=== PATIENT | male | born 1950 | race Caucasian/White ===

== ENCOUNTER 2022-06-23 07:22 | Inpatient (IN) | payer MEDICARE, SELFPAY ==
[2022-06-23] VITALS (15 sets, daily range): BP systolic 96–202; BP diastolic 38–134; PULSE 75–90; RESP 13–18; TEMP 36.4–36.8; O2SAT 95–99; BMI 32.3
--- NOTE | ~2022-06-23 | CT_ITS ---
EXAMINATION: CT HEAD WITHOUT CONTRAST CLINICAL INFORMATION: Pain after falling COMPARISON: None TECHNIQUE: Contiguous axial imaging was performed from the skull base to vertex without intravenous administration of contrast. This CT examination was performed using dose optimization techniques as appropriate, variously including the following: *Automated exposure control *Adjustment of mA and/or kV according to patient size (this includes techniques or standardized protocols for targeted exams where dose is matched to indication/reason for exam; i.e. extremities or head) *Use of iterative reconstruction technique DLP: 752 mGy-cm FINDINGS: No intra or extra-axial fluid collection or hemorrhage, mass or mass effect. Sulci and ventricles are within normal limits. Punctate calcifications in the basal ganglia noted. Calvarium intact. Lobular mucoperiosteal thickening observed within the sphenoid sinus. CT/CT head/brain wo IV con IMPRESSION: No acute intracranial pathology.
--- NOTE | ~2022-06-23 | CT_ITS ---
EXAMINATION: CT CERVICAL SPINE WITHOUT CONTRAST CLINICAL INFORMATION: Pain after falling emergency evaluation COMPARISON: None TECHNIQUE: Thin section axial imaging with sagittal and coronal reformats. This CT examination was performed using dose optimization techniques as appropriate, variously including the following: *Automated exposure control *Adjustment of mA and/or kV according to patient size (this includes techniques or standardized protocols for targeted exams where dose is matched to indication/reason for exam; i.e. extremities or head) *Use of iterative reconstruction technique DLP: 470 mGy-cm FINDINGS: There is advanced degenerative change noted C6-C7 with anterior spurring but no fracture or destructive process. No encroachment on the spinal canal. CT/CT cervical spine wo IV con IMPRESSION: Degenerative change noted. No fracture.
--- NOTE | 2022-06-23 08:44 | ECG_ITS ---
Test Reason : fall Blood Pressure : / mmHG Vent. Rate : 082 BPM Atrial Rate : 082 BPM P-R Int : 182 ms QRS Dur : 088 ms QT Int : 386 ms P-R-T Axes : -29 053 151 degrees QTc Int : 450 ms Atrial-paced rhythm ST & T wave abnormality, consider anterolateral ischemia Abnormal ECG No previous ECGs available Referred By: Filiberto Larry Electronically Signed By:Louis Meade
[2022-06-23] MEDS: 0.9 % Sodium Chloride 500 ML 999 ML IV (09:18)
[2022-06-23 09:19] LABS: MANUAL DIFF FLAG NO
[2022-06-23 09:21] LABS: Basophils Absolute Auto 0.1 X10*3/uL (0.0-0.2); Basophils Percent Auto 0.7 % (0-2); Eosinophils Absolute Auto 0.4 X10*3/uL (0.0-0.4); Eosinophils Percent Auto 3.9 % (0-4); Hematocrit 43.3 % (42.0-52.0); Hemoglobin 16.1 g/dl (14.0-18.0); Imm Gran Abs Auto 0.02 X10*3/uL (0.00-0.03); Imm Gran Pct Auto 0.2 % (0.0-0.4); Lymphocytes Absolute Auto 1.6 X10*3/uL (1.2-4.9); Lymphocytes Percent Auto 16.4 % (20-40); Mean Corpuscular HGB Conc 37.2 g/dl (31.0-36.0); Mean Corpuscular Hemoglobin 31.6 pg (27.0-33.0); Mean Corpuscular Volume 85.1 fL (80.0-98.0); Mean Platelet Volume 10.5 fL (9.4-12.4); Monocytes Absolute Auto 0.7 X10*3/uL (0.1-1.2); Neutrophils Absolute Auto 7.1 x10*3/uL (2.0-8.3); Neutrophils Percent Auto 71.8 % (45-73); Platelet Count 193 X10*3/uL (160-400); Red Blood Count 5.09 X10*6/uL (4.60-5.80); Red Cell Distribution Width 11.8 % (11.0-16.0); White Blood Count 9.9 X10*3/uL (4.8-10.8)
[2022-06-23 09:27] LABS: Prothrombin Time 11.1 SEC (10.0-13.1)
[2022-06-23 09:58] LABS: Influenza A PCR NEGATIVE (Negative); Influenza B PCR NEGATIVE (Negative); Resp Syncy Virus RNA Qual PCR NEGATIVE (Negative); SARS COV2 PCR INHOUSE NEGATIVE (Negative)
[2022-06-23 11:04] LABS: Alanine Aminotransferase 20 U/L (0-40); Albumin Level 4.2 g/dL (3.5-5.0); Alkaline Phosphatase 86 U/L (39-117); Anion Gap 12 (12-20); Aspartate Amino Transferase 20 U/L (5-37); Blood Urea Nitrogen 27 mg/dL (9-16); Calcium 9.2 mg/dL (8.4-10.2); Carbon Dioxide 34 mmol/L (22-29); Chloride 100 mmol/L (96-108); Creatinine Clr Calc Pharmacy 57.9; Estimated Glomerular Filt Rate 45; Glucose Random 159 mg/dL (60-115); Sodium 143 mmol/L (135-145); Total Protein 7.2 g/dL (6.5-8.0)
--- NOTE | 2022-06-23 11:09 | ED.GENADULT ---
HPI - General Adult General Chief complaint: Fall Stated complaint: WEAK,DIZZY FALL FROM TOILET,HIT HEAD,REFUSED C-COL Time Seen by Provider: 06/23/22 08:26 Source: patient Mode of arrival: ambulatory Limitations: no limitations History of Present Illness HPI narrative: 72-year-old male with past medical history of hypertension and diabetes presents to ED for fall/syncopal episodes. Patient states was using the bathroom got up and fell to the ground and lost consciousness. Patient on any blood thinners. Patient states he was seen at [facility] twice for same issue in the past week and was diagnosed with orthostatic hypotension. Patient states he is eating and drinking. Patient states she has follow-up with Cardiology Dr. Savage. Patient presently asymptomatic. Patient denies having any dizziness, chest pain, shortness of breath, abdominal pain before falling passing out. Related Data Home Medications Medication Instructions Recorded Confirmed acetaminophen 325 mg tablet 650 mg PO Q6H PRN Pain 06/23/22 06/23/22 (Tylenol) albuterol sulfate 90 mcg/actuation 2 puff inhalation Q4H PRN Wheezing 06/23/22 06/23/22 aerosol inhaler aspirin 81 mg tablet,delayed 81 mg PO DAILY 06/23/22 06/23/22 release fludrocortisone 0.1 mg tablet 1 tab PO BID 06/23/22 06/23/22 fluticasone 100 mcg-salmeterol 50 1 ea inhalation BID 06/23/22 06/23/22 mcg/dose blistr powdr for inhalation (Advair Diskus) gabapentin 100 mg capsule 2 cap PO BEDTIME 06/23/22 06/23/22 glipizide 10 mg tablet 1 tab PO DAILY 06/23/22 06/23/22 ibuprofen 200 mg tablet 400 mg PO Q8H PRN Pain 06/23/22 06/23/22 losartan 50 mg tablet 50 mg PO BEDTIME 06/23/22 06/23/22 midodrine 2.5 mg tablet 1 tab PO TID@0800,1200,1600 06/23/22 06/23/22 polyethylene glycol 3350 17 gram 17 g PO DAILY 06/23/22 06/23/22 oral powder packet (Miralax) rosuvastatin 20 mg tablet 1 tab PO BEDTIME 06/23/22 06/23/22 Allergies Allergy/AdvReac Type Severity Reaction Status Date / Time amlodipine AdvReac Cough Verified 06/23/22 08:44 Review of Systems Review of Systems: Syncope/fall Yes all other systems are reviewed and are negative [facility] Past Medical History Medical History (Updated 06/23/22 @ 17:52 by BRADLEY Lau) BPH (benign prostatic hyperplasia) Chronic back pain COPD (chronic obstructive pulmonary disease) Diabetes mellitus type 2 in nonobese Hyperlipidemia Hypertension Orthostatic hypotension Pacemaker Sciatica Vasovagal syncope Surgical History (Updated 06/23/22 @ 16:01 by Meredith Torres NP) History of total left hip replacement S/P placement of cardiac pacemaker S/P surgery on nasal septum Family History Family History (Updated 06/23/22 @ 16:02 by Meredith Torres NP) Father Pacemaker Social History Social History (Updated 06/23/22 @ 16:02 by Meredith Torres NP) Household Members: Spouse Alcohol intake: former Patient Tobacco Use Status: Former Tobacco user Cigarette Packs Per Day: 2 Years Smoked: 15 Packs Per Year: 30 Smoked in Last 30 Days: No Use of substances other than those prescribed or required for medical reasons: No Advance Directives: Yes Advance Directives Information Provided: Yes Advance Directives on File: No Physical Exam ED Vital Signs: Vital Signs - 24 hr 06/23/22 07:34 06/23/22 09:50 06/23/22 10:04 Temperature 97.6 F Pulse Rate 81 78 84 Respiratory Rate 16 16 Blood Pressure 149/83 H 186/89 H 140/109 H Pulse Oximetry 96 95 Oxygen Delivery Method Room Air Room Air 06/23/22 09:51 06/23/22 09:54 06/23/22 12:32 Temperature Pulse Rate 81 84 75 Respiratory Rate 13 Blood Pressure 138/76 140/109 H 190/102 H Pulse Oximetry 99 Oxygen Delivery Method Room Air 06/23/22 14:52 06/23/22 14:53 06/23/22 14:55 Temperature Pulse Rate 78 75 78 Respiratory Rate Blood Pressure 202/98 H 157/87 H 96/38 L Pulse Oximetry Oxygen Delivery Method BMI result Body Mass Index 32.3 Const General: cooperative, healthy appearing, comfortable, no acute distress, well developed, alert and awake Orientation/consciousness: oriented to person, oriented to place, oriented to time and patient oriented x3 HENMT Head: Yes normal to inspection, Yes No palpable skull fracture present, Yes normocephalic, Yes atraumatic and No abrasion Eyes General: appearance normal, both eyes and all related structures Neck Neck: Yes normal visual inspection, Yes full ROM, Yes no lymphadenopathy, Yes no meningeal signs, Yes trachea midline, Yes supple, No anterior neck swelling and No tender Chest Chest palpation & inspection: normal inspection of the chest and normal palpation of entire chest wall Resp Effort & Inspection: normal respiratory effort and able to speak in complete sentences Auscultation: clear to auscultation bilaterally Cardio Jugular venous distension: no JVD Heart sounds: S1 normal heart sound present and S2 normal heart sound present GI Inspection: Yes normal to inspection and No abdominal wall ecchymosis Palpation (GI): Soft to palpation, not firm, nontender, no guarding and not rigid General: No CVA tenderness and Yes no CVA tenderness Back/Spine/Pelvis Back: no CVA tenderness, No CVA tenderness and No back tenderness Skin General skin exam: no rashes or lesions noted and elasticity normal Neuro General: oriented to person, oriented to place, oriented to time, patient oriented x3, gait normal, tone normal, no meningeal signs, no focal motor deficits and CN's II-XI intact bilaterally Extrem Other: Bilateral lower extremity negative for swelling, pitting edema, calf tenderness. General: Yes normal to inspection and Yes full ROM Psych Appearance: grossly normal, well kempt and not disheveled Course Course Course Narrative: EKG, labs, fluids, orthostatics vital signs, imaging of head ordered. Patient presently asymptomatic. does not feel safe for the patient being discharged home due to multiple episodes of syncope. Reevaluation(s) Reevaluation #1: Patient positive orthostatic, ALCIDES, and hypokalemia. Patient denies taking blood pressure this morning which cause elevated blood pressure. Negative for any neuro deficits. Patient already on midodrine. Must speak with hospitalist for admission for syncope. Pat King notes were reviewed. Time: 14:28 Reevaluation #2: Patient accepted for admission for syncope due to orthostatic hypertension. EKG atrial paced rhythm. Ventricular rate 82. Peer interval 182. QRS 88. QTC 450. Negative STEMI Time: 17:51 Medications Administered Generic Name Dose Route Start Last Admin Trade Name Freq PRN Reason Stop Dose Admin Heparin Sodium (Porcine) 5,000 unit 06/23/22 16:30 06/23/22 16:31 Heparin Sodium,Porcine 5,000 Unit/Ml Vial SUBCUT 5,000 unit Q12H TASIA Administration Sodium Chloride 1,000 mls @ 100 mls/hr 06/23/22 16:30 06/23/22 16:32 Ns IVCONT 100 mls/hr .Q10H TASIA Administration Discontinued Medications Generic Name Dose Route Start Last Admin Trade Name Freq PRN Reason Stop Dose Admin Sodium Chloride 500 mls @ 999 mls/hr 06/23/22 08:45 06/23/22 12:38 Ns IV 06/23/22 09:15 Infused .Q31M TASIA Infusion Sodium Chloride 1,000 mls @ 999 mls/hr 06/23/22 11:08 06/23/22 12:38 Ns IV 06/23/22 12:08 Infused .Q1H1M STA Infusion Potassium Chloride 40 meq 06/23/22 12:31 06/23/22 12:43 Potassium Chloride Packet 20 Meq Packet PO 06/23/22 12:32 40 meq ONCE ONE Administration Potassium Chloride 40 meq 06/23/22 12:33 06/23/22 12:43 Potassium Chloride Packet 20 Meq Packet PO 06/23/22 12:34 40 meq ONCE ONE Administration Medical Decision Making Lab Data Result Diagrams: 06/23/22 09:12 06/23/22 10:02 Labs: Lab Results 06/23/22 06/23/22 06/23/22 Range/Units 09:12 09:12 09:12 WBC 9.9 (4.8-10.8) X10*3/uL RBC 5.09 (4.60-5.80) X10*6/uL Hgb 16.1 (14.0-18.0) g/dl Hct 43.3 (42.0-52.0) % MCV 85.1 (80.0-98.0) fL MCH 31.6 (27.0-33.0) pg MCHC 37.2 H (31.0-36.0) g/dl RDW 11.8 (11.0-16.0) % Plt Count 193 (160-400) X10*3/uL MPV 10.5 (9.4-12.4) fL Immature Gran % (Auto) 0.2 (0.0-0.4) % Neut % (Auto) 71.8 (45-73) % Lymph % (Auto) 16.4 L (20-40) % Phelps % (Auto) 7.0 (2-11) % Eos % (Auto) 3.9 (0-4) % Baso % (Auto) 0.7 (0-2) % Lymph # (Auto) 1.6 (1.2-4.9) X10*3/uL Phelps # (Auto) 0.7 (0.1-1.2) X10*3/uL Eos # (Auto) 0.4 (0.0-0.4) X10*3/uL Baso # (Auto) 0.1 (0.0-0.2) X10*3/uL Abs Immat Gran (auto) 0.02 (0.00-0.03) X10*3/uL Absolute Neuts (auto) 7.1 (2.0-8.3) x10*3/uL Absolute Nucleated RBC 0.000 (0.0-0.012) X10*3/uL Nucleated RBC % (auto) 0.0 (0.0-0.2) /100WBC PT 11.1 (10.0-13.1) SEC INR 1.0 (0.9-1.1) APTT 30.0 (26.0-36.4) SEC Sodium (135-145) mmol/L Potassium (3.3-5.1) mmol/L Chloride (96-108) mmol/L Carbon Dioxide (22-29) mmol/L Anion Gap (12-20) BUN (9-16) mg/dL Creatinine (0.5-1.4) mg/dL Estim Creat Clear Calc Estimated GFR Random Glucose (60-115) mg/dL Calcium (8.4-10.2) mg/dL Total Bilirubin (0.0-1.0) mg/dL AST (5-37) U/L ALT (0-40) U/L Alkaline Phosphatase (39-117) U/L Troponin I High Sens 39.8 H (<3.5-35.0) ng/L Total Protein (6.5-8.0) g/dL Albumin (3.5-5.0) g/dL Influenza Type A (PCR) (Negative) Influenza Type B (PCR) (Negative) RSV RNA Qual (PCR) (Negative) SARS-CoV-2 RNA (RT-PCR) (Negative) 06/23/22 06/23/22 06/23/22 Range/Units 09:12 10:02 12:42 WBC (4.8-10.8) X10*3/uL RBC (4.60-5.80) X10*6/uL Hgb (14.0-18.0) g/dl Hct (42.0-52.0) % MCV (80.0-98.0) fL MCH (27.0-33.0) pg MCHC (31.0-36.0) g/dl RDW (11.0-16.0) % Plt Count (160-400) X10*3/uL MPV (9.4-12.4) fL Immature Gran % (Auto) (0.0-0.4) % Neut % (Auto) (45-73) % Lymph % (Auto) (20-40) % Phelps % (Auto) (2-11) % Eos % (Auto) (0-4) % Baso % (Auto) (0-2) % Lymph # (Auto) (1.2-4.9) X10*3/uL Phelps # (Auto) (0.1-1.2) X10*3/uL Eos # (Auto) (0.0-0.4) X10*3/uL Baso # (Auto) (0.0-0.2) X10*3/uL Abs Immat Gran (auto) (0.00-0.03) X10*3/uL Absolute Neuts (auto) (2.0-8.3) x10*3/uL Absolute Nucleated RBC (0.0-0.012) X10*3/uL Nucleated RBC % (auto) (0.0-0.2) /100WBC PT (10.0-13.1) SEC INR (0.9-1.1) APTT (26.0-36.4) SEC Sodium 143 (135-145) mmol/L Potassium 3.0 L (3.3-5.1) mmol/L Chloride 100 (96-108) mmol/L Carbon Dioxide 34 H (22-29) mmol/L Anion Gap 12 (12-20) BUN 27 H (9-16) mg/dL Creatinine 1.55 H (0.5-1.4) mg/dL Estim Creat Clear Calc 57.9 Estimated GFR 45 Random Glucose 159 H (60-115) mg/dL Calcium 9.2 (8.4-10.2) mg/dL Total Bilirubin 1.0 (0.0-1.0) mg/dL AST 20 (5-37) U/L ALT 20 (0-40) U/L Alkaline Phosphatase 86 (39-117) U/L Troponin I High Sens 39.8 H (<3.5-35.0) ng/L Total Protein 7.2 (6.5-8.0) g/dL Albumin 4.2 (3.5-5.0) g/dL Influenza Type A (PCR) NEGATIVE (Negative) Influenza Type B (PCR) NEGATIVE (Negative) RSV RNA Qual (PCR) NEGATIVE (Negative) SARS-CoV-2 RNA (RT-PCR) NEGATIVE (Negative) Discharge Plan Discharge Clinical Impression: Orthostatic hypotension, Syncope Patient Disposition: Admitted As Inpatient
[2022-06-23 11:25] LABS: Troponin-I High Sensitivity 39.8 ng/L (<3.5-35.0)
[2022-06-23] MEDS: 0.9 % Sodium Chloride 1,000 ML 999 ML IV (11:29)
[2022-06-23] MEDS: Potassium Chloride Packet 20 MEQ PACKET 40 MEQ PO ×2 (12:43)
[2022-06-23 13:31] LABS: Troponin-I High Sensitivity 39.8 ng/L (<3.5-35.0)
--- NOTE | 2022-06-23 15:52 | PHA.MEDREC ---
Pharmacy Consult ? Medication Reconciliation Pharmacy has completed the medication reconciliation. Patient and Spouse confirmed medications. Had a list with them.
--- NOTE | 2022-06-23 15:57 | PM.IMHP ---
History of Present Illness Date of Service: 06/23/22 <Meredith Torres NP - Last Filed: 06/23/22 16:34> Chief Complaint: Syncope <Meredith Torres NP - Last Filed: 06/23/22 16:34> 72 year old man presenting with multiple episodes of syncope and orthostatic hypotension. His symptoms started sometime in November of 2021 where he started feeling dizzy. He reports these episodes happening while he is walking, they are sudden there is no prodrome and he just collapses and loses consciousness for seconds. When he awakes from these episodes he is not groggy or confused. He reports that he waits few minutes to get himself back up. He reports he has not had any trauma from the falls. He reports that the episodes have been more frequent and as a matter fact over the last 7-10 days he has had at least 3 episodes of syncope and collapse. He has been treated for orthostatic hypotension by his public services librarian and he had a referral for a bioprocess engineer upcoming. 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 He was last seen at [facility] on 06/16/2022 for the same symptoms and appears that he was discharged from the emergency department. He denies chest pain, shortness breath, nausea, vomiting, diarrhea. No recent illness, no sick contacts. In the ER, he was found to be significantly orthostatic with blood pressures of 202/98, 157/87,96/38. Potassium 3.0, creatinine 1.55 with history of chronic kidney disease, troponin 39.8, negative flu and COVID. He received 1500 mL of normal saline and 80 mEq of potassium. We placed on observation for further management and treatment of syncope and orthostatic hypotension. <Meredith Torres NP - Last Filed: 06/23/22 16:34> Review of Systems Review of Systems: Denies any recent fever chills or decrease in appetite respiratory denies any shortness of breath coverage production cardiovascular denies chest pain gastrointestinal denies any dysphagia abdominal pain nausea vomiting or diarrhea genitourinary denies any dysuria frequency or hematuria musculoskeletal denies any joint pain or swelling neuropsych denies any weakness or seizures all other systems reviewed are negative <Meredith Torres NP - Last Filed: 06/23/22 16:34> [facility] Medical History: Medical History (Updated 06/23/22 @ 17:52 by BRADLEY Lau) BPH (benign prostatic hyperplasia) Chronic back pain COPD (chronic obstructive pulmonary disease) Diabetes mellitus type 2 in nonobese Hyperlipidemia Hypertension Orthostatic hypotension Pacemaker Sciatica Vasovagal syncope <Meredith Torres NP - Last Filed: 06/23/22 16:34> Family History: Family History (Updated 06/23/22 @ 16:02 by Meredith Torres NP) Father Pacemaker <Meredith Torres NP - Last Filed: 06/23/22 16:34> Surgical History: Surgical History (Updated 06/23/22 @ 16:01 by Meredith Torres NP) History of total left hip replacement S/P placement of cardiac pacemaker S/P surgery on nasal septum <Meredith Torres NP - Last Filed: 06/23/22 16:34> Social History: Social History (Updated 06/23/22 @ 16:02 by Meredith Torres NP) Household Members: Spouse Alcohol intake: former Patient Tobacco Use Status: Former Tobacco user Cigarette Packs Per Day: 2 Years Smoked: 15 Packs Per Year: 30 Smoked in Last 30 Days: No Use of substances other than those prescribed or required for medical reasons: No Advance Directives: Yes Advance Directives Information Provided: Yes Advance Directives on File: No <Meredith Torres NP - Last Filed: 06/23/22 16:34> Meds Allergies/Adverse reactions: Allergies Allergy/AdvReac Type Severity Reaction Status Date / Time amlodipine AdvReac Cough Verified 06/23/22 08:44 <Meredith Torres NP - Last Filed: 06/23/22 16:34> Active Medications: Current Medications Pharmacy Consult (Consult Rx Perform Med Rec) 1 each MISCELLANE ONCE PRN PRN Reason: Consult order <Meredith Torres NP - Last Filed: 06/23/22 16:34> Home medications: Home Medications Medication Instructions Recorded Confirmed Last Taken Type acetaminophen 325 mg tablet 650 mg PO Q6H PRN Pain 06/23/22 06/23/22 Unknown History (Tylenol) albuterol sulfate 90 mcg/actuation 2 puff inhalation Q4H PRN Wheezing 06/23/22 06/23/22 Unknown History aerosol inhaler aspirin 81 mg tablet,delayed 81 mg PO DAILY 06/23/22 06/23/2222 History release fludrocortisone 0.1 mg tablet 1 tab PO BID 06/23/22 06/23/22 06/22/22 History fluticasone 100 mcg-salmeterol 50 1 ea inhalation BID 06/23/22 06/23/22 06/22/22 History mcg/dose blistr powdr for inhalation (Advair Diskus) gabapentin 100 mg capsule 2 cap PO BEDTIME 06/23/22 06/23/22 06/22/22 History glipizide 10 mg tablet 1 tab PO DAILY 06/23/22 06/23/22 06/22/22 History ibuprofen 200 mg tablet 400 mg PO Q8H PRN Pain 06/23/22 06/23/22 Unknown History losartan 50 mg tablet 50 mg PO BEDTIME 06/23/22 06/23/22 06/22/22 History midodrine 2.5 mg tablet 1 tab PO TID@0800,1200,1600 06/23/22 06/23/22 06/22/22 History polyethylene glycol 3350 17 gram 17 g PO DAILY 06/23/22 06/23/22 06/22/22 History oral powder packet (Miralax) rosuvastatin 20 mg tablet 1 tab PO BEDTIME 06/23/22 06/23/22 06/22/22 History <Meredith Torres NP - Last Filed: 06/23/22 16:34> Physical Exam Vital Signs and Narrative: Vital Signs: Last Vital Signs Temp 97.6 F 06/23/22 07:34 Pulse 78 06/23/22 14:55 Resp 13 06/23/22 12:32 BP 96/38 L 06/23/22 14:55 Pulse Ox 99 06/23/22 12:32 O2 Del Method 06/23/22 12:32 BMI result Body Mass Index 32.3 <Meredith Torres NP - Last Filed: 06/23/22 16:34> Appearing in no acute distress head is normocephalic atraumatic eyes pupils are PERRLA sclera is anicteric mouth throat mucous membranes are intact and moist neck is supple no lymphadenopathy, no JVD noted lung sounds are clear to auscultation heart regular rate rhythm, clear S1, S2 positive bowel sounds, abdomen is soft, nontender neuro patient is alert x3, no focal deficits <Meredith Torres NP - Last Filed: 06/23/22 16:34> Results Labs CBC and Chem 7: : 06/23/22 09:12 06/23/22 10:02 <Meredith Torres NP - Last Filed: 06/23/22 16:34> Labs: Laboratory Results - last 24 hr 06/23/22 06/23/22 06/23/22 09:12 09:12 09:12 MCV 85.1 MCH 31.6 MCHC 37.2 H RDW 11.8 Plt Count 193 MPV 10.5 Immature Gran % (Auto) 0.2 Neut % (Auto) 71.8 Lymph % (Auto) 16.4 L [place] % (Auto) 7.0 Eos % (Auto) 3.9 Baso % (Auto) 0.7 Lymph # (Auto) 1.6 [place] # (Auto) 0.7 Eos # (Auto) 0.4 Baso # (Auto) 0.1 Abs Immat Gran (auto) 0.02 Absolute Neuts (auto) 7.1 Absolute Nucleated RBC 0.000 Nucleated RBC % (auto) 0.0 PT 11.1 INR 1.0 APTT 30.0 Anion Gap Estim Creat Clear Calc Estimated GFR Random Glucose Calcium Total Bilirubin AST ALT Alkaline Phosphatase Troponin I High Sens 39.8 H Total Protein Albumin Influenza Type A (PCR) Influenza Type B (PCR) RSV RNA Qual (PCR) SARS-CoV-2 RNA (RT-PCR) 06/23/22 06/23/22 06/23/22 09:12 10:02 12:42 MCV MCH MCHC RDW Plt Count MPV Immature Gran % (Auto) Neut % (Auto) Lymph % (Auto) [place] % (Auto) Eos % (Auto) Baso % (Auto) Lymph # (Auto) [place] # (Auto) Eos # (Auto) Baso # (Auto) Abs Immat Gran (auto) Absolute Neuts (auto) Absolute Nucleated RBC Nucleated RBC % (auto) PT INR APTT Anion Gap 12 Estim Creat Clear Calc 57.9 Estimated GFR 45 Random Glucose 159 H Calcium 9.2 Total Bilirubin 1.0 AST 20 ALT 20 Alkaline Phosphatase 86 Troponin I High Sens 39.8 H Total Protein 7.2 Albumin 4.2 Influenza Type A (PCR) NEGATIVE Influenza Type B (PCR) NEGATIVE RSV RNA Qual (PCR) NEGATIVE SARS-CoV-2 RNA (RT-PCR) NEGATIVE <Meredith Torres NP - Last Filed: 06/23/22 16:34> Imaging Radiologist's Impressions: Impressions Cervical Spine CT 06/23/22 09:45 IMPRESSION: Degenerative change noted. No fracture. Head CT 06/23/22 09:45 IMPRESSION: No acute intracranial pathology. <Meredith Torres NP - Last Filed: 06/23/22 16:34> Assessment and Plan (1) Orthostatic hypotension: Status: Acute <Meredith Torres NP - Last Filed: 06/23/22 16:34> 72 year old man placed on observation with orthostatic hypotension and syncope Orthostatic hypotension with episodes of syncope Ongoing episodes since November 2021, no definitive diagnosis at this point Will monitor on telemetry Echocardiogram Carotid Doppler Cardiology consultation, may need pacemaker interrogation Nephrology consultation Check orthostatics daily Continue IV fluids Continue fludrocortisone Hypertension Will hold losartan for now Diabetes mellitus type 2 Sliding scale, ADA diet Chronic kidney disease stage III Mildly elevated today, 1.55 Last visit to [facility] on 06/16/2022 showed creatinine of 1.4 Avoid nephrotoxins, Nephrology consultation Hyperlipidemia Continue aspirin and Statin DVT prophylaxis with heparin Attending Dr. Foley Full code <Meredith Torres NP - Last Filed: 06/23/22 16:34> 72 year old man placed on observation with orthostatic hypotension and syncope Orthostatic hypotension with episodes of syncope Ongoing episodes since November 2021, no definitive diagnosis at this point Will monitor on telemetry Echocardiogram Carotid Doppler Cardiology consultation, may need pacemaker interrogation Nephrology consultation Check orthostatics daily Continue IV fluids Continue fludrocortisone Hypertension Will hold losartan for now Diabetes mellitus type 2 Sliding scale, ADA diet Chronic kidney disease stage III Mildly elevated today, 1.55 Last visit to [facility] on 06/16/2022 showed creatinine of 1.4 Avoid nephrotoxins, Nephrology consultation Hyperlipidemia Continue aspirin and Statin DVT prophylaxis with heparin Attending Dr. Foley Full code Addendum to history and physical by mid-level provider, BRADLEY Briscoe. I interviewed and examined the patient. I discussed their presentation and management with the mid-level provider. I reviewed the history and physical and agree with the documentation, with the following additions and corrections: 72yo M with syncope from orthostatic hypotension dating back to November with crescendo episodes since 05/25/22. On fludrocortisone and recently started on midodrine by his public services librarian, Dr Nestor Coreas. Has been referred to Cardiology here. Found to have significant orthostasis with BP 202/98->96/38 as well as hypoK [K 3]. Tn-I 39.8 but SCr 1.55 [has CKD]. Plan admit to telemetry, consult Cardiology + Nephrology, continue fludrocortisone, increase midodrine. Hold losartan for now. <Lillian Foley MD - Last Filed: 06/23/22 19:35> Time Spent With Patient Time: Total time managing care of this patient today ____ minutes. <Meredith Torres NP - Last Filed: 06/23/22 16:34> Quality Stroke Does the patient have a stroke diagnosis?: No <Meredith Torres NP - Last Filed: 06/23/22 16:34> VTE Prior VTE?: No <Meredith Torres NP - Last Filed: 06/23/22 16:34> VTE Risk Level:: Medical - moderate - high <Meredith Torres NP - Last Filed: 06/23/22 16:34> VTE Device Contraindication: Treatment Not Indicated <Meredith Torres NP - Last Filed: 06/23/22 16:34> VTE Drug Contraindication: N/A - Med Ordered <Meredith Torres NP - Last Filed: 06/23/22 16:34>
[2022-06-23] MEDS: Heparin Sodium,Porcine 5,000 UNIT/ML VIAL 5000 UNIT SUBCUT (16:31)
[2022-06-23] MEDS: 0.9 % Sodium Chloride 1,000 ML 100 ML IVCONT (16:32)
--- NOTE | 2022-06-23 19:20 | PC.NURSE ---
Assisted PT to BR via w/c.
--- NOTE | 2022-06-23 19:21 | PC.NURSE ---
This administrative underwriter assumed care of this PT at 1900.
--- NOTE | 2022-06-23 19:45 | PC.NURSE ---
PT A&Ox4, denies any dizziness, CP, or headache.
[2022-06-23] MEDS: Gabapentin 100 MG CAPSULE 200 MG PO (21:37)
[2022-06-23] MEDS: Atorvastatin Calcium 80 MG TABLET PO (21:37)
[2022-06-23] MEDS: Fludrocortisone Acetate 0.1 MG TABLET PO (21:47)
[2022-06-23 22:26] LABS: Glucose, Whole Blood 187 mg/dL (60-115)
[2022-06-23] MEDS: Insulin Lispro 100 UNIT/ML 3 ML VIAL SUBCUT (22:26)
--- NOTE | 2022-06-23 23:37 | PC.NURSE ---
Addendum entered by Rachele Horner 06/24/22 00:41: PT reported feeling dizzy while getting back to bed from bathroom. PT sat on bed for a few minutes. Reports feeling better. Original Note: Assisted to BR via w/c.
--- NOTE | 2022-06-23 23:45 | MHC.EDTECH ---
pt uses the wheel chair to and from the bathroom
[2022-06-24] VITALS (18 sets, daily range): BP systolic 86–205; BP diastolic 48–110; PULSE 73–86; RESP 10–18; TEMP 36.7–36.9; O2SAT 95–98
--- NOTE | 2022-06-24 01:56 | MHC.EDTECH ---
pt is resting quietly , his urinal was emptied and his vitals were taken and a pitcher of water was given he is relax no other issues
[2022-06-24] MEDS: 0.9 % Sodium Chloride 1,000 ML 100 ML IVCONT ×2 (02:18→13:45)
--- NOTE | 2022-06-24 03:03 | PC.NURSE ---
Assisted PT to BR via w/c. Denies dizziness, or chest pain.
[2022-06-24] MEDS: Heparin Sodium,Porcine 5,000 UNIT/ML VIAL 5000 UNIT SUBCUT ×2 (05:26→15:58)
--- NOTE | 2022-06-24 05:38 | PC.NURSE ---
PT sleeping on and off, rings call phillip appropriate to use urinal at bedside. No apparent distress. Will continue to monitor.
--- NOTE | 2022-06-24 07:00 | CA_ITS ---
Transthoracic Echocardiogram Patient (Last, First, Middle): Nasir Olsen F Gender: Male Date of : 1950 Age: 72 Procedure Date: 06/24/2022 Procedure Type: Transthoracic Echocardiogram Location: ER Height: 185.42 cm Weight: 111.13 kg BSA: 2.35 m2 Heart Rate: 87 bpm BP: 213 / 106 mmHg Aviation Program Manager: ALFIE Referring MD: Meredith Torres NP Bottom Cager: Stephen Savage MD Symptoms: Syncope Study Quality: Adequate w contrast ECG Rhythm: Sinus Conclusions: - 1. Hyperdynamic LV systolic function with LVEF of greater than 70% with grade 1 diastolic dysfunction 2. Cardiac valvular Doppler within normal limits 3. Normal RV systolic pressure with low right atrial pressures Findings Procedure Information Contrast agent, definity, is being given per protocol without apparent complications. Left Ventricle Normal left ventricular cavity size. There is normal left ventricular wall thickness. The left ventricular systolic function is hyperdynamic. The visually estimated ejection fraction is >70%. Spectral Doppler is indicative of an impaired relaxation filling pattern. E/E prime ratio is <8, consistent with normal filling pressures. Evidence suggests grade I (mild) diastolic dysfunction. Right Ventricle Mildly increased right ventricular cavity size. There is mild to moderately decreased right ventricular systolic function. There is a pacemaker wire seen in the right ventricle. Atria Both atria are normal in size. Interatrial shunt cannot be excluded. A pacemaker wire is identified in the right atrium. Aortic Valve The aortic valve was not well visualized. There is no aortic valve stenosis. There is no aortic valve regurgitation. Mitral Valve The mitral valve was not well visualized. There is mild anterior mitral leaflet thickening. There is trace mitral valve regurgitation. There is no mitral valve stenosis. Pulmonic Valve The pulmonic valve was not well visualized. Tricuspid Valve Likely normal tricuspid valve structure and function. There is trace tricuspid valve regurgitation. The right ventricular systolic pressure is normal. The right ventricular systolic pressure is 26 mmHg. Low right atrial pressure. Great Vessels The aorta was not well visualized. The pulmonary artery was not well visualized. Venous The inferior vena cava is collapsed, consistent with reduced intravascular volume. Pericardium/Pleural The pericardium was not well visualized. Prior Study Comparison No prior study available for comparison. Measurements 2D Linear Measurements IVSd: 1.06 0.6-0.9/0.6-1.0 cm LVIDd: 4.72 3.9-5.3/4.2-5.9 cm LVIDd Index: 2.01 2.4-3.2/2.2-3.1 cm/m2 LVIDs: 2.95 2.0-3.6 cm LVPWd: 1.24 0.7-1.1 cm LA Diam: 3.30 2.7-3.8/3.0-4.0 cm LAIDs Index: 1.40 1.5-2.3 cm/m2 LV Mass: 250.43 67-162/88-224 g LV Mass Index: 106.56 43-95/49-115 g/m2 LVOT Diam: 2.40 3.0+(-)1.3 cm 2D Systolic Function EF 4C: 82.10 >55% EF 2C: 80.90 >55% EF BiP: 82.10 >55% Mitral Valve MV Pk E: 0.50 MV PK A: 0.84 MV Decel Time: 188.00 E/A: 0.60 E'Lateral: 6.74 E'Medial: 6.85 E/E' Med: 7.30 E/E' Lat: 7.40 PHT: 55.00 MVA PHT: 4.00 Decel [place]: 2.64 Aortic Valve AoV Pk Ramiro: 1.22 AoV Pk Grad: 6.00 BARB: 3.39 LVOT LVOT Pk Ramiro: 0.91 LVOT Mn Ramiro: 0.59 LVOT VTI: 0.20 LVOT Pk Grad: 3.00 LVOT Mn Grad: 2.00 LVOT Diam: 2.40 LVOT Area: 4.52 Diastolic Function MV Pk E: 0.50 MV Pk A: 0.84 E/A: 0.60 E'Medial: 6.85 E/E' Med: 7.30 E' Laterial: 6.74 E/E' Lat: 7.40 Right Ventricle TAPSE (mm): 14.20 TVS' Ramiro: 15.50 Tricuspid Valve TR Pk Ramiro: 2.14 TR Pk Grad: 18.00 RA Press: 8.00 RVSP: 26.00 Great Vessels Aorta Sinus of Valsalva: 3.30 2.0-3.5 cm Ao Asc: 3.60 2.1-3.4 cm Pulmonary Valve PV Pk Ramiro: 1.01 Peak PV Grad: 4.00 Updated in Other Vendor System with Status of Final Stephen Savage MD electronically signed on 06/24/2022 3:23:22 PM with status of Final
[2022-06-24 07:15] LABS: MANUAL DIFF FLAG NO
[2022-06-24 07:17] LABS: Basophils Absolute Auto 0.1 X10*3/uL (0.0-0.2); Basophils Percent Auto 0.7 % (0-2); Eosinophils Absolute Auto 0.4 X10*3/uL (0.0-0.4); Eosinophils Percent Auto 5.1 % (0-4); Hematocrit 38.9 % (42.0-52.0); Imm Gran Abs Auto 0.02 X10*3/uL (0.00-0.03); Imm Gran Pct Auto 0.3 % (0.0-0.4); Lymphocytes Absolute Auto 1.5 X10*3/uL (1.2-4.9); Lymphocytes Percent Auto 21.9 % (20-40); Mean Corpuscular Hemoglobin 31.4 pg (27.0-33.0); Mean Corpuscular Volume 87.2 fL (80.0-98.0); Mean Platelet Volume 10.9 fL (9.4-12.4); Monocytes Absolute Auto 0.6 X10*3/uL (0.1-1.2); Monocytes Percent Auto 7.8 % (2-11); Neutrophils Absolute Auto 4.5 x10*3/uL (2.0-8.3); Neutrophils Percent Auto 64.2 % (45-73); Platelet Count 171 X10*3/uL (160-400); Red Blood Count 4.46 X10*6/uL (4.60-5.80); Red Cell Distribution Width 11.9 % (11.0-16.0)
[2022-06-24 07:17] LABS: Glucose, Whole Blood 143 mg/dL (60-115)
[2022-06-24 07:42] LABS: Calcium 8.6 mg/dL (8.4-10.2)
[2022-06-24 07:43] LABS: Anion Gap 12 (12-20); Blood Urea Nitrogen 19 mg/dL (9-16); Carbon Dioxide 30 mmol/L (22-29); Chloride 105 mmol/L (96-108); Estimated Glomerular Filt Rate 54; Glucose Random 147 mg/dL (60-115); Potassium 2.8 mmol/L (3.3-5.1); Sodium 144 mmol/L (135-145)
[2022-06-24] MEDS: Aspirin Enteric Coated 81 MG TABLET.DR PO (07:44)
[2022-06-24] MEDS: polyethylene glycoL 3350 17 GM POWD.PACK PO (07:45)
--- NOTE | 2022-06-24 08:00 | PC.NURSE ---
pt is a/o x 4 no sob/lj noted speaks in full sentences. lungs slightly diminished all lobes. heart sound - regular. abd soft and non-tender no edema noted. pt is htn at this time midodrine med sharyn, vicky (christian) aware.
[2022-06-24] MEDS: 0.9 % Sodium Chloride Flush 3 ML SYRINGE IVFLUSH (08:06)
--- NOTE | 2022-06-24 08:15 | PC.NURSE ---
Pt was assisted with stand by assist to the BR with a wheelchair and had a large BM. Pt denies any dizziness or lightheadedness. Pt was returned to his bed. No distress noted.
--- NOTE | 2022-06-24 09:08 | PM.CNNEP ---
History of Present Illness Reason for Consult Consult date: 06/24/22 Chief Complaint Chief complaint: syncope Review of Systems Review of Systems Yes all other systems are reviewed and are negative [facility] Past Medical History Medical History (Updated 06/24/22 @ 09:10 by Linwood Isaac MD) BPH (benign prostatic hyperplasia) Chronic back pain COPD (chronic obstructive pulmonary disease) Diabetes mellitus type 2 in nonobese Hyperlipidemia Hypertension Orthostatic hypotension Pacemaker Sciatica Vasovagal syncope Family History Family History (Updated 06/23/22 @ 16:02 by Meredith Torres NP) Father Pacemaker Surgical History Surgical History (Updated 06/23/22 @ 16:01 by Meredith Torres NP) History of total left hip replacement S/P placement of cardiac pacemaker S/P surgery on nasal septum Social History Social History (Updated 06/23/22 @ 16:02 by Meredith Torres NP) Household Members: Spouse Alcohol intake: former Patient Tobacco Use Status: Former Tobacco user Cigarette Packs Per Day: 2 Years Smoked: 15 Packs Per Year: 30 Smoked in Last 30 Days: No Use of substances other than those prescribed or required for medical reasons: No Advance Directives: Yes Advance Directives Information Provided: Yes Advance Directives on File: No Meds Allergies Allergy/AdvReac Type Severity Reaction Status Date / Time amlodipine AdvReac Cough Verified 06/23/22 08:44 Active Medications: Current Medications Acetaminophen (Acetaminophen 325 Mg Tablet) 650 mg PO Q6H PRN PRN Reason: Pain, Mild (Pain Scale 1-3) Albuterol Sulfate (Albuterol Sulfate 90 Mcg 8 Gm Inhaler) 2 puff INHALE Q4H PRN PRN Reason: Wheezing Aspirin (Aspirin Enteric Coated 81 Mg Tablet.) 81 mg PO DAILY [facility] Last Admin: 06/24/22 07:44 Dose: 81 mg Atorvastatin Calcium (Atorvastatin Calcium 80 Mg Tablet) 80 mg PO BEDTIME [facility] Last Admin: 06/23/22 21:37 Dose: 80 mg Dextrose (Dextrose 50 % 25 Gm/50 Ml Syringe) 25 gm IVPUSH Q15M PRN; Protocol PRN Reason: per Hypoglycemia Standing Ord. Fludrocortisone Acetate (Fludrocortisone Acetate 0.1 Mg Tablet) 0.1 mg PO BID [facility] Last Admin: 06/23/22 21:47 Dose: 0.1 mg Fluticasone/Vilanterol (Fluticasone/Vilanterol 100/25 Blst.W.Dev) 1 puff INHALE RDAILY [facility] Gabapentin (Gabapentin 100 Mg Capsule) 200 mg PO BEDTIME [facility] Last Admin: 06/23/22 21:37 Dose: 200 mg Glucose (Glucose Gel 15 Gm Gel..Gram.) 15 gm PO Q15M PRN; Protocol PRN Reason: per Hypoglycemia Standing Ord. Heparin Sodium (Porcine) (Heparin Sodium,Porcine 5,000 Unit/Ml Vial) 5,000 unit SUBCUT Q12H [facility] Last Admin: 06/24/22 05:26 Dose: 5,000 unit Sodium Chloride (Ns) 1,000 mls @ 100 mls/hr IVCONT .Q10H [facility] Last Admin: 06/24/22 02:18 Dose: 100 mls/hr Insulin Human Lispro (Insulin Lispro 100 Unit/Ml 3 Ml Vial) 0 unit SUBCUT QIDACHS [facility]; Protocol Last Admin: 06/24/22 07:45 Dose: Not Given Midodrine (Midodrine Hcl 5 Mg Tablet) 5 mg PO TID@0800,1200,1600 [facility] Last Admin: 06/24/22 08:00 Dose: Not Given Ondansetron HCl (Ondansetron Hcl 4 Mg/2 Ml Vial) 4 mg IVPUSH Q8H PRN PRN Reason: Nausea and Vomiting Pharmacy Consult (Consult Rx Perform Med Rec) 1 each MISCELLANE ONCE PRN PRN Reason: Consult order Polyethylene Glycol (Polyethylene Glycol 3350 17 Gm Powd.Pack) 17 gm PO DAILY [facility] Last Admin: 06/24/22 07:45 Dose: 17 gm Sodium Chloride (0.9 % Sodium Chloride Flush 3 Ml Syringe) 3 ml IVFLUSH QSHIFT [facility] Last Admin: 06/24/22 08:06 Dose: 3 ml Home Medications Medication Instructions Recorded Confirmed Last Taken Type acetaminophen 325 mg tablet 650 mg PO Q6H PRN Pain 06/23/22 06/23/22 Unknown History (Tylenol) albuterol sulfate 90 mcg/actuation 2 puff inhalation Q4H PRN Wheezing 06/23/22 06/23/22 Unknown History aerosol inhaler aspirin 81 mg tablet,delayed 81 mg PO DAILY 06/23/22 06/23/22 06/22/22 History release fludrocortisone 0.1 mg tablet 1 tab PO BID 06/23/22 06/23/22 06/22/22 History fluticasone 100 mcg-salmeterol 50 1 ea inhalation BID 06/23/22 06/23/22 06/22/22 History mcg/dose blistr powdr for inhalation (Advair Diskus) gabapentin 100 mg capsule 2 cap PO BEDTIME 06/23/22 06/23/22 06/22/22 History glipizide 10 mg tablet 1 tab PO DAILY 06/23/22 06/23/22 06/22/22 History ibuprofen 200 mg tablet 400 mg PO Q8H PRN Pain 06/23/22 06/23/22 Unknown History losartan 50 mg tablet 50 mg PO BEDTIME 06/23/22 06/23/22 06/22/22 History midodrine 2.5 mg tablet 1 tab PO TID@0800,1200,1600 06/23/22 06/23/22 06/22/22 History polyethylene glycol 3350 17 gram 17 g PO DAILY 06/23/22 06/23/22 06/22/22 History oral powder packet (Miralax) rosuvastatin 20 mg tablet 1 tab PO BEDTIME 06/23/22 06/23/22 06/22/22 History Physical Exam Vital Signs: Last Vital Signs Temp 98.4 F 06/24/22 07:28 Pulse 84 06/24/22 08:09 Resp 15 06/24/22 07:36 BP 88/55 L 06/24/22 08:09 Pulse Ox 96 06/24/22 07:36 O2 Del Method 06/24/22 07:36 BMI result Body Mass Index 32.3 Const General: cooperative, healthy appearing, comfortable, no acute distress, well developed, alert and awake Orientation/consciousness: oriented to person, oriented to place, oriented to time and patient oriented x3 HEENT Head: Yes normal to inspection, Yes No palpable skull fracture present, Yes normocephalic, Yes atraumatic and No abrasion Eyes General: appearance normal, both eyes and all related structures Neck Neck: Yes normal visual inspection, Yes full ROM, Yes no lymphadenopathy, Yes no meningeal signs, Yes trachea midline, Yes supple, No anterior neck swelling and No tender Chest Chest palpation & inspection: normal inspection of the chest and normal palpation of entire chest wall Resp Effort & Inspection: normal respiratory effort and able to speak in complete sentences Auscultation: clear to auscultation bilaterally Cardio Jugular venous distension: no JVD Heart sounds: S1 normal heart sound present and S2 normal heart sound present GI Inspection: Yes normal to inspection and No abdominal wall ecchymosis Palpation (GI): Soft to palpation, not firm, nontender, no guarding and not rigid General: No CVA tenderness and Yes no CVA tenderness Back/Spine/Pelvis Back: no CVA tenderness, No CVA tenderness and No back tenderness Skin General skin exam: no rashes or lesions noted and elasticity normal Neuro General: oriented to person, oriented to place, oriented to time, patient oriented x3, gait normal, tone normal, no meningeal signs, no focal motor deficits and CN's II-XI intact bilaterally Extrem Other: Bilateral lower extremity negative for swelling, pitting edema, calf tenderness. General: Yes normal to inspection and Yes full ROM Psych Appearance: grossly normal, well kempt and not disheveled Results Lab Results Result Diagrams: 06/24/22 05:54 06/24/22 05:54 Lab results: Chemistry 06/23/22 06/24/22 10:02 05:54 Sodium 143 144 Potassium 3.0 L 2.8 L Carbon Dioxide 34 H 30 H BUN 27 H 19 H Creatinine 1.55 H 1.32 Calcium 9.2 8.6 D Hematology 06/23/22 06/24/22 09:12 05:54 WBC 9.9 7.0 Hgb 16.1 14.0 Plt Count 193 171 Assessment and Plan (1) CKD (chronic kidney disease) stage 2, GFR 60-89 ml/min: Status: Acute Plan this is a patient with chronic kidney disease which is stable orthostatic hypotension treated with midodrine He has a history of chronic kidney disease diabetes obesity he follows with cardiology has a pacemaker he is admitted with a fall after being lightheaded he also has multiple admissions at [facility] for similar problems recommendations at this point are continue midodrine and can be titrated up to 15 mg 3 times a day if he is resistant to this droxydopa can be tried Time Spent With Patient Time: Total time managing care of this patient today ____ minutes. Procedures Date of Service Date of Service: 06/24/22
--- NOTE | 2022-06-24 09:29 | PC.NURSE ---
bedside echocardiogram is being done
[2022-06-24] MEDS: Fluticasone/Vilanterol 100/25 BLST.W.DEV 1 PUFF INHALE (10:17)
[2022-06-24] MEDS: Fludrocortisone Acetate 0.1 MG TABLET PO (10:17)
--- NOTE | 2022-06-24 10:18 | P.PNIM_ITS ---
Subjective Subjective Date of Service: 06/24/22 Review of Systems Follow-up orthostatic hypotension, syncope and collapse Feeling about the same, still orthostatic Physical Exam Vital Signs: Vital Signs: Last Vital Signs Temp 98.4 F 06/24/22 07:28 Pulse 81 06/24/22 10:02 Resp 10 L 06/24/22 10:02 BP 124/69 06/24/22 10:02 Pulse Ox 97 06/24/22 10:02 O2 Del Method 06/24/22 10:02 BMI result Body Mass Index 32.3 Appearing in no acute distress lung sounds are clear to auscultation heart regular rate rhythm, clear S1, S2 positive bowel sounds, abdomen is soft, nontender neuro patient is alert x3, no focal deficits Objective Data Active Medications Acetaminophen (Acetaminophen 325 Mg Tablet) 650 mg PO Q6H PRN PRN Reason: Pain, Mild (Pain Scale 1-3) Albuterol Sulfate (Albuterol Sulfate 90 Mcg 8 Gm Inhaler) 2 puff INHALE Q4H PRN PRN Reason: Wheezing Aspirin (Aspirin Enteric Coated 81 Mg Tablet.Dr) 81 mg PO DAILY [facility] Last Admin: 06/24/22 07:44 Dose: 81 mg Documented By: DONOVAN Atorvastatin Calcium (Atorvastatin Calcium 80 Mg Tablet) 80 mg PO BEDTIME [facility] Last Admin: 06/23/22 21:37 Dose: 80 mg Documented By: COLBY Dextrose (Dextrose 50 % 25 Gm/50 Ml Syringe) 25 gm IVPUSH Q15M PRN; Protocol PRN Reason: per Hypoglycemia Standing Ord. Fludrocortisone Acetate (Fludrocortisone Acetate 0.1 Mg Tablet) 0.1 mg PO BID [facility] Last Admin: 06/24/22 10:17 Dose: 0.1 mg Documented By: DONOVAN Fluticasone/Vilanterol (Fluticasone/Vilanterol 100/25 Blst.W.Dev) 1 puff INHALE RDAILY [facility] Last Admin: 06/24/22 10:17 Dose: 1 puff Documented By: DONOVAN Gabapentin (Gabapentin 100 Mg Capsule) 200 mg PO BEDTIME [facility] Last Admin: 06/23/22 21:37 Dose: 200 mg Documented By: COLBY Glucose (Glucose Gel 15 Gm Gel..Gram.) 15 gm PO Q15M PRN; Protocol PRN Reason: per Hypoglycemia Standing Ord. Heparin Sodium (Porcine) (Heparin Sodium,Porcine 5,000 Unit/Ml Vial) 5,000 unit SUBCUT Q12H [facility] Last Admin: 06/24/22 05:26 Dose: 5,000 unit Documented By: COLBY Sodium Chloride (Ns) 1,000 mls @ 100 mls/hr IVCONT .Q10H [facility] Last Admin: 06/24/22 02:18 Dose: 100 mls/hr Documented By: COLBY Insulin Human Lispro (Insulin Lispro 100 Unit/Ml 3 Ml Vial) 0 unit SUBCUT QIDACHS [facility]; Protocol Last Admin: 06/24/22 07:45 Dose: Not Given Documented By: DONOVAN Non-Admin Reason: No Insulin Coverage Midodrine (Midodrine Hcl 5 Mg Tablet) 5 mg PO TID@0800,1200,1600 [facility] Last Admin: 06/24/22 08:00 Dose: Not Given Documented By: DONOVAN Non-Admin Reason: see vs (htn), aware Ondansetron HCl (Ondansetron Hcl 4 Mg/2 Ml Vial) 4 mg IVPUSH Q8H PRN PRN Reason: Nausea and Vomiting Pharmacy Consult (Consult Rx Perform Med Rec) 1 each MISCELLANE ONCE PRN PRN Reason: Consult order Polyethylene Glycol (Polyethylene Glycol 3350 17 Gm Powd.Pack) 17 gm PO DAILY [facility] Last Admin: 06/24/22 07:45 Dose: 17 gm Documented By: DONOVAN Sodium Chloride (0.9 % Sodium Chloride Flush 3 Ml Syringe) 3 ml IVFLUSH QSHIFT [facility] Last Admin: 06/24/22 08:06 Dose: 3 ml Documented By: DONOVAN Labs CBC & Chem 7: 06/24/22 05:54 06/24/22 05:54 Labs: Laboratory Results - last 24 hr 06/23/22 06/23/22 06/23/22 09:12 10:02 12:42 MCV MCH MCHC RDW Plt Count MPV Immature Gran % (Auto) Neut % (Auto) Lymph % (Auto) [place] % (Auto) Eos % (Auto) Baso % (Auto) Lymph # (Auto) [place] # (Auto) Eos # (Auto) Baso # (Auto) Abs Immat Gran (auto) Absolute Neuts (auto) Absolute Nucleated RBC Nucleated RBC % (auto) Anion Gap 12 Estim Creat Clear Calc 57.9 Estimated GFR 45 POC Glucose Random Glucose 159 H Calcium 9.2 Total Bilirubin 1.0 AST 20 ALT 20 Alkaline Phosphatase 86 Troponin I High Sens 39.8 H 39.8 H Total Protein 7.2 Albumin 4.2 06/23/22 06/24/22 06/24/22 22:20 05:54 05:54 MCV 87.2 MCH 31.4 MCHC 36.0 RDW 11.9 Plt Count 171 MPV 10.9 Immature Gran % (Auto) 0.3 Neut % (Auto) 64.2 Lymph % (Auto) 21.9 [place] % (Auto) 7.8 Eos % (Auto) 5.1 H Baso % (Auto) 0.7 Lymph # (Auto) 1.5 [place] # (Auto) 0.6 Eos # (Auto) 0.4 Baso # (Auto) 0.1 Abs Immat Gran (auto) 0.02 Absolute Neuts (auto) 4.5 Absolute Nucleated RBC 0.000 Nucleated RBC % (auto) 0.0 Anion Gap 12 Estim Creat Clear Calc 68.0 Estimated GFR 54 POC Glucose 187 H Random Glucose 147 H Calcium 8.6 D Total Bilirubin AST ALT Alkaline Phosphatase Troponin I High Sens Total Protein Albumin 06/24/22 07:11 MCV MCH MCHC RDW Plt Count MPV Immature Gran % (Auto) Neut % (Auto) Lymph % (Auto) [place] % (Auto) Eos % (Auto) Baso % (Auto) Lymph # (Auto) [place] # (Auto) Eos # (Auto) Baso # (Auto) Abs Immat Gran (auto) Absolute Neuts (auto) Absolute Nucleated RBC Nucleated RBC % (auto) Anion Gap Estim Creat Clear Calc Estimated GFR POC Glucose 143 H Random Glucose Calcium Total Bilirubin AST ALT Alkaline Phosphatase Troponin I High Sens Total Protein Albumin Assessment and Plan (1) CKD (chronic kidney disease) stage 2, GFR 60-89 ml/min: Status: Acute Plan 72 year old man placed on observation with orthostatic hypotension and syncope Orthostatic hypotension with episodes of syncope Still significantly orthostatic Ongoing episodes since November 2021, no definitive diagnosis at this point Continue telemetry, no arrhythmias noted Echocardiogram pending Cardiology consultation, may need pacemaker interrogation Nephrology rec up titrating midodrine up to 15 mg t.i.d. Northera if not effective Check orthostatics daily Continue IV fluids Continue fludrocortisone Hypertension Will hold losartan for now Diabetes mellitus type 2 Sliding scale, ADA diet Chronic kidney disease stage III Mildly elevated today, 1.55 Last visit to [facility] on 06/16/2022 showed creatinine of 1.4 Avoid nephrotoxins, Nephrology consultation Hyperlipidemia Continue aspirin and Statin DVT prophylaxis with heparin Attending Dr. Skaggs Full code Time Spent With Patient Time: Total time managing care of this patient today ____ minutes. Quality Stroke Does the patient have a stroke diagnosis?: No VTE Prior VTE?: No VTE Risk Level:: Medical - moderate - high VTE Device Contraindication: Treatment Not Indicated VTE Drug Contraindication: N/A - Med Ordered
[2022-06-24] MEDS: Potassium Chloride ER 20 MEQ TAB.ER.PRT 40 MEQ PO (10:19)
--- NOTE | 2022-06-24 11:47 | MHC.CM.PN ---
Met with patient in regards to discharge planning. Patient lives with his , ambulates with a walker and is active with [facility]. PCP verified. Copy of HCP verified. to be on file. Patient is vaccinated against Covid and boosted x2. Obs notice explained and signed. Patient will arrange his own transport at d/c. Continue to monitor for d/c needs.
[2022-06-24 13:24] LABS: Glucose, Whole Blood 139 mg/dL (60-115)
--- NOTE | 2022-06-24 14:48 | P.CONCA_ITS ---
History of Present Illness History of Present Illness Date of Service: 06/24/22 Requesting physician: Meredith Torres Chief complaint: syncope Narrative: [age] year gentleman presenting for syncope. He has known history of orthostatic hypotension. Also has kidney disease and follows with Dr. Coreas. He had multiple episodes of syncope. Most of these episodes are happening when he starts walking and then passes out. He has been on midodrine and fludrocortisone. Midodrine was added recently. He was also taking losartan at home. Denying any chest pain or shortness of breath. He has been diabetic for many many years. He also has been drinking alcohol and drinks 2 beers daily. He is saying he was never heavier than that and never drank anything heart. He is saying he hydrates himself reasonably well. Before getting out of bed he sits up for at least 30 seconds before leaving the bed. [facility] Past Medical History Medical History (Updated 06/24/22 @ 09:10 by Linwood Isaac MD) BPH (benign prostatic hyperplasia) Chronic back pain COPD (chronic obstructive pulmonary disease) Diabetes mellitus type 2 in nonobese Hyperlipidemia Hypertension Orthostatic hypotension Pacemaker Sciatica Vasovagal syncope Family History Family History (Updated 06/23/22 @ 16:02 by Meredith Torres NP) Father Pacemaker Surgical History Surgical History (Updated 06/23/22 @ 16:01 by Meredith Torres NP) History of total left hip replacement S/P placement of cardiac pacemaker S/P surgery on nasal septum Social History Social History (Updated 06/23/22 @ 16:02 by Meredith Torres NP) Household Members: Spouse Alcohol intake: former Patient Tobacco Use Status: Former Tobacco user Cigarette Packs Per Day: 2 Years Smoked: 15 Packs Per Year: 30 Smoked in Last 30 Days: No Use of substances other than those prescribed or required for medical reasons: No Advance Directives: Yes Advance Directives Information Provided: Yes Advance Directives on File: No service: No Current occupational status: retired Meds Allergies Allergy/AdvReac Type Severity Reaction Status Date / Time amlodipine AdvReac Cough Verified 06/23/22 08:44 Active Medications: Current Medications Acetaminophen (Acetaminophen 325 Mg Tablet) 650 mg PO Q6H PRN PRN Reason: Pain, Mild (Pain Scale 1-3) Albuterol Sulfate (Albuterol Sulfate 90 Mcg 8 Gm Inhaler) 2 puff INHALE Q4H PRN PRN Reason: Wheezing Aspirin (Aspirin Enteric Coated 81 Mg Tablet.Dr) 81 mg PO DAILY [facility] Last Admin: 06/24/22 07:44 Dose: 81 mg Atorvastatin Calcium (Atorvastatin Calcium 80 Mg Tablet) 80 mg PO BEDTIME [facility] Last Admin: 06/23/22 21:37 Dose: 80 mg Dextrose (Dextrose 50 % 25 Gm/50 Ml Syringe) 25 gm IVPUSH Q15M PRN; Protocol PRN Reason: per Hypoglycemia Standing Ord. Fludrocortisone Acetate (Fludrocortisone Acetate 0.1 Mg Tablet) 0.1 mg PO BID [facility] Last Admin: 06/24/22 10:17 Dose: 0.1 mg Fluticasone/Vilanterol (Fluticasone/Vilanterol 100/25 Blst.W.Dev) 1 puff INHALE RDAILY [facility] Last Admin: 06/24/22 10:17 Dose: 1 puff Gabapentin (Gabapentin 100 Mg Capsule) 200 mg PO BEDTIME [facility] Last Admin: 06/23/22 21:37 Dose: 200 mg Glucose (Glucose Gel 15 Gm Gel..Gram.) 15 gm PO Q15M PRN; Protocol PRN Reason: per Hypoglycemia Standing Ord. Heparin Sodium (Porcine) (Heparin Sodium,Porcine 5,000 Unit/Ml Vial) 5,000 unit SUBCUT Q12H [facility] Last Admin: 06/24/22 05:26 Dose: 5,000 unit Sodium Chloride (Ns) 1,000 mls @ 100 mls/hr IVCONT .Q10H [facility] Last Infusion: 06/24/22 13:47 Dose: 100 mls/hr Insulin Human Lispro (Insulin Lispro 100 Unit/Ml 3 Ml Vial) 0 unit SUBCUT QIDACHS [facility]; Protocol Last Admin: 06/24/22 13:23 Dose: Not Given Midodrine (Midodrine Hcl 10 Mg Tablet) 10 mg PO TID@0800,1200,1600 [facility] Ondansetron HCl (Ondansetron Hcl 4 Mg/2 Ml Vial) 4 mg IVPUSH Q8H PRN PRN Reason: Nausea and Vomiting Pharmacy Consult (Consult Rx Perform Med Rec) 1 each MISCELLANE ONCE PRN PRN Reason: Consult order Polyethylene Glycol (Polyethylene Glycol 3350 17 Gm Powd.Pack) 17 gm PO DAILY [facility] Last Admin: 06/24/22 07:45 Dose: 17 gm Sodium Chloride (0.9 % Sodium Chloride Flush 3 Ml Syringe) 3 ml IVFLUSH QSHIFT [facility] Last Admin: 06/24/22 08:06 Dose: 3 ml Home Medications Medication Instructions Recorded Confirmed Last Taken Type acetaminophen 325 mg tablet 650 mg PO Q6H PRN Pain 06/23/22 06/23/22 Unknown History (Tylenol) albuterol sulfate 90 mcg/actuation 2 puff inhalation Q4H PRN Wheezing 06/23/22 06/23/22 Unknown History aerosol inhaler aspirin 81 mg tablet,delayed 81 mg PO DAILY 06/23/22 06/23/22 06/22/22 History release fludrocortisone 0.1 mg tablet 1 tab PO BID 06/23/22 06/23/22 06/22/22 History fluticasone 100 mcg-salmeterol 50 1 ea inhalation BID 06/23/22 06/23/22 06/22/22 History mcg/dose blistr powdr for inhalation (Advair Diskus) gabapentin 100 mg capsule 2 cap PO BEDTIME 06/23/22 06/23/22 06/22/22 History glipizide 10 mg tablet 1 tab PO DAILY 06/23/22 06/23/22 06/22/22 History ibuprofen 200 mg tablet 400 mg PO Q8H PRN Pain 06/23/22 06/23/22 Unknown History losartan 50 mg tablet 50 mg PO BEDTIME 06/23/22 06/23/22 06/22/22 History midodrine 2.5 mg tablet 1 tab PO TID@0800,1200,1600 06/23/22 06/23/22 06/22/22 History polyethylene glycol 3350 17 gram 17 g PO DAILY 06/23/22 06/23/22 06/22/22 History oral powder packet (Miralax) rosuvastatin 20 mg tablet 1 tab PO BEDTIME 06/23/22 06/23/22 06/22/22 History Physical Exam Vital Signs: Vital Signs: Last Vital Signs Temp 98.3 F 06/24/22 13:05 Pulse 83 06/24/22 14:13 Resp 12 06/24/22 13:05 BP 86/48 L 06/24/22 14:13 Pulse Ox 96 06/24/22 13:05 O2 Del Method 06/24/22 13:05 BMI result Body Mass Index 32.3 GENERAL APPEARANCE: in no acute distress, pleasant. NECK: no carotid bruit, no jugular venous distention. SKIN: no suspicious lesions, warm and dry. HEART: no murmurs, regular rate and rhythm. LUNGS: clear to auscultation bilaterally. ABDOMEN: soft, nontender. EXTREMITIES: no edema. PERIPHERAL PULSES: equal. NEUROLOGIC: No gross deficits, AAO X 3 Objective Labs and Meds Result diagrams: 06/24/22 05:54 06/24/22 05:54 Lab results: Laboratory Results - last 24 hr 06/23/22 06/24/22 06/24/22 22:20 05:54 05:54 WBC 7.0 RBC 4.46 L Hgb 14.0 Hct 38.9 L MCV 87.2 MCH 31.4 MCHC 36.0 RDW 11.9 Plt Count 171 MPV 10.9 Immature Gran % (Auto) 0.3 Neut % (Auto) 64.2 Lymph % (Auto) 21.9 [place] % (Auto) 7.8 Eos % (Auto) 5.1 H Baso % (Auto) 0.7 Lymph # (Auto) 1.5 [place] # (Auto) 0.6 Eos # (Auto) 0.4 Baso # (Auto) 0.1 Abs Immat Gran (auto) 0.02 Absolute Neuts (auto) 4.5 Absolute Nucleated RBC 0.000 Nucleated RBC % (auto) 0.0 Sodium 144 Potassium 2.8 L Chloride 105 Carbon Dioxide 30 H Anion Gap 12 BUN 19 H Creatinine 1.32 Estim Creat Clear Calc 68.0 Estimated GFR 54 POC Glucose 187 H Random Glucose 147 H Calcium 8.6 D 06/24/22 06/24/22 07:11 13:19 WBC RBC Hgb Hct MCV MCH MCHC RDW Plt Count MPV Immature Gran % (Auto) Neut % (Auto) Lymph % (Auto) [place] % (Auto) Eos % (Auto) Baso % (Auto) Lymph # (Auto) [place] # (Auto) Eos # (Auto) Baso # (Auto) Abs Immat Gran (auto) Absolute Neuts (auto) Absolute Nucleated RBC Nucleated RBC % (auto) Sodium Potassium Chloride Carbon Dioxide Anion Gap BUN Creatinine Estim Creat Clear Calc Estimated GFR POC Glucose 143 H 139 H Random Glucose Calcium Assessment and Plan (1) Orthostatic hypotension: Status: Acute Plan Pleasant 72-year-old gentleman who is presenting for orthostatic hypotension and syncope. He has had this issue ongoing since November. He has been following with Nephrology. He also has seen [facility] cardiovascular [facility] previously. He was on fludrocortisone and recently was started on midodrine. He has hypokalemia and potassium level is 2.8. He also has bicarb of 30. I think the fludrocortisone should be held. Repeat potassium and monitored closely. Please also check magnesium level. Continue midodrine 5 mg 3 times a day. It can be titrated up to 10 mg 3 times a day. Stop the losartan. He should be sleeping at a 30 degree angle. Compress ion stockings. Hydration. Likely causes underlying diabetes and may be alcohol use. I have advised him to stop drinking completely. Thank you for allowing me to participate in the care of your patient. Please feel free to contact me if you have any questions. Time Spent With Patient Time: Total time managing care of this patient today ____ minutes. Procedures Date of Service Date of Service: 06/24/22
--- NOTE | 2022-06-24 16:01 | PC.NURSE ---
Meredith Torres PATIENT OBSERVER notified holding midodrine bp 190/94. Will just elevate blood pressure.
[2022-06-24 17:53] LABS: Glucose, Whole Blood 141 mg/dL (60-115)
[2022-06-24] MEDS: Insulin Lispro 100 UNIT/ML 3 ML VIAL SUBCUT (21:19)
[2022-06-24] MEDS: Gabapentin 100 MG CAPSULE 200 MG PO (21:19)
[2022-06-24] MEDS: Atorvastatin Calcium 80 MG TABLET PO (21:19)
--- NOTE | 2022-06-24 22:52 | PC.NURSE ---
Assumed care of pt. at 1900. Pt. resting quietly in bed at this time. Pt. has IVF running at 100mL/hour. New bag due at 2230, however, current bag still running. Will hang new bag upon completion of current bag.
[2022-06-25] VITALS (11 sets, daily range): BP systolic 78–212; BP diastolic 22–93; PULSE 65–84; RESP 10–20; TEMP 36.1–36.7; O2SAT 95–97; BMI 32.3
[2022-06-25] MEDS: 0.9 % Sodium Chloride 1,000 ML 100 ML IVCONT (01:25)
[2022-06-25 01:27] LABS: Glucose, Whole Blood 161 mg/dL (60-115)
--- NOTE | 2022-06-25 01:41 | PC.NURSE ---
Pt. awake and requesting to use the restroom. Pt. utilized w/c to use the bathroom and have a bm. Pt. back to bed. IVF running at 100mL/hour, new bag started. Pt. reporting low back pain at a 01/11. Pt. provided with hot pack per request as that helped to alleviate the pain earlier.
--- NOTE | 2022-06-25 03:33 | PC.NURSE ---
Pt. sleeping in bed. NS running per MAR. No distress noted.
[2022-06-25] MEDS: Heparin Sodium,Porcine 5,000 UNIT/ML VIAL 5000 UNIT SUBCUT ×2 (05:19→16:52)
--- NOTE | 2022-06-25 05:32 | PC.NURSE ---
Pt. awake at 0500 asking to get cleaned up. Provided pt. with warm wipes and a towel. Changed pt. bedding as well. Pt. reporting pain at 7/10 in his lower back that radiates down his leg. Messaged hospitalist to obtain pain medication.
[2022-06-25] MEDS: oxyCODONE HCl Immed Release 5 MG TABLET PO (06:11)
[2022-06-25 06:29] LABS: Anion Gap 14 (12-20); Blood Urea Nitrogen 18 mg/dL (9-16); Calcium 8.7 mg/dL (8.4-10.2); Carbon Dioxide 28 mmol/L (22-29); Chloride 107 mmol/L (96-108); Creatinine Clr Calc Pharmacy 61.1; Estimated Glomerular Filt Rate 47; Glucose Random 162 mg/dL (60-115); Potassium 2.7 mmol/L (3.3-5.1); Sodium 146 mmol/L (135-145)
[2022-06-25 07:13] LABS: Glucose, Whole Blood 153 mg/dL (60-115)
[2022-06-25] MEDS: Aspirin Enteric Coated 81 MG TABLET.DR PO (07:53)
[2022-06-25] MEDS: Midodrine HCl 10 MG TABLET PO ×3 (07:53→16:52)
[2022-06-25] MEDS: polyethylene glycoL 3350 17 GM POWD.PACK PO (07:53)
[2022-06-25] MEDS: Insulin Lispro 100 UNIT/ML 3 ML VIAL SUBCUT ×2 (07:53→16:52)
--- NOTE | 2022-06-25 07:59 | PC.NURSE ---
patient a/ox4 . [place] . heart rate regular at 74 beats per minute . breathing even and unlabored . lungs clear throughout skin pink warm and dry . abdomen soft not tender . positive bowel sounds throughout .skin pink warm and dry . patient aware of plan of care for admission .
[2022-06-25 08:27] LABS: Magnesium 1.8 mg/dL (1.6-2.6)
[2022-06-25] MEDS: 0.9 % Sodium Chloride Flush 3 ML SYRINGE IVFLUSH ×3 (09:21→21:22)
[2022-06-25] MEDS: Potassium Chloride/H20 10 MEQ/100 ML PIGGYBACK 100 MEQ IV ×3 (09:22→13:24)
--- NOTE | 2022-06-25 09:40 | PC.NURSE ---
Provider . Leighann Kaminski contacted regarding B.P 223/106 , provider requested to check BP while patient was sitting up BP was 164/86 . provider made aware of change . no new orderers . patient aware of plan of care .
--- NOTE | 2022-06-25 09:46 | PC.NURSE ---
Report given to Ariella in overflow .patient aware of plan of care .
--- NOTE | 2022-06-25 10:19 | P.PNNP_ITS ---
Subjective Subjective Date of Service: 06/25/22 Physical Exam Vital Signs: Vital Signs: Last Vital Signs Temp 97.7 F 06/25/22 09:04 Pulse 78 06/25/22 09:04 Resp 18 06/25/22 09:04 BP 206/93 H 06/25/22 09:04 Pulse Ox 96 06/25/22 09:04 O2 Del Method 06/25/22 09:04 BMI result Body Mass Index 32.3 Const: General: cooperative, healthy appearing, comfortable, no acute distress, well developed, alert and awake Orientation/consciousness: oriented to person, oriented to place, oriented to time and patient oriented x3 HEENT: Head: Yes normal to inspection, Yes No palpable skull fracture present, Yes normocephalic, Yes atraumatic and No abrasion Eyes: General: appearance normal, both eyes and all related structures Neck: Neck: Yes normal visual inspection, Yes full ROM, Yes no lymphadenopath y, Yes no meningeal signs, Yes trachea midline, Yes supple, No anterior neck swelling and No tender Chest: Chest palpation & inspection: normal inspection of the chest and normal palpation of entire chest wall Resp: Effort & Inspection: normal respiratory effort and able to speak in complete sentences Auscultation: clear to auscultation bilaterally Cardio: Jugular venous distension: no JVD Heart sounds: S1 normal heart sound present and S2 normal heart sound present GI: Inspection: Yes normal to inspection and No abdominal wall ecchymosis Palpation (GI): Soft to palpation, not firm, nontender, no guarding and not rigid : General: No CVA tenderness and Yes no CVA tenderness Back/Spine/Pelvis: Back: no CVA tenderness, No CVA tenderness and No back tenderness Skin: General skin exam: no rashes or lesions noted and elasticity normal Neuro: General: oriented to person, oriented to place, oriented to time, patient oriented x3, gait normal, tone normal, no meningeal signs, no focal motor deficits and CN's II-XI intact bilaterally Extrem: Other: Bilateral lower extremity negative for swelling, pitting edema, calf tenderness. General: Yes normal to inspection and Yes full ROM Psych: Appearance: grossly normal, well kempt and not disheveled Objective Data Labs CBC & Chem 7: 06/24/22 05:54 06/25/22 05:37 Labs: Laboratory Results - last 24 hr 06/24/22 06/24/22 06/24/22 13:19 17:49 19:33 Sodium Potassium Chloride Carbon Dioxide Anion Gap BUN Creatinine Estim Creat Clear Calc Estimated GFR POC Glucose 139 H 141 H 161 H Random Glucose Calcium Magnesium 06/25/22 06/25/22 05:37 07:09 Sodium 146 H Potassium 2.7 L Chloride 107 Carbon Dioxide 28 Anion Gap 14 BUN 18 H Creatinine 1.47 H Estim Creat Clear Calc 61.1 Estimated GFR 47 POC Glucose 153 H Random Glucose 162 H Calcium 8.7 Magnesium 1.8 Procedures Date of Service Date of Service: 06/25/22 Assessment & Plan Assessment and plan (1) CKD (chronic kidney disease) stage 2, GFR 60-89 ml/min: Status: Acute Plan this is a patient with chronic kidney disease which is stable orthostatic hypotension treated with midodrine He has a history of chronic kidney disease diabetes obesity he follows with cardiology has a pacemaker he is admitted with a fall after being lightheaded he also has multiple admissions at [facility] for similar problems recommendations at this point are continue midodrine and can be titrated up to 15 mg 3 times a day if he is resistant to this droxydopa can be tried WAIST HIGH COMPRESSION STOCKINGS CAN HELP CLONIDINE IF BP HI SUPINE REPLACE KCL Time Spent With Patient Time: Total time managing care of this patient today ____ minutes. Progress Note: Quality Stroke Does the patient have a stroke diagnosis?: No
--- NOTE | 2022-06-25 11:51 | PC.NURSE ---
Report given to [facility] [place] [facility]
--- NOTE | 2022-06-25 12:18 | PC.NURSE ---
RN made aware of pts htn and MDs note for possible medication changes.
[2022-06-25 12:35] LABS: Glucose, Whole Blood 139 mg/dL (60-115)
--- NOTE | 2022-06-25 13:23 | HO.PM.IMPN ---
Subjective Subjective Date of Service: 06/25/22 Interval History: seen and examined this morning follow up for syncope/orthostatic hypotension no overnight events noted still orthostatic; bp high when lying - no sob, headache, vision changes Review of Systems Review of Systems: Yes all other systems are reviewed and are negative Constitutional Constitutional: Denies chills and Denies fever(s) Cardiovascular Cardiovascular: Denies chest pain, Denies palpitations and Denies dyspnea Respiratory Respiratory: Denies cough and Denies dyspnea Gastrointestinal Gastrointestinal: Denies abdominal pain Endocrine Endocrine: Denies palpitations Physical Exam Vital Signs: Vital Signs: Last Vital Signs Temp 97.9 F 06/25/22 12:00 Pulse 65 06/25/22 12:00 Resp 18 06/25/22 12:00 BP 168/ H 06/25/22 12:00 Pulse Ox 97 06/25/22 12:00 O2 Del Method 06/25/22 12:00 BMI result Body Mass Index 32.3 Const: General: cooperative, comfortable, alert and awake Nutritional Appearance: overweight Orientation/consciousness: patient oriented x3 Resp: Effort & Inspection: normal respiratory effort and able to speak in complete sentences Auscultation: clear to auscultation bilaterally Cardio: Rate: regular rate Heart sounds: S1 normal heart sound present and S2 normal heart sound present GI: Inspection: No distended Palpation (GI): Soft to palpation and nontender Neuro: General: patient oriented x3 and CN's II-XI intact bilaterally Extrem: General: Yes no pedal edema Objective Data Active Medications Acetaminophen (Acetaminophen 325 Mg Tablet) 650 mg PO Q6H PRN PRN Reason: Pain, Mild (Pain Scale 1-3) Albuterol Sulfate (Albuterol Sulfate 90 Mcg 8 Gm Inhaler) 2 puff INHALE Q4H PRN PRN Reason: Wheezing Aspirin (Aspirin Enteric Coated 81 Mg Tablet.) 81 mg PO DAILY [facility] Last Admin: 06/25/22 07:53 Dose: 81 mg Documented By: GREGORY Atorvastatin Calcium (Atorvastatin Calcium 80 Mg Tablet) 80 mg PO BEDTIME [facility] Last Admin: 06/24/22 21:19 Dose: 80 mg Documented By: ANDREAS Dextrose (Dextrose 50 % 25 Gm/50 Ml Syringe) 25 gm IVPUSH Q15M PRN; Protocol PRN Reason: per Hypoglycemia Standing Ord. Fluticasone/Vilanterol (Fluticasone/Vilanterol 100/25 Blst.W.Dev) 1 puff INHALE RDAILY [facility] Last Admin: 06/25/22 08:29 Dose: Not Given Documented By: ANA Non-Admin Reason: Med Not Available Gabapentin (Gabapentin 100 Mg Capsule) 200 mg PO BEDTIME [facility] Last Admin: 06/24/22 21:19 Dose: 200 mg Documented By: ANDREAS Glucose (Glucose Gel 15 Gm Gel..Gram.) 15 gm PO Q15M PRN; Protocol PRN Reason: per Hypoglycemia Standing Ord. Heparin Sodium (Porcine) (Heparin Sodium,Porcine 5,000 Unit/Ml Vial) 5,000 unit SUBCUT Q12H [facility] Last Admin: 06/25/22 05:19 Dose: 5,000 unit Documented By: HARPER Insulin Human Lispro (Insulin Lispro 100 Unit/Ml 3 Ml Vial) 0 unit SUBCUT QIDACHS [facility]; Protocol Last Admin: 06/25/22 13:18 Dose: Not Given Documented By: GEREMIAS Non-Admin Reason: No Insulin Coverage Midodrine (Midodrine Hcl 10 Mg Tablet) 10 mg PO TID@0800,1200,1600 [facility] Last Admin: 06/25/22 07:53 Dose: 10 mg Documented By: GREGORY Ondansetron HCl (Ondansetron Hcl 4 Mg/2 Ml Vial) 4 mg IVPUSH Q8H PRN PRN Reason: Nausea and Vomiting Pharmacy Consult (Consult Rx Perform Med Rec) 1 each MISCELLANE ONCE PRN PRN Reason: Consult order Polyethylene Glycol (Polyethylene Glycol 3350 17 Gm Powd.Pack) 17 gm PO DAILY [facility] Last Admin: 06/25/22 07:53 Dose: 17 gm Documented By: GREGORY Sodium Chloride (0.9 % Sodium Chloride Flush 3 Ml Syringe) 3 ml IVFLUSH QSHIFT [facility] Last Admin: 06/25/22 09:21 Dose: 3 ml Documented By: GREGORY Labs CBC & Chem 7: 06/24/22 05:54 06/25/22 05:37 Labs: Laboratory Results - last 24 hr 06/24/22 06/24/22 06/24/22 13:19 17:49 19:33 Anion Gap Estim Creat Clear Calc Estimated GFR POC Glucose 139 H 141 H 161 H Random Glucose Calcium Magnesium 06/25/22 06/25/22 06/25/22 05:37 07:09 12:31 Anion Gap 14 Estim Creat Clear Calc 61.1 Estimated GFR 47 POC Glucose 153 H 139 H Random Glucose 162 H Calcium 8.7 Magnesium 1.8 Assessment and Plan (1) Orthostatic hypotension: Status: Acute Plan 72 year old man admitted for management of orthostatic hypotension and syncope Orthostatic hypotension with episodes of syncope Still significantly orthostatic Ongoing episodes since November 2021 Continue telemetry, no arrhythmias noted Echocardiogram preserved LVEF with grade I diastolic dysfunction seen by cardioloty - Nephrology rec up titrating midodrine up to 15 mg t.i.d. Northera if not effective Check orthostatics daily fludrocortisone d/c due to hypokalemia continue compression stockings Hypokalemia fludocortisone d/c replace IV and repeat this afternoon magnesium 1.8 Hypertension d/c losartan per cardiology rec will start low dose clonidine due to ongoing supine hypertension per nephrology rec Diabetes mellitus type 2 Sliding scale, ADA diet Chronic kidney disease stage III Last visit to [facility] on 06/16/2022 showed creatinine of 1.4 seems to be within baseline Avoid nephrotoxins, Nephrology following Hyperlipidemia Continue Statin DVT prophylaxis with heparin Attending Dr. Skaggs Full code Time Spent With Patient Time: Total time managing care of this patient today ____ minutes. Quality Stroke Does the patient have a stroke diagnosis?: No VTE Prior VTE?: No VTE Risk Level:: Medical - moderate - high VTE Device Contraindication: Treatment Not Indicated VTE Drug Contraindication: N/A - Med Ordered
[2022-06-25 16:07] LABS: Potassium 3.2 mmol/L (3.3-5.1)
[2022-06-25] MEDS: Potassium Chloride ER 20 MEQ TAB.ER.PRT PO (16:52)
[2022-06-25] MEDS: Magnesium Sulfate/H2O 2 GM/50 ML PIGGYBACK IV (16:53)
[2022-06-25] MEDS: Gabapentin 100 MG CAPSULE 200 MG PO (21:22)
[2022-06-25] MEDS: cloNIDine HCL 0.1 MG TABLET PO (21:22)
[2022-06-25] MEDS: Atorvastatin Calcium 80 MG TABLET PO (21:22)
[2022-06-26] VITALS (8 sets, daily range): BP systolic 51–204; BP diastolic 42–97; PULSE 74–83; RESP 16–20; TEMP 36.3–37.2; O2SAT 95–98
[2022-06-26] MEDS: Heparin Sodium,Porcine 5,000 UNIT/ML VIAL 5000 UNIT SUBCUT ×2 (06:07→17:03)
[2022-06-26 07:12] LABS: Anion Gap 16 (12-20); Blood Urea Nitrogen 23 mg/dL (9-16); Calcium 9.2 mg/dL (8.4-10.2); Carbon Dioxide 27 mmol/L (22-29); Chloride 105 mmol/L (96-108); Creatinine Clr Calc Pharmacy 56.8; Estimated Glomerular Filt Rate 44; Glucose Random 134 mg/dL (60-115); Potassium 2.7 mmol/L (3.3-5.1); Sodium 145 mmol/L (135-145)
[2022-06-26] MEDS: Acetaminophen 325 MG TABLET 650 MG PO ×3 (08:16→18:07)
[2022-06-26] MEDS: polyethylene glycoL 3350 17 GM POWD.PACK PO (08:17)
[2022-06-26] MEDS: Midodrine HCl 5 MG TABLET 15 MG PO (08:17)
[2022-06-26] MEDS: Aspirin Enteric Coated 81 MG TABLET.DR PO (08:17)
[2022-06-26] MEDS: Insulin Lispro 100 UNIT/ML 3 ML VIAL SUBCUT ×4 (08:19→21:38)
[2022-06-26 08:51] LABS: Magnesium 2.3 mg/dL (1.6-2.6)
[2022-06-26] MEDS: Potassium Chloride ER 20 MEQ TAB.ER.PRT 40 MEQ PO (09:35)
[2022-06-26] MEDS: 0.9 % Sodium Chloride Flush 3 ML SYRINGE IVFLUSH ×3 (09:36→21:45)
[2022-06-26] MEDS: Midodrine HCl 10 MG TABLET PO ×2 (12:33→17:03)
--- NOTE | 2022-06-26 13:04 | MHC.CM.PN ---
A PT EVAL HAS BEEN ORDERED. PATIENTS k+2.7 IS LOW PT HELD TODAY. PATIENT WANTS TO GO TO STR; BECAUSE HE FEELS WEAK AND DECONDITIONED. DP STR PENDING PT EVAL. BLS VS FAMILY TRANSPORT.
[2022-06-26] MEDS: cloNIDine 0.1 MG PATCH.TDWK TRANSDERMA (13:58)
--- NOTE | 2022-06-26 16:02 | HO.PM.IMPN ---
Subjective Subjective Date of Service: 06/26/22 Interval History: seen and examined this morning had episode of dizziness after using the bathroom around 6 this am. otherwise feeling ok denies sob, chest pain, dizziness, headache Review of Systems Review of Systems: Yes all other systems are reviewed and are negative Constitutional Constitutional: Denies chills and Denies fever(s) ENT Ears, Nose, Mouth, and Throat: Reports dizziness Cardiovascular Cardiovascular: Denies chest pain, Denies palpitations and Denies dyspnea Respiratory Respiratory: Denies cough and Denies dyspnea Gastrointestinal Gastrointestinal: Denies abdominal pain Neurologic Neurologic: Reports dizziness Endocrine Endocrine: Denies palpitations Physical Exam Vital Signs: Vital Signs: Last Vital Signs Temp 98.3 F 06/26/22 11:04 Pulse 76 06/26/22 15:46 Resp 20 06/26/22 11:04 BP 51/42 L 06/26/22 15:46 Pulse Ox 98 06/26/22 11:04 O2 Del Method 06/26/22 11:04 BMI result Body Mass Index 32.3 Const: General: cooperative, comfortable, alert and awake Nutritional Appearance: overweight Orientation/consciousness: patient oriented x3 Resp: Effort & Inspection: normal respiratory effort and able to speak in complete sentences Auscultation: clear to auscultation bilaterally Cardio: Rate: regular rate Heart sounds: S1 normal heart sound present and S2 normal heart sound present GI: Inspection: No distended Palpation (GI): Soft to palpation and nontender Neuro: General: patient oriented x3 and CN's II-XI intact bilaterally Extrem: General: Yes no pedal edema Objective Data Active Medications Acetaminophen (Acetaminophen 325 Mg Tablet) 650 mg PO Q6H PRN PRN Reason: Pain, Mild (Pain Scale 1-3) Last Admin: 06/26/22 12:33 Dose: 650 mg Documented By: SHAUNA Comments: order to give dose early Albuterol Sulfate (Albuterol Sulfate 90 Mcg 8 Gm Inhaler) 2 puff INHALE Q4H PRN PRN Reason: Wheezing Aspirin (Aspirin Enteric Coated 81 Mg Tablet.) 81 mg PO DAILY [facility] Last Admin: 06/26/22 08:17 Dose: 81 mg Documented By: SHAUNA Atorvastatin Calcium (Atorvastatin Calcium 80 Mg Tablet) 80 mg PO BEDTIME [facility] Last Admin: 06/25/22 21:22 Dose: 80 mg Documented By: HO.DESROA Captopril (Captopril 25 Mg Tablet) 25 mg PO BEDTIME [facility]; Protocol Clonidine (Clonidine 0.1 Mg Patch.Tdwk) 0.1 mg TRANSDERMA Fr@0900 [facility]; Protocol Last Admin: 06/26/22 13:58 Dose: 0.1 mg Documented By: SHAUNA Dextrose (Dextrose 50 % 25 Gm/50 Ml Syringe) 25 gm IVPUSH Q15M PRN; Protocol PRN Reason: per Hypoglycemia Standing Ord. Fluticasone/Vilanterol (Fluticasone/Vilanterol 100/25 Blst.W.Dev) 1 puff INHALE RDAILY [facility] Last Admin: 06/26/22 07:52 Dose: Not Given Documented By: ANA Non-Admin Reason: Med Not Available Gabapentin (Gabapentin 100 Mg Capsule) 200 mg PO BEDTIME [facility] Last Admin: 06/25/22 21:22 Dose: 200 mg Documented By: LIYA Glucose (Glucose Gel 15 Gm Gel..Gram.) 15 gm PO Q15M PRN; Protocol PRN Reason: per Hypoglycemia Standing Ord. Heparin Sodium (Porcine) (Heparin Sodium,Porcine 5,000 Unit/Ml Vial) 5,000 unit SUBCUT Q12H [facility] Last Admin: 06/26/22 06:07 Dose: 5,000 unit Documented By: LIYA Insulin Human Lispro (Insulin Lispro 100 Unit/Ml 3 Ml Vial) 0 unit SUBCUT QIDACHS [facility]; Protocol Last Admin: 06/26/22 12:34 Dose: 4 unit Documented By: SHAUNA Midodrine (Midodrine Hcl 10 Mg Tablet) 10 mg PO TID@0800,1200,1600 [facility] Last Admin: 06/26/22 12:33 Dose: 10 mg Documented By: SHAUNA Ondansetron HCl (Ondansetron Hcl 4 Mg/2 Ml Vial) 4 mg IVPUSH Q8H PRN PRN Reason: Nausea and Vomiting Pharmacy Consult (Consult Rx Perform Med Rec) 1 each MISCELLANE ONCE PRN PRN Reason: Consult order Polyethylene Glycol (Polyethylene Glycol 3350 17 Gm Powd.Pack) 17 gm PO DAILY [facility] Last Admin: 06/26/22 08:17 Dose: 17 gm Documented By: SHAUNA Potassium Chloride (Potassium Chloride Er 20 Meq Tab.Er.Prt) 40 meq PO ONCE [facility] Sodium Chloride (0.9 % Sodium Chloride Flush 3 Ml Syringe) 3 ml IVFLUSH QSHIFT [facility] Last Admin: 06/26/22 09:36 Dose: 3 ml Documented By: SHAUNA Labs CBC & Chem 7: 06/24/22 05:54 06/26/22 06:21 Labs: Laboratory Results - last 24 hr 06/25/22 06/25/22 06/26/22 16:08 19:55 06:21 Anion Gap 16 Estim Creat Clear Calc 56.8 Estimated GFR 44 POC Glucose 254 H 121 H Random Glucose 134 H Calcium 9.2 Magnesium 2.3 06/26/22 06/26/22 07:15 11:04 Anion Gap Estim Creat Clear Calc Estimated GFR POC Glucose 158 H 243 H Random Glucose Calcium Magnesium Assessment and Plan (1) Orthostatic hypotension: Status: Acute (2) Syncope: Status: Acute Plan 72 year old man admitted for management of orthostatic hypotension and syncope Orthostatic hypotension with episodes of syncope Still significantly orthostatic Ongoing episodes since November 2021 Continue telemetry, no arrhythmias noted Echocardiogram preserved LVEF with grade I diastolic dysfunction seen by cardioloty - rec continue current dose of midodrine nephro rec continue midodrine and Northera outpatient if not effective Check orthostatics daily fludrocortisone d/c due to hypokalemia continue compression stockings, recommend waist high as outpatient Hypokalemia fludocortisone d/c replace IV and repeat this afternoon declining IV replacement, will continue po hypomagnesemia improved with replacement supine Hypertension d/c losartan per cardiology rec will start low dose clonidine transdermal and bedtime dose of captopril due to ongoing supine hypertension per nephrology rec Diabetes mellitus type 2 Sliding scale, ADA diet Chronic kidney disease stage III Last visit to [facility] on 06/16/2022 showed creatinine of 1.4 seems to be within baseline Avoid nephrotoxins, Nephrology following Hyperlipidemia Continue Statin DVT prophylaxis with heparin Attending Dr. Skaggs Full code PT eval pending - pt requesting rehab if able requires ongoing inpatient hospitalization for management of orthostatic hypotension/ supine hypertension; hypokalemia Time Spent With Patient Time: Total time managing care of this patient today ____ minutes. Quality Stroke Does the patient have a stroke diagnosis?: No VTE Prior VTE?: No VTE Risk Level:: Medical - moderate - high VTE Device Contraindication: Treatment Not Indicated VTE Drug Contraindication: N/A - Med Ordered
[2022-06-26 17:28] LABS: Potassium 3.5 mmol/L (3.3-5.1)
--- NOTE | 2022-06-26 19:32 | PM.PNNEP ---
Subjective Subjective Date of Service: 06/26/22 Interval history: seen and examined this morning had episode of dizziness after using the bathroom around 6 this am. otherwise feeling ok denies sob, chest pain, dizziness, headache Physical Exam Vital Signs: Vital Signs: Last Vital Signs Temp 98.3 F 06/26/22 11:04 Pulse 76 06/26/22 15:46 Resp 20 06/26/22 11:04 BP 51/42 L 06/26/22 15:46 Pulse Ox 98 06/26/22 11:04 O2 Del Method 06/26/22 11:04 BMI result Body Mass Index 32.3 Const: General: cooperative, comfortable, alert and awake Nutritional Appearance: overweight Orientation/consciousness: patient oriented x3 Resp: Effort & Inspection: normal respiratory effort and able to speak in complete sentences Auscultation: clear to auscultation bilaterally Cardio: Rate: regular rate Heart sounds: S1 normal heart sound present and S2 normal heart sound present GI: Inspection: No distended Palpation (GI): Soft to palpation and nontender Neuro: General: patient oriented x3 and CN's II-XI intact bilaterally Extrem: General: Yes no pedal edema Objective Data Labs CBC & Chem 7: 06/24/22 05:54 06/26/22 16:56 Labs: Laboratory Results - last 24 hr 06/25/22 06/26/22 06/26/22 19:55 06:21 07:15 Sodium 145 Potassium 2.7 L Chloride 105 Carbon Dioxide 27 Anion Gap 16 BUN 23 H Creatinine 1.58 H Estim Creat Clear Calc 56.8 Estimated GFR 44 POC Glucose 121 H 158 H Random Glucose 134 H Calcium 9.2 Magnesium 2.3 06/26/22 06/26/22 06/26/22 11:04 16:28 16:56 Sodium Potassium 3.5 D Chloride Carbon Dioxide Anion Gap BUN Creatinine Estim Creat Clear Calc Estimated GFR POC Glucose 243 H 163 H Random Glucose Calcium Magnesium Procedures Date of Service Date of Service: 06/26/22 Assessment & Plan Assessment and plan (1) CKD (chronic kidney disease) stage 2, GFR 60-89 ml/min: Status: Acute Plan this is a patient with chronic kidney disease which is stable orthostatic hypotension treated with midodrine He has a history of chronic kidney disease diabetes obesity he follows with cardiology has a pacemaker he is admitted with a fall after being lightheaded he also has multiple admissions at [facility] for similar problems recommendations at this point are - continue midodrine and- If resistant to this droxydopa can be tried as out pt - WAIST HIGH COMPRESSION STOCKINGS CAN HELP - CLONIDINE Patch #1 Q 7 days - Use captopril at bed time when BP is high ( Supine) as it is short acting REPLACE KCLas ordered Check Plasma metanephrins TRhx D/ wmedical team Time Spent With Patient Time: Total time managing care of this patient today ____ minutes. Progress Note: Quality Stroke Does the patient have a stroke diagnosis?: No
[2022-06-26] MEDS: Gabapentin 100 MG CAPSULE 200 MG PO (21:38)
[2022-06-26] MEDS: Atorvastatin Calcium 80 MG TABLET PO (21:39)
[2022-06-26] MEDS: captopriL 25 MG TABLET PO (21:39)
[2022-06-27] VITALS (13 sets, daily range): BP systolic 94–203; BP diastolic 45–100; PULSE 69–84; RESP 16–18; TEMP 36.2–36.8; O2SAT 95–98
[2022-06-27] MEDS: Heparin Sodium,Porcine 5,000 UNIT/ML VIAL 5000 UNIT SUBCUT ×2 (04:06→16:52)
--- NOTE | 2022-06-27 06:39 | PM.EVENT ---
Event Note Date of Service: 06/27/22 Event Note: pt with signifiantly high supine bp, reaching 202/90s. dropping to 145/70s on sitting. too weak to stand. already received captopril at bedtime. treated with hydralazine for the high supine bp Time Spent With Patient Time: Total time managing care of this patient today ____ minutes.
--- NOTE | 2022-06-27 06:45 | PC.NURSE ---
Pts blood pressure was 193/[address] Pal was notified and hydralazine was ordered. Next vitals his orthostatic hypotenstion was 202/95 laying, 145/73 sitting, and he was unable to stand long enough for the last blood pressure due to dizziness and weakness. Dr. Pal ordered more hydalazine for him.
[2022-06-27] MEDS: Acetaminophen 325 MG TABLET 650 MG PO (08:25)
[2022-06-27] MEDS: Aspirin Enteric Coated 81 MG TABLET.DR PO (08:26)
[2022-06-27] MEDS: Midodrine HCl 10 MG TABLET PO ×3 (08:26→16:53)
[2022-06-27] MEDS: polyethylene glycoL 3350 17 GM POWD.PACK PO (08:27)
[2022-06-27] MEDS: 0.9 % Sodium Chloride Flush 3 ML SYRINGE IVFLUSH ×3 (08:27→21:31)
[2022-06-27 08:48] LABS: Anion Gap 14 (12-20); Blood Urea Nitrogen 26 mg/dL (9-16); Calcium 9.2 mg/dL (8.4-10.2); Carbon Dioxide 30 mmol/L (22-29); Chloride 104 mmol/L (96-108); Creatinine Clr Calc Pharmacy 56.1; Estimated Glomerular Filt Rate 43; Glucose Random 148 mg/dL (60-115); Potassium 3.1 mmol/L (3.3-5.1); Sodium 145 mmol/L (135-145)
[2022-06-27 09:11] LABS: Cortisol Random 15.8 ug/dL
[2022-06-27] MEDS: Insulin Lispro 100 UNIT/ML 3 ML VIAL SUBCUT ×3 (11:42→21:25)
[2022-06-27] MEDS: Fluticasone/Vilanterol 100/25 BLST.W.DEV 1 PUFF INHALE (12:14)
--- NOTE | 2022-06-27 12:37 | HO.PM.IMPN ---
Subjective Subjective Date of Service: 06/27/22 Interval History: seen and examined this morning had episode of dizziness after using the bathroom around 6 this am. otherwise feeling ok denies sob, chest pain, dizziness, headache Review of Systems Review of Systems: Yes all other systems are reviewed and are negative Constitutional Constitutional: Denies chills and Denies fever(s) ENT Ears, Nose, Mouth, and Throat: Reports dizziness Cardiovascular Cardiovascular: Denies chest pain, Denies palpitations and Denies dyspnea Respiratory Respiratory: Denies cough and Denies dyspnea Gastrointestinal Gastrointestinal: Denies abdominal pain Neurologic Neurologic: Reports dizziness Endocrine Endocrine: Denies palpitations Physical Exam Vital Signs: Vital Signs: Last Vital Signs Temp 98.0 F 06/27/22 11:13 Pulse 81 06/27/22 12:17 Resp 18 06/27/22 12:17 BP 138/82 06/27/22 11:13 Pulse Ox 98 06/27/22 11:13 O2 Del Method 06/27/22 11:13 BMI result Body Mass Index 32.3 Appearing in no acute distress heart regular rate rhythm, clear S1, S2 positive bowel sounds, abdomen is soft, nontender neuro patient is alert x3, no focal deficits Objective Data Active Medications Acetaminophen (Acetaminophen 325 Mg Tablet) 650 mg PO Q6H PRN PRN Reason: Pain, Mild (Pain Scale 1-3) Last Admin: 06/27/22 08:25 Dose: 650 mg Documented By: BYRON Albuterol Sulfate (Albuterol Sulfate 90 Mcg 8 Gm Inhaler) 2 puff INHALE Q4H PRN PRN Reason: Wheezing Aspirin (Aspirin Enteric Coated 81 Mg Tablet.) 81 mg PO DAILY [facility] Last Admin: 06/27/22 08:26 Dose: 81 mg Documented By: BYRON Atorvastatin Calcium (Atorvastatin Calcium 80 Mg Tablet) 80 mg PO BEDTIME [facility] Last Admin: 06/26/22 21:39 Dose: 80 mg Documented By: FLAKITO Captopril (Captopril 25 Mg Tablet) 25 mg PO BEDTIME [facility]; Protocol Last Admin: 06/26/22 21:39 Dose: 25 mg Documented By: FLAKITO Clonidine (Clonidine 0.1 Mg Patch.Tdwk) 0.1 mg TRANSDERMA Fr@0900 [facility]; Protocol Last Admin: 06/26/22 13:58 Dose: 0.1 mg Documented By: SHAUNA Dextrose (Dextrose 50 % 25 Gm/50 Ml Syringe) 25 gm IVPUSH Q15M PRN; Protocol PRN Reason: per Hypoglycemia Standing Ord. Fluticasone/Vilanterol (Fluticasone/Vilanterol 100/25 Blst.W.Dev) 1 puff INHALE RDAILY [facility] Last Admin: 06/27/22 12:14 Dose: 1 puff Documented By: JENNIFER Gabapentin (Gabapentin 100 Mg Capsule) 200 mg PO BEDTIME [facility] Last Admin: 06/26/22 21:38 Dose: 200 mg Documented By: FLAKITO Glucose (Glucose Gel 15 Gm Gel..Gram.) 15 gm PO Q15M PRN; Protocol PRN Reason: per Hypoglycemia Standing Ord. Heparin Sodium (Porcine) (Heparin Sodium,Porcine 5,000 Unit/Ml Vial) 5,000 unit SUBCUT Q12H [facility] Last Admin: 06/27/22 04:06 Dose: 5,000 unit Documented By: FLAKITO Insulin Human Lispro (Insulin Lispro 100 Unit/Ml 3 Ml Vial) 0 unit SUBCUT QIDACHS [facility]; Protocol Last Admin: 06/27/22 11:42 Dose: 6 unit Documented By: BYRON Midodrine (Midodrine Hcl 10 Mg Tablet) 10 mg PO TID@0800,1200,1600 [facility] Last Admin: 06/27/22 11:42 Dose: 10 mg Documented By: BYRON Ondansetron HCl (Ondansetron Hcl 4 Mg/2 Ml Vial) 4 mg IVPUSH Q8H PRN PRN Reason: Nausea and Vomiting Pharmacy Consult (Consult Rx Perform Med Rec) 1 each MISCELLANE ONCE PRN PRN Reason: Consult order Polyethylene Glycol (Polyethylene Glycol 3350 17 Gm Powd.Pack) 17 gm PO DAILY [facility] Last Admin: 06/27/22 08:27 Dose: 17 gm Documented By: BYRON Potassium Chloride (Potassium Chloride Er 20 Meq Tab.Er.Prt) 40 meq PO ONCE [facility] Sodium Chloride (0.9 % Sodium Chloride Flush 3 Ml Syringe) 3 ml IVFLUSH QSHIFT [facility] Last Admin: 06/27/22 08:27 Dose: 3 ml Documented By: BYRON Labs CBC & Chem 7: 06/24/22 05:54 06/27/22 07:00 Labs: Laboratory Results - last 24 hr 06/26/22 06/26/22 06/27/22 16:28 20:17 07:00 Anion Gap 14 Estim Creat Clear Calc 56.1 Estimated GFR 43 POC Glucose 163 H 167 H Random Glucose 148 H Calcium 9.2 Random Cortisol 06/27/22 06/27/22 06/27/22 07:00 07:49 11:15 Anion Gap Estim Creat Clear Calc Estimated GFR POC Glucose 133 H 268 H Random Glucose Calcium Random Cortisol 15.8 Assessment and Plan (1) Orthostatic hypotension: Status: Acute (2) Syncope: Status: Acute Plan 72 year old man admitted for management of orthostatic hypotension and syncope Orthostatic hypotension with episodes of syncope Still significantly orthostatic Ongoing episodes since November 2021 Continue telemetry, no arrhythmias noted Echocardiogram preserved LVEF with grade I diastolic dysfunction seen by cardiology - rec continue current dose of midodrine nephro rec continue midodrine and Northera outpatient if not effective Check orthostatics daily fludrocortisone d/c due to hypokalemia continue compression stockings, recommend waist high as outpatient Start sitting patient in bed and on edge of bed Hypokalemia fludocortisone d/c replace IV and repeat this afternoon declining IV replacement, will continue po hypomagnesemia improved with replacement supine Hypertension d/c losartan per cardiology rec will start low dose clonidine transdermal and bedtime dose of captopril due to ongoing supine hypertension per nephrology rec Diabetes mellitus type 2 Sliding scale, ADA diet Chronic kidney disease stage III Last visit to [facility] on 06/16/2022 showed creatinine of 1.4 seems to be within baseline Avoid nephrotoxins, Nephrology following Hyperlipidemia Continue Statin DVT prophylaxis with heparin Attending Dr. Low Full code PT eval pending - pt requesting rehab if able requires ongoing inpatient hospitalization for management of orthostatic hypotension/ supine hypertension; hypokalemia Time Spent With Patient Time: Total time managing care of this patient today ____ minutes. Quality Stroke Does the patient have a stroke diagnosis?: No VTE Prior VTE?: No VTE Risk Level:: Medical - moderate - high VTE Device Contraindication: Treatment Not Indicated VTE Drug Contraindication: N/A - Med Ordered
--- NOTE | 2022-06-27 14:37 | PM.PNNEP ---
Subjective Subjective Date of Service: 06/27/22 Interval history: seen and examined this morning had episode of dizziness after using the bathroom around 6 this am. otherwise feeling ok denies sob, chest pain, dizziness, headache Physical Exam Vital Signs: Vital Signs: Last Vital Signs Temp 98.0 F 06/27/22 11:13 Pulse 81 06/27/22 12:17 Resp 18 06/27/22 12:17 BP 138/82 06/27/22 11:13 Pulse Ox 98 06/27/22 11:13 O2 Del Method 06/27/22 11:13 BMI result Body Mass Index 32.3 Appearing in no acute distress heart regular rate rhythm, clear S1, S2 positive bowel sounds, abdomen is soft, nontender neuro patient is alert x3, no focal deficits Objective Data Labs CBC & Chem 7: 06/24/22 05:54 06/27/22 07:00 Labs: Laboratory Results - last 24 hr 06/26/22 06/26/22 06/26/22 16:28 16:56 20:17 Sodium Potassium 3.5 D Chloride Carbon Dioxide Anion Gap BUN Creatinine Estim Creat Clear Calc Estimated GFR POC Glucose 163 H 167 H Random Glucose Calcium Random Cortisol 06/27/22 06/27/22 06/27/22 07:00 07:00 07:49 Sodium 145 Potassium 3.1 L Chloride 104 Carbon Dioxide 30 H Anion Gap 14 BUN 26 H Creatinine 1.60 H Estim Creat Clear Calc 56.1 Estimated GFR 43 POC Glucose 133 H Random Glucose 148 H Calcium 9.2 Random Cortisol 15.8 06/27/22 11:15 Sodium Potassium Chloride Carbon Dioxide Anion Gap BUN Creatinine Estim Creat Clear Calc Estimated GFR POC Glucose 268 H Random Glucose Calcium Random Cortisol Procedures Date of Service Date of Service: 06/27/22 Assessment & Plan Assessment and plan (1) CKD (chronic kidney disease) stage 2, GFR 60-89 ml/min: Status: Acute Plan this is a patient with chronic kidney disease which is stable orthostatic hypotension treated with midodrine He has a history of chronic kidney disease diabetes obesity he follows with cardiology has a pacemaker he is admitted with a fall after being lightheaded he also has multiple admissions at [facility] for similar problems recommendations at this point are - continue midodrine and- If resistant to this droxydopa can be tried as out pt - WAIST HIGH COMPRESSION STOCKINGS CAN HELP - CLONIDINE Patch #1 Q 7 days - captopril at bed time when BP is high ( Supine) as it is short acting REPLACE KCLas ordered Contiaol Normal f/u Plasma metanephrins PT Thx D/ w medical team Time Spent With Patient Time: Total time managing care of this patient today ____ minutes. Progress Note: Quality Stroke Does the patient have a stroke diagnosis?: No
[2022-06-27] MEDS: Atorvastatin Calcium 80 MG TABLET PO (21:25)
[2022-06-27] MEDS: Gabapentin 100 MG CAPSULE 200 MG PO (21:25)
[2022-06-27] MEDS: captopriL 25 MG TABLET PO (21:25)
[2022-06-28] VITALS (7 sets, daily range): BP systolic 130–203; BP diastolic 64–92; PULSE 71–85; RESP 17–18; TEMP 36.4–37.2; O2SAT 94–99
[2022-06-28] MEDS: Heparin Sodium,Porcine 5,000 UNIT/ML VIAL 5000 UNIT SUBCUT ×2 (04:27→17:21)
[2022-06-28] MEDS: Insulin Lispro 100 UNIT/ML 3 ML VIAL SUBCUT ×3 (08:36→21:08)
[2022-06-28] MEDS: 0.9 % Sodium Chloride Flush 3 ML SYRINGE IVFLUSH ×2 (08:37→17:21)
[2022-06-28] MEDS: polyethylene glycoL 3350 17 GM POWD.PACK PO (08:37)
[2022-06-28] MEDS: Midodrine HCl 10 MG TABLET PO ×3 (08:37→17:20)
[2022-06-28 08:40] LABS: Anion Gap 13 (12-20); Blood Urea Nitrogen 21 mg/dL (9-16); Calcium 9.6 mg/dL (8.4-10.2); Carbon Dioxide 31 mmol/L (22-29); Chloride 105 mmol/L (96-108); Creatinine Clr Calc Pharmacy 59.4; Estimated Glomerular Filt Rate 46; Glucose Random 159 mg/dL (60-115); Potassium 3.5 mmol/L (3.3-5.1); Sodium 145 mmol/L (135-145)
[2022-06-28] MEDS: Aspirin Enteric Coated 81 MG TABLET.DR PO (08:40)
--- NOTE | 2022-06-28 09:36 | HO.PM.IMPN ---
Subjective Subjective Date of Service: 06/28/22 Interval History: seen and examined this morning follow up for orthostatic hypotension. still having some dizziness or weakness when standing no chest pain, shortness of breath, headache or vision changes Review of Systems Review of Systems: Yes all other systems are reviewed and are negative Constitutional Constitutional: Denies chills and Denies fever(s) Cardiovascular Cardiovascular: Denies chest pain, Denies palpitations and Denies dyspnea Respiratory Respiratory: Denies cough and Denies dyspnea Gastrointestinal Gastrointestinal: Denies abdominal pain, Denies nausea and Denies vomiting Endocrine Endocrine: Denies palpitations Physical Exam Vital Signs: Vital Signs: Last Vital Signs Temp 97.7 F 06/28/22 07:22 Pulse 77 06/28/22 07:22 Resp 17 06/28/22 07:22 BP 145/78 H 06/28/22 07:22 Pulse Ox 98 06/28/22 07:22 O2 Del Method 06/28/22 07:22 BMI result Body Mass Index 32.3 Const: General: cooperative, comfortable, no acute distress, alert and awake Nutritional Appearance: overweight Orientation/consciousness: patient oriented x3 Resp: Effort & Inspection: normal respiratory effort and able to speak in complete sentences Auscultation: clear to auscultation bilaterally Cardio: Rate: regular rate Heart sounds: S1 normal heart sound present and S2 normal heart sound present GI: Inspection: No distended Palpation (GI): Soft to palpation and nontender Neuro: General: patient oriented x3 and CN's II-XI intact bilaterally Extrem: Other: able to move all 4 extremities spontaneously General: Yes no pedal edema Objective Data Active Medications Acetaminophen (Acetaminophen 325 Mg Tablet) 650 mg PO Q6H PRN PRN Reason: Pain, Mild (Pain Scale 1-3) Last Admin: 06/27/22 08:25 Dose: 650 mg Documented By: BYRON Albuterol Sulfate (Albuterol Sulfate 90 Mcg 8 Gm Inhaler) 2 puff INHALE Q4H PRN PRN Reason: Wheezing Aspirin (Aspirin Enteric Coated 81 Mg Tablet.) 81 mg PO DAILY [facility] Last Admin: 06/28/22 08:40 Dose: 81 mg Documented By: BYRON Atorvastatin Calcium (Atorvastatin Calcium 80 Mg Tablet) 80 mg PO BEDTIME [facility] Last Admin: 06/27/22 21:25 Dose: 80 mg Documented By: FLAKITO Captopril (Captopril 25 Mg Tablet) 25 mg PO BEDTIME [facility]; Protocol Last Admin: 06/27/22 21:25 Dose: 25 mg Documented By: FLAKITO Clonidine (Clonidine 0.1 Mg Patch.Tdwk) 0.1 mg TRANSDERMA Fr@0900 [facility]; Protocol Last Admin: 06/26/22 13:58 Dose: 0.1 mg Documented By: SHAUNA Dextrose (Dextrose 50 % 25 Gm/50 Ml Syringe) 25 gm IVPUSH Q15M PRN; Protocol PRN Reason: per Hypoglycemia Standing Ord. Fluticasone/Vilanterol (Fluticasone/Vilanterol 100/25 Blst.W.Dev) 1 puff INHALE RDAILY [facility] Last Admin: 06/27/22 12:14 Dose: 1 puff Documented By: JENNIFER Gabapentin (Gabapentin 100 Mg Capsule) 200 mg PO BEDTIME [facility] Last Admin: 06/27/22 21:25 Dose: 200 mg Documented By: FLAKITO Glucose (Glucose Gel 15 Gm Gel..Gram.) 15 gm PO Q15M PRN; Protocol PRN Reason: per Hypoglycemia Standing Ord. Heparin Sodium (Porcine) (Heparin Sodium,Porcine 5,000 Unit/Ml Vial) 5,000 unit SUBCUT Q12H [facility] Last Admin: 06/28/22 04:27 Dose: 5,000 unit Documented By: FLAKITO Hydralazine HCl (Hydralazine Hcl 20 Mg/Ml Vial) 5 mg IM ONCE PRN; Protocol PRN Reason: SBP>180 Last Admin: 06/27/22 23:35 Dose: 5 mg Documented By: FLAKITO Insulin Human Lispro (Insulin Lispro 100 Unit/Ml 3 Ml Vial) 0 unit SUBCUT QIDACHS [facility]; Protocol Last Admin: 06/28/22 08:36 Dose: 2 unit Documented By: BYRON Midodrine (Midodrine Hcl 10 Mg Tablet) 10 mg PO TID@0800,1200,1600 [facility] Last Admin: 06/28/22 08:37 Dose: 10 mg Documented By: BYRON Ondansetron HCl (Ondansetron Hcl 4 Mg/2 Ml Vial) 4 mg IVPUSH Q8H PRN PRN Reason: Nausea and Vomiting Pharmacy Consult (Consult Rx Perform Med Rec) 1 each MISCELLANE ONCE PRN PRN Reason: Consult order Polyethylene Glycol (Polyethylene Glycol 3350 17 Gm Powd.Pack) 17 gm PO DAILY [facility] Last Admin: 06/28/22 08:37 Dose: 17 gm Documented By: BYRON Potassium Chloride (Potassium Chloride Er 20 Meq Tab.Er.Prt) 40 meq PO ONCE [facility] Sodium Chloride (0.9 % Sodium Chloride Flush 3 Ml Syringe) 3 ml IVFLUSH QSHIFT [facility] Last Admin: 06/28/22 08:37 Dose: 3 ml Documented By: BYRON Labs CBC & Chem 7: 06/24/22 05:54 06/28/22 07:39 Labs: Laboratory Results - last 24 hr 06/27/22 06/27/22 06/27/22 11:15 16:27 19:58 Anion Gap Estim Creat Clear Calc Estimated GFR POC Glucose 268 H 155 H 206 H Random Glucose Calcium 06/28/22 06/28/22 07:25 07:39 Anion Gap 13 Estim Creat Clear Calc 59.4 Estimated GFR 46 POC Glucose 164 H Random Glucose 159 H Calcium 9.6 Assessment and Plan (1) Orthostatic hypotension: Status: Acute (2) Hypokalemia: Status: Acute Plan 72 year old man admitted for management of orthostatic hypotension and syncope Orthostatic hypotension with episodes of syncope Ongoing episodes since November 2021 Echocardiogram preserved LVEF with grade I diastolic dysfunction seen by cardiology - rec continue current dose of midodrine nephro rec continue midodrine and Northera outpatient if not effective Check orthostatics daily fludrocortisone d/c due to hypokalemia continue compression stockings, recommend waist high as outpatient Start sitting patient in bed and on edge of bed Hypokalemia Improved, 3.5 today fludocortisone d/c replace IV and repeat this afternoon declining IV replacement, will continue po hypomagnesemia improved with replacement supine Hypertension losartan d/c this admission continue low dose clonidine transdermal and bedtime dose of captopril Diabetes mellitus type 2 Sliding scale, ADA diet Chronic kidney disease stage III Last visit to [facility] on 06/16/2022 showed creatinine of 1.4 within baseline Nephrology following Hyperlipidemia Continue Statin DVT prophylaxis with heparin Attending Dr. Mayberry Full code seen by PT - rec STR requires ongoing inpatient hospitalization for management of orthostatic hypotension/ supine hypertension Time Spent With Patient Time: Total time managing care of this patient today ____ minutes. Quality Stroke Does the patient have a stroke diagnosis?: No VTE Prior VTE?: No VTE Risk Level:: Medical - moderate - high VTE Device Contraindication: Treatment Not Indicated VTE Drug Contraindication: N/A - Med Ordered
--- NOTE | 2022-06-28 13:41 | PM.PNNEP ---
Subjective Subjective Date of Service: 06/28/22 Interval history: seen and examined this morning follow up for orthostatic hypotension. still having some dizziness or weakness when standing no chest pain, shortness of breath, headache or vision changes Physical Exam Vital Signs: Vital Signs: Last Vital Signs Temp 98.1 F 06/28/22 11:01 Pulse 71 06/28/22 11:01 Resp 17 06/28/22 11:01 BP 165/92 H 06/28/22 11:01 Pulse Ox 97 06/28/22 11:01 O2 Del Method 06/28/22 11:01 BMI result Body Mass Index 32.3 Const: General: cooperative, comfortable, no acute distress, alert and awake Nutritional Appearance: overweight Orientation/consciousness: patient oriented x3 Resp: Effort & Inspection: normal respiratory effort and able to speak in complete sentences Auscultation: clear to auscultation bilaterally Cardio: Rate: regular rate Heart sounds: S1 normal heart sound present and S2 normal heart sound present GI: Inspection: No distended Palpation (GI): Soft to palpation and nontender Neuro: General: patient oriented x3 and CN's II-XI intact bilaterally Extrem: Other: able to move all 4 extremities spontaneously General: Yes no pedal edema Objective Data Labs CBC & Chem 7: 06/24/22 05:54 06/28/22 07:39 Labs: Laboratory Results - last 24 hr 06/27/22 06/27/22 06/28/22 16:27 19:58 07:25 Sodium Potassium Chloride Carbon Dioxide Anion Gap BUN Creatinine Estim Creat Clear Calc Estimated GFR POC Glucose 155 H 206 H 164 H Random Glucose Calcium 06/28/22 06/28/22 07:39 11:08 Sodium 145 Potassium 3.5 Chloride 105 Carbon Dioxide 31 H Anion Gap 13 BUN 21 H Creatinine 1.51 H Estim Creat Clear Calc 59.4 Estimated GFR 46 POC Glucose 299 H Random Glucose 159 H Calcium 9.6 Procedures Date of Service Date of Service: 06/28/22 Assessment & Plan Assessment and plan (1) CKD (chronic kidney disease) stage 2, GFR 60-89 ml/min: Status: Acute Plan this is a patient with chronic kidney disease which is stable orthostatic hypotension treated with midodrine He has a history of chronic kidney disease diabetes obesity he follows with cardiology has a pacemaker he is admitted with a fall after being lightheaded he also has multiple admissions at [facility] for similar problems recommendations at this point are - continue midodrine and- If resistant to this droxydopa can be tried as out pt - WAIST HIGH COMPRESSION STOCKINGS CAN HELP - CLONIDINE Patch #1 Q 7 days - captopril at bed time when BP is high ( Supine) as it is short acting - increase dose to 50 mg in AM ( before bed time ) REPLACE KCLas needed Contiaol Normal f/u Plasma metanephrins PT Thx D/ w medical team Time Spent With Patient Time: Total time managing care of this patient today ____ minutes. Progress Note: Quality Stroke Does the patient have a stroke diagnosis?: No
[2022-06-28] MEDS: Acetaminophen 325 MG TABLET 650 MG PO (21:07)
[2022-06-28] MEDS: Gabapentin 100 MG CAPSULE 200 MG PO (21:08)
[2022-06-28] MEDS: Atorvastatin Calcium 80 MG TABLET PO (21:08)
[2022-06-28] MEDS: captopriL 25 MG TABLET PO (21:08)
[2022-06-29] VITALS (8 sets, daily range): BP systolic 155–198; BP diastolic 80–94; PULSE 72–81; RESP 12–18; TEMP 36.6–36.9; O2SAT 95–98
[2022-06-29] MEDS: Heparin Sodium,Porcine 5,000 UNIT/ML VIAL 5000 UNIT SUBCUT ×2 (05:25→16:54)
[2022-06-29] MEDS: Acetaminophen 325 MG TABLET 650 MG PO ×2 (08:07→22:26)
[2022-06-29] MEDS: Insulin Lispro 100 UNIT/ML 3 ML VIAL SUBCUT ×4 (08:08→22:27)
[2022-06-29] MEDS: polyethylene glycoL 3350 17 GM POWD.PACK PO (08:08)
[2022-06-29] MEDS: Aspirin Enteric Coated 81 MG TABLET.DR PO (08:08)
[2022-06-29] MEDS: 0.9 % Sodium Chloride Flush 3 ML SYRINGE IVFLUSH ×3 (08:13→22:28)
--- NOTE | 2022-06-29 09:12 | HO.PM.IMPN ---
Subjective Subjective Date of Service: 06/29/22 Interval History: seen and examined this morning follow up for orthostatic hypotension. still having some dizziness or weakness when standing but better no chest pain, shortness of breath, headache or vision changes Review of Systems Review of Systems: Yes all other systems are reviewed and are negative Constitutional Constitutional: Denies chills and Denies fever(s) Cardiovascular Cardiovascular: Denies chest pain, Denies palpitations and Denies dyspnea Respiratory Respiratory: Denies cough and Denies dyspnea Gastrointestinal Gastrointestinal: Denies abdominal pain, Denies nausea and Denies vomiting Endocrine Endocrine: Denies palpitations Physical Exam Vital Signs: Vital Signs: Last Vital Signs Temp 97.8 F 06/29/22 07:39 Pulse 80 06/29/22 08:22 Resp 16 06/29/22 07:39 BP 190/80 H 06/29/22 08:22 Pulse Ox 96 06/29/22 07:39 O2 Del Method 06/29/22 07:39 BMI result Body Mass Index 32.3 Appearing in no acute distress lung sounds are clear to auscultation heart regular rate rhythm, clear S1, S2 positive bowel sounds, abdomen is soft, nontender neuro patient is alert x3, no focal deficits Objective Data Active Medications Acetaminophen (Acetaminophen 325 Mg Tablet) 650 mg PO Q6H PRN PRN Reason: Pain, Mild (Pain Scale 1-3) Last Admin: 06/29/22 08:07 Dose: 650 mg Documented By: ZEYNEP Albuterol Sulfate (Albuterol Sulfate 90 Mcg 8 Gm Inhaler) 2 puff INHALE Q4H PRN PRN Reason: Wheezing Artificial Tears (Artificial Tears 15 Ml Drops) 1 drop EYE-BOTH Q4H PRN PRN Reason: Dry Eyes Last Admin: 06/28/22 18:34 Dose: 1 drop Documented By: BYRON Aspirin (Aspirin Enteric Coated 81 Mg Tablet.) 81 mg PO DAILY [facility] Last Admin: 06/29/22 08:08 Dose: 81 mg Documented By: ZEYNEP Atorvastatin Calcium (Atorvastatin Calcium 80 Mg Tablet) 80 mg PO BEDTIME [facility] Last Admin: 06/28/22 21:08 Dose: 80 mg Documented By: KASSI Captopril (Captopril 25 Mg Tablet) 25 mg PO BEDTIME [facility]; Protocol Last Admin: 06/28/22 21:08 Dose: 25 mg Documented By: KASSI Clonidine (Clonidine 0.1 Mg Patch.Tdwk) 0.1 mg TRANSDERMA Fr@0900 [facility]; Protocol Last Admin: 06/26/22 13:58 Dose: 0.1 mg Documented By: SHAUNA Dextrose (Dextrose 50 % 25 Gm/50 Ml Syringe) 25 gm IVPUSH Q15M PRN; Protocol PRN Reason: per Hypoglycemia Standing Ord. Fluticasone/Vilanterol (Fluticasone/Vilanterol 100/25 Blst.W.Dev) 1 puff INHALE RDAILY [facility] Last Admin: 06/29/22 08:14 Dose: Not Given Documented By: ZEYNEP Non-Admin Reason: Patient Refused Gabapentin (Gabapentin 100 Mg Capsule) 200 mg PO BEDTIME [facility] Last Admin: 06/28/22 21:08 Dose: 200 mg Documented By: KASSI Glucose (Glucose Gel 15 Gm Gel..Gram.) 15 gm PO Q15M PRN; Protocol PRN Reason: per Hypoglycemia Standing Ord. Heparin Sodium (Porcine) (Heparin Sodium,Porcine 5,000 Unit/Ml Vial) 5,000 unit SUBCUT Q12H [facility] Last Admin: 06/29/22 05:25 Dose: 5,000 unit Documented By: KASSI Hydralazine HCl (Hydralazine Hcl 20 Mg/Ml Vial) 5 mg IM ONCE PRN; Protocol PRN Reason: SBP>180 Last Admin: 06/27/22 23:35 Dose: 5 mg Documented By: FLAKITO Insulin Human Lispro (Insulin Lispro 100 Unit/Ml 3 Ml Vial) 0 unit SUBCUT QIDACHS [facility]; Protocol Last Admin: 06/29/22 08:08 Dose: 2 unit Documented By: ZEYNEP Comments: Midodrine (Midodrine Hcl 10 Mg Tablet) 10 mg PO TID@0800,1200,1600 [facility] Last Admin: 06/29/22 08:13 Dose: Not Given Documented By: ZEYNEP Non-Admin Reason: BP elevated Ondansetron HCl (Ondansetron Hcl 4 Mg/2 Ml Vial) 4 mg IVPUSH Q8H PRN PRN Reason: Nausea and Vomiting Pharmacy Consult (Consult Rx Perform Med Rec) 1 each MISCELLANE ONCE PRN PRN Reason: Consult order Polyethylene Glycol (Polyethylene Glycol 3350 17 Gm Powd.Pack) 17 gm PO DAILY [facility] Last Admin: 06/29/22 08:08 Dose: 17 gm Documented By: ZEYNEP Sodium Chloride (0.9 % Sodium Chloride Flush 3 Ml Syringe) 3 ml IVFLUSH QSHIFT [facility] Last Admin: 06/29/22 08:13 Dose: 3 ml Documented By: ZEYNEP Labs CBC & Chem 7: 06/24/22 05:54 06/28/22 07:39 Labs: Laboratory Results - last 24 hr 06/28/22 06/28/22 06/28/22 11:08 16:02 20:49 POC Glucose 299 H 136 H 189 H 06/29/22 07:37 POC Glucose 151 H Assessment and Plan (1) Orthostatic hypotension: Status: Acute (2) Hypokalemia: Status: Acute Plan 72 year old man admitted for management of orthostatic hypotension and syncope Orthostatic hypotension with episodes of syncope Ongoing episodes since November 2021 Echocardiogram preserved LVEF with grade I diastolic dysfunction seen by cardiology - rec continue current dose of midodrine nephro rec continue midodrine and Northera outpatient if not effective Check orthostatics daily fludrocortisone d/c due to hypokalemia continue compression stockings, recommend waist high as outpatient OOB to chair and ambulating with PT Hypokalemia. Resolved fludocortisone d/c hypomagnesemia. Resolved improved with replacement Supine Hypertension losartan d/c this admission continue low dose clonidine transdermal and bedtime dose of captopril Diabetes mellitus type 2 Sliding scale, ADA diet Chronic kidney disease stage III Last visit to [facility] on 06/16/2022 showed creatinine of 1.4 within baseline Nephrology following Hyperlipidemia Continue Statin DVT prophylaxis with heparin Attending Dr. Mayberry Full code DISPO plan for STR requires ongoing inpatient hospitalization for management of orthostatic hypotension/ supine hypertension Time Spent With Patient Time: Total time managing care of this patient today ____ minutes. Quality Stroke Does the patient have a stroke diagnosis?: No VTE Prior VTE?: No VTE Risk Level:: Medical - moderate - high VTE Device Contraindication: Treatment Not Indicated VTE Drug Contraindication: N/A - Med Ordered
--- NOTE | 2022-06-29 14:28 | PM.PNNEP ---
Subjective Subjective Date of Service: 06/29/22 Interval history: seen and examined this morning follow up for orthostatic hypotension. still having some dizziness or weakness when standing but better no chest pain, shortness of breath, headache or vision changes Physical Exam Vital Signs: Vital Signs: Last Vital Signs Temp 98.5 F 06/29/22 11:08 Pulse 72 06/29/22 11:08 Resp 12 06/29/22 11:08 BP 190/91 H 06/29/22 11:08 Pulse Ox 98 06/29/22 11:08 O2 Del Method 06/29/22 11:08 BMI result Body Mass Index 32.3 Appearing in no acute distress lung sounds are clear to auscultation heart regular rate rhythm, clear S1, S2 positive bowel sounds, abdomen is soft, nontender neuro patient is alert x3, no focal deficits Objective Data Labs CBC & Chem 7: 06/24/22 05:54 06/28/22 07:39 Labs: Laboratory Results - last 24 hr 06/28/22 06/28/22 06/29/22 16:02 20:49 07:37 POC Glucose 136 H 189 H 151 H 06/29/22 11:07 POC Glucose 273 H Procedures Date of Service Date of Service: 06/29/22 Assessment & Plan Assessment and plan (1) CKD (chronic kidney disease) stage 2, GFR 60-89 ml/min: Status: Acute Plan this is a patient with chronic kidney disease which is stable orthostatic hypotension treated with midodrine He has a history of chronic kidney disease diabetes obesity he follows with cardiology has a pacemaker he is admitted with a fall after being lightheaded he also has multiple admissions at [facility] for similar problems recommendations at this point are - continue midodrine and- If resistant to this droxydopa can be tried as out pt - WAIST HIGH COMPRESSION STOCKINGS CAN HELP - CLONIDINE Patch increaseto #2 Q 7 days - captopril at bed time when BP is high ( Supine) as it is short acting - increase dose to 50 mg in AM ( before bed time ) REPLACE KCLas needed Contiaol Normal f/u Plasma metanephrins PT Thx D/ w medical team Time Spent With Patient Time: Total time managing care of this patient today ____ minutes. Progress Note: Quality Stroke Does the patient have a stroke diagnosis?: No
--- NOTE | 2022-06-29 15:06 | MHC.CM.PN ---
EMR REVIEWED, PT NOT DISCHARGING TODAY D/T INCREASING BP, CM MET W/PT AND AT BEDSIDE AND THEY REPORT PREFERRED SNF [facility] SO PT'S CAN VISIT. IF [facility] UNABLE TO OFFER PT AND FAMILY ARE OKAY W/[facility] OR [facility], PT/ DO NOT WANT [facility] CAN[facility] THAT FAR TO VISIT. SNF REFERRAL UPDATED AND CM WILL CONT TO FOLLOW D/C NEEDS.
[2022-06-29] MEDS: captopriL 25 MG TABLET PO (22:26)
[2022-06-29] MEDS: Gabapentin 100 MG CAPSULE 200 MG PO (22:27)
[2022-06-29] MEDS: Atorvastatin Calcium 80 MG TABLET PO (22:27)
[2022-06-30 03:25] VITALS: BP 199/87; PULSE 79; RESP 15; TEMP 36.5; O2SAT 99
[2022-06-30] MEDS: Heparin Sodium,Porcine 5,000 UNIT/ML VIAL 5000 UNIT SUBCUT (04:47)
[2022-06-30 07:22] LABS: Glucose, Whole Blood 155 mg/dL (60-115)
[2022-06-30] MEDS: polyethylene glycoL 3350 17 GM POWD.PACK PO (07:33)
[2022-06-30] MEDS: 0.9 % Sodium Chloride Flush 3 ML SYRINGE IVFLUSH (07:34)
[2022-06-30] MEDS: Aspirin Enteric Coated 81 MG TABLET.DR PO (07:34)
[2022-06-30] MEDS: Insulin Lispro 100 UNIT/ML 3 ML VIAL SUBCUT ×2 (07:34→11:33)
[2022-06-30 07:53] VITALS: BP 212/99; PULSE 77; RESP 20; TEMP 36.5; O2SAT 98
[2022-06-30 08:00] VITALS: BP 212/99; PULSE 77
[2022-06-30 08:04] VITALS: BP 167/76; PULSE 80
[2022-06-30] MEDS: Acetaminophen 325 MG TABLET 650 MG PO (10:23)
[2022-06-30] MEDS: cloNIDine 0.2 MG PATCH.TDWK TRANSDERMA (10:24)
[2022-06-30 11:01] VITALS: BP 176/80; PULSE 76; RESP 20; TEMP 37.1; O2SAT 98
[2022-06-30 11:10] LABS: Glucose, Whole Blood 320 mg/dL (60-115)
--- NOTE | 2022-06-30 12:45 | MHC.CM.PN ---
Addendum entered by Denita Crouch 06/30/22 14:44: P.T. NOTE SENT TO [facility] FOR INITIATION OF INSURANCE AUTH Original Note: PT HAS BEEN ACCEPTED AT [facility] FOR STR PENDING INSURANCE AUTH WITH BC. AWAITING NEW P.T. NOTE, (P.T. AWARE) SO AUTH MAY BE SUBMITTED. PT/ AWARE OF PLAN. CM WILL CONTINUE TO FOLLOW.
--- NOTE | 2022-06-30 15:05 | P.DS_ITS ---
DS: Providers Provider Date of Service: 06/30/22 Date of admission: 06/23/22 16:17 Primary care physician: Elroy Smith MD Consults: 06/23/22 16:32 Consult to Cardiology Routine Consulting Provider: Louis Meade Reason for consultation: Syncope, orthostatic hypotension Consult to Nephrology Routine Consulting Provider: Linwood Isaac Reason for consultation: Orthostatic hypotension Has provider been notified: No Attending physician on discharge: Raji Skaggs Discharging clinician: Meredith Torres DS: Diagnosis Discharge Diagnosis (1) CKD (chronic kidney disease) stage 2, GFR 60-89 ml/min: Status: Acute DS: Summary Hospital Course Hospital Course: 72 year old man presenting with multiple episodes of syncope and orthostatic hypotension.? His symptoms started sometime in November of 2021 where he started feeling dizzy.? He reports these episodes happening while he is walking, they are sudden there is no prodrome and he just collapses and loses consciousness for seconds.? When he awakes from these episodes he is not groggy or confused.? He reports that he waits few minutes to get himself back up.? He reports he has not had any trauma from the falls.? He reports that the episodes have been more frequent and as a matter fact over the last 7-10 days he has had at least 3 episodes of syncope and collapse.? He has been treated for orthostatic hypotension by his endoscopy tech and he had a referral for a hand method lasting machine operator upcoming.? 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 He was last seen at [facility] on 06/16/2022 for the same symptoms and appears that he was discharged from the emergency department. He denies chest pain, shortness breath, nausea, vomiting, diarrhea.? No recent illness, no sick contacts.? In the ER, he was found to be significantly orthostatic with blood pressures of 202/98, 157/87,96/38.? Potassium 3.0, creatinine 1.55 with history of chronic kidney disease, troponin 39.8, negative flu and COVID.? He received 1500 mL of normal saline and 80 mEq of potassium.? We placed on observation for further management and treatment of syncope and orthostatic hypotension Orthostatic hypotension with episodes of syncope Ongoing episodes since November 2021 Echocardiogram preserved LVEF with grade I diastolic dysfunction seen by cardiology - rec continue midodrine 10mg TID nephro rec continue midodrine and Northera outpatient if not effective Check orthostatics daily fludrocortisone d/c due to hypokalemia continue compression stockings, recommend waist high as outpatient OOB to chair and ambulating with PT Hypokalemia. Resolved fludocortisone d/c hypomagnesemia. Resolved improved with replacement Supine Hypertension losartan d/c this admission continue low dose clonidine 0.2 transdermal and bedtime dose of captopril Diabetes mellitus type 2 Sliding scale, ADA diet Chronic kidney disease stage III Last visit to [facility] on 06/16/2022 showed creatinine of 1.4 within baseline Hyperlipidemia Continue Statin Time Spent with Patient Time attestation: Total time managing care of this patient today ____ minutes. Discharge coordination time: Greater than 30 minutes Quality: Safe Use of Opioids Does Pt have an Active Cancer Diagnosis on the Problem List?: No Quality: Stroke Does the patient have a stroke diagnosis?: No Physical Exam Vital Signs: Vital Signs: Last Vital Signs Temp 98.7 F 06/30/22 11:01 Pulse 76 06/30/22 11:01 Resp 20 06/30/22 11:01 BP 176/80 H 06/30/22 11:01 Pulse Ox 98 06/30/22 11:01 O2 Del Method 06/30/22 11:01 BMI result Body Mass Index 32.3 Appearing in no acute distress head is normocephalic atraumatic eyes pupils are PERRLA sclera is anicteric mouth throat mucous membranes are intact and moist neck is supple no lymphadenopathy, no JVD noted lung sounds are clear to auscultation heart regular rate rhythm, clear S1, S2 positive bowel sounds, abdomen is soft, nontender neuro patient is alert x3, no focal deficits DS: Data Data Completed and Pending Labs on day of discharge: Laboratory Results - last 24 hr 06/29/22 06/29/22 06/30/22 15:41 19:07 07:15 POC Glucose 185 H 232 H 155 H 06/30/22 11:03 POC Glucose 320 H Discharge Plan Discharge Anticipated Discharge Date/Time: 06/30/22 15:02 Patient Disposition: Xfer Inpatient Rehab Fac Discharge Diagnosis: Orthostatic hypotension Syncope Hypokalemia supine hypertension CKD III Referrals: [facility] [Outside] - 1 Week (TRANSFER TO [facility] FOR [facility]ORT [facility]M RE[facility]AB) Elroy Smith MD [Primary Care Provider] - 1 Week Discharge Medications: New clonidine 0.2 mg/24 hr Patch Weekly 0.2 mg transdermal Fr@0900 Qty: 4 0RF Protocol: Hold for SBP< HOLD for SBP < : 90 captopril 25 mg Tablet 25 mg PO BEDTIME Qty: 30 0RF Protocol: Hold for SBP< HOLD for SBP < : 90 Continued glipizide 10 mg tablet 1 tab PO DAILY midodrine 2.5 mg tablet 1 tab PO TID@0800,1200,1600 Rx Instructions: for 14 days gabapentin 100 mg capsule 2 cap PO BEDTIME fluticasone propion-salmeterol [Advair Diskus] 100-50 mcg/dose blister with device 1 ea INHALATION BID albuterol sulfate 90 mcg/actuation HFA aerosol inhaler 2 puff INHALATION Q4H PRN (Reason: Wheezing) rosuvastatin 20 mg tablet 1 tab PO BEDTIME acetaminophen [Tylenol] 325 mg Tablet 650 mg PO Q6H PRN (Reason: Pain) polyethylene glycol 3350 [Miralax] 17 gram Powder In Packet 17 g PO DAILY aspirin 81 mg Tablet,Delayed Release (Dr/Ec) 81 mg PO DAILY ibuprofen 200 mg Tablet 400 mg PO Q8H PRN (Reason: Pain) Discontinued losartan 50 mg tablet 50 mg PO BEDTIME fludrocortisone 0.1 mg tablet 1 tab PO BID Discharge Orders: Discharge Order (Routine); Ordered 06/30/22 Ordered By: Meredith Torres Diet: Advance to usual diet Activity on Discharge: As tolerated Stand Alone Forms: Patient Portal Discharge page Care Plan Goals: * Wearing waist-high compression stockings.?These may help improve blood flow and reduce the symptoms of orthostatic hypotension. Wear them during the day, but take them off for bed and when lying down. * Getting plenty of fluids.?Keeping hydrated helps prevent symptoms of low blood pressure. Drink plenty of water before long periods of standing, or any activities that tend to trigger symptoms. * Avoiding alcohol.?Alcohol can worsen orthostatic hypotension, so limit or avoid it completely. * Increasing salt in the diet.?This must be done carefully and only after discussing it with a health care provider. Too much salt can cause blood pressure to increase beyond a healthy level, creating new health risks. * Eating small meals.?If blood pressure drops after eating, having small, low- carbohydrate meals might help. * Exercising.?Regular cardiovascular and strengthening exercises might help reduce symptoms of orthostatic hypotension. Avoid exercising in very hot, humid weather. * Moving and stretching in certain ways.?Stretch and flex calf muscles before sitting up. For symptoms, squeeze thighs together and squeeze stomach and buttock muscles. Squat, march in place or rise onto tiptoes. * Getting up slowly.?Move slowly from a lying to standing position. Also, when getting out of bed, sit on the edge of the bed for a minute before standing. * Raising the head of the bed.?Sleeping with the head of the bed slightly raised can help fight the effects of gravity. Health Concerns: Orthostatic hypotension Syncope Hypokalemia supine hypertension CKD III Plan of Treatment: Follow-up with primary care provider as needed Follow-up with Nephrology for management of orthostatic hypotension Take all medications as prescribed Assessment: See discharge summary
--- NOTE | 2022-06-30 15:26 | MHC.CM.PN ---
DP: PT MEDICALLY CLEARED FOR DC TO STR AT [facility]. RN NOTIFIED. FACILITY AWARE. TRANSPORT BOOKED FOR 4:30 PM VIA [facility].
[2022-06-30 16:22] VITALS: BP 145/66; PULSE 67; RESP 16; TEMP 36.7; O2SAT 97
[2022-06-30 16:29] LABS: Glucose, Whole Blood 138 mg/dL (60-115)
[2022-06-30 17:36] LABS: COVID-19 Test Negative (Negative); IDNOW Serial# BCCEAD1C
[2022-07-01 12:58] LABS: Metanephrine, Free 25 pg/mL (<=57); Normetanephrines, Free <25 pg/mL (<=148); Total Metanephrine, Free 25 pg/mL (<=205)
== END 2022-06-30 17:50 | DRG 312 ==
LOC: HO.ED 14:06 → HO.EDOVER 17:52 → HO.IMC 06-25 12:18 → HO.EDOVER 11-09 15:44
PROVIDERS: Physician Assistant; Physician Assistant Medical; Admitting Provider Nurse Practitioner Acute Care; Emergency Provider Emergency Medicine Emergency Medical Services; PCP Internal Medicine; Visit Provider Nurse Practitioner Acute Care
DX: I95.1 Orthostatic hypotension (principal); E87.6 Hypokalemia; Z95.0 Presence of cardiac pacemaker; F17.210 Nicotine dependence, cigarettes, uncomplicated; E78.5 Hyperlipidemia, unspecified; I12.9 Hypertensive chronic kidney disease with stage 1 through stage 4 chronic kidney disease, or unspecified chronic kidney disease; E11.22 Type 2 diabetes mellitus with diabetic chronic kidney disease; N18.30 Chronic kidney disease, stage 3 unspecified; E83.42 Hypomagnesemia; Z20.822 Contact with and (suspected) exposure to COVID-19; Z71.6 Tobacco abuse counseling; Z88.8 Allergy status to other drugs, medicaments and biological substances; Z79.51 Long term (current) use of inhaled steroids; Z79.84 Long term (current) use of oral hypoglycemic drugs; Z79.899 Other long term (current) drug therapy
CPT/HCPCS: 0241U; 36415; 70450; 72125; 80048; 80053; 82533; 82947; 83735; 83835; 84132; 84484; 85025; 85610; 85730; 87635; 93005; 93306; 94640; 97161; 97530; 99219; 99285; J3475; Q9957

== ENCOUNTER 2022-07-27 14:34 | Outpatient (REF) | payer BC, SELFPAY ==
[2022-07-27 17:00] LABS: Anion Gap 15 (12-20); Blood Urea Nitrogen 21 mg/dL (9-16); Calcium 9.1 mg/dL (8.4-10.2); Carbon Dioxide 29 mmol/L (22-29); Chloride 104 mmol/L (96-108); Estimated Glomerular Filt Rate 43; Glucose Random 91 mg/dL (60-115); Magnesium 2.1 mg/dL (1.6-2.6); Potassium 3.2 mmol/L (3.3-5.1); Sodium 145 mmol/L (135-145)
== END 2022-07-27 14:35 | disposition home or self-care (01) ==
LOC: HO.LAB 14:34
PROVIDERS: PCP Internal Medicine; Referring Provider Internal Medicine; Visit Provider Internal Medicine Cardiovascular Disease
DX: I95.1 Orthostatic hypotension (principal); N18.2 Chronic kidney disease, stage 2 (mild); E87.6 Hypokalemia
CPT/HCPCS: 36415; 80048; 83735

== ENCOUNTER → 2022-11-23 13:36 | Outpatient (BNVA) | payer BC, SELFPAY | PROVIDERS: PCP Internal Medicine; Referring Provider Internal Medicine; Visit Provider Internal Medicine Cardiovascular Disease | DX: I95.1 Orthostatic hypotension (principal) | CPT/HCPCS: 93005 ==

== ENCOUNTER 2023-02-04 13:38 | Emergency (ER) | payer BC, SELFPAY ==
[2023-02-04] VITALS (8 sets, daily range): BP systolic 149–238; BP diastolic 79–110; PULSE 74–86; RESP 14–20; TEMP 36.2–36.7; O2SAT 97–98; BMI 31.2
--- NOTE | ~2023-02-04 | CT_ITS ---
EXAMINATION: CT HEAD WITHOUT CONTRAST CLINICAL INFORMATION: Accelerated hypertension. COMPARISON: CT head 06/23/2022. TECHNIQUE: Contiguous axial imaging was performed from the skull base to vertex without intravenous administration of contrast. This CT examination was performed using dose optimization techniques as appropriate, variously including the following: *Automated exposure control *Adjustment of mA and/or kV according to patient size (this includes techniques or standardized protocols for targeted exams where dose is matched to indication/reason for exam; i.e. extremities or head) *Use of iterative reconstruction technique DLP: 725 mGy-cm FINDINGS: There is no evidence of acute intracranial hemorrhage or edematous territorial infarction. A few foci of hypoattenuation in the periventricular and deep white matter are consistent with mild microangiopathy. Maxwell-white matter differentiation is preserved. Proportional prominence of the ventricles and sulcal spaces. No evidence for obstructive hydrocephalus. No abnormal mass effect or midline shift. No extra-axial fluid collections. No acute soft tissue or osseous abnormalities. Mucus retention cyst in the right sphenoidal sinus. Mild mucosal thickening of the ethmoid air cells. The mastoids and middle ear cavities are clear. CT/CT head/brain wo IV con IMPRESSION: No evidence of acute intracranial hemorrhage or edematous territorial infarction.
--- NOTE | 2023-02-04 13:44 | ED.GENADULT ---
HPI - General Adult General Chief complaint: Dizziness Stated complaint: dizzy/ weakness Time Seen by Provider: 02/04/23 16:29 Source: patient Mode of arrival: ambulatory Limitations: no limitations History of Present Illness HPI narrative: patient with history of hypertension orthostatic hypotension on miodrine losartan and fludrocortisone been feeling foggy last 1 month today check his blood pressure was elevated on arrival was 240/108 no nausea no vomiting no shortness breath no chest pain or palpitation Related Data Home Medications Medication Instructions Recorded Confirmed acetaminophen 325 mg tablet 650 mg PO Q6H PRN Pain 06/23/22 11/23/22 (Tylenol) aspirin 81 mg tablet,delayed 81 mg PO DAILY 06/23/22 11/23/22 release gabapentin 100 mg capsule 300 mg PO BEDTIME 07/27/22 11/23/22 glipizide 10 mg tablet 10 mg PO DAILY 07/27/22 11/23/22 fludrocortisone 0.1 mg tablet 0.1 mg PO BID 11/23/22 11/23/22 losartan 50 mg tablet 50 mg PO DAILY 11/23/22 11/23/22 midodrine 2.5 mg tablet 2.5 mg PO TID@0800,1200,1600 11/23/22 11/23/22 rosuvastatin 20 mg tablet 20 mg PO BEDTIME 11/23/22 11/23/22 Previous Rx's Medication Instructions Recorded potassium chloride 20 mEq 20 meq PO DAILY 90 days #90 tabs 11/12/22 tablet,extended release Allergies Allergy/AdvReac Type Severity Reaction Status Date / Time amlodipine AdvReac Cough Verified 02/04/23 13:45 Review of Systems Review of Systems: Yes all other systems are reviewed and are negative [facility] Past Medical History Medical History BPH (benign prostatic hyperplasia) Chronic back pain CKD (chronic kidney disease) stage 2, GFR 60-89 ml/min COPD (chronic obstructive pulmonary disease) Diabetes mellitus type 2 in nonobese Hyperlipidemia Hypertension Orthostatic hypotension Orthostatic hypotension Pacemaker Sciatica Vasovagal syncope Surgical History History of total left hip replacement S/P placement of cardiac pacemaker S/P surgery on nasal septum Family History Family History Father Pacemaker Social History Social History Household Members: Spouse Housing: House Do you presently have visiting nurse or other home services: Yes Alcohol intake: never Patient Tobacco Use Status: Current someday Tobacco user Tobacco use type: Cigar Years Smoked: 15 +/- Smoked in Last 30 Days: Yes Use of substances other than those prescribed or required for medical reasons: No Advance Directives: Yes Advance Directives on File: Yes Advance Directives Date on File: 06/25/22 service: No Current occupational status: retired Physical Exam ED Vital Signs: Vital Signs - 24 hr 02/04/23 13:45 02/04/23 16:05 02/04/23 16:49 Temperature 97.2 F 98.0 F Pulse Rate 81 81 82 Respiratory Rate 19 14 Blood Pressure 201/91 H 238/110 H 222/108 H Pulse Oximetry 98 97 Oxygen Delivery Method Room Air Room Air 02/04/23 16:51 02/04/23 16:53 02/04/23 18:00 Temperature 98.0 F Pulse Rate 83 86 81 Respiratory Rate 16 Blood Pressure 236/101 H 149/79 H 213/100 H Pulse Oximetry 98 Oxygen Delivery Method Room Air 02/04/23 19:43 02/04/23 22:04 Temperature Pulse Rate 81 74 Respiratory Rate 15 20 Blood Pressure 218/98 H 180/89 H Pulse Oximetry 97 98 Oxygen Delivery Method Room Air Room Air BMI result Body Mass Index 31.2 Appearance: Alert. Oriented X3. No acute distress. Eyes: PERRLA, No Nystagmus ENT: Pharynx normal. Oral Mucosa moist Neck: Normal inspection. Neck supple. CVS: Normal heart rate and rhythm. Pulses normal. Respiratory: No respiratory distress. Equal air entry bilateral, no wheezing/rales/rhonchi Abdomen: Soft and nontender. Bowel sounds are present, no mass palpable, no CVA tenderness Skin: Skin warm and dry. Normal skin color. Normal skin turgor. Extremities: No lower extremity edema. No calf tenderness Neuro: Oriented X 3. No motor deficit. No sensory deficit.No cerebellar signs , cranial nerves II-XII intact Course Course Course Narrative: This is a rapid medical exam: Additional HPI, ROS, PE not included below will be deferred to primary provider. Patient is a 73-year-old male with history of CKD, COPD, T2DM, HLD, HTN, orthostatic hypotension, pacemaker presenting to the emergency department with intermittent lightheadedness for the past 1-2 months, states woke with symptoms this morning. reports multiple elevated blood pressure readings today, held patient's midodrine. BPs ranging from 180-200 systolic, around 100 diastolic. He is a patient of Dr. Meade. Patient denies any vision changes or headache. Denies recent fall or other trauma. Plan: EKG, labs Medications Administered Discontinued Medications Generic Name Dose Route Start Last Admin Trade Name Freq PRN Reason Stop Dose Admin Potassium Chloride 10 meq in 100 mls @ 100 mls/hr 02/04/23 17:00 02/04/23 22:03 Potassium Chloride/H20 IV 02/04/23 18:59 Infused Q1H TASIA Infusion Potassium Bicarbonate 25 meq 02/04/23 16:57 02/04/23 17:19 Potassium Bicarbonate/Cit Ac 25 Meq Tablet.Eff PO 02/04/23 16:58 25 meq ONCE ONE Administration Medical Decision Making Medical Decision Making [facility] Narrative: patient orthostatic hypotension on midostaurin and fludrocortisone blood pressure was elevated on arrival and potassium was 2.[address] was negative patient received IV potassium repeat blood pressure was 187/84 pulse rate 80 patient feeling much better now will discharge patient home Lab Data [facility] Lab Attestation statement: I reviewed the patient's lab results. 02/04/23 14:55 02/04/23 14:55 Labs: Lab Results 02/04/23 02/04/23 02/04/23 Range/Units 14:55 14:55 14:55 WBC 7.0 (4.8-10.8) X10*3/uL RBC 4.93 (4.60-5.80) X10*6/uL Hgb 15.0 (14.0-18.0) g/dl Hct 43.0 (42.0-52.0) % MCV 87.2 (80.0-98.0) fL MCH 30.4 (27.0-33.0) pg MCHC 34.9 (31.0-36.0) g/dl RDW 12.6 (11.0-16.0) % Plt Count 172 (160-400) X10*3/uL MPV 10.1 (9.4-12.4) fL Immature Gran % (Auto) 0.3 (0.0-0.4) % Neut % (Auto) 67.7 (45-73) % Lymph % (Auto) 20.0 (20-40) % [place] % (Auto) 7.4 (2-11) % Eos % (Auto) 3.9 (0-4) % Baso % (Auto) 0.7 (0-2) % Lymph # (Auto) 1.4 (1.2-4.9) X10*3/uL [place] # (Auto) 0.5 (0.1-1.2) X10*3/uL Eos # (Auto) 0.3 (0.0-0.4) X10*3/uL Baso # (Auto) 0.1 (0.0-0.2) X10*3/uL Abs Immat Gran (auto) 0.02 (0.00-0.03) X10*3/uL Absolute Neuts (auto) 4.7 (2.0-8.3) x10*3/uL Absolute Nucleated RBC 0.000 (0.0-0.012) X10*3/uL Nucleated RBC % (auto) 0.0 (0.0-0.2) /100WBC Sodium 147 H (135-145) mmol/L Potassium 2.8 L (3.3-5.1) mmol/L Chloride 103 (96-108) mmol/L Carbon Dioxide 31 H (22-29) mmol/L Anion Gap 16 (12-20) BUN 21 H (9-16) mg/dL Creatinine 1.44 H (0.5-1.4) mg/dL Estim Creat Clear Calc 58.7 Estimated GFR 48 Random Glucose 126 H (60-115) mg/dL Calcium 9.4 (8.4-10.2) mg/dL Total Bilirubin 0.9 (0.0-1.0) mg/dL AST 26 (5-37) U/L ALT 24 (0-40) U/L Alkaline Phosphatase 85 (39-117) U/L Troponin I High Sens 20.9 (<3.5-35.0) ng/L Total Protein 7.7 (6.5-8.0) g/dL Albumin 4.2 (3.5-5.0) g/dL Urine Color Urine Appearance Urine pH (5.0-9.0) Ur Specific [place] (1.005-1.025) Urine Protein (Neg-Trace) mg/dL Urine Glucose (UA) (Negative) mg/dL Urine Ketones (Negative) mg/dL Urine Blood (Negative) Urine Nitrite (Negative) Ur Leukocyte Esterase (Negative) Urine RBC (0-2) /HPF Urine WBC (0-5) /HPF Ur Squamous Epith Cells (0-2) /HPF Urine Bacteria (None Seen) Hyaline Casts (0-2) /LPF 02/04/23 Range/Units 16:24 WBC (4.8-10.8) X10*3/uL RBC (4.60-5.80) X10*6/uL Hgb (14.0-18.0) g/dl Hct (42.0-52.0) % MCV (80.0-98.0) fL MCH (27.0-33.0) pg MCHC (31.0-36.0) g/dl RDW (11.0-16.0) % Plt Count (160-400) X10*3/uL MPV (9.4-12.4) fL Immature Gran % (Auto) (0.0-0.4) % Neut % (Auto) (45-73) % Lymph % (Auto) (20-40) % [place] % (Auto) (2-11) % Eos % (Auto) (0-4) % Baso % (Auto) (0-2) % Lymph # (Auto) (1.2-4.9) X10*3/uL [place] # (Auto) (0.1-1.2) X10*3/uL Eos # (Auto) (0.0-0.4) X10*3/uL Baso # (Auto) (0.0-0.2) X10*3/uL Abs Immat Gran (auto) (0.00-0.03) X10*3/uL Absolute Neuts (auto) (2.0-8.3) x10*3/uL Absolute Nucleated RBC (0.0-0.012) X10*3/uL Nucleated RBC % (auto) (0.0-0.2) /100WBC Sodium (135-145) mmol/L Potassium (3.3-5.1) mmol/L Chloride (96-108) mmol/L Carbon Dioxide (22-29) mmol/L Anion Gap (12-20) BUN (9-16) mg/dL Creatinine (0.5-1.4) mg/dL Estim Creat Clear Calc Estimated GFR Random Glucose (60-115) mg/dL Calcium (8.4-10.2) mg/dL Total Bilirubin (0.0-1.0) mg/dL AST (5-37) U/L ALT (0-40) U/L Alkaline Phosphatase (39-117) U/L Troponin I High Sens (<3.5-35.0) ng/L Total Protein (6.5-8.0) g/dL Albumin (3.5-5.0) g/dL Urine Color Yellow Urine Appearance Clear Urine pH 6.5 (5.0-9.0) Ur Specific [place] 1.015 (1.005-1.025) Urine Protein 100 (2+) H (Neg-Trace) mg/dL Urine Glucose (UA) 250 H (Negative) mg/dL Urine Ketones Negative (Negative) mg/dL Urine Blood Negative (Negative) Urine Nitrite Negative (Negative) Ur Leukocyte Esterase Negative (Negative) Urine RBC 0-2 (0-2) /HPF Urine WBC 0-5 (0-5) /HPF Ur Squamous Epith Cells 0-2 (0-2) /HPF Urine Bacteria None Seen (None Seen) Hyaline Casts 0-2 (0-2) /LPF Discharge Plan Discharge Clinical Impression: Hypertension, uncontrolled, Chronic hypokalemia Patient Disposition: Home, Self-Care Instructions: Hypokalemia (ED), Chronic Hypertension (ED) Additional Instructions: hold midodrine for now take rest of your medication take potassium tablets and have food continue high potassium discussed with cardiology/ PCP regarding restarting of midodrine Prescriptions: No Action potassium chloride 20 mEq tablet extended release 20 meq PO DAILY 90 Days Qty: 90 1RF acetaminophen [Tylenol] 325 mg Tablet 650 mg PO Q6H PRN (Reason: Pain) aspirin 81 mg Tablet,Delayed Release (Dr/Ec) 81 mg PO DAILY gabapentin 100 mg capsule 300 mg PO BEDTIME glipizide 10 mg tablet 10 mg PO DAILY midodrine 2.5 mg tablet 2.5 mg PO TID@0800,1200,1600 rosuvastatin 20 mg tablet 20 mg PO BEDTIME fludrocortisone 0.1 mg tablet 0.1 mg PO BID losartan 50 mg tablet 50 mg PO DAILY Interventions: ED Discharge Assessment Last Done: 02/04/23 21:42 Discharge Date/Time: 02/04/23 22:04
--- NOTE | 2023-02-04 13:48 | ECG_ITS ---
Test Reason : DIZZINESS Blood Pressure : / mmHG Vent. Rate : 081 BPM Atrial Rate : 081 BPM P-R Int : 224 ms QRS Dur : 090 ms QT Int : 384 ms P-R-T Axes : 000 054 143 degrees QTc Int : 446 ms Atrial-paced rhythm with prolonged AV conduction ST & T wave abnormality, consider inferolateral ischemia Abnormal ECG When compared with ECG of 23-JUN-2022 08:47, No significant changes seen Referred By: Gladys Davis Electronically Signed By:ANNIE CHILD
[2023-02-04 14:59] LABS: MANUAL DIFF FLAG NO
[2023-02-04 15:01] LABS: Basophils Absolute Auto 0.1 X10*3/uL (0.0-0.2); Basophils Percent Auto 0.7 % (0-2); Eosinophils Absolute Auto 0.3 X10*3/uL (0.0-0.4); Eosinophils Percent Auto 3.9 % (0-4); Imm Gran Abs Auto 0.02 X10*3/uL (0.00-0.03); Imm Gran Pct Auto 0.3 % (0.0-0.4); Lymphocytes Absolute Auto 1.4 X10*3/uL (1.2-4.9); Mean Corpuscular HGB Conc 34.9 g/dl (31.0-36.0); Mean Corpuscular Hemoglobin 30.4 pg (27.0-33.0); Mean Corpuscular Volume 87.2 fL (80.0-98.0); Mean Platelet Volume 10.1 fL (9.4-12.4); Monocytes Absolute Auto 0.5 X10*3/uL (0.1-1.2); Monocytes Percent Auto 7.4 % (2-11); Neutrophils Absolute Auto 4.7 x10*3/uL (2.0-8.3); Neutrophils Percent Auto 67.7 % (45-73); Platelet Count 172 X10*3/uL (160-400); Red Blood Count 4.93 X10*6/uL (4.60-5.80); Red Cell Distribution Width 12.6 % (11.0-16.0)
[2023-02-04 15:21] LABS: Alanine Aminotransferase 24 U/L (0-40); Albumin Level 4.2 g/dL (3.5-5.0); Alkaline Phosphatase 85 U/L (39-117); Anion Gap 16 (12-20); Aspartate Amino Transferase 26 U/L (5-37); Bilirubin Total 0.9 mg/dL (0.0-1.0); Blood Urea Nitrogen 21 mg/dL (9-16); Calcium 9.4 mg/dL (8.4-10.2); Carbon Dioxide 31 mmol/L (22-29); Chloride 103 mmol/L (96-108); Creatinine Clr Calc Pharmacy 58.7; Estimated Glomerular Filt Rate 48; Glucose Random 126 mg/dL (60-115); Potassium 2.8 mmol/L (3.3-5.1); Sodium 147 mmol/L (135-145); Total Protein 7.7 g/dL (6.5-8.0)
[2023-02-04 15:28] LABS: Troponin-I High Sensitivity 20.9 ng/L (<3.5-35.0)
--- NOTE | 2023-02-04 16:14 | PC.NURSE ---
pt a&ox3, vss aside from hypertension (238/110), nsr on the teletypesetter monitor. pt comes in today d/t hx of dizziness for the past month. pt states that the reason for him coming in today for the first time within the month was because the symptoms have been more constant throughout the day than in the past. pt has a hx of hypertension and DM type 2 and states that he adheres to his medication regimen. pt verbalizes that he did not take 1 out of the 3 BP medications this morning (mitidrine) d/t his concern of symptoms throughout the day. pt denies n/v/d/chest pain. pt notified that he needs a urine sample and was told to press the call phillip prior to getting out of bed to prevent any possible falls d/t dizziness.
[2023-02-04 16:39] LABS: Appearance Urine Clear; Color Urine Yellow; Glucose Urine UA 250 mg/dL (Negative); Leukocyte Esterase Urine Negative (Negative); Nitrite Urine Negative (Negative); PH 6.5 (5.0-9.0); Specific Gravity - Urine 1.015 (1.005-1.025); UMIC TRIGGER UACC YES; Urine Blood Negative (Negative); Urine Ketones Negative (Negative); Urine Protein 100 (2+) mg/dL (Neg-Trace)
[2023-02-04 16:41] LABS: Bacteria Urine None Seen (None Seen); Hyaline Casts Urine 0-2 /LPF (0-2); RBC Urine 0-2 /HPF (0-2); Squamous Epithelial Cell Urine 0-2 /HPF (0-2); WBC Urine 0-5 /HPF (0-5)
--- NOTE | 2023-02-04 16:55 | PC.NURSE ---
orthostatic vital signs performed with positive result - will notify provider.
[2023-02-04] MEDS: Potassium Bicarbonate/Cit AC 25 MEQ TABLET.EFF PO (17:19)
--- NOTE | 2023-02-04 17:30 | PC.NURSE ---
medication administered per provider order.
--- NOTE | 2023-02-04 17:52 | PC.NURSE ---
20g IV placed in the right AC. 5 attempts prior to IV insertion. provider bedside also using ultrasound guidance on the opposite extremity. pt has a hx of being a hard stick for IVs. IV in right AC currently patent and flushing w/o complications.
[2023-02-04] MEDS: Potassium Chloride/H20 10 MEQ/100 ML PIGGYBACK 100 MEQ IV ×2 (18:19→21:00)
--- NOTE | 2023-02-04 18:23 | PC.NURSE ---
vss, nsr on the quality assurance monitor, IVF and medications administered per provider order. pt notified that if the burning sensation from K+ becomes too much, use call phillip and we will adjust.
--- NOTE | 2023-02-04 18:30 | PC.NURSE ---
pt requested to have potassium bolus diluted with NS as he has had them before, provider notified of pt request and ok'd the patients request for this.
--- NOTE | 2023-02-04 21:40 | PC.NURSE ---
ambulates to bathroom, gait steady, no distress. to transport home.
== END 2023-02-04 22:04 | disposition home or self-care (01) ==
PROVIDERS: Registered Nurse Emergency; Emergency Provider Internal Medicine; PCP Internal Medicine
DX: R42 Dizziness and giddiness (principal); I10 Essential (primary) hypertension; E87.6 Hypokalemia; R94.31 Abnormal electrocardiogram [ECG] [EKG]; Z79.899 Other long term (current) drug therapy
CPT/HCPCS: 36415; 70450; 80053; 81001; 84484; 85025; 93005; 96365; 96366; 99285

== ENCOUNTER → 2023-02-04 13:48 | Outpatient (BNV) | payer BC, SELFPAY | PROVIDERS: Emergency Provider Internal Medicine; PCP Internal Medicine; Visit Provider Internal Medicine | DX: I49.9 Cardiac arrhythmia, unspecified (principal) | CPT/HCPCS: 93010 ==

== ENCOUNTER 2023-02-10 13:32 | Outpatient (AMB) | payer BC, SELFPAY ==
--- NOTE | 2023-02-10 13:40 | MHC.OFFVIS ---
Intake Vital Signs 02/10/23 13:41 Height 6 ft 1 in Weight 235 lb 0.204 oz BMI 31.0 BP 138/82 Blood Pressure Location Lt brachial Position Sitting Pulse 77 Intake Visit Reasons: follow up hypokalemia and HTN Intake Note: Follow up for evaluation of hypokalemia and HTN. 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 He was seen in the hospital for orthostatic hypotension. Since discharge he started regular exercise and has been doing well. He has not had significant orthostasis. He continues to be on midodrine and fludrocortisone. He has increased his PO potassium intake. Pacemaker was interrogated and is functioning fine. 02/10/23: He returns for follow-up. He is currently off the midodrine and fludrocortisone. He was noticed to be hypokalemic potassium 2.6 and is currently taking potassium chloride 20 mg daily. 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 He has hypokalemia due to fludrocortisone which was stopped last night by Nephrology. Midodrine has been held previously because of his high blood pressures. His home blood pressures are fluctuating and they are low in the morning but higher at the evening time. He had 1 episode of feeling weak where he had presyncope and went to the ER. He also received some potassium infusions in the emergency department for hypokalemia. [facility] Medical History (Updated 02/10/23 @ 14:27 by Louis Meade MD) BPH (benign prostatic hyperplasia) Chronic back pain CKD (chronic kidney disease) stage 2, GFR 60-89 ml/min COPD (chronic obstructive pulmonary disease) Diabetes mellitus type 2 in nonobese Hyperlipidemia Hypertension Orthostatic hypotension Orthostatic hypotension Pacemaker Sciatica Vasovagal syncope Surgical History History of total left hip replacement S/P placement of cardiac pacemaker S/P surgery on nasal septum Family History Father Pacemaker Social History Household Members: Spouse Housing: House Do you presently have visiting nurse or other home services: Yes Alcohol intake: never Patient Tobacco Use Status: Current someday Tobacco user Tobacco use type: Cigar Years Smoked: 15 +/- Advance Directives Date on File: 06/25/22 service: No Current occupational status: retired Review of Systems Const Denies weakness ENT Denies dizziness Card Denies chest pain, Denies chest pain with activity, Denies syncope, Denies rapid heart rate, Denies pedal edema, Denies edema, Denies leg edema, Denies lightheadedness, Denies palpitations, Denies dyspnea, Denies dyspnea on exertion and Denies orthopnea Resp Denies cough, Denies dyspnea and Denies dyspnea on exertion GI Denies hematochezia and Denies change in stool character Musc Denies abnormal gait, Denies muscle cramps, Denies muscle weakness, Denies numbness, Denies radiating pain into limb and Denies tingling Neuro Denies abnormal gait, Denies dizziness, Denies syncope, Denies numbness, Denies tingling and Denies weakness Endo Denies palpitations Physical Exam Vital Signs: Last Vital Signs Pulse 77 02/10/23 13:41 BP 138/82 02/10/23 13:41 BMI result Body Mass Index 31.0 GENERAL APPEARANCE: in no acute distress, pleasant. NECK: no carotid bruit, no jugular venous distention. SKIN: no suspicious lesions, warm and dry. HEART: no murmurs, regular rate and rhythm. LUNGS: clear to auscultation bilaterally. ABDOMEN: soft, nontender. EXTREMITIES: no edema. PERIPHERAL PULSES: equal. NEUROLOGIC: No gross deficits, AAO X 3 Assessment & Plan Assessment & Plan (1) Hypokalemia: Code(s): E87.6 - Hypokalemia (2) CKD (chronic kidney disease) stage 2, GFR 60-89 ml/min: Code(s): N18.2 - Chronic kidney disease, stage 2 (mild) (3) Orthostatic hypotension: Code(s): I95.1 - Orthostatic hypotension (4) Hypertension: Code(s): I10 - Essential (primary) hypertension Plan Pleasant 73-year-old gentleman who is here for follow-up. He has background history of chronic kidney disease and orthostatic hypotension. Previously was doing well with midodrine and fludrocortisone combination. There was some hypokalemia previously to but not extreme. He is now presenting because his potassium was low and he has been taken off the fludrocortisone. Previously midodrine was stopped because his blood pressures were very high and they were reaching to 200s at times. He is currently taking losartan 50 mg at nighttime. He is following with Nephrology in [place]. I explained to him that both low and high blood pressures have consequences unfortunately. His blood pressures in the evening hours are quite high and I think we can try a short-acting medication at that time to see if we can improve the blood pressure readings. I have advised him to tried nitroglycerin paste 1 in in the evening hours if blood pressures are more than 150s. If blood pressure drops below 100 or there are symptoms the nitroglycerin can be wiped with alcohol. Other option is to trial short-acting hydralazine. This is a complex issues unfortunately. He has stopped drinking alcohol which is 1 potential cause for his condition. He is also diabetic but does not monitor his sugars. I have advised him to take better control of diabetes. Thank you for allowing me to participate in the care of your patient. Please feel free to contact me if you have any questions. Medications: New nitroglycerin 2% Remove for 10-12 hrs per 24 hours. check BP in the evening and if SBP>150 then 1 inch of nitroglycerin be applied. If BP drops or symptoms then wipe it off with alcohol swab. 1 inch transdermal ONCE PRN 60 grams 3RF hypertension I10 - Essential (primary) hypertension Coding Level of Care Code Est Pt Level 4 (25230) Diagnoses Hypokalemia E87.6 CKD (chronic kidney disease) stage 2, GFR 60-89 ml/min N18.2 Orthostatic hypotension I95.1 Hypertension I10
[2023-02-10 13:41] VITALS: BP 138/82; PULSE 77; BMI 31.0
== END 2023-02-10 14:11 | disposition home or self-care (01) ==
PROVIDERS: PCP Internal Medicine; Visit Provider Internal Medicine Cardiovascular Disease
DX: E87.6 Hypokalemia (principal); I12.9 Hypertensive chronic kidney disease with stage 1 through stage 4 chronic kidney disease, or unspecified chronic kidney disease; N18.2 Chronic kidney disease, stage 2 (mild); I95.1 Orthostatic hypotension
CPT/HCPCS: 99214

== ENCOUNTER → 2023-02-10 13:32 | Outpatient (BNVA) | payer BC, SELFPAY | PROVIDERS: PCP Internal Medicine; Visit Provider Internal Medicine Cardiovascular Disease ==

== ENCOUNTER 2023-05-21 15:10 | Outpatient (AMB) | payer BC, SELFPAY ==
--- NOTE | 2023-05-21 15:30 | MHC.OFFVIS ---
Intake Intake Visit Reasons: BPH/Frequency/ED Intake Note: New Patient is Present for BPH/Frequency/ED Urology Medication: None Antibiotic Allergies: None Blood Thinners: Aspirin PVR: 0 Compliants: Patient states that he went to another Urologist but was unhappy with the service. He was scheduled for Sugery but did not have surgery done. He states he gets up a lot during the night to urinate and he looses sleep Allergies amlodipine Adverse Reaction (Verified 05/31/23 13:56) Cough Medication List - Last Reconciled 05/21/23 by Ellis Flores MD acetaminophen (Tylenol) 650 mg PO Q6H PRN aspirin 81 mg PO DAILY gabapentin 300 mg PO BEDTIME glipizide 10 mg PO DAILY losartan 50 mg PO DAILY nitroglycerin 2% 1 inch transdermal ONCE PRN potassium chloride ER 20 mEq PO DAILY 90 days rosuvastatin 20 mg PO BEDTIME HPI HPI Comments History of Present Illness Details Roland is a pleasant male. He is a patient of . He is seen for the following urologic conditions - lower urinary tract symptoms - erectile dysfunction Restart prostate medications Lower urinary tract symptoms Prior urologic diagnoses Had been treated for erectile dysfunction and lower urinary tract symptoms throughout 2011 to 2019 PSA 2019 0.7 Progressive symptoms Restart finasteride Obtain PSA PFSH Medical History CKD (chronic kidney disease) stage 2, GFR 60-89 ml/min Orthostatic hypotension Pacemaker Sciatica COPD (chronic obstructive pulmonary disease) BPH (benign prostatic hyperplasia) Chronic back pain Vasovagal syncope Diabetes mellitus type 2 in nonobese Hyperlipidemia Orthostatic hypotension Hypertension Surgical History S/P surgery on nasal septum History of total left hip replacement S/P placement of cardiac pacemaker Family History Father Pacemaker Social History Household Members: Spouse Housing: House Do you presently have visiting nurse or other home services: Yes Alcohol intake: never Comment: refused bed alarm Patient Tobacco Use Status: Current someday Tobacco user Tobacco use type: Cigar Years Smoked: 15 +/- Advance Directives Date on File: 06/25/22 service: No Current occupational status: retired Review of Systems Const Denies chills and Denies fever(s) Card Reports no additional complaints and Denies syncope Resp Denies cough GI Denies abdominal pain and Denies heartburn Reports as per HPI and Denies change in libido Neuro Denies syncope Psych Denies change in libido Endo Denies change in libido Physical Exam Const General: cooperative, healthy appearing, comfortable and no acute distress Orientation/consciousness: patient oriented x3 HEENT Face and sinus: Yes normal facial exam Mouth: moist mucous membranes Neck Neck: Yes normal visual inspection, Yes full ROM and Yes trachea midline Chest Chest palpation & inspection: normal inspection of the chest Resp Effort & Inspection: normal respiratory effort, able to speak in complete sentences and no respiratory distress GI Inspection: Yes normal to inspection Back/Spine/Pelvis Cervical Spine: normal cervical lordosis Thoracic/Lumbar Spine: thoracic and lumbar spine normal to inspection Skin General skin exam: no rashes or lesions noted Neuro General: patient oriented x3, gait normal, tone normal and moves all extremities Extrem General: Yes normal to inspection and Yes capillary refill normal Assessment & Plan Assessment & Plan (1) BPH (benign prostatic hyperplasia): Code(s): N40.0 - Benign prostatic hyperplasia without lower urinary tract symptoms (2) Glucosuria: Code(s): R81 - Glycosuria Plan Three month follow-up Orders: Orders Prostate Specific Antigen 05/24/23 E11.69 - Type 2 diabetes mellitus with other specified complication, N52.1 - Erectile dysfunction due to diseases classified elsewhere, R81 - Glycosuria AMB Urinalysis Automated 05/21/23 Z13.9 - Encounter for screening, unspecified AMB Post Void Residual by ultrasound 05/21/23 N40.0 - Benign prostatic hyperplasia without lower urinary tract symptoms Hemoglobin A1c 05/24/23 E11.9 - Type 2 diabetes mellitus without complications, R81 - Glycosuria Medications: New finasteride 5 mg PO DAILY 90 tabs 1RF 90 days N40.0 - Benign prostatic hyperplasia without lower urinary tract symptoms, N40.1 - Benign prostatic hyperplasia with lower urinary tract symptoms, N13.8 - Other obstructive and reflux uropathy, R33.9 - Retention of urine, unspecified Patient Instructions: Imaging studies, laboratory and physical exam results were discussed and reviewed in detail. No major barriers to patient understanding were identified. An opportunity to ask questions regarding the treatment plan was provided. All questions were answered. The patient expressed understanding and agreement with the above treatment plan. The patient is aware they should contact our office by phone for worsening of their current condition or the appearance of new urologic symptoms. Compliance is encouraged with any medications and followup testing that is ordered. It is a privilege to participate in the urologic care of your patient. If you have any questions or concerns regarding treatment for the above conditions, or other urologic issues, please do not hesitate to contact me. The office telephone contact is [phone]. This note is constructed using voice recognition software. While every effort has been made to ensure accuracy appraiser timber errors may have been included. Yours sincerely, Dr Ellis Flores MD, [facility] - Urology Providers of Expert, Compassionate Care for the Genitourinary System Coding Level of Care Code New Pt Level 4 (53557) Diagnoses BPH (benign prostatic hyperplasia) N40.0 Glucosuria R81
== END 2023-05-21 16:06 | disposition home or self-care (01) ==
PROVIDERS: PCP Internal Medicine; Visit Provider Urology
DX: N40.0 Benign prostatic hyperplasia without lower urinary tract symptoms (principal); R81 Glycosuria
CPT/HCPCS: 99204

== ENCOUNTER → 2023-05-21 15:10 | Outpatient (BNVA) | payer BC, SELFPAY | PROVIDERS: PCP Internal Medicine; Visit Provider Urology ==

== ENCOUNTER 2023-05-24 11:56 | Outpatient (REF) | payer BC, SELFPAY ==
[2023-05-24 14:29] LABS: Prostate Specific Antigen 1.77 ng/mL (<0.05-4.0)
[2023-05-24 14:43] LABS: Estimated Average Glucose 154 mg/dL
== END 2023-05-24 11:57 | disposition home or self-care (01) ==
LOC: HO.10HDL 11:56
PROVIDERS: Visit Provider Urology
DX: E11.69 Type 2 diabetes mellitus with other specified complication (principal); N52.1 Erectile dysfunction due to diseases classified elsewhere; R81 Glycosuria; Z12.5 Encounter for screening for malignant neoplasm of prostate
CPT/HCPCS: 36415; 83036; 84153

== ENCOUNTER 2023-05-31 13:47 | Outpatient (AMB) | payer BC, SELFPAY ==
--- NOTE | 2023-05-31 13:53 | A.OFFVIS_ITS ---
Intake Vital Signs 05/31/23 13:55 Height 6 ft 1 in Weight 238 lb 1.588 oz BMI 31.4 BP 136/74 Blood Pressure Location Lt brachial Position Sitting Pulse 71 Pulse Source Pulse Oximeter Pulse Oximetry (%) 97 Oxygen Delivery Method Room Air Intake Visit Reasons: 6 month follow up Intake Note: Pt presents to the office today for a 6 month follow up. Pt states he is feeling more weak and tired than normal and pt states that he has been having warm sensations in the area of his pacemaker occasionally. Pt states he has a dull ache in the lower part of his rib area. Pt denies any sharp chest pain,or palpitations at this time. Allergies amlodipine Adverse Reaction (Verified 05/31/23 13:56) Cough Medication List - Last Reconciled 05/31/23 by Louis Meade MD acetaminophen (Tylenol) 650 mg PO Q6H PRN aspirin 81 mg PO DAILY finasteride 5 mg PO DAILY 90 days gabapentin 300 mg PO BEDTIME glipizide 10 mg PO DAILY losartan 50 mg PO DAILY midodrine 5 mg PO .prn nitroglycerin 2% 1 inch transdermal ONCE PRN rosuvastatin 20 mg PO BEDTIME HPI HPI Comments History of Present Illness Details 73-year-old gentleman here for follow-up . He was seen in the hospital for orthostatic hypotension. Since discharge he started regular exercise and has been doing well. He has not had significant orthostasis. He continues to be on midodrine and fludrocortisone. He has increased his PO potassium intake. Pacemaker was interrogated and is functioning fine. 02/10/23: He returns for follow-up. He i s currently off the midodrine and fludrocortisone. He was noticed to be hypokalemic potassium 2.6 and is currently taking potassium chloride 20 mg daily. 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 He has hypokalemia due to fludrocortisone which was stopped last night by Nephrology. Midodrine has been held previously because of his high blood pressures. His home blood pressures are fluctuating and they are low in the morning but higher at the evening time. He had 1 episode of feeling weak where he had presyncope and went to the ER. He also received some potassium infusions in the emergency department for hypokalemia. 05/31/2023: He returns for follow-up. Juan charles continues to get morning hypotension w ith blood pressure in 80s. He is saying that he does exercises for orthostatic hypotension in the morning and then takes midodrine 1 or half tablet. He had 1 episode where he had low blood pressure and started shaking all over which is usually his symptom of hypotension. He did not fall or had syncope. He has stop checking his blood pressure in the evening hours. Previously had hypertension at nighttime. We gave him previous plan of using nitroglycerin paste in case his blood pressures are elevated but he has not been checking his blood pressure or using nitroglycerin. [facility] Medical History CKD (chronic kidney disease) stage 2, GFR 60-89 ml/min Orthostatic hypotension Pacemaker Sciatica COPD (chronic obstructive pulmonary disease) BPH (benign prostatic hyperplasia) Chronic back pain Vasovagal syncope Diabetes mellitus type 2 in nonobese Hyperlipidemia Orthostatic hypotension Hypertension Surgical History S/P surgery on nasal septum History of total left hip replacement S/P placement of cardiac pacemaker Family History Father Pacemaker Household Members: Spouse Housing: House Do you presently have visiting nurse or other home services: Yes Alcohol intake: never Patient Tobacco Use Status: Current someday Tobacco user Tobacco use type: Cigar Years Smoked: 15 +/- Advance Directives Date on File: 06/25/22 service: No Current occupational status: retired Physical Exam Vital Signs: Last Vital Signs Pulse 71 05/31/23 13:55 BP 136/74 05/31/23 13:55 Pulse Ox 97 05/31/23 13:55 Oxygen Delivery Method Room Air 05/31/23 13:55 BMI result Body Mass Index 31.4 GENERAL APPEARANCE: in no acute distress, pleasant. NECK: no carotid bruit, no jugular venous distention. SKIN: no suspicious lesions, warm and dry. HEART: no murmurs, regular rate and rhythm. LUNGS: clear to auscultation bilaterally. ABDOMEN: soft, nontender. EXTREMITIES: no edema. PERIPHERAL PULSES: equal. NEUROLOGIC: No gross deficits, AAO X 3 Assessment & Plan Assessment & Plan (1) Orthostatic hypotension: Code(s): I95.1 - Orthostatic hypotension (2) Abdominal pain: Code(s): R10.9 - Unspecified abdominal pain Plan [age] gentleman with orthostatic hypotension due to autonomic dysfu nction due to alcoholism in the past as well as diabetes. He has stop drinking for close to 1 year at this stage. He initially had some improvement but then started having more symptoms. Recently has noticed that his blood pressure is lower in the morning and high at night. On previous visit we discussed about using nitroglycerin paste if his blood pressure is really high but he has stopped checking his blood pressure at nighttime. He also has been experiencing some abdominal pain and wishes to see a stock buyer which we will refer him for. We discussed about continuing midodrine or trying pyridostigmine. He will monitor his blood pressure readings specially the evening once and we will have a discussion next time. For now he will continue the midodrine. I have advised him to continue exercise and try doing upright exercises like riding a bike and rowing machine. He also has not been checking his blood sugars. It is important that his sugar control is good because if he has uncontrolled diabetes then his peripheral neuropathy can progress and could worsen autonomic issues in the future. He will see us back in few months. Thank you for allowing me to participate in the care of your patient. Please feel free to contact me if you have any questions. Orders: Referrals Gastroenterology Referral R10.9 - Unspecified abdominal pain Coding Level of Care Code Est Pt Level 4 (89347) Diagnoses Orthostatic hypotension I95.1 Abdominal pain R10.9
[2023-05-31 13:55] VITALS: BP 136/74; PULSE 71; O2SAT 97; BMI 31.4
== END 2023-05-31 14:33 | disposition home or self-care (01) ==
PROVIDERS: Visit Provider Internal Medicine Cardiovascular Disease
DX: I95.1 Orthostatic hypotension (principal); R10.9 Unspecified abdominal pain
CPT/HCPCS: 99214

== ENCOUNTER → 2023-05-31 13:47 | Outpatient (BNVA) | payer BC, SELFPAY | PROVIDERS: Visit Provider Internal Medicine Cardiovascular Disease ==

== ENCOUNTER 2023-07-13 14:16 | Outpatient (AMB) | payer BC, SELFPAY ==
--- NOTE | 2023-07-13 14:23 | MHC.OFFVIS ---
Intake Vital Signs 07/13/23 14:25 07/13/23 15:02 Height 6 ft 1 in Weight 235 lb 14.314 oz BMI 31.1 BP 216/98 H 133/76 Blood Pressure Location Lt brachial Lt brachial Position Sitting Pulse 67 75 Intake Visit Reasons: Unspecified abdominal pain Intake Note: Nasir presents in the office as a new patient for abdominal pains. CC: He states that in the upper parts of his abdomen he has pains. He states that he takes miralax daily to help with his bowels. Intensive Care Unit Nurse Required: No Allergies amlodipine Adverse Reaction (Verified 07/13/23 14:25) Cough Medication List - Last Reconciled 07/13/23 by Viri Gracia PA-C acetaminophen (Tylenol) 650 mg PO Q6H PRN aspirin 81 mg PO DAILY finasteride 5 mg PO DAILY 90 days gabapentin 300 mg PO BEDTIME glipizide 10 mg PO DAILY losartan 50 mg PO DAILY midodrine 5 mg PO .prn nitroglycerin 2% 1 inch transdermal ONCE PRN rosuvastatin 20 mg PO BEDTIME HPI HPI Comments History of Present Illness Details A 73 y/o strange feeling in my belly- for the past several months-seems to feel bloated- and feeling like 'something moving around fatigued-he has been having warm sensations in the area of his pacemaker - lasting only seconds- intermittent-he does have episodes of dizziness he has not had any syncopal episodes Was seen by Dr. Meade in May for sx-is that recur or intermittently- Presented hypertensive, no shortness of breath, chest pain nausea vomiting or dizziness Sees pcp @ [facility]-scheduled for abdominal CT 07/23/2023- Bowels ok with miralax - typical QD BM- Appetite is good-no early satiety, nausea or reflux-difficult for him to assess going on vacation next week-wants to feel well present- He has had no vomiting, hematemesis, hematochezia fever or chills. He has no chest pain or shortness of breath. [facility] Medical History CKD (chronic kidney disease) stage 2, GFR 60-89 ml/min Orthostatic hypotension Pacemaker Sciatica COPD (chronic obstructive pulmonary disease) BPH (benign prostatic hyperplasia) Chronic back pain Vasovagal syncope Diabetes mellitus type 2 in nonobese Hyperlipidemia Orthostatic hypotension Hypertension Surgical History (Updated 07/13/23 @ 14:27 by JUMNAA Aburto) Hx of colonoscopy S/P surgery on nasal septum History of total left hip replacement S/P placement of cardiac pacemaker Family History Father Pacemaker Social History Household Members: Spouse Housing: House Do you presently have visiting nurse or other home services: Yes Alcohol intake: never Comment: refused bed alarm Patient Tobacco Use Status: Current someday Tobacco user Tobacco use type: Cigar Years Smoked: 15 +/- Advance Directives Date on File: 06/25/22 service: No Current occupational status: retired Review of Systems Const All systems reviewed & are unremarkable except as noted in HPI and below ENT Reports dizziness Card Denies chest pain, Denies syncope, Denies irregular heart rhythm and Denies dyspnea Resp Denies dyspnea GI Reports bloating, Denies hematochezia, Reports GI cramping and Denies vomiting Skin/Breast Reports erythema Neuro Reports dizziness and Denies syncope Physical Exam Vital Signs: Last Vital Signs Pulse 75 07/13/23 15:02 BP 133/76 07/13/23 15:02 BMI result Body Mass Index 31.1 Facial flushing- Const General: cooperative, healthy appearing, comfortable, no acute distress and well groomed Orientation/consciousness: patient oriented x3 Limitations: no limitations Eyes Sclerae: sclerae normal Resp Effort & Inspection: normal respiratory effort and able to speak in complete sentences Auscultation: clear to auscultation bilaterally, no rales, no rhonchi and no wheezes Cardio Rate: regular rate Rhythm: regular rhythm Heart sounds: S1 normal heart sound present and S2 normal heart sound present GI Other: diastasis recti asymmetry- left soft NT no palp mass- Inspection: No scar and Yes visible herniation (small umbilical) Palpation (GI): Soft to palpation, nontender and no guarding Auscultation: normal bowel sounds Skin General skin exam: erythema (face) Neuro General: patient oriented x3 Psych Speech and movement: Normal speech and movement present and Clear speech present Assessment & Plan Assessment & Plan (1) Abdominal pain: Comment: sx- worrisome- he appears uncertain Facial flushing, awaiting derm Code(s): R10.9 - Unspecified abdominal pain Plan: Reviewed symptoms encouraged alerting appropriately-do not ignore symptom (2) Orthostatic hypotension: Comment: Follows with Dr. Meade Presented hypertensive Recheck BP-within normal range much improved-asymptomatic Code(s): I95.1 - Orthostatic hypotension Plan: Following as plan We will await CT results Plan Awaiting CT results to as ordered by his PCP to be done on 07/14 24 Encourage any worsening of symptoms changes concerns-ED for any further abdominal pain, chest pain ETC Patient Instructions: His is present, supportive Very pleasant 73-year-old Gent appears worried due to abdominal bloating ongoing for the past several months. Reviewed labs- Will await findings on abdominal CT- Encouraged to call us with any questions or concerns Any worsening of symptoms go to the ED Appreciate the opportunity assist in the care this pleasant Gent Coding Level of Care Code New Pt Level 4 (75476) Diagnoses Abdominal pain R10.9 Orthostatic hypotension I95.1 Time Spent (min) 40
[2023-07-13 14:25] VITALS: BP 216/98; PULSE 67; BMI 31.1
[2023-07-13 15:02] VITALS: BP 133/76; PULSE 75
== END 2023-07-13 15:15 | disposition home or self-care (01) ==
PROVIDERS: PCP Internal Medicine; Visit Provider Physician Assistant
DX: R10.9 Unspecified abdominal pain (principal); I95.1 Orthostatic hypotension
CPT/HCPCS: 99204; 99214

== ENCOUNTER → 2023-07-13 14:16 | Outpatient (BNVA) | payer BC, SELFPAY | PROVIDERS: PCP Internal Medicine; Visit Provider Physician Assistant ==

== ENCOUNTER 2023-07-23 12:12 | Outpatient (REF) | payer BC, SELFPAY ==
--- NOTE | ~2023-07-23 | CT_ITS ---
EXAMINATION: CT ABDOMEN WITHOUT CONTRAST CLINICAL INFORMATION: 73-year-old male with left upper quadrant abdominal pain COMPARISON: None available. TECHNIQUE: Contiguous axial thin section helical images of the abdomen were performed without contrast. The data set was reformatted in the coronal and sagittal planes and reviewed on an independent workstation. This CT examination was performed using dose optimization techniques as appropriate, variously including the following: *Automated exposure control *Adjustment of mA and/or kV according to patient size (this includes techniques or standardized protocols for targeted exams where dose is matched to indication/reason for exam; i.e. extremities or head) *Use of iterative reconstruction technique DLP: 461 mGy-cm FINDINGS: LUNG BASES: Unremarkable LIVER, GALLBLADDER, BILIARY TREE: There is no intrahepatic masses or ductal dilatation in the liver is of normal attenuation. Benign-appearing calcifications seen in the left lobe most likely due to granulomatous calcification. Gallbladder demonstrate no stones, contracted. PANCREAS: There are no pancreatic masses or evidence of pancreatitis. SPLEEN: Spleen revealed punctate calcifications due to granulomatous disease. ADRENAL GLANDS AND KIDNEYS: Adrenal glands are unremarkable. Kidneys are of normal attenuation, size and revealed hydronephrosis or nephrolithiasis. BOWEL LOOPS: Stomach, duodenum are unremarkable. Loops of small bowel and visualized colonic loops are normal. No evidence of diverticulitis or diverticulosis. Normal appendix visualized. There is no colitis. There is moderate amount of retained feces due to constipation. LYMPH NODES: Normal. VASCULAR: There are atherosclerotic calcifications of not dilated abdominal aorta and there are calcifications in the renal arteries, SMA and celiac arteries. BONES: There are degenerative changes with grade 1 anterior listhesis at the level of L5-S1 and straightening of lumbar lordosis. CT/CT abdomen wo IV con IMPRESSION: 1. No explanation for left upper quadrant pain. 2. Granulomatous disease in the liver and spleen. 3. Atherosclerotic changes. 4. Degenerative changes in the spine. Fleischner guidelines were followed.
[2023-07-23] MEDS: Barium Sulfate Oral (Vanilla) 450 ML ORAL.SUSP 900 ML PO (14:31)
== END 2023-07-23 12:13 | disposition home or self-care (01) ==
LOC: HO.CT 12:12
PROVIDERS: PCP Internal Medicine; Visit Provider Internal Medicine
DX: R10.9 Unspecified abdominal pain (principal)
CPT/HCPCS: 74150

== ENCOUNTER 2023-08-11 11:32 | Outpatient (AMB) | payer BC, SELFPAY ==
--- NOTE | 2023-08-11 11:47 | A.OFFVIS_ITS ---
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 He is a patient of . He is seen for the following urologic conditions - lower urinary tract symptoms - erectile dysfunction Follow-up for prostate medications PVR 30 cc Effective bladder emptying Still feels he has weakness of stream and symptoms Addition of alfuzosin Per his had tried Flomax before and it did not agree with them Will need office cystoscopy Lower urinary tract symptoms Prior urologic diagnoses Had been treated for erectile dysfunction and lower urinary tract symptoms throughout 2011 to 2018 PSA 2018 0.7, 05/27 1.8 Had recurrence of symptoms in 2022 and medications restarted [facility] Medical History CKD (chronic kidney disease) stage 2, GFR 60-89 ml/min Orthostatic hypotension Pacemaker Sciatica COPD (chronic obstructive pulmonary disease) BPH (benign prostatic hyperplasia) Chronic back pain Vasovagal syncope Diabetes mellitus type 2 in nonobese Hyperlipidemia Orthostatic hypotension Hypertension Surgical History Hx of colonoscopy S/P surgery on nasal septum History of total left hip replacement S/P placement of cardiac pacemaker Family History Father Pacemaker Social History Household Members: Spouse Housing: House Do you presently have visiting nurse or other home services: Yes Alcohol intake: never Comment: refused bed alarm Patient Tobacco Use Status: Current someday Tobacco user Tobacco use type: Cigar Years Smoked: 15 +/- Advance Directives Date on File: 06/25/22 service: No Current occupational status: retired Review of Systems Const Denies chills and Denies fever(s) Card Reports no additional complaints and Denies syncope Resp Denies cough GI Denies abdominal pain and Denies heartburn Reports as per HPI and Denies change in libido Neuro Denies syncope Psych Denies change in libido Endo Denies change in libido Physical Exam Const General: cooperative, healthy appearing, comfortable and no acute distress Orientation/consciousness: patient oriented x3 HEENT Face and sinus: Yes normal facial exam Mouth: moist mucous membranes Neck Neck: Yes normal visual inspection, Yes full ROM and Yes trachea midline Chest Chest palpation & inspection: normal inspection of the chest Resp Effort & Inspection: normal respiratory effort, able to speak in complete sentences and no respiratory distress GI Inspection: Yes normal to inspection Back/Spine/Pelvis Cervical Spine: normal cervical lordosis Thoracic/Lumbar Spine: thoracic and lumbar spine normal to inspection Skin General skin exam: no rashes or lesions noted Neuro General: patient oriented x3, gait normal, tone normal and moves all extremities Extrem General: Yes normal to inspection and Yes capillary refill normal Office Procedures Post Void Residual Post Residual Void Post Void Residual (PVR): 0 [id number]-[id number] Void Residual by ultrasound Assessment & Plan Assessment & Plan (1) BPH (benign prostatic hyperplasia): Code(s): N40.0 - Benign prostatic hyperplasia without lower urinary tract symptoms (2) Weak urinary stream: Code(s): R39.12 - Poor urinary stream Plan Six week follow-up cysto Orders: Orders AMB Post Void Residual by ultrasound Today R33.9 - Retention of urine, unspecified Medications: New alfuzosin ER Take before bedtime 10 mg PO BEDTIME 30 tabs 1RF 30 days N32.0 - Bladder-neck obstruction, N40.0 - Benign prostatic hyperplasia without lower urinary tract symptoms, N40.1 - Benign prostatic hyperplasia with lower urinary tract symptoms, R33.9 - Retention of urine, unspecified, R35.1 - Nocturia, R39.12 - Poor urinary stream Patient Instructions: Imaging studies, laboratory and physical exam results were discussed and reviewed in detail. No major barriers to patient understanding were identified. An opportunity to ask questions regarding the treatment plan was provided. All questions were answered. The patient expressed understanding and agreement with the above treatment plan. The patient is aware they should contact our office by phone for worsening of their current condition or the appearance of new urologic symptoms. Compliance is encouraged with any medications and followup testing that is ordered. It is a privilege to participate in the urologic care of your patient. If you have any questions or concerns regarding treatment for the above conditions, or other urologic issues, please do not hesitate to contact me. The office telephone contact is [phone]. This note is constructed using voice recognition software. While every effort has been made to ensure accuracy dental lab technician errors may have been included. Yours sincerely, Dr Ellis Flores MD, [facility] - Urology Providers of Expert, Compassionate Care for the Genitourinary System Coding Level of Care Code Est Pt Level 4 (84547) Diagnoses BPH (benign prostatic hyperplasia) N40.0 Weak urinary stream R39.12 CPT Codes Post Residual Void - PVR CPT Code: 99683-Uxlq Void Residual by ultrasound ([id number])
== END 2023-08-11 12:08 | disposition home or self-care (01) ==
PROVIDERS: PCP Internal Medicine; Visit Provider Urology
DX: N40.0 Benign prostatic hyperplasia without lower urinary tract symptoms (principal); R39.12 Poor urinary stream
CPT/HCPCS: 99214

== ENCOUNTER → 2023-08-11 11:32 | Outpatient (BNVA) | payer BC, SELFPAY | PROVIDERS: PCP Internal Medicine; Visit Provider Urology | DX: N40.1 Benign prostatic hyperplasia with lower urinary tract symptoms (principal); R39.12 Poor urinary stream; R33.8 Other retention of urine; R35.1 Nocturia | CPT/HCPCS: 51798 ==

== ENCOUNTER 2023-09-22 13:01 | Outpatient (AMB) | payer BC, SELFPAY ==
[2023-09-22 13:18] VITALS: BP 150/64; PULSE 80; BMI 32.6
--- NOTE | 2023-09-22 13:18 | MHC.OFFVIS ---
Intake Vital Signs 09/22/23 13:18 Height 6 ft 1 in Weight 247 lb 5.738 oz BMI 32.6 BP 150/64 H Blood Pressure Location Lt brachial Position Sitting Pulse 80 Pulse Source Pulse Oximeter Intake Visit Reasons: 4 mth f/up Intake Note: pt states that he its doing fine. 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 He was seen in the hospital for orthostatic hypotension. Since discharge he started regular exercise and has been doing well. He has not had significant orthostasis. He continues to be on midodrine and fludrocortisone. He has increased his PO potassium intake. Pacemaker was interrogated and is functioning fine. 02/10/23: He returns for follow-up. He is currently off the midodrine and fludrocortisone. He was noticed to be hypokalemic potassium 2.6 and is currently taking potassium chloride 20 mg daily. 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 He has hypokalemia due to fludrocortisone which was stopped last night by Nephrology. Midodrine has been held previously because of his high blood pressures. His home blood pressures are fluctuating and they are low in the morning but higher at the evening time. He had 1 episode of feeling weak where he had presyncope and went to the ER. He also received some potassium infusions in the emergency department for hypokalemia. 05/31/2023: He returns for follow-up. He continues to get morning hypotension with blood pressure in 80s. He is saying that he does exercises for orthostatic hypotension in the morning and then takes midodrine 1 or half tablet. He had 1 episode where he had low blood pressure and started shaking all over which is usually his symptom of hypotension. He did not fall or had syncope. He has stop checking his blood pressure in the evening hours. Previously had hypertension at nighttime. We gave him previous plan of using nitroglycerin paste in case his blood pressures are elevated but he has not been checking his blood pressure or using nitroglycerin. 09/22/23: He is here for follow-up. He has been doing well and has been following closely with Nephrology. We previously had morning hypotension and evening hypertension. He was on losartan 50 mg which has been changed to 25 mg and he has to take it at noon time. His morning readings are anywhere from 70s to 80s systolic blood pressure. He has been using midodrine almost daily in the morning. No dizziness or falls. He was in [place] where he had some dizziness walking around. It appears he does better in cold weather than hot weather which is quite usual with orthostasis and autonomic issues in general. [facility] Medical History CKD (chronic kidney disease) stage 2, GFR 60-89 ml/min Orthostatic hypotension Pacemaker Sciatica COPD (chronic obstructive pulmonary disease) BPH (benign prostatic hyperplasia) Chronic back pain Vasovagal syncope Diabetes mellitus type 2 in nonobese Hyperlipidemia Orthostatic hypotension Hypertension Surgical History Hx of colonoscopy S/P surgery on nasal septum History of total left hip replacement S/P placement of cardiac pacemaker Family History Father Pacemaker Social History Household Members: Spouse Housing: House Do you presently have visiting nurse or other home services: Yes Alcohol intake: never Comment: refused bed alarm Patient Tobacco Use Status: Current someday Tobacco user Tobacco use type: Cigar Years Smoked: 15 +/- Advance Directives Date on File: 06/25/22 service: No Current occupational status: retired Review of Systems Const Denies chills, Denies fatigue, Denies fever(s), Denies frequent falls, Denies weakness, Denies weight gain and Denies weight loss ENT Denies dizziness Card Denies chest pain, Denies leg edema, Denies lightheadedness, Denies palpitations, Denies dyspnea and Denies dyspnea on exertion Resp Denies cough, Denies dyspnea and Denies dyspnea on exertion GI Denies hematochezia Musc Denies abnormal gait, Denies muscle weakness, Denies numbness, Denies radiating pain into limb and Denies tingling Neuro Denies abnormal gait, Denies dizziness, Denies frequent falls, Denies numbness, Denies tingling and Denies weakness Endo Denies fatigue and Denies palpitations Physical Exam Vital Signs: Last Vital Signs Pulse 80 09/22/23 13:18 BP 150/64 H 09/22/23 13:18 BMI result Body Mass Index 32.6 GENERAL APPEARANCE: in no acute distress, pleasant. NECK: no carotid bruit, no jugular venous distention. SKIN: no suspicious lesions, warm and dry. HEART: no murmurs, regular rate and rhythm. LUNGS: clear to auscultation bilaterally. ABDOMEN: soft, nontender. EXTREMITIES: no edema. PERIPHERAL PULSES: equal. NEUROLOGIC: No gross deficits, AAO X 3 Assessment & Plan Assessment & Plan (1) Orthostatic hypotension: Code(s): I95.1 - Orthostatic hypotension Plan 73-year-old gentleman with orthostatic hypotension due to autonomic dysfunction due to alcoholism in the past as well as diabetes. He has stop drinking at this stage. He initially had some improvement but then started having more symptoms. Recently has noticed that his blood pressure is lower in the morning and high at night. He has been using midodrine almost daily after checking his blood pressure. I have advised him that he can just take midodrine once a day in the morning. During the day his blood pressure actually goes up and he has been taking losartan 25 mg at noon time as per Nephrology recommendation which I agree with. I have advised him that he should be careful in summertime and keep himself well hydrated. Otherwise he is fairly stable and will see us back in 1 year. Thank you for allowing me to participate in the care of your patient. Please feel free to contact me if you have any questions. Medications: New losartan 25 mg PO DAILY 1 tab 0RF Coding Level of Care Code Est Pt Level 4 (80116) Diagnoses Orthostatic hypotension I95.1
== END 2023-09-22 13:40 | disposition home or self-care (01) ==
PROVIDERS: PCP Internal Medicine; Visit Provider Internal Medicine Cardiovascular Disease
DX: I95.1 Orthostatic hypotension (principal)
CPT/HCPCS: 99214

== ENCOUNTER → 2023-09-22 13:01 | Outpatient (BNVA) | payer BC, SELFPAY | PROVIDERS: PCP Internal Medicine; Visit Provider Internal Medicine Cardiovascular Disease ==

== ENCOUNTER 2023-10-07 10:33 | Outpatient (AMB) | payer BC, SELFPAY ==
--- NOTE | 2023-10-07 11:28 | MHC.OFFVIS ---
Intake Intake Visit Reasons: cysto(confirmed) Intake Note: Patient presents today for a Cystoscopy Meds: Finasteride Allergies to Antibiotic: No Known Allergies Blood Thinner: Aspirin Urinalysis test clear for Cysto? Yes Disposable Uro-G Cystoscope Cannula: Lot: [id number] Exp: 05/13/2026 Diabetologist Required: No Allergies amlodipine Adverse Reaction (Verified 08/11/23 11:54) Cough HPI HPI Comments History of Present Illness Details Roland is a pleasant male. He is a patient of . He is seen for the following urologic conditions - lower urinary tract symptoms - erectile dysfunction Here for cystoscopy Had trialed alfuzosin for weakness of stream PVR 30 cc Will need office cystoscopy Lower urinary tract symptoms Prior urologic diagnoses Had been treated for erectile dysfunction and lower urinary tract symptoms throughout 2011 to 2018 Prior medications include Flomax which had an adverse effect, alfuzosin PSA 2018 0.7, 05/27 1.8 Had recurrence of symptoms in 2022 and medications restarted PFS Medical History CKD (chronic kidney disease) stage 2, GFR 60-89 ml/min Orthostatic hypotension Pacemaker Sciatica COPD (chronic obstructive pulmonary disease) BPH (benign prostatic hyperplasia) Chronic back pain Vasovagal syncope Diabetes mellitus type 2 in nonobese Hyperlipidemia Orthostatic hypotension Hypertension Surgical History Hx of colonoscopy S/P surgery on nasal septum History of total left hip replacement S/P placement of cardiac pacemaker Family History Father Pacemaker Social History Household Members: Spouse Housing: House Do you presently have visiting nurse or other home services: Yes Alcohol intake: never Comment: refused bed alarm Patient Tobacco Use Status: Current someday Tobacco user Tobacco use type: Cigar Years Smoked: 15 +/- Advance Directives Date on File: 06/25/22 service: No Current occupational status: retired Office Procedures Cystoscopy Consent Discussed risk and benefit or proposed procedure with the patient. Information consent for procedure given to the patient. Discussed technical aspects, risks, benefits and alternatives in full. Addressed all of the patient's questions and concerns regarding the procedure. The patient demonstrated knowledge and understanding. They wish to proceed with this procedure. Preparation The patient was prepped in the usual manner. A shipping support clerk was present and in the room. Genitalia was prepped with betadine solution in a sterile manner. Lidocaine Jelly 2% was placed into the urethra and 16Fr flexible Olympus cystoscope was inserted into the meatus after adequate lubrication. 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 - [id number] DISPOSABLE SCOPE URO-G FLEXIBLE SCOPE Procedure code (CPT) selection complete Office Meds lidocaine HCl 2 % mucosal jelly in applicator Performing Provider: Ellis Flores MD Performing Location: [facility] Administered by: Michael Charlton LPN on 10/07/23 11:52 Dose Route Admin Location Dispensed Lot Number Expiration Date [place] Health Policy Nurse 10 mL intra-urethral 10 mL nitrofurantoin monohydrate/macrocrystals 100 mg capsule Performing Provider: Ellis Flores MD Performing Location: [facility] Administered by: Michael Charlton LPN on 10/07/23 11:52 Dose Route Admin Location Dispensed Lot Number Expiration Date NDC Health Policy Nurse 100 mg PO 1 cap naproxen 500 mg tablet Performing Provider: Ellis Flores MD Performing Location: [facility] Administered by: Michael Charlton LPN on 10/07/23 11:52 Dose Route Admin Location Dispensed Lot Number Expiration Date ND Health Policy Nurse 500 mg PO 1 tab Results AMB Urinalysis, Automated UA Leukoctes 0 Rambo/uL Last Edit by Tiarra Erazo CMA on 10/07/23 11:44 UA Nitrite Negative Last Edit by Tiarra Erazo CMA on 10/07/23 11:44 UA Urobilinogen 0.2 mg/dL Last Edit by Tiarra Erazo CMA on 10/07/23 11:44 UA Protein 15 mg/dL Last Edit by Tiarra Erazo CMA on 10/07/23 11:44 UA pH 6.0 Last Edit by Tiarra Erazo CMA on 10/07/23 11:44 UA Blood 0 Marcel/uL Last Edit by [facility], [facility] on 10/07/23 11:44 UA Specific [place] 1.020 Last Edit by [facility], [facility] on 10/07/23 11:44 UA Ketone Negative Last Edit by [facility], [facility] on 10/07/23 11:44 UA Bilirubin 0 mg/dL Last Edit by [facility], [facility] on 10/07/23 11:44 UA Glucose 0 mg/dL Last Edit by [facility], [facility] on 10/07/23 11:44 Results Reviewed Results Reviewed: Laboratory Last Values Urine pH (Auto) 6.0 10/07/23 11:42 Specific [place] (Auto) 1.020 10/07/23 11:42 Urine Protein (Auto) 15 mg/dL 10/07/23 11:42 Glucose (UA)(Auto) 0 mg/dL 10/07/23 11:42 Urine Ketones (Auto) Negative 10/07/23 11:42 Urine Blood (Auto) 0 Marcel/uL 10/07/23 11:42 Urine Nitrite (Auto) Negative 10/07/23 11:42 Urine Bilirubin (Auto) 0 mg/dL 10/07/23 11:42 Urine Urobilinogen (Auto) 0.2 mg/dL 10/07/23 11:42 Leukocyte Esterase (Auto) 0 Rambo/uL 10/07/23 11:42 Assessment & Plan Assessment & Plan (1) Weak urinary stream: Code(s): R39.12 - Poor urinary stream (2) BPH (benign prostatic hyperplasia): Code(s): N40.0 - Benign prostatic hyperplasia without lower urinary tract symptoms Plan We discussed the nature of the decision and reasonable options for performing a prostate intervention. Interventions include TURP, GreenLight laser enucleation of the prostate, GreenLight laser ablation of the prostate, transurethral incision of the prostate, and I-Tend prostate procedure. Options such as medical therapy were discussed. The relative uncertainties and benefits related to each alternate procedure were adequately discussed. General surgical risks including, but not limited to, pain, bleeding, infection, myocardial infarction, pulmonary embolus, deep vein thrombosis and cerebrovascular accident which may result in further hospitalization were discussed. Full disclosure of the procedure as well as all major risks, benefits and complications were discussed including but not limited to damage to the urethra or bladder neck, recurrent BPH, retrograde ejaculation, bladder infection, urge, de tee frequency, incomplete emptying, dysuria, remote chance of erectile dysfunction, epididymitis, and meatal stenosis. The success rate of the procedure was discussed. Success of the procedure in the short-term does not necessarily guarantee that long-term success will be maintained. Suitable follow up will need to be maintained. The patient showed understanding of discussion. An opportunity was provided for questions to be answered and wishes to proceed with the following procedure. - bipolar incision of prostate Orders: Orders AMB Urinalysis Automated Today R33.9 - Retention of urine, unspecified AMB Cystoscopy Today N40.0 - Benign prostatic hyperplasia without lower urinary tract symptoms, R39.12 - Poor urinary stream Patient Instructions: Imaging studies, laboratory and physical exam results were discussed and reviewed in detail. No major barriers to patient understanding were identified. An opportunity to ask questions regarding the treatment plan was provided. All questions were answered. The patient expressed understanding and agreement with the above treatment plan. The patient is aware they should contact our office by phone for worsening of their current condition or the appearance of new urologic symptoms. Compliance is encouraged with any medications and followup testing that is ordered. It is a privilege to participate in the urologic care of your patient. If you have any questions or concerns regarding treatment for the above conditions, or other urologic issues, please do not hesitate to contact me. The office telephone contact is [phone]. This note is constructed using voice recognition software. While every effort has been made to ensure accuracy museum specialist errors may have been included. Yours sincerely, Dr Ellis Flores MD, [facility] - Urology Providers of Expert, Compassionate Care for the Genitourinary System Coding Level of Care Code Est Pt Level 4 (24835) Diagnoses Weak urinary stream R39.12 BPH (benign prostatic hyperplasia) N40.0 CPT Codes Cystoscopy - CPT: [id number] ([id number])
== END 2023-10-07 12:17 | disposition home or self-care (01) ==
PROVIDERS: PCP Internal Medicine; Visit Provider Urology
DX: R39.12 Poor urinary stream (principal); N40.0 Benign prostatic hyperplasia without lower urinary tract symptoms; R33.9 Retention of urine, unspecified
CPT/HCPCS: 52000

== ENCOUNTER → 2023-10-07 10:33 | Outpatient (BNVA) | payer BC, SELFPAY | PROVIDERS: PCP Internal Medicine; Visit Provider Urology | DX: N40.1 Benign prostatic hyperplasia with lower urinary tract symptoms (principal); R39.12 Poor urinary stream; R33.8 Other retention of urine | CPT/HCPCS: 52000; 81003 ==

== ENCOUNTER 2023-12-03 14:01 | Emergency (ER) | payer BC, SELFPAY ==
--- NOTE | ~2023-12-03 | XR_ITS ---
EXAMINATION: XR CHEST CLINICAL INFORMATION: Pacemaker location. COMPARISON: None available. TECHNIQUE: 2 views of the chest were obtained. FINDINGS: The lungs are well expanded. No focal consolidation. No pleural effusion. Cardiac silhouette is within normal limits. Left chest wall permanent pacing device with leads projecting over the right atrium and right ventricle. XR/XR chest 2V IMPRESSION: No acute abnormality.
[2023-12-03 14:16] VITALS: BP 191/98; PULSE 74; RESP 18; TEMP 36.8; O2SAT 97; BMI 32.9
--- NOTE | 2023-12-03 14:18 | ED.GENADULT ---
HPI - General Adult General Chief complaint: General Medical Stated complaint: pace maker moved ? Time Seen by Provider: 12/03/23 16:01 Source: patient and family Mode of arrival: ambulatory Limitations: no limitations History of Present Illness ED Provider: Dr. Marbin Prince HPI narrative: 73-year-old male with a history of hypertension, COPD, chronic kidney disease, orthostatic hypotension causing syncope, pacemaker secondary to bradycardia who presents emergency department for evaluation of 2 weeks of constant left-sided neck pain which waxes and wanes in intensity, lump to his left shoulder area and possibly movement of his pacemaker laterally. The patient's neck pain is worse in the morning and worse with movement. He is taken Tylenol with no relief his pain. He also is complaining of a lump in his left shoulder area which she just noted today and was concerned about it. He was also concerned that his pacemaker may have moved laterally, he has having no tenderness, pain or bruising in the area of the pacemaker pocket. He denied fever, chills, rhinorrhea, sore throat, cough, chest pain. He states that his shortness of breath is baseline but this due to COPD. He denied nausea, vomiting or diarrhea. He has had no lightheadedness or dizziness. He has had no syncopal episodes. Related Data Home Medications ?Medication ?Instructions ?Recorded ?Confirmed acetaminophen 325 mg tablet 650 mg PO Q6H PRN Pain 06/23/22 09/22/23 (Tylenol) aspirin 81 mg tablet,delayed 81 mg PO DAILY 06/23/22 09/22/23 release gabapentin 100 mg capsule 300 mg PO BEDTIME 07/27/22 09/22/23 glipizide 10 mg tablet 10 mg PO DAILY 07/27/22 09/22/23 rosuvastatin 20 mg tablet 20 mg PO BEDTIME 11/23/22 09/22/23 midodrine 5 mg tablet 5 mg PO .prn 05/31/23 09/22/23 Previous Rx's ?Medication ?Instructions ?Recorded nitroglycerin 2 % transdermal 1 inch transdermal ONCE PRN 02/10/23 ointment hypertension #60 grams finasteride 5 mg tablet 5 mg PO DAILY 90 days #90 tabs 08/31/23 losartan 25 mg tablet 25 mg PO DAILY #1 tab 09/22/23 Allergies Allergy/AdvReac Type Severity Reaction Status Date / Time amlodipine AdvReac Cough Verified 12/03/23 14:19 Review of Systems Review of Systems: Yes all other systems are reviewed and are negative [facility] Past Medical History [facility] Narrative: Social history: He is . 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 He smokes 6-7 cigarettes per day. He denies alcohol use. He denies drug use. Medical History CKD (chronic kidney disease) stage 2, GFR 60-89 ml/min Orthostatic hypotension Pacemaker Sciatica COPD (chronic obstructive pulmonary disease) BPH (benign prostatic hyperplasia) Chronic back pain Vasovagal syncope Diabetes mellitus type 2 in nonobese Hyperlipidemia Orthostatic hypotension Hypertension Surgical History Hx of colonoscopy S/P surgery on nasal septum History of total left hip replacement S/P placement of cardiac pacemaker Family History Family History Father Pacemaker Social History Social History Household Members: Spouse Housing: House Do you presently have visiting nurse or other home services: Yes Alcohol intake: never Comment: refused bed alarm Patient Tobacco Use Status: Current someday Tobacco user Tobacco use type: Cigar Years Smoked: 15 +/- Smoked in Last 30 Days: No Use of substances other than those prescribed or required for medical reasons: No Advance Directives: Yes Advance Directives on File: Yes Advance Directives Date on File: 06/25/22 Do you have a plan to hurt others: No Plan service: No Current occupational status: retired Physical Exam ED Vital Signs: Vital Signs - 24 hr 12/03/23 14:16 12/03/23 18:14 Temperature 98.3 F 98.3 F Pulse Rate 74 74 Respiratory Rate 18 18 Blood Pressure 191/98 H 191/98 H Pulse Oximetry 97 97 Oxygen Delivery Method Room Air Room Air BMI result Body Mass Index 32.9 Vital signs revealed an elevated blood pressure of 191/98. Exam: General: Awake, alert in no distress Head: Normocephalic, atraumatic EENT: PERRL, Lids normal, sclera normal, conjunctiva normal, nose normal , ears normal, throat without erythema or exudates Neck: Supple, no adenopathy patient has tenderness palpation of his cervical trapezius muscle which reproduces his pain Lung: breath sounds symmetric, no wheezing, rales or rhonchi Chest: symmetric movement, nontender Heart: regular rate and rhythm, normal S1, S2 no murmurs or rubs, patient does have a pacemaker palpable on the left chest wall, it appears to be in a normal position there has no tenderness, ecchymosis, erythema over the pacemaker pocket area Abdomen: soft, non-tender, nondistended, normal bowel sounds Back: no vertebral tenderness, no CVAT Extremities: The patient has a lipoma measuring approximately 2 x 2 cm to his left shoulder area, there has no erythema, increased warmth or tenderness to palpation Neuro: Awake, alert, oriented, normal speech, cranial nerves intact, moves all extremities symmetrically Psych: Pleasant, cooperative Course Course Course Narrative: This is a Rapid Medical Examination (RME) performed by Holly Swanson PA-C in triage. Full HPI, ROS, assessment and treatment plan per primary provider in the Main ED. 73 yo male hx of HTN, CKD, orthostatic hypotension endorses right sided neck pain x2 weeks. admits to showering a few days ago and while looking in the mirror, noticed a bump to left side of chest. Believes his pacemaker has moved more laterally. this pacemaker was placed about 6 years ago. endorses chest discomfort but denies chest pain, palpitations, sob. No further concerns regarding pacemaker. on exam, well appearing, RRR. lungs are cta b/l. pacemaker palpable along lateral aspect of left anterior chest wall. 2 well healed scars noted to anterior chest. Plan: labs, ekg, cxr Medical Decision Making Medical Decision Making MDM Narrative: 73-year-old male with a history of hypertension, COPD, chronic kidney disease, orthostatic hypotension causing syncope, pacemaker secondary to bradycardia who presents emergency department for evaluation of 2 weeks of constant left-sided neck pain which waxes and wanes in intensity, lump to his left shoulder area and possibly movement of his pacemaker laterally. The patient's neck pain is worse in the morning and worse with movement. He is taken Tylenol with no relief his pain. Lab Data 12/03/23 14:35 12/03/23 14:35 Labs: Lab Results 12/03/23 12/03/23 Range/Units 14:35 17:35 WBC 9.9 (4.8-10.8) X10*3/uL RBC 4.87 (4.60-5.80) X10*6/uL Hgb 15.1 (14.0-18.0) g/dl Hct 44.0 (42.0-52.0) % MCV 90.3 (80.0-98.0) fL MCH 31.0 (27.0-33.0) pg MCHC 34.3 (31.0-36.0) g/dl RDW 13.1 (11.0-16.0) % Plt Count 184 (160-400) X10*3/uL MPV 10.5 (9.4-12.4) fL Immature Gran % (Auto) 0.2 (0.0-0.4) % Neut % (Auto) 73.1 H (45-73) % Lymph % (Auto) 15.7 L (20-40) % [place] % (Auto) 5.7 (2-11) % Eos % (Auto) 4.6 H (0-4) % Baso % (Auto) 0.7 (0-2) % Lymph # (Auto) 1.6 (1.2-4.9) X10*3/uL [place] # (Auto) 0.6 (0.1-1.2) X10*3/uL Eos # (Auto) 0.5 H (0.0-0.4) X10*3/uL Baso # (Auto) 0.1 (0.0-0.2) X10*3/uL Abs Immat Gran (auto) 0.02 (0.00-0.03) X10*3/uL Absolute Neuts (auto) 7.2 (2.0-8.3) x10*3/uL Absolute Nucleated RBC 0.000 (0.0-0.012) X10*3/uL Nucleated RBC % (auto) 0.0 (0.0-0.2) /100WBC Sodium 145 (135-145) mmol/L Potassium 3.8 (3.3-5.1) mmol/L Chloride 103 (96-108) mmol/L Carbon Dioxide 33 H (22-29) mmol/L Anion Gap 13 (12-20) BUN 21 H (9-16) mg/dL Creatinine 1.57 H (0.5-1.4) mg/dL Estim Creat Clear Calc 56.8 Estimated GFR 44 Random Glucose 210 H (60-115) mg/dL Calcium 9.6 (8.4-10.2) mg/dL Magnesium 2.2 (1.6-2.6) mg/dL Total Bilirubin 0.6 (0.0-1.0) mg/dL AST 18 (5-37) U/L ALT 12 (0-40) U/L Alkaline Phosphatase 65 (39-117) U/L Troponin I High Sens 5.3 D 7.8 (<3.5-35.0) ng/L Total Protein 7.9 (6.5-8.0) g/dL Albumin 4.1 (3.5-5.0) g/dL Discharge Plan Discharge Clinical Impression: Strain of cervical portion of both trapezius muscles Lipoma Qualifiers: Lipoma location: upper extremity Laterality: left Qualified Code(s): D17.22 - Benign lipomatous neoplasm of skin and subcutaneous tissue of left arm Patient Disposition: Home, Self-Care Additional Instructions: The mass on your left arm is a lipoma (collection of fact) and I do not think that you need any further testing at this time. I do not think that the pacemaker moved in the pacemaker pocket. The pacemaker is working in your EKG shows a paced rhythm. On the chest x-ray the wires appear to be intact which is reassuring as well You did have a an asymptomatic arrhythmia here in the emergency department which may be V-tach or may be a tachycardia caused by your pacemaker. I did discuss her presentation, today's EKG and they arrhythmia with our covering service officer, Dr. Aguilar who recommends that you follow-up with your service officer and he does not think that you need to be admitted or have further treatment at this time. Take Tylenol (acetaminophen) 500 mg pills, 2 pills every 6 hours as needed for pain or fever. Apply ice or heat to the area of pain on your neck for 15 minute 4 to 6 times a day to see if this helps your pain. Continue to use lidocaine patches as directed on the box to see if this helps Continue taking your other pain medications as prescribed Follow-up with your doctor in 2 days. Please return to the emergency department if your symptoms get worse or if you develop any symptoms that are concerning to you. Prescriptions: No Action finasteride 5 mg tablet 5 mg PO DAILY 90 Days Qty: 90 1RF acetaminophen [Tylenol] 325 mg Tablet 650 mg PO Q6H PRN (Reason: Pain) aspirin 81 mg Tablet,Delayed Release (Dr/Ec) 81 mg PO DAILY gabapentin 100 mg capsule 300 mg PO BEDTIME glipizide 10 mg tablet 10 mg PO DAILY rosuvastatin 20 mg tablet 20 mg PO BEDTIME nitroglycerin 2 % ointment 1 inch transdermal ONCE PRN (Reason: hypertension) Qty: 60 3RF Rx Instructions: Remove for 10-12 hrs per 24 hours. check BP in the evening and if SBP>150 then 1 inch of nitroglycerin be applied. If BP drops or symptoms then wipe it off with alcohol swab. midodrine 5 mg tablet 5 mg PO .prn losartan 25 mg tablet 25 mg PO DAILY Qty: 1 0RF Interventions: ED Discharge Assessment Last Done: 12/03/23 18:14 Discharge Date/Time: 12/03/23 18:15 Print Language: Polish
--- NOTE | 2023-12-03 14:21 | ECG_ITS ---
Test Reason : CHEST DISCOMFORT Blood Pressure : / mmHG Vent. Rate : 081 BPM Atrial Rate : 081 BPM P-R Int : 196 ms QRS Dur : 082 ms QT Int : 388 ms P-R-T Axes : -17 025 095 degrees QTc Int : 450 ms Atrial-paced rhythm with occasional ventricular-paced complexes Nonspecific T wave abnormality Abnormal ECG When compared with ECG of 04-FEB-2023 14:47, Electronic ventricular pacemaker has replaced Electronic atrial pacemaker Referred By: Niecy Swanson Electronically Signed By:ANNIE CHILD
[2023-12-03 14:41] LABS: MANUAL DIFF FLAG NO
[2023-12-03 14:42] LABS: Basophils Absolute Auto 0.1 X10*3/uL (0.0-0.2); Basophils Percent Auto 0.7 % (0-2); Eosinophils Absolute Auto 0.5 X10*3/uL (0.0-0.4); Eosinophils Percent Auto 4.6 % (0-4); Hemoglobin 15.1 g/dl (14.0-18.0); Imm Gran Abs Auto 0.02 X10*3/uL (0.00-0.03); Imm Gran Pct Auto 0.2 % (0.0-0.4); Lymphocytes Absolute Auto 1.6 X10*3/uL (1.2-4.9); Lymphocytes Percent Auto 15.7 % (20-40); Mean Corpuscular HGB Conc 34.3 g/dl (31.0-36.0); Mean Corpuscular Volume 90.3 fL (80.0-98.0); Mean Platelet Volume 10.5 fL (9.4-12.4); Monocytes Absolute Auto 0.6 X10*3/uL (0.1-1.2); Monocytes Percent Auto 5.7 % (2-11); Neutrophils Absolute Auto 7.2 x10*3/uL (2.0-8.3); Neutrophils Percent Auto 73.1 % (45-73); Platelet Count 184 X10*3/uL (160-400); Red Blood Count 4.87 X10*6/uL (4.60-5.80); Red Cell Distribution Width 13.1 % (11.0-16.0); White Blood Count 9.9 X10*3/uL (4.8-10.8)
[2023-12-03 15:03] LABS: Alanine Aminotransferase 12 U/L (0-40); Albumin Level 4.1 g/dL (3.5-5.0); Alkaline Phosphatase 65 U/L (39-117); Anion Gap 13 (12-20); Aspartate Amino Transferase 18 U/L (5-37); Bilirubin Total 0.6 mg/dL (0.0-1.0); Blood Urea Nitrogen 21 mg/dL (9-16); Calcium 9.6 mg/dL (8.4-10.2); Carbon Dioxide 33 mmol/L (22-29); Chloride 103 mmol/L (96-108); Creatinine Clr Calc Pharmacy 56.8; Estimated Glomerular Filt Rate 44; Glucose Random 210 mg/dL (60-115); Magnesium 2.2 mg/dL (1.6-2.6); Potassium 3.8 mmol/L (3.3-5.1); Sodium 145 mmol/L (135-145); Total Protein 7.9 g/dL (6.5-8.0); Troponin-I High Sensitivity 5.3 ng/L (<3.5-35.0)
--- NOTE | 2023-12-03 15:57 | PC.NURSE ---
pt had an approx 11 second run of v-tach. strip printed, will inform MD and place in chart. pt had no complaints during this time
[2023-12-03 18:02] LABS: Troponin-I High Sensitivity 7.8 ng/L (<3.5-35.0)
[2023-12-03 18:14] VITALS: BP 191/98; PULSE 74; RESP 18; TEMP 36.8; O2SAT 97
== END 2023-12-03 18:15 | disposition home or self-care (01) ==
PROVIDERS: Physician Assistant Medical; Emergency Provider Emergency Medicine Emergency Medical Services; PCP Internal Medicine
DX: S16.1XXA Strain of muscle, fascia and tendon at neck level, initial encounter (principal); D17.22 Benign lipomatous neoplasm of skin and subcutaneous tissue of left arm; E11.22 Type 2 diabetes mellitus with diabetic chronic kidney disease; I12.9 Hypertensive chronic kidney disease with stage 1 through stage 4 chronic kidney disease, or unspecified chronic kidney disease; N18.2 Chronic kidney disease, stage 2 (mild); J44.9 Chronic obstructive pulmonary disease, unspecified; X58.XXXA Exposure to other specified factors, initial encounter; Y93.9 Activity, unspecified; Y92.9 Unspecified place or not applicable; Y99.9 Unspecified external cause status; Z95.0 Presence of cardiac pacemaker
CPT/HCPCS: 36415; 71046; 80053; 83735; 84484; 85025; 93005; 99283; 99284

== ENCOUNTER → 2023-12-03 14:21 | Outpatient (BNV) | payer BC, SELFPAY | PROVIDERS: Emergency Provider Emergency Medicine Emergency Medical Services; PCP Internal Medicine; Visit Provider Internal Medicine | DX: R07.9 Chest pain, unspecified (principal) | CPT/HCPCS: 93010 ==

== ENCOUNTER 2023-12-27 09:50 | Day surgery (SDC) | payer MEDICARE, SELFPAY ==
[2023-12-27] VITALS (8 sets, daily range): BP systolic 166–198; BP diastolic 87–99; PULSE 66–80; RESP 16–18; TEMP 36.2–36.7; O2SAT 96–100; BMI 31.4
--- NOTE | 2023-12-27 12:55 | HO.ANESPROP2 ---
[facility] Active Problems Active Problems: All Active Problems Weak urinary stream (Acute) Abdominal pain (Acute) Glucosuria (Acute) BPH (benign prostatic hyperplasia) (Acute) Hypertension (Acute) Hypokalemia (Acute) CKD (chronic kidney disease) stage 2, GFR 60-89 ml/min (Acute) Orthostatic hypotension (Acute) Past Medical History Medical History CKD (chronic kidney disease) stage 2, GFR 60-89 ml/min Orthostatic hypotension Pacemaker Sciatica COPD (chronic obstructive pulmonary disease) BPH (benign prostatic hyperplasia) Chronic back pain Vasovagal syncope Diabetes mellitus type 2 in nonobese Hyperlipidemia Orthostatic hypotension Hypertension Family History Family History Father Pacemaker Surgical History Surgical History Hx of colonoscopy S/P surgery on nasal septum History of total left hip replacement S/P placement of cardiac pacemaker History of Problems with Anesthesia: No Social History Social History Household Members: Spouse Housing: House Do you presently have visiting nurse or other home services: Yes Alcohol intake: never Comment: refused bed alarm Patient Tobacco Use Status: Current everyday Tobacco user Tobacco use type: Cigar Years Smoked: 15 +/- Use of substances other than those prescribed or required for medical reasons: No Are you DNR?: No Advance Directives: No Advance Directives Information Provided: Yes Advance Directives Date on File: 06/25/22 service: No Current occupational status: retired Meds Allergies Allergy/AdvReac Type Severity Reaction Status Date / Time amlodipine AdvReac Cough Verified 12/27/23 11:48 Home Medications ?Medication ?Instructions ?Recorded ?Confirmed ?Last Taken ?Type acetaminophen 325 mg tablet 650 mg PO Q6H PRN Pain 06/23/22 12/27/23 Unknown History (Tylenol) aspirin 81 mg tablet,delayed 81 mg PO DAILY 06/23/22 12/27/23 12/14/23 History release gabapentin 100 mg capsule 300 mg PO BEDTIME 07/27/22 12/27/23 Unknown History glipizide 10 mg tablet 10 mg PO DAILY 07/27/22 12/27/23 Unknown History rosuvastatin 20 mg tablet 20 mg PO BEDTIME 11/23/22 12/27/23 Unknown History midodrine 5 mg tablet 5 mg PO .prn 05/31/23 12/27/23 Unknown History Exam Height,Weight and Vital Signs: Height 6 ft 1 in Weight 107.955 kg Last Vital Signs Temp 98.0 F 12/27/23 11:50 Pulse 66 12/27/23 11:50 Resp 16 12/27/23 11:50 BP 198/88 H 12/27/23 11:50 Pulse Ox 100 12/27/23 11:50 O2 Del Method Room Air 12/27/23 11:50 Airway Mallampati Class: III TM Dist: >3cm Neck ROM: Full Partial: Upper Loose/Missing/Broken Teeth: Yes and Upper Heart: RRR Lungs: CTA Assessment and Plan Assessment Anesthesia Assessment: Anesthesia Plan Discussed and Chart Reviewed Final Anesthetic Review History of Problems with Anesthesia: No NPO: Yes ASA Class: III Final Preanesthetic Review: Meds/Allgs Chart Reviewed, Consent Obtained/Reviewed and Anes Risks/Benef Reviewed Patient Risk: Intermediate Procedure Risk: Low Anesthetic Plan Anesthetic Plan: GA Disposition: Standard PACU
[2023-12-27 13:05] LABS: Glucose, Whole Blood 152 mg/dL (60-115)
--- NOTE | 2023-12-27 14:23 | MHC.SHP ---
Pre-Procedural Eval Section A - 24 Hr Update-Section A only Date of Service: 12/27/23 The patient is an INPATIENT: No Changes since office visit: No Cold of Flu in the past 2 weeks, No New Medical Problems, No Changes in Medication and No Patient answered all questions The patient has been examined within 24 hours of the surgical procedure. The History & Physical has been completed within 30 days and I have reviewed it.: Yes Section B - Complete if H&P > 30 days Chief Complaint: Poor urinary stream Details of Present Illness: Cystoscopy with incision of prostate Allergies: Allergies Allergy/AdvReac Type Severity Reaction Status Date / Time amlodipine AdvReac Cough Verified 12/27/23 11:48 Review of Systems Sugical H&P ROS: Negative: Constitution, Cardiovascular, Respiratory, Neurological, Psychiatric, Hem-Onc, Allergic/Immunologic, Gastrointestinal, Genitourinary, Musculoskeletal, Integumentary, Endocrine and Eyes/Ears/Nose/Throat Exam Surgical H&P Exam: Normal: HEENT, Normal: Heart, Normal: Lungs, Normal: Extremities, Normal: Abdomen, Normal: Skin and Normal: Neurological Plan Diagnosis/Plan: Unchanged (Cystoscopy with prostate incision) I have reviewed the history and physical and performed a pertinent physical examination on my patient. No changes have occurred unless specified. Time Spent With Patient Time: Total time managing care of this patient today ____ minutes.
--- NOTE | 2023-12-27 16:19 | W.PM.OPN ---
Operative Note Operative Note Date of Service: 12/27/23 Narrative: PreOperative Diagnosis: Bladder outlet obstruction Post Operative Diagnosis: Bladder outlet obstruction Procedure: cystoscopy, transurethral incision of the prostate Surgeon: Dr Ellis Flores Anesthesia: LMA Indications for procedure: Weakness of stream, small prostate with high-riding bladder neck Procedure: After informed consent was verified the patient was brought to the operating room and placed in a supine position. Anesthesia was administered per protocol. The patient was placed in modified dorsal lithotomy position and prepped and draped in a sterile fashion. Safety pause time-out was performed. Antibiotics being given. Cystoscopy was performed. Cystoscope advanced with no stricture of the anterior or posterior urethra. Apical prostate open. Tight bladder neck seen Resectoscope then inserted per urethra. Khan knife with settings of 120 cut, 60 coag was used to make incisions at the 5 and 7 o'clock position. Incisions were in line with ureteric orifice. The 24 [place] resectoscope was able to be advanced into the bladder. Each incision was taken down so bladder neck fibers were seen. After cutting was performed coagulation was performed in altered minimize bleeding. Incision was 1st made on the patient's right-hand side at the 7 o'clock position. The 2nd incision was made on the left-hand side at the 5 o'clock position. Twenty-four South [place]ese [address] Chandler catheter advanced into the bladder. 30 cc placed within balloon. The catheter was placed on tension and clamped. This clamp remain until the patient is in the recovery area. The patient tolerated the procedure well. They were extubated in operating room and transferred in stable conditions recovery area. Pathology: None Drains: None
== END 2023-12-27 17:04 | disposition home or self-care (01) ==
PROVIDERS: PCP Internal Medicine; Visit Provider Urology
PROC: 0T9C8ZZ Drainage of Bladder Neck, Via Natural or Artificial Opening Endoscopic (ICD-10-PCS; CPT 52450; principal; 2023-12-27 13:00)
DX: N40.1 Benign prostatic hyperplasia with lower urinary tract symptoms (principal); R39.12 Poor urinary stream; N52.9 Male erectile dysfunction, unspecified; E11.22 Type 2 diabetes mellitus with diabetic chronic kidney disease; I12.9 Hypertensive chronic kidney disease with stage 1 through stage 4 chronic kidney disease, or unspecified chronic kidney disease; I95.1 Orthostatic hypotension; N18.2 Chronic kidney disease, stage 2 (mild); J44.9 Chronic obstructive pulmonary disease, unspecified; G89.29 Other chronic pain; M54.9 Dorsalgia, unspecified; Z79.82 Long term (current) use of aspirin; Z79.84 Long term (current) use of oral hypoglycemic drugs; Z79.899 Other long term (current) drug therapy; Z88.8 Allergy status to other drugs, medicaments and biological substances; F17.290 Nicotine dependence, other tobacco product, uncomplicated; Z98.890 Other specified postprocedural states
CPT/HCPCS: 52450; 82947; J1956; J2405; J2704; J3010

== ENCOUNTER → 2023-12-27 09:50 | Outpatient (BNV) | payer MEDICARE, SELFPAY | PROVIDERS: PCP Internal Medicine; Visit Provider Urology | DX: N32.0 Bladder-neck obstruction (principal) | CPT/HCPCS: 52450 ==

== ENCOUNTER → 2023-12-29 08:49 | Outpatient (BNVA) | payer BC, SELFPAY | PROVIDERS: PCP Internal Medicine; Visit Provider Urology ==

== ENCOUNTER 2024-02-01 13:20 | Outpatient (AMB) | payer BC, SELFPAY ==
--- NOTE | 2024-02-01 13:36 | MHC.OFFVIS ---
Intake Visit Reasons: Bladder incision follow up Intake Note: Patient presents today for a bladder incision f/u Meds: Finasteride Allergies to Antibiotic: No Known Allergies Blood Thinner: Aspirin Power Builder Developer Required: No Allergies amlodipine Adverse Reaction (Verified 02/01/24 13:37) Cough Medication List - Last Reconciled 02/01/24 by Ellis Flores MD acetaminophen (Tylenol) 650 mg PO Q6H PRN aspirin 81 mg PO DAILY finasteride 5 mg PO DAILY 90 days gabapentin 300 mg PO BEDTIME glipizide 10 mg PO DAILY losartan 25 mg PO DAILY midodrine 5 mg PO .prn nitroglycerin 2% 1 inch transdermal ONCE PRN rosuvastatin 20 mg PO BEDTIME HPI Comments Details: Roland is a pleasant male. He is a patient of . He is seen for the following urologic conditions - lower urinary tract symptoms - erectile dysfunction 12/26 transurethral incision of prostate Had failed oral alpha blockers Lower urinary tract symptoms Prior urologic diagnoses Had been treated for erectile dysfunction and lower urinary tract symptoms throughout 2011 to 2018 Prior medications include Flomax which had an adverse effect, alfuzosin PSA 2018 0.7, 05/27 1.8 Had recurrence of symptoms in 2022 and medications restarted PFSH Medical History CKD (chronic kidney disease) stage 2, GFR 60-89 ml/min Orthostatic hypotension Pacemaker Sciatica COPD (chronic obstructive pulmonary disease) BPH (benign prostatic hyperplasia) Chronic back pain Vasovagal syncope Diabetes mellitus type 2 in nonobese Hyperlipidemia Orthostatic hypotension Hypertension Surgical History Hx of colonoscopy S/P surgery on nasal septum History of total left hip replacement S/P placement of cardiac pacemaker Family History Father Pacemaker Social History Household Members: Spouse Housing: House Do you presently have visiting nurse or other home services: Yes Alcohol intake: never Comment: refused bed alarm Patient Tobacco Use Status: Current everyday Tobacco user Tobacco use type: Cigar Years Smoked: 15 +/- Advance Directives Date on File: 06/25/22 service: No Current occupational status: retired Review of Systems Const Denies chills and Denies fever(s) Card Reports no additional complaints and Denies syncope Resp Denies cough GI Denies abdominal pain and Denies heartburn Reports as per HPI and Denies change in libido Neuro Denies syncope Psych Denies change in libido Endo Denies change in libido Physical Exam Const General: cooperative, healthy appearing, comfortable and no acute distress Orientation/consciousness: patient oriented x3 HEENT Face and sinus: Yes normal facial exam Mouth: moist mucous membranes Neck Neck: Yes normal visual inspection, Yes full ROM and Yes trachea midline Chest Chest palpation & inspection: normal inspection of the chest Resp Effort & Inspection: normal respiratory effort, able to speak in complete sentences and no respiratory distress GI Inspection: Yes normal to inspection Back/Spine/Pelvis Cervical Spine: normal cervical lordosis Thoracic/Lumbar Spine: thoracic and lumbar spine normal to inspection Skin General skin exam: no rashes or lesions noted Neuro General: patient oriented x3, gait normal, tone normal and moves all extremities Extrem General: Yes normal to inspection and Yes capillary refill normal Results AMB Urinalysis, Automated UA Leukoctes 0 Rambo/uL Last Edit by JESUS Rodrigues on 02/01/24 13:49 UA Nitrite Negative Last Edit by JESUS Rodrigues on 02/01/24 13:49 UA Urobilinogen 0.2 mg/dL Last Edit by JESUS Rodrigues on 02/01/24 13:49 UA Protein 15 mg/dL Last Edit by JESUS Rodrigues on 02/01/24 13:49 UA pH 6.0 Last Edit by JESUS Rodrigues on 02/01/24 13:49 UA Blood 10 Marcel/uL Last Edit by JESUS Rodrigues on 02/01/24 13:49 UA Specific [place] 1.015 Last Edit by JESUS Rodrigues on 02/01/24 13:49 UA Ketone Negative Last Edit by JESUS Rodrigues on 02/01/24 13:49 UA Bilirubin 0 mg/dL Last Edit by JESUS Rodrigues on 02/01/24 13:49 UA Glucose 500 mg/dL Last Edit by JESUS Rodrigues on 02/01/24 13:49 Assessment & Plan Assessment & Plan (1) BPH (benign prostatic hyperplasia): Code(s): N40.0 - Benign prostatic hyperplasia without lower urinary tract symptoms Category: Medical (2) Weak urinary stream: Code(s): R39.12 - Poor urinary stream Category: Medical Plan Six month follow-up PSA Orders: Orders Prostate Specific Antigen 6 Months N40.0 - Benign prostatic hyperplasia without lower urinary tract symptoms AMB Urinalysis Automated Today Z13.9 - Encounter for screening, unspecified Patient Instructions: Imaging studies, laboratory and physical exam results were discussed and reviewed in detail. No major barriers to patient understanding were identified. An opportunity to ask questions regarding the treatment plan was provided. All questions were answered. The patient expressed understanding and agreement with the above treatment plan. The patient is aware they should contact our office by phone for worsening of their current condition or the appearance of new urologic symptoms. Compliance is encouraged with any medications and followup testing that is ordered. It is a privilege to participate in the urologic care of your patient. If you have any questions or concerns regarding treatment for the above conditions, or other urologic issues, please do not hesitate to contact me. The office telephone contact is [phone]. This note is constructed using voice recognition software. While every effort has been made to ensure accuracy game preserve manager errors may have been included. Yours sincerely, Dr Ellis Flores MD, [facility] - Urology Providers of Expert, Compassionate Care for the Genitourinary System Coding Level of Care Code Est Pt Level 3 (74514) Diagnoses BPH (benign prostatic hyperplasia) N40.0 Weak urinary stream R39.12
== END 2024-02-01 13:55 | disposition home or self-care (01) ==
PROVIDERS: PCP Internal Medicine; Visit Provider Urology
DX: N40.0 Benign prostatic hyperplasia without lower urinary tract symptoms (principal); R39.12 Poor urinary stream; Z13.9 Encounter for screening, unspecified
CPT/HCPCS: 99024

== ENCOUNTER → 2024-02-01 13:20 | Outpatient (BNVA) | payer BC, SELFPAY | PROVIDERS: PCP Internal Medicine; Visit Provider Urology | DX: N40.1 Benign prostatic hyperplasia with lower urinary tract symptoms (principal); R39.12 Poor urinary stream | CPT/HCPCS: 81003 ==

== ENCOUNTER 2024-03-20 10:22 | Outpatient (AMB) | payer BC, SELFPAY ==
--- NOTE | 2024-03-20 10:25 | A.OFFVIS_ITS ---
Vital Signs 03/20/24 10:26 Height 6 ft 1 in Weight 242 lb 8.136 oz BMI 32.0 BP 120/70 Blood Pressure Location Lt brachial Position Sitting Pulse 70 Pulse Source Monitor Intake Visit Reasons: f/up Tool Operator Required: No Accompanied by: Spouse Allergies amlodipine Adverse Reaction (Verified 02/01/24 13:37) Cough Medication List - Last Reconciled 03/20/24 by Loius Meade MD acetaminophen (Tylenol) 650 mg PO Q6H PRN aspirin 81 mg PO DAILY finasteride 5 mg PO DAILY 90 days gabapentin 300 mg PO BEDTIME glipizide 10 mg PO DAILY losartan 25 mg PO DAILY nitroglycerin 2% 1 inch transdermal ONCE PRN rosuvastatin 20 mg PO BEDTIME HPI Comments Details: 74-year-old gentleman here for follow-up. He was seen in the hospital for orthostatic hypotension. Since discharge he started regular exercise and has been doing well. He has not had significant orthostasis. He continues to be on midodrine and fludrocortisone. He has increased his PO potassium intake. Pacemaker was interrogated and is functioning fine. 02/10/23: He returns for follow-up. He is currently off the midodrine and flu drocortisone. He was noticed to be hypokalemic potassium 2.6 and is currently taking potassium chloride 20 mg daily. His blood pressure readings are quite fluctuant and early breastfeeding care specialist his blood pressures are 87/49 and rise with the passage of day to nighttime at 173/90. He has hypokalemia due to fludrocortisone which was stopped last night by Nephrology. Midodrine has been held previously because of his high blood pressures. His home blood pressures are fluctuating and they are low in the morning but higher at the evening time. He had 1 episode of feeling weak where he had presyncope and went to the ER. He also received some potassium infusions in the emergency department for hypokalemia. 05/31/2023: He returns for follow-up. He continues to get morning hypotension with blood pressure in 80s. He is saying that he does exercises for orthostatic hypotension in the morning and then takes midodrine 1 or half tablet. He had 1 episode where he had low blood pressure and started shaking all over which is usually his symptom of hypotension. He did not fall or had syncope. He has stop checking his blood pressure in the evening hours. Previously had hypertension at nighttime. We gave him previous plan of using nitroglycerin paste in case his blood pressures are elevated but he has not been checking his blood pressure or using nitroglycerin. 09/22/23: He is here for follow-up. He has been doing well and has been following closely with Nephrology. We previously had morning hypotension and evening hypertension. He was on losartan 50 mg which has been changed to 25 mg and he has to take it at noon time. His morning readings are anywhere from 70s to 80s systolic blood pressure. He has been using midodrine almost daily in the morning. No dizziness or falls. He was in [place] where he had some dizziness walking around. It appears he does better in cold weather than hot weather which is quite usual with orthostasis and autonomic issues in general. 03/20/2024: He is here for follow-up. He had 2 episodes of fall with 1 episode of syncope along with fall. One was on February 26 and the 2nd episode was during 1st week of March. He saw his primary care physician recently and his midodrine was stopped on March 05. His hemoglobin A1c is 8. He has not been drinking. Overall his home blood pressure readings are normal. Previously his morning blood pressure readings were low and he was using midodrine. More recently his blood pressures have been 110s to 120s in the morning. The episodes of syncope were at noon time at at 18:00 previously was getting episodes mostly in the morning time. No other significant complaints. [facility] Medical History CKD (chronic kidney disease) stage 2, GFR 60-89 ml/min Orthostatic hypotension Pacemaker Sciatica COPD (chronic obstructive pulmonary disease) BPH (benign prostatic hyperplasia) Chronic back pain Vasovagal syncope Diabetes mellitus type 2 in nonobese Hyperlipidemia Orthostatic hypotension Hypertension Surgical History Hx of colonoscopy S/P surgery on nasal septum History of total left hip replacement S/P placement of cardiac pacemaker Family History Father Pacemaker Social History Household Members: Spouse Housing: House Do you presently have visiting nurse or other home services: Yes Alcohol intake: never Comment: refused bed alarm Patient Tobacco Use Status: Current everyday Tobacco user Tobacco use type: Cigar Years Smoked: 15 +/- Advance Directives Date on File: 06/25/22 service: No Current occupational status: retired Review of Systems Const Denies chills, Denies fatigue, Denies fever(s), Denies frequent falls, Denies weakness, Denies weight gain and Denies weight loss ENT Denies dizziness Card Denies chest pain, Denies leg edema, Denies lightheadedness, Denies palpitations, Denies dyspnea and Denies dyspnea on exertion Resp Denies cough, Denies dyspnea and Denies dyspnea on exertion GI Denies hematochezia Musc Denies abnormal gait, Denies muscle weakness, Denies numbness, Denies radiating pain into limb and Denies tingling Neuro Denies abnormal gait, Denies dizziness, Denies frequent falls, Denies numbness, Denies tingling and Denies weakness Endo Denies fatigue and Denies palpitations Physical Exam Vital Signs: Last Vital Signs Pulse 70 03/20/24 10:26 BP 120/70 03/20/24 10:26 BMI result Body Mass Index 32.0 GENERAL APPEARANCE: in no acute distress, pleasant. NECK: no carotid bruit, no jugular venous distention. SKIN: no suspicious lesions, warm and dry. HEART: no murmurs, regular rate and rhythm. LUNGS: clear to auscultation bilaterally. ABDOMEN: soft, nontender. EXTREMITIES: no edema. PERIPHERAL PULSES: equal. NEUROLOGIC: No gross deficits, AAO X 3 Assessment & Plan Assessment & Plan (1) Orthostatic hypotension: Code(s): I95.1 - Orthostatic hypotension Category: Medical (2) Hypertension: Code(s): I10 - Essential (primary) hypertension Category: Medical Plan Pleasant 74 year gentleman who is here for follow-up. He has background history of orthostatic hypotension due to dysautonomia due to alcoholism as well as diabetes. He has stopped drinking a while ago now. I think his sugar control is not good and last hemoglobin A1c was 8. He does not check his sugar at home. I have advised him to check his blood sugar and monitor blood sugars closely because uncontrolled diabetes will worsen his neuropathy and dysautonomia. He has been drinking good amount of water daily. He is asking whether he can use sugar free Gatorade. I have advised him to use it every other day. I think he should resume midodrine in the morning hours as before and take it daily. If despite taking midodrine he gets any further episodes of dizziness and syncope then I would consider starting him on pyridostigmine. That will raise his blood pressure mostly but then we can titrate losartan and bring him to a reasonable level. He uses compression stockings in winter which he will start as the weather is changing. I have advised him to do leg exercises and stationary bike. If he can do rowing machine that will be very helpful to him too. Thank you for allowing me to participate in the care of your patient. Please feel free to contact me if you have any questions. Medications: New midodrine do not give last dose of day after 6PM or within 4 hrs of bedtime 2.5 mg PO DAILY 60 tabs 3RF Coding Level of Care Code Est Pt Level 4 (79958) Diagnoses Orthostatic hypotension I95.1 Hypertension I10
[2024-03-20 10:26] VITALS: BP 120/70; PULSE 70; BMI 32.0
== END 2024-03-20 11:11 | disposition home or self-care (01) ==
PROVIDERS: PCP Internal Medicine; Visit Provider Internal Medicine Cardiovascular Disease
DX: I95.1 Orthostatic hypotension (principal); I10 Essential (primary) hypertension
CPT/HCPCS: 99214

== ENCOUNTER → 2024-03-20 10:22 | Outpatient (BNVA) | payer BC, SELFPAY | PROVIDERS: PCP Internal Medicine; Visit Provider Internal Medicine Cardiovascular Disease ==

== ENCOUNTER 2024-06-21 15:13 | Outpatient (AMB) | payer BC, SELFPAY ==
[2024-06-21 15:25] VITALS: BP 160/92; PULSE 60; BMI 32.7
--- NOTE | 2024-06-21 15:25 | A.OFFVIS_ITS ---
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 He was seen in the hospital for orthostatic hypotension. Since discharge he started regular exercise and has been doing well. He has not had significant orthostasis. He continues to be on midodrine and fludrocortisone. He has increased his PO potassium intake. Pacemaker was interrogated and is functioning fine. 02/10/23: He returns for follow-up. He is currently off the midodrine and fludrocortisone. He was noticed to be hypokalemic potassium 2.6 and is currently taking potassium chloride 20 mg daily. His blood pressure readings are quite fluctuant and library consultant his blood pressures are 87/49 and rise with the passage of day to nighttime at 173/90. He has hypokalemia due to fludrocortisone which was stopped last night by Nephrology. Midodrine has been held previously because of his high blood pressures. His home blood pressures are fluctuating and they are low in the morning but higher at the evening time. He had 1 episode of feeling weak where he had presyncope and went to the ER. He also received some potassium infusions in the emergency department for hypokalemia. 05/31/2023: He returns for follow-up. He continues to get morning hypotension with blood pressure in 80s. He is saying that he does exercises for orthostatic hypotension in the morning and then takes midodrine 1 or half tablet. He had 1 episode where he had low blood pressure and started shaking all over which is usually his symptom of hypotension. He did not fall or had syncope. He has stop checking his blood pressure in the evening hours. Previously had hypertension at nighttime. We gave him previous plan of using nitroglycerin paste in case his blood pressures are elevated but he has not been checking his blood pressure or using nitroglycerin. 09/22/23: He is here for follow-up. He has been doing well and has been following closely with Nephrology. We previously had morning hypotension and evening hypertension. He was on losartan 50 mg which has been changed to 25 mg and he has to take it at noon time. His morning readings are anywhere from 70s to 80s systolic blood pressure. He has been using midodrine almost daily in the morning. No dizziness or falls. He was in [place] where he had some dizziness walking around. It appears he does better in cold weather than hot weather which is quite usual with orthostasis and autonomic issues in general. 03/20/2024: He is here for follow-up. He had 2 episodes of fall with 1 episode of syncope along with fall. One was on February 26 and the 2nd episode was during 1st week of March. He saw his primary care physician recently and his midodrine was stopped on March 05. His hemoglobin A1c is 8. He has not been drinking. Overall his home blood pressure readings are normal. Previously his morning blood pressure readings were low and he was using midodrine. More recently his blood pressures have been 110s to 120s in the morning. The episodes of syncope were at noon time at at 18:00 previously was getting episodes mostly in the morning time. No other significant complaints. 06/21/2024: On follow-up today his blood pressure is elevated. Manual blood pressure 150/80. He is using losartan 25 mg daily. He is taking midodrine 2.5 mg in the morning. He has not had any significant symptoms since he started taking midodrine in the morning. When he was monitoring his blood pressure he noted that his blood pressure was lowest in the morning and has a day pass his blood pressure was higher. [facility] Medical History CKD (chronic kidney disease) stage 2, GFR 60-89 ml/min Orthostatic hypotension Pacemaker Sciatica COPD (chronic obstructive pulmonary disease) BPH (benign prostatic hyperplasia) Chronic back pain Vasovagal syncope Diabetes mellitus type 2 in nonobese Hyperlipidemia Orthostatic hypotension Hypertension Surgical History Hx of colonoscopy S/P surgery on nasal septum History of total left hip replacement S/P placement of cardiac pacemaker Family History Father Pacemaker Social History Household Members: Spouse Housing: House Do you presently have visiting nurse or other home services: Yes Alcohol intake: never Comment: refused bed alarm Patient Tobacco Use Status: Current everyday Tobacco user Tobacco use type: Cigar Years Smoked: 15 +/- Advance Directives Date on File: 06/25/22 service: No Current occupational status: retired Review of Systems Const Denies chills, Denies fatigue, Denies fever(s), Denies frequent falls, Denies weakness, Denies weight gain and Denies weight loss ENT Denies dizziness Card Denies chest pain, Denies leg edema, Denies lightheadedness, Denies palpitations, Denies dyspnea and Denies dyspnea on exertion Resp Denies cough, Denies dyspnea and Denies dyspnea on exertion GI Denies hematochezia Musc Denies abnormal gait, Denies muscle weakness, Denies numbness, Denies radiating pain into limb and Denies tingling Neuro Denies abnormal gait, Denies dizziness, Denies frequent falls, Denies numbness, Denies tingling and Denies weakness Endo Denies fatigue and Denies palpitations Physical Exam Vital Signs: Last Vital Signs Pulse 60 06/21/24 15:25 BP 160/92 H 06/21/24 15:25 BMI result Body Mass Index 32.7 GENERAL APPEARANCE: in no acute distress, pleasant. NECK: no carotid bruit, no jugular venous distention. SKIN: no suspicious lesions, warm and dry. HEART: no murmurs, regular rate and rhythm. LUNGS: clear to auscultation bilaterally. ABDOMEN: soft, nontender. EXTREMITIES: no edema. PERIPHERAL PULSES: equal. NEUROLOGIC: No gross deficits, AAO X 3 Assessment & Plan Assessment & Plan (1) Orthostatic hypotension: Code(s): I95.1 - Orthostatic hypotension Category: Medical (2) Hypertension: Code(s): I10 - Essential (primary) hypertension Category: Medical Plan Pleasant 74 year gentleman who is here for follow-up. He has background history of orthostatic hypotension due to dysautonomia due to alcoholism as well as diabetes. He has stopped drinking a while ago now. He has not been monitoring his sugars. I have advised him to monitor his sugars because diabetes control is important for improvement in his orthostatic hypertension. He was advised to take midodrine once a day in the morning. He was previously checking his blood pressure and then deciding but was taking it on most days anyway. His blood pressure on follow-up is elevated. He is taking losartan 25 mg daily. I have advised the to check the blood pressure in the evenings for the next week and then report to us through the portal. If his blood pressure is elevated like today then I think we need to increase the losartan to 50 mg daily. He uses compression stockings in winter time. I have advised him to do leg exercises and stationary bike. If he can do rowing machine that will be very helpful to him too. Thank you for allowing me to participate in the care of your patient. Please feel free to contact me if you have any questions. Coding Level of Care Code Est Pt Level 4 (71947) Diagnoses Orthostatic hypotension I95.1 Hypertension I10
== END 2024-06-21 15:56 | disposition home or self-care (01) ==
PROVIDERS: PCP Internal Medicine; Visit Provider Internal Medicine Cardiovascular Disease
DX: I95.1 Orthostatic hypotension (principal); I10 Essential (primary) hypertension
CPT/HCPCS: 99214

== ENCOUNTER → 2024-06-21 15:13 | Outpatient (BNVA) | payer BC, SELFPAY | PROVIDERS: PCP Internal Medicine; Visit Provider Internal Medicine Cardiovascular Disease ==

== ENCOUNTER 2024-07-20 06:31 | Outpatient (REF) | payer BC, SELFPAY | END 2024-07-20 06:32 | disposition home or self-care (01) | LOC: HO.LAB 06:31 | PROVIDERS: PCP Internal Medicine; Visit Provider Urology | DX: N40.0 Benign prostatic hyperplasia without lower urinary tract symptoms (principal); Z12.5 Encounter for screening for malignant neoplasm of prostate | CPT/HCPCS: 36415; 84153 ==

== ENCOUNTER 2024-08-03 11:21 | Outpatient (AMB) | payer BC, SELFPAY ==
--- NOTE | 2024-08-03 11:31 | A.OFFVIS_ITS ---
Intake Visit Reasons: 6m/PSA/PVR(set) Intake Note: Patient is present for 6M/PSA/PVR Urology Medication:FINASTERIDE Antibiotic Allergy:NONE Blood Thinner:ASPIRIN TODAY'S PVR:17ML'S Np Required: No Allergies amlodipine Adverse Reaction (Verified 08/03/24 11:32) Cough HPI Comments Details: Roland is a pleasant male. He is a patient of Dr. Smith. He is seen for the following urologic conditions - lower urinary tract symptoms - erectile dysfunction Yearly follow-up PVR low Has completed urology medications 12 month follow-up PVR 12/26 transurethral incision of prostate Had failed oral alpha blockers Lower urinary tract symptoms Prior urologic diagnoses Had been treated for erectile dysfunction and lower urinary tract [facility] to [facility] Prior medications include Flomax which had an adverse effect, alfuzosin PSA 2018 0.7, 05/27 1.8, 07/29 1.0 Had recurrence of symptoms in 2022 and medications restarted [facility] Medical History CKD (chronic kidney disease) stage 2, GFR 60-89 ml/min Orthostatic hypotension Pacemaker Sciatica COPD (chronic obstructive pulmonary disease) BPH (benign prostatic hyperplasia) Chronic back pain Vasovagal syncope Diabetes mellitus type 2 in nonobese Hyperlipidemia Orthostatic hypotension Hypertension Surgical History Hx of colonoscopy S/P surgery on nasal septum History of total left hip replacement S/P placement of cardiac pacemaker Family History Father Pacemaker Social History Household Members: Spouse Housing: House Do you presently have visiting nurse or other home services: Yes Alcohol intake: never Comment: refused bed alarm Patient Tobacco Use Status: Current everyday Tobacco user Tobacco use type: Cigar Years Smoked: 15 +/- Advance Directives Date on File: 06/25/22 service: No Current occupational status: retired Review of Systems Const Denies chills and Denies fever(s) Card Reports no additional complaints and Denies syncope Resp Denies cough GI Denies abdominal pain and Denies heartburn Reports as per HPI and Denies change in libido Neuro Denies syncope Psych Denies change in libido Endo Denies change in libido Physical Exam Const General: cooperative, healthy appearing, comfortable and no acute distress Orientation/consciousness: patient oriented x3 HEENT Face and sinus: Yes normal facial exam Mouth: moist mucous membranes Neck Neck: Yes normal visual inspection, Yes full ROM and Yes trachea midline Chest Chest palpation & inspection: normal inspection of the chest Resp Effort & Inspection: normal respiratory effort, able to speak in complete sentences and no respiratory distress GI Inspection: Yes normal to inspection Back/Spine/Pelvis Cervical Spine: normal cervical lordosis Thoracic/Lumbar Spine: thoracic and lumbar spine normal to inspection Skin General skin exam: no rashes or lesions noted Neuro General: patient oriented x3, gait normal, tone normal and moves all extremities Extrem General: Yes normal to inspection and Yes capillary refill normal Office Procedures Post Void Residual Post Residual Void Post Void Residual (PVR): 17 [id number] Void Residual by ultrasound Results AMB Urinalysis, Automated UA Leukoctes 0 Rambo/uL Last Edit by JESUS Rodrigues on 08/03/24 11:50 UA Nitrite Negative Last Edit by JESUS Rodrigues on 08/03/24 11:50 UA Urobilinogen 0.2 mg/dL Last Edit by JESUS Rodrigues on 08/03/24 11:5 0 UA Protein 15 mg/dL Last Edit by JESUS Rodrigues on 08/03/24 11:50 UA pH 6.0 Last Edit by JESUS Rodrigues on 08/03/24 11:50 UA Blood 0 Marcel/uL Last Edit by JESUS Rodrigues on 08/03/24 11:50 UA Specific [place] 1.020 Last Edit by JESUS Rodrigues on 08/03/24 11: 50 UA Ketone Negative Last Edit by JESUS Rodrigues on 08/03/24 11:50 UA Bilirubin 0 mg/dL Last Edit by JESUS Rodrigues on 08/03/24 11:50 UA Glucose 0 mg/dL Last Edit by JESUS Rodrigues on 08/03/24 11:50 Results Reviewed Results Reviewed: Laboratory Last Values Urine pH (Auto) 6.0 08/03/24 11:50 Specific [place] (Auto) 1.020 08/03/24 11:50 Urine Protein (Auto) 15 mg/dL 08/03/24 11:50 Glucose (UA)(Auto) 0 mg/dL 08/03/24 11:50 Urine Ketones (Auto) Negative 08/03/24 11:50 Urine Blood (Auto) 0 Marcel/uL 08/03/24 11:50 Urine Nitrite (Auto) Negative 08/03/24 11:50 Urine Bilirubin (Auto) 0 mg/dL 08/03/24 11:50 Urine Urobilinogen (Auto) 0.2 mg/dL 08/03/24 11:50 Leukocyte Esterase (Auto) 0 Rambo/uL 08/03/24 11:50 Assessment & Plan Assessment & Plan (1) BPH (benign prostatic hyperplasia): Code(s): N40.0 - Benign prostatic hyperplasia without lower urinary tract symptoms Category: Medical (2) Weak urinary stream: Code(s): R39.12 - Poor urinary stream Category: Medical Plan Twelve month follow-up PVR Orders: Orders AMB Urinalysis Automated Today Z13.9 - Encounter for screening, unspecified Patient Instructions: Imaging studies, laboratory and physical exam results were discussed and reviewed in detail. No major barriers to patient understanding were identified. An opportunity to ask questions regarding the treatment plan was provided. All questions were answered. The patient expressed understanding and agreement with the above treatment plan. The patient is aware they should contact our office by phone for worsening of their current condition or the appearance of new urologic symptoms. Compliance is encouraged with any medications and followup testing that is ordered. It is a privilege to participate in the urologic care of your patient. If you have any questions or concerns regarding treatment for the above conditions, or other urologic issues, please do not hesitate to contact me. The office telephone contact is [phone]. This note is constructed using voice recognition software. While every effort has been made to ensure accuracy knitting inspector errors may have been included. Yours sincerely, Dr Ellis Flores MD, [facility] - Urology Providers of Expert, Compassionate Care for the Genitourinary System Coding Level of Care Code Est Pt Level 3 (04348) Diagnoses BPH (benign prostatic hyperplasia) N40.0 Weak urinary stream R39.12 CPT Codes Post Residual Void - PVR CPT Code: 19465-Zhhf Void Residual by ultrasound ([id number])
--- OUTSIDE RECORDS SUMMARY | 2024-08-03 15:14 | XMS_ITS | Encounter Summary ---
Author Organization [facility], Address [address] [place] [address] Phone Care Team Providers Care Practice Lead Name Role Phone Elroy Smith MD Primary Care Provider [phone] Encounter Details Date Type Department Care Team (Late st Contact Info) Description 02/17/2023 Documentation Only [facility] [address] [place] [address] Lety Rubin MD Social History Tobacco Use Types Packs/Day Years Used Date Smoking Tobacco: Former Cigarettes 2 30 1 961 - 1987 Cigars Comments:Smokes 4 cigars a w [place] Currently Alcohol Use Standard Drinks/Week Comments Yes 35 (1 standard drink = 0.6 oz pu re alcohol) 5-6 beers a day Sex and Gender Information Value Date Recorded Sex Assigned at Not on file Legal Sex Male 4:35 PM EST Gender Identity Not on file Sexual Orientation Not on file Occupation Industry Job Start Date Job End Date [employer] Not on file Not on file Not on file documented as of this encounter Plan of Treatment Upcoming Encounters Date Type Department Care Team (Late st Contact Info) Description 08/25/2024 11:15 AM EST [facility] [place] [address] Nestor Coreas MD [address] [place] [address] [place] [id number] documented as of this encounter Visit Diagnoses Not on filedocumented in this encounter Care Teams Practice Lead Relationship Specialty Start Date End Date Elroy Smith MD [address] [place] [address], [address] [place] [id number] PCP - General 05/09/19 documented as of this encounter
--- OUTSIDE RECORDS SUMMARY | 2024-08-03 15:14 | XMS_ITS | Encounter Summary ---
Author Organization [facility], Address [address] [place] [address] Phone Care Team Providers Care Cattle Feeder Name Role Phone Elroy Smith MD Primary Care Provider [phone] Encounter Details Date Type Department Care Team (Late st Contact Info) Description 02/17/2023 Documentation Only [facility] [address] [place] [address] Lety Rubin MD Social History Tobacco Use Types Packs/Day Years Used Date Smoking Tobacco: Former Cigarettes 2 30 1 961 - 1987 Cigars Comments:Smokes 4 cigars a w [place] Currently Alcohol Use Standard Drinks/Week Comments Yes 35 (1 standard drink = 0.6 oz pu re alcohol) 5-6 beers a day Sex and Gender Information Value Date Recorded Sex Assigned at Not on file Legal Sex Male 4:35 PM EST Gender Identity Not on file Sexual Orientation Not on file Occupation Industry Job Start Date Job End Date [employer] Not on file Not on file Not on file documented as of this encounter Plan of Treatment Upcoming Encounters Date Type Department Care Team (Late st Contact Info) Description 08/25/2024 11:15 AM EST [facility] [place] [address] Nestor Coreas MD [address] [place] [address] [place] [id number] documented as of this encounter Visit Diagnoses Not on filedocumented in this encounter Care Teams Cattle Feeder Relationship Specialty Start Date End Date Elroy Smith MD [address] [place] [address], [address] [place] [id number] PCP - General 05/09/19 documented as of this encounter
--- OUTSIDE RECORDS SUMMARY | 2024-08-03 15:14 | XMS_ITS | Clinical Summary ---
Author Organization [facility], Address [address] SP[address] [place] [phone] Phone Care Team Providers Care It Assistant Name Role Phone Elroy Smith MD Primary Care Provider [phone] Allergies Active Allergy Reactions Criticality Noted Date Comments Amlodipine Low 06/16/2022 Metoprolol Other (see comments) 02/15/2015 Other reaction(s): Other (See Comments) Jittery , LOW HEART RATE Jittery , LOW HEART RATE Jittery , LOW HEART RATE Other reaction(s): Other (See Comments) Jittery , LOW HEART RATE Other reaction(s): Other (see comments) Other reaction(s): Other (See Comments) Jittery , LOW HEART RATE Jittery , LOW HEART RATE Jittery , LOW HEART RATE Medications senna-docusate (PERICOLACE) 8.6-50 MG per tablet Take 1-2 tablets by mouth 2 (two) times a day if needed 03/06/2015 Active rosuvastatin (CRESTOR) 20 MG tablet Take 1 tablet by mouth 1 (one) time each day 10/08/2016 Active aspirin 81 MG chewable tablet Chew 81 mg daily Active polyethylene glycol (GLYCOLAX) 17 GM/SCOOP powder Comments: Filled Date: Nov 13 2016 12:00AM Duration: 30 08/28/2016 Active acetaminophen (TYLENOL) 325 MG tablet Take 650 mg by mouth every 6 (six) hours if needed 07/15/2022 Active fludrocortisone 0.1 MG tablet Take 1 tablet by mouth in the morning and 1 tablet in the evening. 03/24/2022 Active gabapentin (NEURONTIN) 300 MG capsule Take 300 mg by mouth 1 (one) time each day in the evening 07/17/2022 Active losartan (COZAAR) 50 MG tablet Take 50 mg by mouth in the morning. 06/01/2022 Active midodrine (PROAMATINE) 2.5 MG tablet Take 2.5 mg by mouth in the morning and 2.5 mg at noon and 2.5 mg in the evening. 07/17/2022 Active potassium chloride (KLOR-CON M20) 20 MEQ CR tablet Take 20 mEq by mouth in the morning. 07/27/2022 Active glipiZIDE (GLUCOTROL) 10 MG tablet Take 10 mg by mouth in the morning. 07/17/2022 Active Active Problems Problem Noted Date Diagnosed Date Hypokalemia 02/15/2023 Stage 3a chronic kidney disease 08/17/2022 Orthostatic hypotension 08/17/2022 Chronic kidney disease stage 3 11/15/2019 Proteinuria 11/15/2019 Renal disorder due to type 2 diabetes mellitus 0 11/15/2019 Chronic kidney disease due to hypertension 11/14 Benign essential hypertension 07/09/2017 Overview (11/15/2019): Dc Diltiazem, rx amlodipine. Mixed hyperlipidemia 07/09/2017 Orthostatic hypotension 07/09/2017 Overview (11/15/2019): Move diltiazem to pm dosing. Drink 12 oz water before all meals. Rise slowly, and keep knees bent. Will consider Florinef if sx persist or worsen Aug 2018-- much better with change of med timing. November 2018-- Change from Dilt to Norvasc due to low HR on his holter. Type 2 diabetes mellitus without complication Overview (11/15/2019): Last Assessment & Plan: Stable on 10mg glipizide. Resolved Problems Problem Noted Date Diagnosed Date Resolved Date Stage 3a chronic kidney disease 02/15/2023 02/15/2023 Essential hypertension 12/03 Immunizations Name Administration Dates Next Due Influenza Split High Dose Pr eservative Free IM 04/27/2022,04/05/2020,03/08/2017 Influenza TIV (IM) 04/07/2022 Influenza Vaccine, Quadrivalent, Adjuvanted 12/2020 Influenza, Quadrivalent, Preservative Free 02/20 Influenza, Unspecified 04/05/2020,04/28/2016,07/2012 Dayana SARS-COV-2 09/14/2020 Moderna SARS-COV-2 05/07/2022 Pneumococcal Conjugate 13-Valent 08/12/2018,07/2016 Pneumococcal Polysaccharide 06/14/2020, 8 SARS-CoV-2, Unspecified 05/07/2021,09/14/2020 Tdap 08/12/2018,12/26/2010 Zoster 05/27/2013 Family History Medical History Relation Comments Multiple sclerosis Brother Diabetes Father Gout Father Hypertension Father Relation Status Comments Brother Father Mother Social History Tobacco Use Types Packs/Day Years Used Date Smoking Tobacco: Former Cigarettes 2 30 1 961 - 1987 Cigars Tobacco Cessation:Counseling Given: Not Answered Comments:Smokes 4 cigars a week Currently Alcohol Use Standard Drinks/Week Comments Yes 35 (1 standard drink = 0.6 oz pu re alcohol) 5-6 beers a day Sex and Gender Information Value Date Recorded Sex Assigned at Not on file Legal Sex Male 4:35 PM EST Gender Identity Not on file Sexual Orientation Not on file Occupation Industry Job Start Date Job End Date [employer] Not on file Not on file Not on file Last Filed Vital Signs Vital Sign Reading Time Taken Comments Blood Pressure 140/72 02/15/2023 11:54 AM EDT Pulse 68 02/15/2023 11:54 AM EDT Temperature 36.7 ??C (98 ??F) 12/05/2018 12:00 PM EDT Respiratory Rate 14 02/15/2023 11:54 AM EDT Oxygen Saturation - - Inhaled Oxygen Concentration - - Weight 108 kg (237 lb) 02/15/2023 11:54 AM EDT Height 182.9 cm (6') 02/15/2023 11:54 AM EDT Body Mass Index 32.14 02/15/2023 11:54 AM EDT Plan of Treatment Upcoming Encounters Date Type Department Care Team (Late st Contact Info) Description 08/25/2024 11:15 AM EST Office Visit [facility] [address] [place] [address] Nestor Coreas MD [address] [place] [address] [place] [address] Health Maintenance Due Date Last Done Comments Colorectal Cancer Screening: Annual FOBT 01/04/2001 Colorectal Cancer Screening: Colonoscopy 01/04/2001 Colorectal Cancer Screening: Sigmoidoscopy 01/04/2001 Diabetes: Hemoglobin A1C 09/25/2019 07/09/2017 Diabetes: Ophthalmology Exam 09/25/2019 Diabetes: Pedal Pulse Checked 09/25/2019 Diabetes: Sensory Foot Exam 09/25/2019 Diabetes: Visual Foot Exam 09/25/2019 Influenza Vaccine (#1) 2024 3, 04/27/2022, 04/07/2022, Additional history exists Pneumococcal Vaccine: 65+ Years Completed 06/14/2020, 08/12/2018, 07/05/2016, Additional history exists Hepatitis B Vaccine Aged Out No longe r eligible based on patient's age to complete this topic Procedures Procedure Name Priority Date/Time Associated Diagnosis Comments LAB LAPEL STITCHER Routine 07/09/2017 2:00 PM EST from Last 3 Months or Most Recently Relevant to Health Maintenance Results * (ABNORMAL) Lab Hairspring Setter (07/09/2017 2:00 PM EST) Sodium 143 133 - 145 mmol/L [facility] BUN 28(H) 8 - 23 mg/dL [facility] Hemoglobin A1C 6.2 % [facility] GFR Calculated 47 ml/min [facility] Calcium 9.6 8.4 - 10.2 mg/dL [facility] ALT (SGPT) 13 U/L [facility] AST (SGOT) 16 U/L [facility] Cholesterol, Total 128 mg/dl [facility] HDL 41 mg/dl [facility] Carbon Dioxide (CO2) 26 22 - 29 mmol/L [facility] Glucose 220 mg/dl [facility] Potassium 5.1 3.6 - 5.2 mmol/L [facility] Creatinine 1.50(H) 0.4 - 1.1 mg/dL [facility] Triglycerides 121 mg/dl [facility] LDL-Calc 63 mg/dl [facility] Albumin 4.4 gm/dl [facility] 07/09/2017 2:00 PM EST us [facility] Conversion LAB [id number] LICITED RESULTS Final Result [facility] from Last 3 Months or Most Recently Relevant to Health Maintenance Insurance [facility] ([id number]) Care Teams It Assistant Relationship Specialty Start Date End Date Elroy Smith MD [address] [place] [address], [address] [place] [address] PCP - General 05/09/19
--- OUTSIDE RECORDS SUMMARY | 2024-08-03 15:14 | XMS_ITS | Clinical Summary ---
Author Organization [facility] Address [address] [place] [address] Care Team Providers Care Chief Cook Name Role Phone Edith Uriarte MD Primary Care Provider [phone] Allergies Active Allergy Reactions Criticality Noted Date Comments Metoprolol Other (See Comments) 02/15/2015 Jittery , LOW HEART RATE Medications Medication Sig Dispensed Refills Start Date End Date Status diltiazem (DILTIAZEM CD) 120 MG 24 hr capsule Take 120 mg by mouth every morning. 0 Active lisinopril (PRINIVIL,ZESTRIL) 20 MG tablet Take 20 mg by mouth every morning. 0 Active glipiZIDE (GLUCOTROL) 5 MG tablet Take 2.5 mg by mouth every morning. 0 Active pravastatin (PRAVACHOL) 40 MG tablet Take 40 mg by mouth every evening. 0 Active polyethylene glycol (MIRALAX) packet Take 17 g by mouth every morning. 0 Active meloxicam (MOBIC) 15 MG tablet Take 15 mg by mouth every morning. Start five days prior to surgery 0 Active Ascorbic Acid (VITAMIN C) 1000 MG tablet Take 1,000 mg by mouth every morning. Last day 02/15/15 0 Active Cyanocobalamin (VITAMIN B12 PO) Take 1 tablet by mouth every morning. Last dose 02/15/15 0 Active acetaminophen (TYLENOL EXTRA STRENGTH) 500 MG tablet Take 500 mg by mouth every 6 (six) hours as needed. Takes one tablet every morning 0 Active aspirin EC 325 MG EC tablet Take 1 tablet (325 mg total) by mouth 2 (two) times a day after meals. For 6 weeks after surgery. 84 tablet 0 03/06/2015 Active methocarbamol (ROBAXIN) 750 MG tablet Take 1 tablet (750 mg total) by mouth 3 (three) times a day as needed (spasms). 50 tablet 0 03/06/2015 Active Multiple Vitamin (THERA/BETA-CAROTENE) TABS tablet Take 1 tablet by mouth daily. 60 tablet 0 03/06/2015 Active oxyCODONE (ROXICODONE) 5 MG immediate release tablet Take 1-2 tablets (5-10 mg total) by mouth every 4 (four) hours as needed for pain. 50 tablet 0 03/06/2015 Active pantoprazole (PROTONIX) 40 MG tablet Take 1 tablet (40 mg total) by mouth every morning before breakfast. 30 tablet 1 03/07/2015 Active senna-docusate (PERICOLACE) 8.6-50 MG Take 1-2 tablets by mouth 2 (two) times a day as needed for constipation. 60 tablet 0 03/06/2015 Active Social History Tobacco Use Types Packs/Day Years Used Date Smoking Tobacco: Former Cigarettes 1 Q uit: 07/05/1987 Alcohol Use Standard Drinks/Week Comments Yes 4 (1 standard drink = 0.6 oz pur e alcohol) Sex and Gender Information Value Date Recorded Sex Assigned at Not on file Gender Identity Not on file Sexual Orientation Not on file Last Filed Vital Signs Vital Sign Reading Time Taken Comments Blood Pressure 120/67 03/07/2015 7:54 AM EDT Pulse 60 03/07/2015 7:54 AM EDT Temperature 36.3 ??C (97.4 ??F) 03/07/2015 7:54 AM ED T Respiratory Rate 16 03/07/2015 7:54 AM EDT Oxygen Saturation 95% 03/07/2015 7:54 AM EDT Inhaled Oxygen Concentration - - Weight 113.4 kg (250 lb) 03/06/2015 9:09 AM EDT Height 188 cm (6' 2 ) 03/06/2015 9:09 AM EDT Body Mass Index 32.1 03/06/2015 9:09 AM EDT Plan of Treatment Health Maintenance Due Date Last Done Comments Hepatitis C Screening 1950 COVID-19 Vaccine (#1) 1950 Depression Screening 1964 Preventative Health Evaluation 01/04/1970 DTap / Tdap / Td (1 - Tdap) 01/04/1971 Colon Cancer Screening (Colonoscopy) 01/04/1997 Shingrix-Zoster Vaccine (1 of 2) 01/04/2002 Fall Risk Assessment 01/04/2017 Pneumococcal Vaccine (1 of 1 - PCV) 01/04/2017 Influenza Vaccine (#1) 2024 RSV Adult > 60+ Yrs or Pregn ant (1 - 1-dose 75+ series) 01/04/2027 Hepatitis B Vaccines Aged Out No long er eligible based on patient's age to complete this topic RSV Ped < 20 months Aged Out No longe r eligible based on patient's age to complete this topic Medical Devices Implanted Type Area Collections Specialist Device Identifier Shelf Expiration Date Model / Serial / Lot Shelley Cluster Shell Cementless 60mm Taper Size 5 Implanted:Qty: 1 on 03/06/2015 by Jovany Read MD at [facility] Left: Hip PASCUAL GROUP 04/03/2017 [id number] / / [id number] Shelley Liner Hxlpe 36mm Neutral Offset Size 5 Implanted:Qty: 1 on 03/06/2015 by Jovany Read MD at [facility] Left: Hip PASCUAL GROUP 05/03/2016 [id number] / / [id number] Stem Size 7 - Minihip Short Standard () - 130ccd - [id number] - [id number] Implanted:Qty: 1 on 03/06/2015 by Jovany Read MD at [facility] Left: Hip PASCUAL GROUP 01/31/2017 [id number] / / [id number] Modular Head 36mm Medium 0.0mm - [id number] - [id number] Implanted:Qty: 1 on 03/06/2015 by Jovany Read MD at [facility] Left: Hip PASCUAL GROUP 01/08/2020 [id number] / / [id number] Advance Directives For more information, please contact: [phone] Latest Code Status on File Code Status Date Activated Date Inactivated Comments Full Code 03/06/2015 10:12 AM 03/07/2015 7:32 PM This c ode status was ascertained in the following way: per chart. Code Status History Code Status Date Activated Date Inactivated Comments Full Code 03/06/2015 8:04 AM 03/06/2015 10:12 AM . Care Teams Chief Cook Relationship Specialty Start Date End Date Edith Uriarte MD [address] [place] [phone] PCP - General Family Medicine 03/05/15
--- OUTSIDE RECORDS SUMMARY | 2024-08-03 15:14 | XMS_ITS | Encounter Summary ---
Author Organization [facility] [place], Address [address] [place] [address] Phone Care Team Providers Care Table Worker Name Role Phone Elroy Smith MD Primary Care Provider [phone] Encounter Details Date Type Department Care Team (Late st Contact Info) Description 08/25/2023 Documentation Only [facility] [address] [place] [address] Antoinette Keller [address] [place] [phone] Social History Tobacco Use Types Packs/Day Years Used Date Smoking Tobacco: Former Cigarettes 2 30 1 961 - 1987 Cigars Comments:Smokes 4 cigars a w [place] Currently Alcohol Use Standard Drinks/Week Comments Yes 35 (1 standard drink = 0.6 oz pu re alcohol) 5-6 beers a day Sex and Gender Information Value Date Recorded Sex Assigned at Not on file Legal Sex Male 4:35 PM EST Gender Identity Not on file Sexual Orientation Not on file Occupation Industry Job Start Date Job End Date [employer] Not on file Not on file Not on file documented as of this encounter Plan of Treatment Upcoming Encounters Date Type Department Care Team (Late st Contact Info) Description 08/25/2024 11:15 AM EST Office Visit [facility] [address] [place] [phone] Nestor Coreas MD [address] [place] [address] [place] [address] documented as of this encounter Visit Diagnoses Not on filedocumented in this encounter Care Teams Table Worker Relationship Specialty Start Date End Date Elroy Smith MD [address] [place] [address], [address] [place] [address] PCP - General 05/09/19 documented as of this encounter
--- OUTSIDE RECORDS SUMMARY | 2024-08-03 15:14 | XMS_ITS | Encounter Summary ---
Author Organization [facility] [place], Address [address] [place] [address] Phone Care Team Providers Care Spa Supervisor Name Role Phone Elroy Smith MD Primary Care Provider Encounter Details Date Type Department Care Team (Late st Contact Info) Description 02/17/2023 Documentation Only [facility] [place] [address] [place] [address] Lety Rubin MD Social History Tobacco Use Types Packs/Day Years Used Date Smoking Tobacco: Former Cigarettes 2 30 1 961 - 1987 Cigars Comments:Smokes 4 cigars a w [place] Currently Alcohol Use Standard Drinks/Week Comments Yes 35 (1 standard drink = 0.6 oz pu re alcohol) 5-6 beers a day Sex and Gender Information Value Date Recorded Sex Assigned at Not on file Legal Sex Male 4:35 PM EST Gender Identity Not on file Sexual Orientation Not on file Occupation Industry Job Start Date Job End Date [employer] Not on file Not on file Not on file documented as of this encounter Plan of Treatment Upcoming Encounters Date Type Department Care Team (Late st Contact Info) Description 08/25/2024 11:15 AM EST [facility] Visit [facility] [address] [place] [address] Nestor Coreas MD [address] [place] [address] [place] [phone] documented as of this encounter Visit Diagnoses Not on filedocumented in this encounter Care Teams Spa Supervisor Relationship Specialty Start Date End Date Elroy Smith MD [address] [place] [address], [address] [place] [phone] PCP - General 05/09/19 documented as of this encounter
--- OUTSIDE RECORDS SUMMARY | 2024-08-03 15:14 | XMS_ITS | Encounter Summary ---
Author Organization [facility] [place], Address [address] [place] [address] Phone Care Team Providers Care Wood Heel Fitter Machine Name Role Phone Elroy Smith MD Primary Care Provider [phone] Encounter Details Date Type Department Care Team (Late st Contact Info) Description 08/25/2023 Documentation Only [facility] [address] [place] [address] Antoinette Keller [address] [place] [phone] Social History Tobacco Use Types Packs/Day Years Used Date Smoking Tobacco: Former Cigarettes 2 30 1 961 - 1987 Cigars Comments:Smokes 4 cigars a w [place] Currently Alcohol Use Standard Drinks/Week Comments Yes 35 (1 standard drink = 0.6 oz pu re alcohol) 5-6 beers a day Sex and Gender Information Value Date Recorded Sex Assigned at Not on file Legal Sex Male 4:35 PM EST Gender Identity Not on file Sexual Orientation Not on file Occupation Industry Job Start Date Job End Date [employer] Not on file Not on file Not on file documented as of this encounter Plan of Treatment Upcoming Encounters Date Type Department Care Team (Late st Contact Info) Description 08/25/2024 11:15 AM EST Office Visit [facility] [address] [place] [phone] Nestor Coreas MD [address] [place] [address] [place] [address] documented as of this encounter Visit Diagnoses Not on filedocumented in this encounter Care Teams Wood Heel Fitter Machine Relationship Specialty Start Date End Date Elroy Smith MD [address] [place] [address], [address] [place] [address] PCP - General 05/09/19 documented as of this encounter
--- OUTSIDE RECORDS SUMMARY | 2024-08-03 15:14 | XMS_ITS | Encounter Summary ---
Author Organization [facility] [place], Address [address] [place] [address] Phone Care Team Providers Care Circular Clerk Name Role Phone Elroy Smith MD Primary Care Provider [phone] Encounter Details Date Type Department Care Team (Late Contact Info) Description 05/31/2020 Orders Only [facility] [place] [facility] [address] [facility] [address] [place] [address] Lety Rubin MD Chronic kidney disease stage 3 Social History Tobacco Use Types Packs/Day Years Used Date Smoking Tobacco: Never Alcohol Use Standard Drinks/Week Comments No 0 (1 standard drink = 0.6 oz pur e alcohol) Sex and Gender Information Value Date Recorded Sex Assigned at Not on file Legal Sex Male 4:35 PM EST Gender Identity Not on file Sexual Orientation Not on file Occupation Industry Job Start Date Job End Date [employer] Not on file Not on file Not on file documented as of this encounter Plan of Treatment Upcoming Encounters Date Type Department Care Team (Late st Contact Info) Description 08/25/2024 11:15 AM EST Office Visit [facility] - [address] [place] [phone] Nestor Coreas MD [address] [place] [phone] documented as of this encounter Visit Diagnoses Diagnosis Chronic kidney disease stage 3 (HCC) documented in this encounter Care Teams Circular Clerk Relationship Specialty Start Date End Date Elroy Smith MD [address] [place] [address], [address] [place] [address] PCP - General 05/09/19 documented as of this encounter
--- OUTSIDE RECORDS SUMMARY | 2024-08-03 15:14 | XMS_ITS | Encounter Summary ---
Author Organization [facility] [place], Address [address] [place] [address] Phone Care Team Providers Care Prepress Manager Name Role Phone Elroy Smith MD Primary Care Provider [phone] Encounter Details Date Type Department Care Team (Late st Contact Info) Description 08/25/2023 Documentation Only [facility] [address] [place] [address] Antoinette Keller [address] [place] [phone] Social History Tobacco Use Types Packs/Day Years Used Date Smoking Tobacco: Former Cigarettes 2 30 1 961 - 1987 Cigars Comments: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 Currently Alcohol Use Standard Drinks/Week Comments Yes 35 (1 standard drink = 0.6 oz pu re alcohol) 5-6 beers a day Sex and Gender Information Value Date Recorded Sex Assigned at Not on file Legal Sex Male 4:35 PM EST Gender Identity Not on file Sexual Orientation Not on file Occupation Industry Job Start Date Job End Date [employer] [facility] Not on file Not on file Not on file documented as of this encounter Plan of Treatment Upcoming Encounters Date Type Department Care Team (Late st Contact Info) Description 08/25/2024 11:15 AM EST Office Visit [facility] [address] [place] [phone] Nestor Coreas MD [address] [place] [address] [place] [address] documented as of this encounter Visit Diagnoses Not on filedocumented in this encounter Care Teams Prepress Manager Relationship Specialty Start Date End Date Elroy Smith MD [address] [place] [address], [address] [place] [address] PCP - General 05/09/19 documented as of this encounter
--- OUTSIDE RECORDS SUMMARY | 2024-08-03 15:15 | XMS_ITS | Encounter Summary ---
Author Organization [facility] [place], Address [address] [place] [address] Phone Care Team Providers Care Autocad Electrical Designer Name Role Phone Elroy Smith MD Primary Care Provider [phone] Encounter Details Date Type Department Care Team (Late st Contact Info) Description 02/09/2023 Office Communication [facility] [place], - [address] [address] Nestor Coreas MD [address] [place] [address] [place] [address] Social History Tobacco Use Types Packs/Day Years Used Date Smoking Tobacco: Former Cigarettes 30 1 961 - 1987 Cigars Comments:Smokes 4 cigars a w hoh Currently Alcohol Use Standard Drinks/Week Comments Yes 35 (1 standard drink = 0.6 oz pu re alcohol) 5-6 beers a day Sex and Gender Information Value Date Recorded Sex Assigned at Not on file Legal Sex Male 4:35 PM EST Gender Identity Not on file Sexual Orientation Not on file Occupation Industry Job Start Date Job End Date [employer] Not on file Not on file Not on file documented as of this encounter Miscellaneous Notes * Telephone Encounter - Lety Rubin MD - 02/10/2023 7:17 AM EDT done documented in this encounter Plan of Treatment Upcoming Encounters Date Type Department Care Team (Late st Contact Info) Description 08/25/2024 11:15 AM EST Office Visit [facility] [place], - [address] [place] [address] Nestor Coreas MD [address] [facility] [place] [phone] documented as of this encounter Visit Diagnoses Not on filedocumented in this encounter Care Teams Autocad Electrical Designer Relationship Specialty Start Date End Date Elroy Smith MD [address] [facility], [address] [place] [address] PCP - General 05/09/19 documented as of this encounter
--- OUTSIDE RECORDS SUMMARY | 2024-08-03 15:15 | XMS_ITS | Encounter Summary ---
Author Organization [facility], Address [address] [place] [address] Phone Care Team Providers Care Game Producer Name Role Phone Elroy Smith MD Primary Care Provider [phone] Encounter Details Date Type Department Care Team (Late st Contact Info) Description 02/12/2023 Documentation Only [facility] [address] [place] [address] Lety Rubin MD Social History Tobacco Use Types Packs/Day Years Used Date Smoking Tobacco: Former Cigarettes 2 30 1 961 - 1987 Cigars Comments:Smokes 4 cigars a w [employer] Currently Alcohol Use Standard Drinks/Week Comments Yes 35 (1 standard drink = 0.6 oz pu re alcohol) 5-6 beers a day Sex and Gender Information Value Date Recorded Sex Assigned at Not on file Legal Sex Male 4:35 PM EST Gender Identity Not on file Sexual Orientation Not on file Occupation Industry Job Start Date Job End Date [employer] Not on file Not on file Not on file documented as of this encounter Plan of Treatment Upcoming Encounters Date Type Department Care Team (Late st Contact Info) Description 08/25/2024 11:15 AM EST [facility] [place] [address] Nestor Coreas MD [address] [place] [address] [place] [id number] documented as of this encounter Visit Diagnoses Not on filedocumented in this encounter Care Teams Game Producer Relationship Specialty Start Date End Date Elroy Smith MD [address] [place] [address], [address] [place] [id number] PCP - General 05/09/19 documented as of this encounter
--- OUTSIDE RECORDS SUMMARY | 2024-08-03 15:15 | XMS_ITS | Data Portability ---
Author Organization [facility], , [facility] Address [address] [place] [address] Care Team Providers Care Hospital Insurance Representative Name Role Phone SHELIACHARLYRADHA OTHER LUC REDMAN Ledge Man BENJAMIN URIARTE Primary Care Provider UnavailANDERSON Reddy Anthropology Professor Assessment No assessment recorded. Plan of Treatment Reminders Order Date Submit Date Provider Last Modified By Organization Details Last Modified Time Details Appointments None recorded. Lab lipid panel, serum 2015 017 [facility], [address] [place] [address], [address], 7 12:43:53 HbA1c (hemoglob in A1c), blood 2015 017 [facility], [address] [place] [address], [address], 7 11:26:23 BMP, serum or plasma 2015 017 [facility], [address] [place] [address], [address], 7 11:26:17 Referral None recorded. Procedures None recorded. Surgeries None recorded. Imaging XR, chest - 66 year old patient with productiv e cough and rhonchi LLL 2016 017 [facility] (Im[facility]), [address], [place], [address], 7 12:31:29 Medication Orders codeine 10 mg-guaife nesin 100 mg/5 mL oral liquid 2015 016 [facility] [address] [place], [address], 7 13:45:47 Tessalon Perles 100 mg capsule 2016 017 [facility] [address] [place], [address], 7 13:45:41 albuterol sulfate HFA 90 mcg/actua tion aerosol inhaler 2016 017 [email or web address] Not available 7 16:53:15 rosuvasta tin 20 mg tablet 2016 017 INTERFACE [facility] [address] [place], [address], 7 14:28:23 Flovent HFA 110 mcg/actua tion aerosol inhaler 2016 017 INTERFACE [facility] [address] [place], [address], 7 14:58:14 Patient TargetsNo targets recorded. Patient Instructions Encounter Date Encounter Id Patient Instructions Last Modified By Organization Details Last Modified Time 04/14/2016 [id number] Well Visit 50 to 65: Care Instructions [id number] Not available 06/20/2016 04:08:51 -Message us with the date of when you get your flu shot at work -Eye exam due in June -Call Dr. Rubin's office - if they have not seen you in 2015, you need a vist, if they have, we need the note (thanks!) -Check your feet once daily (either in AM or PM) -Non-weight bearing exercise (bicycling or wading with a pam or learning to swim) -Follow-up in 6 months Not available 04/14/2016 16:46:09 05/29/2016 [id number] After a discussion of treatment options, which included consideration of best practices and patient preferences, the above treatment plan and objectives were adopted. New medication was discussed with patient including risks, benefits, possible and expected side effects. Patient understands and is willing to begin medication as prescribed. fkim Not available 05/29/2016 13:49:49 09/07/2016 [id number] This looks like a post viral cough. At this point recommend trying Tessalon Perles her sodium but Zante. If that does not work then filled the prescription for the albuterol that was given to him by hand. marvin Not available 09/07/2016 16:50:15 10/08/2016 [id number] -STOP pravastati n -START rosuvastatin and let me know if you have any side effects -Otherwise continue on current medications and will follow-up in six months when due Not available 10/08/2016 14:35:35 Reason for Referral None Reported. Results Created Date Observation Date Name Description Value Unit Range Abnormal Flag Note LastModifiedBy Organization Detail LastModifiedTime 04/04/20 16 04/06/2016 BMP, serum or plasm a glucose 126 mg/dL 70-100 high Not Available [address], [address], 04/06/2016 11:21:55 04/04/20 16 04/06/2016 BMP, serum or plasm a BUN 25 mg/dL 7-18 high Not Available [address], [address], 04/06/2016 11:21:55 04/04/20 16 04/06/2016 BMP, serum or plasm a creatinine 1.6 mg/dL 0.8-1. 3 high Not Available [address], [address], 04/06/2016 11:21:55 04/04/20 16 04/06/2016 BMP, serum or plasm a B/C 15.6 ratio Not Available [address], [address], 04/06/2016 11:21:55 04/04/20 16 04/06/2016 BMP, serum or plasm a GFR -non 46.5 mL/mi n Recom kandi d GFR by the Natio nal Kidne y Found ation >60 mL/mi n/1.7 3m2 - Tiffany l <60 mL/mi n/1.7 3m2 - Chron ic Kidne y Disea se <15 mL/mi n/1.7 3m2 - Kidne y Failu re Not Available [address], [address], 04/06/2016 11:21:55 04/04/20 16 04/06/2016 BMP, serum or plasm a GFR - if 56.2 mL/mi n For Afric an Ameri can patie nts: Resul ts Multi plied by 1.21 Not Available [address], [address], 04/06/2016 11:21:55 04/04/20 16 04/06/2016 BMP, serum or plasm a sodium 144 mmol/ L 136-14 5 Not Available [address], [address], 04/06/2016 11:21:55 04/04/20 16 04/06/2016 BMP, serum or plasm a potassium 5.0 mmol/ L 3.5-5. 1 Not Available [address], [address], 04/06/2016 11:21:55 04/04/20 16 04/06/2016 BMP, serum or plasm a chloride 106 mmol/ L 96-107 Not Available [address], [address], 04/06/2016 11:21:55 04/04/20 16 04/06/2016 BMP, serum or plasm a anion gap 9.3 5.0-15 .0 Not Available [address], [address], 04/06/2016 11:21:55 04/04/20 16 04/06/2016 BMP, serum or plasm a CO2 29 mmol/ L 21-32 Not Available [address], [address], 04/06/2016 11:21:55 04/04/20 16 04/06/2016 BMP, serum or plasm a calcium 9.4 mg/dL 8.5-10 .3 Not Available [address], [address], 04/06/2016 11:21:55 04/04/20 16 04/06/2016 lipid panel , serum cholesterol 156 mg/dL <200 mg/dl Cee able 200-2 39 mg/dl Borde rline High >240 mg/dl High Not Available [address], [address], 04/06/2016 11:21:57 04/04/20 16 04/06/2016 lipid panel , serum triglyceride s 110 mg/dL <150 mg/dL Tiffany l 150-1 99 mg/dL Borde rline High 200-4 99 mg/dL High >500 mg/dL Very High Not Available [address], [address], 04/06/2016 11:21:57 04/04/20 16 04/06/2016 lipid panel , serum direct HDL 36 mg/dL Not Available [address], [address], 04/06/2016 11:21:57 04/04/20 16 04/06/2016 LDL, calcu lated , serum (OBS) LDL - calculated 98.0 RISK CATEG ORY LDL GOAL _ CHD or CHD Risk Equiv alent s <100 mg/dl (10-y ear risk >20%) 2+ Risk Facto rs <130 mg/dl (10-y ear risk <= 20%) 0-1 Risk Facto r??? <160 mg/dl ??? Almos t all peopl e with 0-1 risk facto r have a 10 year risk <10%, thus 10 year risk asses ment in peopl e with 0-1 risk facto r is not neces zuleyma. Not Available [address], [address], 04/06/2016 11:21:57 04/04/20 16 04/06/2016 HbA1c (hemo globi n A1c), blood hemoglobin A1C 6.5 % 4.8-6. 0 high Goal: <7% in Patie nts with Diabe zach Not Available [address], [address], 04/06/2016 11:31:06 04/04/20 16 04/06/2016 HbA1c (hemo globi n A1c), blood estimated average glucose 139.9 mg/dL Not Available [address], [address], 04/06/2016 11:31:06 04/04/20 16 04/06/2016 micro album in, urine microalbumin 677.9 mg/L 1.3-20 .0 high VERD= Verif ied by Dilut ion. Not Available [address], [address], 04/06/2016 14:18:23 04/04/20 16 04/06/2016 micro album in, urine creatinine urine 291.9 mg/dL 30.0-1 25.0 high Not Available [address], [address], 04/06/2016 14:18:23 04/04/20 16 04/06/2016 micro album in, urine microalb/cre at ratio 232.2 mg/g_ creat 0.0-29 .0 high Not Available [address], [address], 04/06/2016 14:18:23 10/04/19 17 10/05/2016 HbA1c (hemo globi n A1c), blood hemoglobin A1C 6.7 % 4.8-6. 0 high Goal: <7% in Patie nts with Diabe zach Not Available [address], [address], 10/05/2016 11:38:06 10/04/19 17 10/05/2016 HbA1c (hemo globi n A1c), blood estimated average glucose 145.6 mg/dL Not Available [address], [address], 10/05/2016 11:38:06 10/04/19 17 10/05/2016 BMP, serum or plasm a glucose 136 mg/dL 70-100 high Not Available [address], [address], 10/05/2016 12:43:51 10/04/19 17 10/05/2016 BMP, serum or plasm a BUN 30 mg/dL 7-18 high Not Available [address], [address], 10/05/2016 12:43:51 10/04/19 17 10/05/2016 BMP, serum or plasm a creatinine 1.6 mg/dL 0.8-1. 3 high Not Available [address], [address], 10/05/2016 12:43:51 10/04/19 17 10/05/2016 BMP, serum or plasm a B/C 18.8 ratio Not Available [address], [address], 10/05/2016 12:43:51 10/04/19 17 10/05/2016 BMP, serum or plasm a GFR -non 46.5 mL/mi n Recom kandi d GFR by the Natio nal Kidne y Found ation >60 mL/mi n/1.7 3m2 - Tiffany l <60 mL/mi n/1.7 3m2 - Chron ic Kidne y Disea se <15 mL/mi n/1.7 3m2 - Kidne y Failu re Not Available [address], [address], 10/05/2016 12:43:51 10/04/19 17 10/05/2016 BMP, serum or plasm a GFR - if 56.2 mL/mi n For Afric an Ameri can patie nts: Resul ts Multi plied by 1.21 Not Available [address], [address], 10/05/2016 12:43:51 10/04/19 17 10/05/2016 BMP, serum or plasm a sodium 144 mmol/ L 136-14 5 Not Available [address], [address], 10/05/2016 12:43:51 10/04/19 17 10/05/2016 BMP, serum or plasm a potassium 5.2 mmol/ L 3.5-5. 1 high Not Available [address], [address], 10/05/2016 12:43:51 10/04/19 17 10/05/2016 BMP, serum or plasm a chloride 107 mmol/ L 96-107 Not Available [address], [address], 10/05/2016 12:43:51 10/04/19 17 10/05/2016 BMP, serum or plasm a anion gap 10.6 5.0-15 .0 Not Available [address], [address], 10/05/2016 12:43:51 10/04/19 17 10/05/2016 BMP, serum or plasm a CO2 26 mmol/ L 21-32 Not Available [address], [address], 10/05/2016 12:43:51 10/04/19 17 10/05/2016 BMP, serum or plasm a calcium 9.2 mg/dL 8.5-10 .3 Not Available [address], [address], 10/05/2016 12:43:51 10/04/19 17 10/05/2016 lipid panel , serum cholesterol 138 mg/dL <200 mg/dl Cee able 200-2 39 mg/dl Borde rline High >240 mg/dl High Not Available [address], [address], 10/05/2016 12:43:53 10/04/19 17 10/05/2016 lipid panel , serum triglyceride s 79 mg/dL <150 mg/dL Tiffany l 150-1 99 mg/dL Borde rline High 200-4 99 mg/dL High >500 mg/dL Very High Not Available [address], [address], 10/05/2016 12:43:53 10/04/19 17 10/05/2016 lipid panel , serum direct HDL 45 mg/dL Not Available [address], [address], 10/05/2016 12:43:53 10/04/19 17 10/05/2016 LDL, calcu alessiad , serum (OBS) LDL - calculated 77.2 RISK CATEG ORY LDL GOAL _ CHD or CHD Risk Equiv alent s <100 mg/dl (10-y ear risk >20%) 2+ Risk Facto rs <130 mg/dl (10-y ear risk <= 20%) 0-1 Risk Facto r??? <160 mg/dl ??? Almos t all peopl e with 0-1 risk facto r have a 10 year risk <10%, thus 10 year risk asses ment in peopl e with 0-1 risk facto r is not dee dee amor. Not Available [address], [address], 10/05/2016 12:43:53 11/28/19 17 11/27/2016 CBC w/ auto diff WBC 7.7 K/uL 3.4-11 .2 Not Available [address], [place], [address], 11/27/2016 17:28:53 11/28/19 17 11/27/2016 CBC w/ auto diff RBC 4.51 M/uL 4.50-5 .50 Not Available [address], [address], 11/27/2016 17:28:53 11/28/19 17 11/27/2016 CBC w/ auto diff hemoglobin 13.9 g/dL 13.0-1 7.0 Not Available [address], [address], 11/27/2016 17:28:53 11/28/19 17 11/27/2016 CBC w/ auto diff hematocrit 40.3 % 40.0-5 1.0 Not Available [address], [address], 11/27/2016 17:28:53 11/28/19 17 11/27/2016 CBC w/ auto diff MCV 89.4 fL 79.0-9 8.0 Not Available [address], [address], 11/27/2016 17:28:53 11/28/19 17 11/27/2016 CBC w/ auto diff MCH 30.8 pg 27.0-3 4.8 Not Available [address], [address], 11/27/2016 17:28:53 11/28/19 17 11/27/2016 CBC w/ auto diff MCHC 34.5 g/dL 31.5-3 6.0 Not Available [address], [address], 11/27/2016 17:28:53 11/28/19 17 11/27/2016 CBC w/ auto diff RDW 13.1 % 10.8-1 4.6 Not Available [address], [address], 11/27/2016 17:28:53 11/28/19 17 11/27/2016 CBC w/ auto diff MPV 10.4 fL 9.4-12 .4 Not Available [address], [address], 11/27/2016 17:28:53 11/28/19 17 11/27/2016 CBC w/ auto diff platelet count 256 K/uL 130-40 0 Not Available [address], [address], 11/27/2016 17:28:53 11/28/19 17 11/27/2016 CBC w/ auto diff neutrophils 63.3 % 45.3-7 7.7 Not Available [address], [address], 11/27/2016 17:28:53 11/28/19 17 11/27/2016 CBC w/ auto diff lymphocytes 25.2 % 12.3-3 9.7 Not Available [address], [address], 11/27/2016 17:28:53 11/28/19 17 11/27/2016 CBC w/ auto diff monocytes 5.5 % 4.1-12 .8 Not Available [address], [address], 11/27/2016 17:28:53 11/28/19 17 11/27/2016 CBC w/ auto diff eosinophils 5.60 % 0.00-7 .20 Not Available [address], [address], 11/27/2016 17:28:53 11/28/19 17 11/27/2016 CBC w/ auto diff basophils 0.40 % 0.00-2 .80 Not Available [address], [address], 11/27/2016 17:28:53 11/28/19 17 11/27/2016 CBC w/ auto diff absolute neutrophil 4.9 K/uL 1.4-7. 7 Not Available [address], [address], 11/27/2016 17:28:53 11/28/19 17 11/27/2016 CBC w/ auto diff absolute lymphocyte 1.9 K/uL 0.6-3. 2 Not Available [address], [address], 11/27/2016 17:28:53 11/28/19 17 11/27/2016 CBC w/ auto diff absolute monocytes 0.4 K/uL 0.1-0. 6 Not Available [address], [address], 11/27/2016 17:28:53 11/28/19 17 11/27/2016 CBC w/ auto diff absolute eosinophil 0.43 K/uL 0.01-0 .50 Not Available [address], [address], 11/27/2016 17:28:53 11/28/19 17 11/27/2016 CBC w/ auto diff absolute basophils 0.03 K/uL Not Available [address], [address], 11/27/2016 17:28:53 11/28/19 17 11/27/2016 CBC w/ auto diff immature granulocyte 0.00 % 0.00-0 .50 Not Available [address], [address], 11/27/2016 17:28:53 11/28/19 17 11/27/2016 CBC w/ auto diff absolute immature granulocyte 0.00 K/uL 0.00-0 .03 Not Available [address], [address], 11/27/2016 17:28:53 11/28/19 17 11/27/2016 renal funct ion panel , serum glucose 277 mg/dL 70-99 high Not Available [address], [address], 11/27/2016 17:59:06 11/28/19 17 11/27/2016 renal funct ion panel , serum BUN 24 mg/dL 6-19 high Not Available [address], [address], 11/27/2016 17:59:06 11/28/19 17 11/27/2016 renal funct ion panel , serum creatinine 1.5 mg/dL 0.5-1. 5 Not Available [address], [address], 11/27/2016 17:59:06 11/28/19 17 11/27/2016 renal funct ion panel , serum GFR 50 mL/mi n >60 low NKDEP (Noni onal Kidne y Disea se Educa tion Progr am) does not endor se the use of the MDRD (Kellie ficat ion of Diet in Renal Disea se) equat ion for estim ating GFR in patie nts that are not betwe en the ages of 18 and 70. Not Available [address], [address], 11/27/2016 17:59:06 11/28/19 17 11/27/2016 renal funct ion panel , serum sodium 139 mEq/L 133-14 6 Not Available [address], [address], 11/27/2016 17:59:06 11/28/19 17 11/27/2016 renal funct ion panel , serum potassium 4.6 mEq/L 3.3-5. 2 Not Available [address], [address], 11/27/2016 17:59:06 11/28/19 17 11/27/2016 renal funct ion panel , serum chloride 100 mEq/L 96-108 Not Available [address], [address], 11/27/2016 17:59:06 11/28/19 17 11/27/2016 renal funct ion panel , serum CO2 26 mEq/L 21-35 Not Available [address], [address], 11/27/2016 17:59:06 11/28/19 17 11/27/2016 renal funct ion panel , serum calcium 9.3 mg/dL 8.4-10 .3 Not Available [address], [address], 11/27/2016 17:59:06 11/28/19 17 11/27/2016 renal funct ion panel , serum phosphorus 3.1 mg/dL 2.7-4. 5 Not Available [address], [address], 11/27/2016 17:59:06 11/28/19 17 11/27/2016 renal funct ion panel , serum albumin 3.9 g/dL 3.9-4. 8 Not Available [address], [address], 11/27/2016 17:59:06 11/28/19 17 11/27/2016 renal funct ion panel , serum anion gap 18 mEq/L 10-20 Not Available [address], [address], 11/27/2016 17:59:06 11/28/19 17 11/27/2016 PTH (para thyro id hormo ne), intac t, serum or plasm a PTH, stat 38 pg/mL 15-65 Not Available [address], [address], 11/27/2016 18:07:53 11/28/19 17 11/27/2016 micro album in/cr eatin ine, ratio panel , urine urine creatinine random 121 mg/dL Not Available [address], [address], 11/27/2016 18:19:10 11/28/19 17 11/27/2016 micro album in/cr eatin ine, ratio panel , urine microalbumin , random 47 mg/L 0-23 high Not Available [address], [address], 11/27/2016 18:19:10 11/28/19 17 11/27/2016 micro album in/cr eatin ine, ratio panel , urine microalb/cre at ratio 39 ug/mg 0-20 high Not Available [address], [place], [address], 11/27/2016 18:19:10 05/01/20 17 05/03/2017 HbA1c (hemo globi n A1c), blood hemoglobin A1C 6.2 % 4.8-6. 0 high Goal: <7% in Patie nts with Diabe zach Not Available [address], [address], 05/03/2017 11:08:28 05/01/20 17 05/03/2017 HbA1c (hemo globi n A1c), blood estimated average glucose 131.2 mg/dL Not Available [address], [address], 05/03/2017 11:08:28 05/01/20 17 05/03/2017 BMP, serum or plasm a glucose 120 mg/dL 70-100 high Not Available [address], [address], 05/03/2017 12:02:32 05/01/20 17 05/03/2017 BMP, serum or plasm a BUN 21 mg/dL 7-18 high Not Available [address], [address], 05/03/2017 12:02:32 05/01/20 17 05/03/2017 BMP, serum or plasm a creatinine 1.5 mg/dL 0.8-1. 3 high Not Available [address], [address], 05/03/2017 12:02:32 05/01/20 17 05/03/2017 BMP, serum or plasm a B/C 14.0 ratio Not Available [address], [address], 05/03/2017 12:02:32 05/01/20 17 05/03/2017 BMP, serum or plasm a GFR -non 49.9 mL/mi n Recom kandi d GFR by the Natio nal Kidne y Found ation >60 mL/mi n/1.7 3m2 - Tiffany l <60 mL/mi n/1.7 3m2 - Chron ic Kidne y Disea se <15 mL/mi n/1.7 3m2 - Kidne y Failu re Not Available [address], [address], 05/03/2017 12:02:32 05/01/20 17 05/03/2017 BMP, serum or plasm a GFR - if 60.4 mL/mi n For Afric an Ameri can patie nts: Resul ts Multi plied by 1.21 Not Available [address], [address], 05/03/2017 12:02:32 05/01/20 17 05/03/2017 BMP, serum or plasm a sodium 145 mmol/ L 136-14 5 Not Available [address], [address], 05/03/2017 12:02:32 05/01/20 17 05/03/2017 BMP, serum or plasm a potassium 5.0 mmol/ L 3.5-5. 1 Not Available [address], [address], 05/03/2017 12:02:32 05/01/20 17 05/03/2017 BMP, serum or plasm a chloride 107 mmol/ L 96-107 Not Available [address], [address], 05/03/2017 12:02:32 05/01/20 17 05/03/2017 BMP, serum or plasm a anion gap 10.6 5.0-15 .0 Not Available [address], [address], 05/03/2017 12:02:32 05/01/20 17 05/03/2017 BMP, serum or plasm a CO2 27 mmol/ L 21-32 Not Available [address], [address], 05/03/2017 12:02:32 05/01/20 17 05/03/2017 BMP, serum or plasm a calcium 9.6 mg/dL 8.5-10 .3 Not Available [address], [address], 05/03/2017 12:02:32 05/01/20 17 05/03/2017 lipid panel , serum cholesterol 106 mg/dL <200 mg/dl Cee able 200-2 39 mg/dl Borde rline High >240 mg/dl High Not Available [address], [address], 05/03/2017 12:02:33 05/01/20 17 05/03/2017 lipid panel , serum triglyceride s 82 mg/dL <150 mg/dL Tiffany l 150-1 99 mg/dL Borde rline High 200-4 99 mg/dL High >500 mg/dL Very High Not Available [address], [address], 05/03/2017 12:02:33 05/01/20 17 05/03/2017 lipid panel , serum direct HDL 37 mg/dL Not Available [address], [address], 05/03/2017 12:02:33 05/01/20 17 05/03/2017 LDL, calcu lated , serum (OBS) LDL - calculated 52.6 RISK CATEG ORY LDL GOAL _ CHD or CHD Risk Equiv alent s <100 mg/dl (10-y ear risk >20%) 2+ Risk Facto rs <130 mg/dl (10-y ear risk <= 20%) 0-1 Risk Facto r??? <160 mg/dl ??? Almos t all peopl e with 0-1 risk facto r have a 10 year risk <10%, thus 10 year risk asses ment in peopl e with 0-1 risk facto r is not neces zuleyma. Not Available [facility] [address] [facility], [place], [address], 05/03/2017 12:02:34 03/24/20 16 03/20/2016 MRI, hip, w/o contr ast No observ ation record ed. [address] [facility], [place], [address], 03/24/2016 17:59:55 05/24/20 16 05/24/2016 chest 2 V . PA and latera l chest. Compar ed to 011. Heart and medias tinum are normal in size and contou r. No infilt rate, effusi on or inters titial change s. No nodule s or masses . No pneumo thorax . No acute or worris ome bony abnorm alitie s. IMPRES VANDA: No acute proces s. POS - CDHRAD BOARDW S7 POS - CDHRAD BOARDW S7 Electr onical ly Signed by: MARIA DE JESUS CASTILLO on 2015 1:22 PM Techno logist : BLAIR OLMSTEAD Transc ribed by: Triston vega, PS360 Result s 2015 01:20 PM Electr onical ly Signed By: MARIA DE JESUS DERAS MD 2015 01:[address] [facility] [address] [facility], [place], [address], 05/25/2016 08:12:33 11/21/19 17 11/20/2016 XR, chest OBSERV ATION: Chest 2 views Cough. There is no eviden ce of active inflam matory diseas e. Hypere xpansi on and a narrow medias tinal silhou ette are sugges tive of emphys flakito. There is scarri ng at the left costop hrenic angle. The bony and soft tissue s are normal Impres vanda: No acute radiog raphic abnorm ality probab le emphys flakito Electr onical ly signed Nikole Nava sonja: Jordin ziegler [facility] (Imaging) [address], [place], [place], [address], 11/20/2016 15:00:32 Result Notes None recorded. Problems Name Problem SNOMED Code Status Onset Date Resolution Date Notes Provider Name and Address Organization Details Recorded Time Mixed hyperlipide cristian 567001062 Active Benjamin Uriarte [address] [place], [place] [address], [address], [facility] [place] 14:21:24 Type 2 diabetes mellitus without complicatio n 950369028 Active Negar Groves null, [facility] 6 08:06:10 Chronic renal impairment Active Cr 1.5 - sees Kamel Benjaminkamilah Uriarte [address] [place], [place] [address], [address], [facility] 5 16:51:24 Benign essential hypertensio n 3104219 Completed 04/14/2016 Benjamin Uriarte [address] [place], [place] [address], [address], [facility] 6 16:33:25 Essential hypertensio n 94975834 Active Benjamin Uriarte [address] [place], [place] [address], [address], [facility] 6 14:21:24 Obesity 196893739 Active Benjamin Uriarte [address] [place], [place] [address], [address], [facility] 5 16:51:06 Neuropathy due to diabetes mellitus 998697729 Active Zeina Greenwood NP [address] [place], [place] [address], [address], [facility] 5 14:38:04 Notes:Some problems listed i n Documents: #[id number], #[id number], #[id number] could not be added to this patient's chart. Please review these documents and add these problems to the patient's chart manually as needed. Problem Notes None recorded. Procedures Surgical History Date Name Laterality Status Provider Name and Address Organization Details Recorded Time 07/23/19 12 Glucose Meter Teaching completed Cinthia Ignacio RN [facility] 07/23/2011 14:45:39 02/20/20 11 Nutritional Diagnosis N1 5.8.3 completed Karen Andres, Ms, Rdn, Ldn, CDE [address] [facility], [place], [address], [facility] 02/19/2011 14:57:29 07/05/19 03 Other (specify) completed Not Available [facility] 05/05 06:06:16 Imaging Results Imaging Date Name Status LastModified by Organiz ation Details LastModified Time 03/20/2016 MRI, hip, w/o contrast completed [facility] [address] [facility], [place], [address], 03/24/2016 17:59:55 05/24/2016 chest 2 V completed [facility] hospital[facility] Sally Walker [facility] [address] [place], [address], 05/25/2016 08:12:33 11/20/2016 XR, chest completed [address] (Imaging) [address], [place], [address], 11/20/2016 15:00:32 Procedure Notes None recorded. Medical Equipment None Reported. Allergies Allergen ID Allergen Name Allergen Category Reaction Reaction Severity Criticality Documentation Date Start Date Code Code System Note Provider Name and Address Organization Details Recorded Time 248119 metoprolo l Not available Not available Not available Not available 03/04/2012 6918 RxNorm low heart rate Cecilia Gonzalez CMA(AAMA) null, [facility] 2 10:32:54 Medications Name Sig Start Date Stop Date Status Note LastModified by Organization Details LastModified Time cyclobenz aprine 10 mg tablet active Not Available Not Available No t Available hydralazi ne 10 mg tablet TAKE ONE TABLET BY MOUTH TWICE DAILY 2013 active Not Available Not Available Not Avai lable oxybutyni n chloride ER 15 mg tablet,ex tended release 24 hr Take 1 tablet every day by oral route for 30 days. active Not Available Not Available No t Available azithromy christian 250 mg tablet take 2 tablets today, then take one tablet daily for the next 4 days active Not Available Not Available No t Available pravastat in 40 mg tablet TAKE ONE TABLET BY MOUTH ONCE DAILY active Not Available Not Available No t Available diltiazem CD 180 mg capsule,e xtended release 24 hr active Not Available Not Available Not Available benzonata te 200 mg capsule Take 1 capsule 3 times a day by oral route for 10 days. 06/15 completed Not Available Not Available Not Available FreeStyle Lancets 28 gauge TEST TWICE A DAY OR NEEDED active Not Available Not Available No t Available lisinopri l 20 mg tablet TAKE ONE TABLET BY MOUTH ONCE DAILY 2014 active Not Available Not Available Not Avai lable Aspir-Low 81 mg tablet,de layed release Take 1 tablet every day by oral route. active Not Available Not Available No t Available amlodipin e 5 mg tablet Take 1 tablet every day by oral route for 30 days. active Not Available Not Available No t Available tramadol 50 mg tablet active Not Available Not Available Not Available simvastat in 40 mg tablet Take 1 tablet every day by oral route for 30 days. 01/21 completed Not Available Not Available Not Available oxycodone -acetamin ophen 5 mg-325 mg tablet Take 1 tablet every 6 hours by oral route as needed. active Not Available Not Available No t Available benzonata te 100 mg capsule Take 2 capsules 3 times a day by oral route. 10/08 completed Not Available Not Available Not Available Cartia XT 120 mg capsule,e xtended release active Not Available Not Available Not Available lisinopri l 10 mg tablet Take 1 tablet every day by oral route. active Not Available Not Available No t Available metoprolo l tartrate 50 mg tablet TAKE ONE TABLET BY MOUTH TWICE DAILY active no longer taking Not Available Not Available Not Available gabapenti n 300 mg capsule Take 1 capsule twice a day by oral route for 7 days. Then increase to 3 times a day. active Not Available Not Available No t Available codeine 10 mg-guaife nesin 100 mg/5 mL oral liquid Take 10 mL every 8 hours by oral route as needed. 10/08 completed Not Available Not Available Not Available lisinopri l 5 mg tablet TAKE ONE TABLET BY MOUTH ONCE DAILY active Not Available Not Available No t Available diclofena c sodium 50 mg tablet,de layed release Take 1 tablet twice a day by oral route for 10 days. 01/03 completed Not Available Not Available Not Available Viagra 100 mg tablet active Not Available Not Available Not Available polyethyl cierra glycol 3350 17 gram/dose oral powder MIX 17 GRAMS OF POWDER IN LIQUID AND DRINK BY MOUTH ONCE DAILY active Not Available Not Available No t Available methylpre dnisolone 4 mg tablets in a dose pack active Not Available Not Available Not Available hydrocodo ne 7.5 mg-acetam inophen 500 mg tablet active Not Available Not Available Not Available lisinopri l 2.5 mg tablet Take 1 tablet every day by oral route for 30 days. 2014 active Not Available Not Available Not Avai lable glipizide 5 mg tablet TAKE ONE TABLET BY MOUTH ONCE DAILY WITH FOOD active Not Available Not Available No t Available naproxen 500 mg tablet active Not Available Not Available Not Available tobramyci n 0.3 %-dexamet hasone 0.1 % eye drops,arcadio pension Instill by ophthalm ic route as needed for 18 days. active Not Available Not Available No t Available One Touch test strips use twice daily and as needed active Not Available Not Available No t Available rosuvasta tin 20 mg tablet TAKE ONE TABLET BY MOUTH ONCE DAILY AT BEDTIME active Not Available Not Available No t Available DILT-XR 120 mg capsule, extended release TAKE ONE CAPSULE BY MOUTH DAILY active Not Available Not Available No t Available OneTouch UltraSoft Lancets Test twice daily and as needed 2011 active Not Available Not Available Not Avai lable Vesicare 5 mg tablet active taking oxybuiti n Not Available Not Available Not Available Flovent HFA 110 mcg/actua tion aerosol inhaler Inhale 1 puff twice a day by inhalati on route for 30 days. active Not Available Not Available No t Available Flovent HFA 220 mcg/actua tion aerosol inhaler Inhale 1 puff twice a day by inhalati on route. active Not Available Not Available No t Available Vitamin C active Not Available Not Colette ilable Not Available Tylenol active Not Available Not Avail able Not Available Viagra active from Mostafav i Not Available Not Available Not Available Vitamin D3 active Not Available Not Available Not Available Mobic active Not Available Not Availa ble Not Available Zostavax (PF) 19,400 unit/0.65 mL subcutane ous suspensio n active Not Available Not Available Not Available ProAir HFA 90 mcg/actua tion aerosol inhaler Inhale 2 puffs every 4 hours by inhalati on route as needed. active Not Available Not Available No t Available hydrochlo rothiazid e 12.5 mg tablet Take 1 tablet every day by oral route for 30 days. active Not Available Not Available No t Available FreeStyle Lite Meter kit USE TWICE A DAY active Not Available Not Available No t Available FreeStyle Lite Strips TEST TWICE A DAY OR NEEDED 2014 active Not Available Not Available Not Avai lable GaviLyte- G 236 gram-22.7 4 gram-6.74 gram-5.86 gram oral solution active Not Available Not Available Not Available Vitals Date Recorded Body height Provider Name an d Address Organization Details Last Updated DateTime 09/07/2016 185.42 cm Radha [facility] 09/07/2016 16:23:51 Date Recorded Body weight Provider Name an d Address Organization Details Last Updated DateTime 09/07/[address] [facility] 09/07/2016 16:26:02 Date Recorded Body mass index (BMI) Provider Name and Address Organization Details Last Updated DateTime 09/07/2016 34.2 kg/m2 [facility] 09/07/2016 16:26:03 Date Recorded Oxygen saturation Oxygen saturation in Arterial blood by Pulse oximetry Provider Name and Address Organization Details Last Updated DateTime 09/07/2016 97 % 97 % [facility] 09/07/2016 16:27:33 Date Recorded Heart rate Provider Name an d Address Organization Details Last Updated DateTime 09/07/2016 54 /min Radha [facility] 09/07/2016 16:27:37 Date Recorded Body height Provider Name an d Address Organization Details Last Updated DateTime 10/08/2016 185.42 cm Fauzia Spears LPN [facility] 10/08/2016 13:45:11 Date Recorded Body weight Body mass index (BMI) Provider Name and Address Organization Details Last Updated DateTime 10/08/2016 451930.93 g 34.1 kg/m2 Fauzia Spears LPN [facility] 10/08/2016 13:45:23 Date Recorded Heart rate Provider Name an d Address Organization Details Last Updated DateTime 10/08/2016 60 /min Fauzia Spears LPN [place] Jovita Maciel [facility] 10/08/2016 13:47:57 Date Recorded Body height Provider Name an d Address Organization Details Last Updated DateTime 11/20/2016 185.42 cm Hilary Hodge [facility] 11/20/2016 14:06:33 Date Recorded Body weight Body mass index (BMI) Provider Name and Address Organization Details Last Updated DateTime 11/20/2016 781850.52 g 34.2 kg/m2 Hilary [facility] 11/20/2016 14:06:37 Date Recorded Oxygen saturation Oxygen saturation in Arterial blood by Pulse oximetry Provider Name and Address Organization Details Last Updated DateTime 11/20/2016 96 % 96 % [facility] 11/20/2016 14:07:35 Date Recorded Heart rate Provider Name an d Address Organization Details Last Updated DateTime 11/20/2016 60 /min Hilary Hodge [facility] 11/20/2016 14:08:14 Date Recorded Body height Provider Name an d Address Organization Details Last Updated DateTime 04/14/2016 185.42 cm Hilary Hodge [facility] 04/14/2016 16:07:47 Date Recorded Body weight Body mass index (BMI) Provider Name and Address Organization Details Last Updated DateTime 04/14/2016 748042.79 g 34.7 kg/m2 Hilary [facility] 04/14/2016 16:07:51 Date Recorded Heart rate Provider Name an d Address Organization Details Last Updated DateTime 04/14/2016 62 /min Hilary Hodge [facility] 04/14/2016 16:08:28 Date Recorded Body height Provider Name an d Address Organization Details Last Updated DateTime 05/29/2016 185.42 [facility] 13:30:17 Date Recorded Body weight Body mass index (BMI) Provider Name and Address Organization Details Last Updated DateTime 05/29/2016 475833.79 g 34.7 kg/m2 [facility] 05/29/2016 13:30:23 Date Recorded Heart rate Provider Name an d Address Organization Details Last Updated DateTime 05/29/2016 72 /min Vilma [facility] 05/29/2016 13:37:19 Date Recorded Oxygen saturation Oxygen saturation in Arterial blood by Pulse oximetry Provider Name and Address Organization Details Last Updated DateTime 05/29/2016 97 % 97 % Kamar Edwards MD [address] [place] [address], [phone] 05/29/2016 13:45:03 Date Recorded Systolic blood pressure Diastolic blood pressure Provider Name and Address Organization Details Last Updated DateTime 09/07/2016 136 mm[Hg] 60 mm[Hg] Radha Mckeon [facility] 09/07/2016 16:30:06 Date Recorded Systolic blood pressure Diastolic blood pressure Provider Name and Address Organization Details Last Updated DateTime 10/08/2016 124 mm[Hg] 60 mm[Hg] Fauzia Spears LPN [facility] 10/08/2016 13:49:07 Date Recorded Systolic blood pressure Diastolic blood pressure Provider Name and Address Organization Details Last Updated DateTime 11/20/2016 118 mm[Hg] 72 mm[Hg] Hilary Hodge [facility] 11/20/2016 14:08:17 Date Recorded Systolic blood pressure Diastolic blood pressure Provider Name and Address Organization Details Last Updated DateTime 04/14/2016 124 mm[Hg] 76 mm[Hg] Hilary Hodge [facility] 04/14/2016 16:09:30 Date Recorded Systolic blood pressure Diastolic blood pressure Provider Name and Address Organization Details Last Updated DateTime 05/29/2016 106 mm[Hg] 58 mm[Hg] Kamar Edwards MD [address] [place] [address], [phone] 05/29/2016 13:45:12 Social History Question Answer Notes LastModified by Organizat ion Details LastModified Time Tobacco Smoking Status Former Smoker quit age 36 (at least 25 pack years) [place] 12/26/2010 14:59:27 Do You Have An Advance Directive? No Information not available 05/02/2013 What Is Your Level Of Alcohol Consumption? Moderate (5) 12 Fl Oz Beers On Saturdays And Sundays Information not available 11/13/2014 Do You Wear A Helmet When Biking? No Does Not Ride A Bike Information not available 11/13/2014 What Is Your Level Of Caffeine Consumption? Moderate 1-3 Cups/day Information not available 11/20/2014 How Much Tobacco Do You Chew? None Information not available 11/13/2014 What Type Of Diet Are You Following? REGULAR Information not available 11/20/2014 Which Illicit Or Recreational Drugs Have You Used? None No Hx IVDU [email or web address] Information not available 12/29/2010 What Is Your Occupation? [employer] [email or web address] Information not available 05/21/2011 When Did You Quit Smoking? 16+yearssince lastcigarette Information not available 11/13/2014 How Many Days In The Past Year Have You Had A Heavy Drinking Consumption (4+ Female, 5+ Male)? 5 Information not available 11/13/2014 Are There Any Guns Present In Your Home? No Information not available 05/02/2013 Live Alone Or With Others? With Others With litzy Information not available 05/21/2011 Does The Patient Have Difficulty Speaking Mohawk? No [email or web address] Information not available 05/21/2011 Does The Patient Have Difficulty Reading Mohawk? No [email or web address] Information not available 05/21/2011 Patient Has Health Care Proxy Signed And In Chart Yes Ruthy Olsen, DBA_[email or web address] Information not available 05/21/2011 DM Disease Process Needs Review [email or web address] Information not available 05/21/2011 Nutrition Needs Review [email or web address]_ [email or web address] Information not available 05/21/2011 Physical Activity Needs Review DBA_[email or web address]_ [email or web address] Information not available 05/21/2011 Medications Not Assessed DBA_PATCH_ [email or web address] Information not available 05/21/2011 Monitoring Not Assessed DBA_PATCH_ [email or web address] Information not available 05/21/2011 Acute Complications Needs Review DBA_[email or web address]_ [email or web address] Information not available 05/21/2011 Chronic Complications Needs Review DBA_PATCH_ [email or web address] Information not available 05/21/2011 Coping Not Assessed DBA_PATCH_ [email or web address] Information not available 05/21/2011 Behavior Change Needs Review DBA_PATCH_ 111 117 Information not available 05/21/2011 DSME Plan Goal Healthy Eating Decrease Morning Snack To ~2 Carb Choices, Check Portion Size On Evening Snack DBA_[email or web address]_ [email or web address] Information not available 05/21/2011 DSME Plan Goal Evaluation: 02/19/2011 Information not available 05/21/2011 DSME 2nd Goal Being Active Continue Walking 60 Min Daily [email or web address] Information not available 05/21/2011 DSME 2nd Goal Evaluation: 02/19/2011 DBA_[email or web address] Information not available 05/21/2011 DSME Plan Status In Progress Information not available 05/21/2011 Marital Status Ruthy Olsen Informatio n not available 05/21/2011 Mosquito Repellent Used Routinely Yes Information not available 11/13/2014 How Many Children Do You Have? 0 Information not available 05/21/2011 Are There Any Occupational Health Risks Where You Work? No Information not available 11/20/2014 What Is Your Current Pack Years? 20-29packyear s Information not available 11/20/2014 Seat Belts Used Routinely Yes Information not available 05/21/2011 Are You Sexually Active? Yes Information not available 05/21/2011 Smoke Alarm In Home Yes Information not available 05/02/2013 What Types Of Sporting Activities Do You Participate In? None Information not available 11/20/2014 General Stress Level Low Information not available 04/14/2016 Do You Use Sunscreen Routinely? No Information not available 11/13/2014 Sex: Unknown Functional Status None recorded. Mental Status None recorded. Family History Relationship Description Onset Age of this Age Resolved Age Notes LastModified by Organization Details LastModified Time Mother Varicose veins of lower extremity Not available 11/20 16:52:38 Paternal Grandfather Diabetes mellitus 67 Not available 11/20 16:52:38 Father Heart disease a-fib, pacema ker Not available 11/20/2014 16:52:38 Father Cerebrovascu lar accident [age] gave up Not available 05/02/2013 17:06:13 Father Hypertensive disorder Not available 11/20 16:52:38 Father Diabetes mellitus Not available 11/20 16:52:38 Notes:3 bro, 1 sis A&W; no f am hx cancer Medical History Condition Response Obesity Y Hyperlipidemia Y Hypertension Y CARDIOVASCULAR Y Immunizations Vaccine Type Date Status Note Provider Rachid charles and Address Organization Details Recorded Time Tdap 1 completed Not Available [facility] 07/22/2019 02:34:56 pneumococcal polysaccharide PPV23 8 completed Not Available [facility] 05/20/2011 05:22:52 Influenza, split virus, quadrivalent, PF 5 completed Not Available [facility] 07/22/2019 02:19:46 influenza, unspecified formulation 3 completed Denice Mcdonald RN [facility], [facility] 05/30/2013 15:34:24 zoster live 3 completed Fauzia Spears LPN [facility], [facility] 08/15/2015 17:24:11 influenza, unspecified formulation 6 completed Vilma Ascencio [facility], [facility] 05/29/2016 13:33:01 Past Encounters Encounter ID Performer Location Encounter Start Date Encounter Closed Date Diagnosis/Indication Diagnosis SNOMED-CT Code Diagnosis ICD10 Code Diagnosis Note [id number] Fab, OFFICE [address] [place] [id number] 12/26/2010 14:33:25 12/26/2010 15:41:44 [id number] DOROTHY Fab, OFFICE [address] [place] [address] 01/16/2011 14:45:41 01/16/2011 15:59:20 [id number] Nutrition -[address] [address] 02/19/2011 13:23:32 02/20/2011 15:42:33 [id number] Kurtis Edwards [facility], OFFICE [address] [place] [address] 02/19/2011 14:20:51 02/19/2011 15:31:12 [id number] DOROTHY Fab, OFFICE [address] [place] [address] 05/21/2011 15:12:15 05/21/2011 16:16:55 [id number] Cecilia Gonzalez [facility] FP, [facility], OFF[address] [facility] [place] [address] 07/23/2011 13:27:22 07/23/2011 14:47:58 [id number] FP, C, OFFICE [address] [facility] [place] [address] 08/06/2011 14:08:52 08/06/2011 14:59:03 [id number] FP, C, OFFICE [address] [facility] [place] [address] 09/03/2011 14:14:12 09/03/2011 14:55:14 [id number] , C, OFFICE [address] [facility] [place] [address] 12/04/2011 07:57:51 12/04/2011 08:42:27 [id number] , C, OFFICE [address] [facility] [place] [address] 12/25/2011 12:16:08 12/25/2011 12:42:50 [id number] , C, OFFICE [address] [facility] [place] [address] 02/19/2012 07:53:40 02/19/2012 08:23:26 [id number] Zeina Greenwood NP , C, OFFICE [address] [facility] [place] [address] 04/15/2012 08:07:54 04/15/2012 08:58:41 [id number] Benjamin DE LA CRUZ, [facility], OFFICE [address] [facility] [place] [address] 11/04/2012 16:21:45 11/04/2012 17:01:48 [id number] Benjamin DE [place] CRUZ, [facility], OFFICE [address] [facility] [place] [address] 12/02/2012 16:18:35 12/02/2012 16:46:33 [id number] Benjamin DE [place] CRUZ, [facility], OFFICE [address] [facility] [place] [address] 12/30/2012 16:16:54 12/30/2012 16:38:59 [id number] , [facility], [address]ICE [address] [place] [address] 05/02/2013 15:56:57 05/02/2013 17:31:43 Adult health examination [id number] Chronic re nal impairment [id number] Recommend AVOIDING naproxen/a leve and ibuprofen/ advil/motr in. Recommend repeating labwork prior to follow-up visit in 4-6 weeks. Essential hypertension 84655914 Elevated in office, but pt has been taking naproxen/a leve, which is probably increasing them. Recommend STOPPING naproxen/a leve and AVOIDING ibuprofen/ advil/motr in. Okay to take acetaminop hen/tyleno l up to 2000mg (do not mix with alcohol and would limit alcohol on days taking tylenol to 1 drink or less). Plan on follow-up in 4-6 weeks with home blood pressures. Type 2 mike betes mellitus without complication 121066889 A1C is well controlled . Occasional low sugar. If ever under 70, to let me know as would consider going down on glipizide so as to avoid too many low sugars (since A1C is in normal range). Plan on follow-p for DM in 3 months. Mixed hyperlipidemia 440321009 At goal, if barely. Recommend rechecking in 3months; if this is higher, would need to increase pravastati n or consider another medication . [id number] SAVANNAH Lewis, [facility], OFFICE [address] [place] [address] 05/30/2013 15:18:49 05/30/2013 16:09:59 Essential hypertension 72268459 Elevated in office and at home. Recommend increasing lisinopril to 20mg daily and rechecking BMP in 1 week to make sure kidney function is stable. To measure home blood pressures and bring to follow-up in 4-6 weeks. Cough 85606480 Postvira l, but severe. Recommend waiting a week, if no improvemen t to start flovent with spacer and to follow-up in 4 weeks. If symptoms are not resolved by then would consider CXR given history of smoking. [id number] Benjamin Uriarte , [facility], OFFICE [address] [place] [address] 07/03/2013 15:25:45 07/03/2013 18:01:49 Essential hypertension 63729315 Still elevated. Recommend taking lisinopril 20mg daily and adding amlodipine 5mg daily (pt has tolerated this in the past; it had been changed by Dr. Rubin to the lisinopril at that point in time because he didn't want to trigger hypotensio n). Cough 11850643 Resolved at this point in time. [id number] Benjamin Uriarte , [facility], OFFICE [address] [place] [address] 08/09/2013 10:05:40 08/09/2013 10:51:36 Essential hypertension 10704311 Still elevated. Pt taking lisinopril 20mg daily; amlodipine causing constipati on. Pt did not tolerate metoprolol in past due to bradycardi a. Recommend starting HCTZ with repeat kidney function early next week (not fasting). If change in kidney function would stop med and send back to [facility] [place] if no improvemen t in blood pressure over next month, would want to get Dr. Rubin's opinion. [id number] Constanza Valencia CMA FP, C, [address] [place] [address] 09/13/2013 15:49:54 09/13/2013 16:47:07 Essential hypertension 99861202 Still elevated. Pt taking lisinopril 20mg daily; amlodipine caused constipati on and HCTZ caused increasing creatinine . Recommend at this point in time trial of low-lose hydralazin e with follow-up with Dr. Rubin as scheduled 10/05/13 Chronic re nal impairment 806551316 To follow-up with [facility], review below. [id number] Janel DE [facility] CR[facility], C, [address] [place] [address] 11/22/2013 16:50:52 11/22/2013 17:15:16 Cough 66805395 [id number] Demetrice DE LA CRUZ, [facility], OFFICE [address] [place] [address] 12/18/2013 15:58:34 12/18/2013 16:57:13 Tachycardia 2520892 Ddx includes tachy-kenya y, afib. Discomfort with tachycardi a makes me question ?stable angina although pt had cardiac catheteriz ation done about [address] Victor for chest pain at the time. At this point in time, would refer back to Dr. Victor because concern. Essential hypertension 51577301 At goal with hydralazin e, lisinopril , HCTZ, amlodipine . Now with tachycardi a. Plan as above/patricia w. Type 2 mike betes mellitus without complication [id number] A1C at goal. To continue with current medication s with routine follow-up in 5 months. [id number] Fauzia Spears LPN , [facility], OFF[address] [place] [address] 02/01/2014 16:06:42 02/01/2014 17:18:05 Shoulder pain 29482434 [id number] Benjamin Uriarte , [facility], [address] [place] [address] 02/13/2014 15:47:04 02/13/2014 16:47:26 Essential hypertension 23342324 Previously at goal with hydralazin e, lisinopril . Pt with tachycardi a and cards changed him to diltiazem, lisinopril . Blood pressures are at goal, but pt with constipati on with diltiazem dose. Recommend mangaging constipati on and keeping follow-up with cardiology . Tachycardia [id number] Pt t o keep follow-up with Dr. Ott's office for this - echo next week. Constipation 23539324 Re commenda tions as below for bowel regimen. [id number] Cherrie Welsh , [facility], OFFICE [address] [place] [address] 05/22/2014 15:55:27 05/22/2014 17:35:45 Essential hypertension 02559502 Previously at goal with hydralazin e, lisinopril . Pt with tachycardi a and cards changed him to diltiazem, lisinopril . Blood pressures are at goal, but pt with constipati on with diltiazem dose. This is now managed with miralax, which pt is doing well with. Chronic re nal impairment 018437964 Stable, pt is following with Dr. Rubin. Mixed hyperlipidemia 533119018 LDL goal is <100. LDL at goal. To continue with current medication s with routine follow-up. Type 2 mike betes mellitus without complication 072083609 A1C at goal. To continue with current medication s with routine follow-up in 6 months. [id number] Tanika Gallardo NP , [facility], OFFICE [address] [place] [address] 06/05/2014 17:33:34 06/07/2014 08:06:48 Acute upper respiratory infection 12449116 Cough [id number] Ann Delgado , [facility], OFFICE [address] [place] [address] 11/13/2014 16:17:21 11/16/2014 09:45:56 Type 2 diabetes mellitus without complication 086615766 Orthostati c hypotension [id number] DDx includes dehydratio n, meds, anemia, HR or vascular issue, blood glucose d/w LS, will leave on meds and have him record BP and pulse and bring log next week ECG done, Check CBC, TSH [id number] Cecilia Gonzalez CMA([facility]) , [facility], OFFICE [address] [place] [phone] 11/20/2014 16:00:38 11/20/2014 17:20:31 Adult health examination [id number] see Risk Assessment and Lifestyle Change Counseling section above Counseling [id number] Type 2 mike betes mellitus without complication [id number] A1C at goal, but has increased dramatical ly from last check. Recommend checking sugars as below and will reassess A1C in 3 months rather than 6. Essential hypertension [id number] Previously at goal with diltiazem, lisinopril . Pt with some high pressures, some normal. Recommenda tions as below. [id number] DOROTHY, [facility], OFFICE [address] [place] [phone] 6 02/15/2015 09:36:22 02/15/2015 10:33:12 Lifestyle [id number] Benign ess ential hypertension [id number] continue to work on diet, exercise, and lowering salt intake as discussed Blood pressure at goal Neuropathy due to diabetes mellitus [id number] decreased sensation R 4th & 5th toes. [id number] Benjamin Uriarte , [facility], OFFICE [address] [place] [phone] 6 02/20/2015 15:15:20 02/20/2015 16:13:59 Pre-surgery evaluation [id number] Type 2 mike betes mellitus without complication 057919690 A1C at goal, but question if pt is having lows that are causing it to be 5.9. Recommend reducing glipizide to 2.5mg in AM, checking sugars twice daily and reporting these two me in a week. Essential hypertension 51520848 Blood pressures at goal (<140/90). To continue with current meds with routine follow-up. Osteoarthritis of hip [id number] EKG WNL. Labs are stable. Will reduce glipizide dosing as concerns over lows. If sugars are stable over the next week, okay for surgery as outlined. Anesthesia should be aware pt with CKD with a GFR of 46 and medication s should be dosed appropriat celine. Influenza vaccine needed [id number] [id number] Benjamin Uriarte , [facility], OFFICE [address] [place] [address] 03/27/2015 11:52:58 03/27/2015 13:15:29 Type 2 diabetes mellitus without complication [id number] Pt with a low, but otherwise sugars running 120-130. Will have him watch closely and plan on follow-up in 4-6 weeks. Essential hypertension 14816354 Blood pressures have been running far below goal (<140/90). Pt has been symptomati c. At this point, will reduce lisinopril to 2.5mg daily to keep renoprotec tive effects. To continue on Cardizem at current dose as it is the lowest dose and hx of tachycardi a (hx of morgan with metoprolol ). Will plan on pt continuing to monitor and follow-up in 4 weeks. [id number] Arielle Hardy , [facility], OFFICE [address] [place] [address] 05/08/2015 15:15:59 05/08/2015 16:34:47 Type 2 diabetes mellitus without complication 070834637 E11.9 A1C at goal. To continue with current medication s with routine follow-up in Aug with labs. Essential hypertension 41354242 I10 Blood pressures had been running far below goal (<140/90). Now above goal. Will restore lisinopril to 5mg daily, continue on Cardizem at current dose as it is the lowest dose and hx of tachycardi a (hx of morgan with metoprolol ). Will plan on pt continuing to monitor [id number] Benjamin Uriarte , [facility], OFFICE [address] [place] [address] 08/08/2015 12:47:06 08/08/2015 13:56:43 Inguinal pain 078944217 R10.2 No abnormalit y on exam except for post-surgi tami changes; scar healed well. Less likely a hernia at this point in time. Assuming x-rays of implant are normal, would recommend proceeding with alternativ e PT. If symptoms persist, could do further workup. [id number] Arielle DE LA CRUZ, [facility], OFFICE [address] [place] [address] 08/15/2015 13:27:46 08/15/2015 14:25:50 Type 2 diabetes mellitus without complication 350155823 E11.9 A1C at goal. To continue with current medication s with routine follow-up in 6 months. Mixed hyperlipidemia 267 912884 E78.2 Chronic ki dney disease stage 3 815602786 N18.[address] Rubin Essential hypertension 75650566 I10 Blood pressures at goal (<140/90). Continue with cardizem daily (hx tachycardi a) and lisinopril at current doses with routine follow-up [id number] Benjamin Uriarte , [facility], OFFICE [address] [place] [address] 04/14/2016 15:45:28 04/14/2016 16:49:03 Adult health examination [id number] Z00.00 see Risk Assessment and Lifestyle Change Counseling section above Counseling [id number] Z71 .9 Type 2 mike betes mellitus without complication 779103588 E11.9 A1C at goal. To continue with current medication s with routine follow-up in 6 months. Essential hypertension 43042775 I10 Blood pressures at goal (<140/90). Continue with cardizem daily (hx tachycardi a) and lisinopril at current doses with routine follow-up Chronic ki dney disease stage 3 309565858 N18[address] Rubin Mixed hyperlipidemia 267 651686 E78.2 LDL at goal (<100). To continue with current medication s with routine follow-up. Neuropathy due to diabetes mellitus 314033563 E11.40 On top of L foot, monofilame nt is still normal, however. Will monitor. [id number] Kamar Edwards MD , [facility], OFFICE [address] [place] [address] 05/29/2016 13:23:08 05/29/2016 14:39:45 Viral upper respiratory tract infection 190864660 J06.9 Patient with clinical presentati on of viral upper respirator y infection. No benefit of anti-viral treatment discussed. No hemodynami c instabilit y. Supportive care with ample oral hydration and rest discussed. Advised on nasal saline irrigation use. Cough syrup prescribed . Advised to contact the clinic if no improvemen t in 3-4 days. Indication s for UC/ER use discussed. [id number] Mike Novoa MD , [facility], OFFICE [address] [place] [phone] 09/07/2016 16:19:26 09/07/2016 16:57:49 Cough [id number] R05 [id number] Benjamin Uriarte , [facility], OFFICE [address] [place] [phone] 10/08/2016 13:32:12 10/08/2016 14:37:19 Type 2 diabetes mellitus without complication 610943956 E11.9 A1C at goal (<6.7). To continue with current medication s with routine follow-up in 6 months. Essential hypertension 14387442 I10 Blood pressures at goal (<140/90). Pt has been symptomati c. Continue with current medication s with routine follow-up. Mixed hyperlipidemia 267 165149 E78.2 Per the new lipid guidelines , need to change to high intensity statin; will change from pravastati n to rosuvastat in as simvastati n and atorvastat in both interact with diltiazem. Chronic ki dney disease stage 3 147096569 N18[address] Rubin Neuropathy due to diabetes mellitus 112057110 E11.40 On top of L foot, monofilame nt is still normal, however. Will monitor. [id number] Sulema Marcos PA-C , [facility], OFFICE [address] [place] [address] 11/20/2016 13:56:14 11/23/2016 12:31:29 Cough [id number] R05 - normal chest xray other than possible emphysema as discussed- As patient is diabetic, will start with oral steroid to see if symptoms improve- Continue with albuterol every 4-6 hours as needed- Recommend Pulmonary Function Testing after you are feeling better Health Concerns Section Related Observation LastModified by Organization Detai ls LastModified Time None Recorded Concern Status LastModified by Organization Details LastModified Time None Recorded Advance Directives Directive N: Payers Encounter Date Sequence Insurance Name Policy Number Policy Fraser Covered Member ID Fraser Member ID Guarantor Name 04/14/[address] [employer] S[employer]VER [employer]ED STANDARD (PPO) [id number] Nasir Olsen [id number] Nasir Olsen 05/29/2016 1 [employer]AND[employer] (PPO) Nasir Olsen [id number] Nasir Olsen 09/07/2016 1 [employer] (PPO) Nasir Mcwilliams Raúl [id number] Nasir Olsen 10/08/2016 1 [employer] (PPO) Nasir Mcwilliams Raúl [id number] Nasir Olsen 11/20/2016 1 [facility] (PPO) Nasir Olsen [id number] Nasir Olsen Notes Date Note Type Note Provider Name and Address Organization Details Recorded Time 6 text/html Physical Exam/MaleReported bypatient.PHAPatient is here for a Personal Health Appraisal.He describes his health status as good. Patient's health is worse than last year.Risk Assessment and Lifestyle Change Counseling 50-64Reported bypatient.Coronary Artery Disease Risk Assessment:No Family history of coronary artery disease; No personal history of diabetes; No history of peripheral vascular disease, AAA, or carotid disease; No personal history of coronary artery disease Breast Cancer Risk Assessment:No family history of breast cancer; No history of breast cancer or dcis Colon Cancer Risk Assessment:No family history of colon polyps or cancer; No history of adenomatous colon polyps Lung Cancer Risk Assessment:Has used cigarettes;Has used cigarettes less than 30 pack years;Former smoker quit more than 15 years ago; No asbestos exposure Fracture Risk Assessment:No unexplained fracture Cognitive/Behavioral Risk Assessment:No personal history of mental illness; No family history of mental illness Safety Risk Assessment:No evidence of abuse/neglect Diet:Counseled about appropriate portion size; Counseled about eating a diet low in trans and saturated fats and high in fiber, fruits and vegetables Exercise counseling:Discussed the importance of daily physical activityVMG DiabetesReported bypatient.Duration:chronic Control:treated with diet and oral medications; Hemoglobin A1C has been less than 7 (6.5); Hemoglobin A1C goal is less than 7; LDL usually runs 70-100, goal is less than <100; LDL goal is <100; BP usually runs (unclear); BP goal is less than 140/90 Compliance:compliant with medications; Patient understands medications are to reduce blood sugar and control diabetes; compliant with follow-up visits; compliant with diet; compliant with home glucose monitoring (checking weekly) Barriers to CareNo identified barriers to care Self Care:monitoring glucose weekly Context:normal range of home blood sugars (in the low 100s); seeing eye doctor regularly (Lesley); checking feet regularly; no side effects from medications Associated Symptoms:no weight gain; no weight loss; no dizziness; no sweats; no headaches; no confusion; no increased thirst; no increased appetite; no increased urination; no blurred vision; no numbness of feet; no calluses on feet; no coronary artery disease; no kidney disease; no peripheral vascular disease; no retinopathy;kidney disease(CKD3 preexisting DM);neuropathy(top of L foot) Ability to Manage Self CareOn how confident the patient feels in ability to self manage condition the patient selects 10 with 10 being very confident and 1 being very low confidence; Patient feels very confident in ability to self manage conditionVMG HyperlipidemiaReported bypatient.Control:well controlled; LDL has been <100, goal is ; Patient understands medications are to lower cholesterol Compliance:compliant with medications (misses once or twice a month); compliant with follow-up visits Barriers to Carept has been working on walking Context:Diabetes Associated Symptoms:normal liver function test; no muscle pain; no fatigue; no chest discomfort; no dyspnea; no change in exercise capacity Ability to Manage Self CareOn how confident the patient feels in ability to self manage condition the patient selects 10 with 10 being very confident and 1 being very low confidence; Patient feels very confident in ability to self manage conditionVMG HypertensionReported bypatient.Control:BP Goal less than; Patient understands medications are to lower blood pressure Compliance:Compliant with medications; Compliant with exercise (walking every other day, bicycle in between); Compliant with follow-up visits Barriers to CareNo identified barriers to care Self Care:Using home BP monitor daily home BPs range 130-140/85/90 (over the past week - range from 111/65 - 158/70) Context:No ischemic heart disease; No kidney disease; No history of CVA; No congestive heart failure; No history of transient ischemic attacks; No peripheral vascular disease;Kidney disease;Diabetes Associated Symptoms:No chest pain; No shortness of breath; No edema; No fatigue; No palpitations; No decline in exercise capacity; No snoring Ability to Manage Self CarePatient feels very confident in ability to self manage condition Benjaminkamilah Uriarte [address] [place] [address], [phone] [facility] [place] 16:46:54 6 text/html Patient present to Urgent Care with cough now going on for 11 days. No congestion, but some rhinorrhea. Sore throat at the onset. Denies F/C. Reports some SOB. Went to [facility] ER on 05/24/2016. Had normal CXR, but prescribed Doxycycline for presumed bronchitis. No inhaler given. Two cats at home. Feels fatigued. Tried OTC Mucinex without significant improvement. States cough is non-productive. Kamar Edwards MD [address] [place] [address], [phone], [facility] [place] 05/29/2016 13:55:18 7 text/html Patient complaining of 3 weeks of cough which began with sore throat and rhinorrhea. Those symptoms are mostly gone but the frequent coughing persists. He denies fever, shortness of breath, reflux symptoms. NO hx sinus problems. No hx allergies. Quit smoking 1987. Had something similar 3 years ago which lasted about 6 weeks. Had CXR in May- . And gets this 1-2x/yr. Mike Novoa MD [address] [place] [address], [phone], [facility] [place] 09/07/2016 22:31:22 7 text/html VMG DiabetesReported bypatient.Duration:chronic Control:treated with diet and oral medications; Hemoglobin A1C has been less than 7 (6.7); Hemoglobin A1C goal is less than 7; LDL usually runs 70-100, goal is less than <100; LDL goal is <100; BP usually runs (unclear); BP goal is less than 140/90 Compliance:compliant with medications; Patient understands medications are to reduce blood sugar and control diabetes; compliant with follow-up visits; compliant with diet; compliant with home glucose monitoring (checking weekly) Barriers to CareNo identified barriers to care Self Care:monitoring glucose weekly Context:normal range of home blood sugars (in the low 100s); seeing eye doctor regularly (Lesley); checking feet regularly; no side effects from medications Associated Symptoms:no weight gain; no weight loss; no dizziness; no sweats; no headaches; no confusion; no increased thirst; no increased appetite; no increased urination; no blurred vision; no numbness of feet; no calluses on feet; no coronary artery disease; no kidney disease; no peripheral vascular disease; no retinopathy;kidney disease(CKD3 preexisting DM);neuropathy(top of L foot) Ability to Manage Self CareOn how confident the patient feels in ability to self manage condition the patient selects 10 with 10 being very confident and 1 being very low confidence; Patient feels very confident in ability to self manage conditionVMG HyperlipidemiaReported bypatient.Control:well controlled; LDL has been <100, goal is ; Patient understands medications are to lower cholesterol Compliance:compliant with medications (misses once or twice a month); compliant with follow-up visits Barriers to Carept has been working on walking Context:Diabetes Associated Symptoms:normal liver function test; no muscle pain; no fatigue; no chest discomfort; no dyspnea; no change in exercise capacity Ability to Manage Self CareOn how confident the patient feels in ability to self manage condition the patient selects 10 with 10 being very confident and 1 being very low confidence; Patient feels very confident in ability to self manage conditionVMG HypertensionReported bypatient.Control:BP Goal less than; Patient understands medications are to lower blood pressure Compliance:Compliant with medications; Compliant with exercise (walking every other day, bicycle in between); Compliant with follow-up visits Barriers to CareNo identified barriers to care Self Care:Using home BP monitor daily home BPs range 130-140/85/90 (over the past week - range from 111/65 - 158/70) Context:No ischemic heart disease; No kidney disease; No history of CVA; No congestive heart failure; No history of transient ischemic attacks; No peripheral vascular disease;Kidney disease;Diabetes Associated Symptoms:No chest pain; No shortness of breath; No edema; No fatigue; No palpitations; No decline in exercise capacity; No snoring Ability to Manage Self CarePatient feels very confident in ability to self manage condition Benjamin Uriarte [address] [place], [phone], [facility] [place]/08/2016 14:36:09 7 text/html VMG URI Flu like SymptomsReported bypatient.Duration:started 10 days ago Severity:Symptoms are persisting Associated Symptoms:No fever/chills; Good oral intake; No headache; No significant muscle aches; No sweats; No sinus pressure; No shortness of breath; No ear pressure or fullness; No earache; No sore throat; No difficulty swallowing; No swollen glands; No chest pain with deep breath; No abdominal pain; No nausea; No vomiting; No diarrhea; No rash;Fatigue and malaise;congestion;purulent nasal discharge;Non productive cough;Cough productive of yellow-green, thick sputum;Wheezing Modifying factors:has tried multiple thingsNotes:Diabetic-tussin , Mucinex Sulema Marcos PA-C [address] [place] [address], [phone], [facility] [place]/20/2016 15:09:48
--- OUTSIDE RECORDS SUMMARY | 2024-08-03 15:15 | XMS_ITS ---
Author Organization [facility] on Address Unknown Allergies, Adverse Reactions, Alerts Substance Reaction Status Noted Date Resolved Date amLODIPine active 06/30/2022 Problems Problem Status Start Date End Date ORTHOSTATIC HYPOTENSION (Primary) (I95.1 - ICD-10-CM) ACTIVE 06/30/2022 SYNCOPE AND COLLAPSE (R55 - ICD-10-CM) ACTIVE BRADYCARDIA, UNSPECIFIED (R00.1 - ICD-10-CM) ACTIVE 06/30/2022 PRESENCE OF CARDIAC PACEMAKER (Z95.0 - ICD-10-CM) ACTI VE 06/30/2022 CHRONIC KIDNEY DISEASE, STAG E 3 UNSPECIFIED (N18.30 - ICD-10-CM) ACTIVE 06/30/2022 TYPE 2 DIABETES MELLITUS WIT HOUT COMPLICATIONS (E11.9 - ICD-10-CM) ACTIVE 06/30/2022 Encounters Encounter Performer Performer Role Encounter Diagnoses Location Date Discharge - Discharged to home or self care - Sally GOODWIN - Private home/apt. with home health services [facility] [place] 06/30/2022 06:20 pm EST - 07/14/2022 10:50 am EST Immunizations Vaccine Date Influenza 04/07/2022 12:00 am EDT SARS-COV-2 (COVID-19) 05/07/2021 12:00 a m EDT SARS-COV-2 (COVID-19) 09/14/2020 12:00 a m EST SARS-COV-2 (COVID-19 BOOSTER) 05/07/2022 12:00 am EDT Social History
== END 2024-08-03 12:03 | disposition home or self-care (01) ==
PROVIDERS: PCP Internal Medicine; Visit Provider Urology
DX: N40.0 Benign prostatic hyperplasia without lower urinary tract symptoms (principal); R39.12 Poor urinary stream; Z13.9 Encounter for screening, unspecified
CPT/HCPCS: 99213

== ENCOUNTER → 2024-08-03 11:21 | Outpatient (BNVA) | payer BC, SELFPAY | PROVIDERS: PCP Internal Medicine; Visit Provider Urology | DX: N40.1 Benign prostatic hyperplasia with lower urinary tract symptoms (principal); R39.12 Poor urinary stream | CPT/HCPCS: 51798; 81003 ==

== ENCOUNTER 2024-11-08 11:03 | Outpatient (AMB) | payer BC, SELFPAY ==
--- NOTE | 2024-11-08 11:45 | A.OFFVIS_ITS ---
Vital Signs 11/08/24 11:48 Height 5 ft 1 in Weight 247 lb 12.793 oz BMI 46.8 BP 130/62 Blood Pressure Location Lt brachial Position Sitting Pulse 76 Pulse Source Pulse Oximeter Intake Visit Reasons: 5+ mth f/up Intake Note: 5 mth f/up [place] Required: No Accompanied by: Spouse Allergies amlodipine Adverse Reaction (Verified 08/03/24 11:32) Cough Medication List - Last Reconciled 11/08/24 by Louis Meade MD acetaminophen (Tylenol) 650 mg PO Q6H PRN aspirin 81 mg PO DAILY gabapentin 300 mg PO BEDTIME glipizide 10 mg PO DAILY losartan 25 mg PO DAILY midodrine 2.5 mg PO DAILY nitroglycerin 2% 1 inch transdermal ONCE PRN rosuvastatin 20 mg PO BEDTIME HPI Comments Details: 74-year-old gentleman here for follow-up. He was seen in the hospital for orthostatic hypotension. Since discharge he started regular exercise and has been doing well. He has not had significant orthostasis. He continues to be on midodrine and fludrocortisone. He has increased his PO potassium intake. Pacemaker was interrogated and is functioning fine. 02/10/23: He returns for follow-up. He is currently off the midodrine and fludrocortisone. He was noticed to be hypokalemic potassium 2.6 and is currently taking potassium chloride 20 mg daily. His blood pressure readings are quite fluctuant and ware server his blood pressures are 87/49 and rise with the passage of day to nighttime at 173/90. He has hypokalemia due to fludrocortisone which was stopped last night by Nephrology. Midodrine has been held previously because of his high blood pressures. His home blood pressures are fluctuating and they are low in the morning but higher at the evening time. He had 1 episode of feeling weak where he had presyncope and went to the ER. He also received some potassium infusions in the emergency department for hypokalemia. 05/31/2023: He returns for follow-up. He continues to get morning hypotension with blood pressure in 80s. He is saying that he does exercises for orthostatic hypotension in the morning and then takes midodrine 1 or half tablet. He had 1 episode where he had low blood pressure and started shaking all over which is usually his symptom of hypotension. He did not fall or had syncope. He has stop checking his blood pressure in the evening hours. Previously had hypertension at nighttime. We gave him previous plan of using nitroglycerin paste in case his blood pressures are elevated but he has not been checking his blood pressure or using nitroglycerin. 09/22/23: He is here for follow-up. He has been doing well and has been following closely with Nephrology. We previously had morning hypotension and evening hypertension. He was on losartan 50 mg which has been changed to 25 mg and he has to take it at noon time. His morning readings are anywhere from 70s to 80s systolic blood pressure. He has been using midodrine almost daily in the morning. No dizziness or falls. He was in [place] where he had some dizziness walking around. It appears he does better in cold weather than hot weather which is quite usual with orthostasis and autonomic issues in general. 03/20/2024: He is here for follow-up. He had 2 episodes of fall with 1 episode of syncope along with fall. One was on February 26 and the 2nd episode was during 1st week of March. He saw his primary care physician recently and his midodrine was stopped on March 05. His hemoglobin A1c is 8. He has not been drinking. Overall his home blood pressure readings are normal. Previously his morning blood pressure readings were low and he was using midodrine. More recently [facility] The episodes of syncope were at noon time at at 18:00 previously was getting episodes mostly in the morning time. No other significant complaints. 06/21/2024: On follow-up today his blood pressure is elevated. Manual blood pressure 150/80. He is using losartan 25 mg daily. He is taking midodrine 2.5 mg in the morning. He has not had any significant symptoms since he started taking midodrine in the morning. When he was monitoring his blood pressure he noted that his blood pressure was lowest in the morning and has a day pass his blood pressure was higher. 11/08/2024: He is here for follow-up. He had 2 episodes in the last few months of fall due to hypotension. Last episode was 2 months ago when he was with his friend and was sitting down and stood up and started walking and then fell to the ground due to low blood pressure. He is saying that he is getting some dizziness in the morning but his lasting for few sec. He has been using once a day midodrine regularly. Blood pressure overall has been stable. He is waiting to see endocrinology and following his sugars very closely. [facility] Medical History CKD (chronic kidney disease) stage 2, GFR 60-89 ml/min Orthostatic hypotension Pacemaker Sciatica COPD (chronic obstructive pulmonary disease) BPH (benign prostatic hyperplasia) Chronic back pain Vasovagal syncope Diabetes mellitus type 2 in nonobese Hyperlipidemia Orthostatic hypotension Hypertension Surgical History Hx of colonoscopy S/P surgery on nasal septum History of total left hip replacement S/P placement of cardiac pacemaker Family History Father Pacemaker Social History Household Members: Spouse Housing: House Do you presently have visiting nurse or other home services: Yes Alcohol intake: never Comment: refused bed alarm Patient Tobacco Use Status: Current everyday Tobacco user Tobacco use type: Cigar Years Smoked: 15 +/- Advance Directives Date on File: 06/25/22 service: No Current occupational status: retired Review of Systems Const Denies chills, Denies fatigue, Denies fever(s), Denies frequent falls, Denies weakness, Denies weight gain and Denies weight loss ENT Denies dizziness Card Denies chest pain, Denies leg edema, Denies lightheadedness, Denies palpitations, Denies dyspnea and Denies dyspnea on exertion Resp Denies cough, Denies dyspnea and Denies dyspnea on exertion GI Denies hematochezia Musc Denies abnormal gait, Denies muscle weakness, Denies numbness, Denies radiating pain into limb and Denies tingling Neuro Denies abnormal gait, Denies dizziness, Denies frequent falls, Denies numbness, Denies tingling and Denies weakness Endo Denies fatigue and Denies palpitations Physical Exam Vital Signs: Last Vital Signs Pulse 76 11/08/24 11:48 BP 130/62 11/08/24 11:48 BMI result Body Mass Index 46.8 GENERAL APPEARANCE: in no acute distress, pleasant. NECK: no carotid bruit, no jugular venous distention. SKIN: no suspicious lesions, warm and dry. HEART: no murmurs, regular rate and rhythm. LUNGS: clear to auscultation bilaterally. ABDOMEN: soft, nontender. EXTREMITIES: no edema. PERIPHERAL PULSES: equal. NEUROLOGIC: No gross deficits, AAO X 3 Assessment & Plan Assessment & Plan (1) Orthostatic hypotension: Code(s): I95.1 - Orthostatic hypotension Category: Medical (2) Hypertension: Code(s): I10 - Essential (primary) hypertension Category: Medical Plan Pleasant 74 year gentleman who is here for follow-up. He has background history of orthostatic hypotension due to dysautonomia due to alcoholism as well as diabetes. He has stopped drinking a while ago now. he is using midodrine in the morning and has been doing well with that. He had 1 episode where he passed out in the afternoon but he has not been getting significant symptoms during the afternoon. I think he can continue midodrine once a day. Continue hydration and general measures as before. He has tolerated compression stockings in the past and we will use them. He is going to start exercising regularly. I have advised him that if he can go to a gym then he should do rowing machine and upright exercises there too. Fairly difficult condition to treat and the patient understands that. He has improved significantly compared to couple of years ago. Thank you for allowing me to participate in the care of your patient. Please feel free to contact me if you have any questions. Coding Level of Care Code Est Pt Level 4 (03055) Diagnoses Orthostatic hypotension I95.1 Hypertension I10
[2024-11-08 11:48] VITALS: BP 130/62; PULSE 76; BMI 46.8
--- OUTSIDE RECORDS SUMMARY | 2024-11-08 12:30 | XMS_ITS | Encounter Summary ---
Author Organization [facility], Address [address] [place] [address] Phone Care Team Providers Care Supervisor Kosher Dietary Service Name Role Phone Elroy Smith MD Primary Care Provider [phone] Encounter Details Date Type Department Care Team (Late Contact Info) Description 08/25/2024 Documentation Only [facility] [address] [place] [address] Erendira Luz [address] [place] [phone] Social History Tobacco Use Types Packs/Day Years Used Date Smoking Tobacco: Former Cigarettes 2 30 1 961 - 1987 Cigars Comments:Smokes 4 cigars a w [place] Currently Alcohol Use Standard Drinks/Week Comments Yes 35 (1 standard drink = 0.6 oz pu re alcohol) 5-6 beers a day Sex and Gender Information Value Date Recorded Sex Assigned at Not on file Legal Sex Male 4:35 PM EST Gender Identity Not on file Sexual Orientation Not on file Occupation Industry Job Start Date Job End Date [facility] [employer] Not on file Not on file Not on file documented as of this encounter Plan of Treatment Upcoming Encounters Date Type Department Care Team (Late st Contact Info) Description 03/02/2025 11:15 AM EDT Office Visit [facility] [address] [place] [phone] Nestor Coreas MD [address] [place] [address] [place] [address] documented as of this encounter Visit Diagnoses Not on filedocumented in this encounter Care Teams Supervisor Kosher Dietary Service Relationship Specialty Start Date End Date Elroy Smith MD [address] [place] [address], [address] [place] [address] PCP - General 05/09/19 documented as of this encounter
--- OUTSIDE RECORDS SUMMARY | 2024-11-08 12:30 | XMS_ITS | Encounter Summary ---
Author Organization [facility] [place], Address [address] [place] [address] Phone Care Team Providers Care Orthopaedic Physician Assistant Name Role Phone Elroy Smith MD Primary Care Provider [phone] Encounter Details Date Type Department Care Team (Late Contact Info) Description 08/25/2024 Documentation Only [facility] [address] [place] [address] Erendira Luz [address] [place] [phone] Social History Tobacco Use Types Packs/Day Years Used Date Smoking Tobacco: Former Cigarettes 2 30 1 961 - 1987 Cigars Comments:Smokes 4 cigars a w [place] Currently Alcohol Use Standard Drinks/Week Comments Yes [...] Visit [facility] [address] Sav [address] [place] [phone] Nestor Coreas MD [address] [place] [address] [place] [address] documented as of this encounter Visit Diagnoses Not on filedocumented in this encounter Care Teams Orthopaedic Physician Assistant Relationship Specialty Start Date End Date Elroy Smith MD [address] [place] [address], [address] [place] [address] PCP - General 05/09/19 documented as of this encounter
--- OUTSIDE RECORDS SUMMARY | 2024-11-08 12:30 | XMS_ITS ---
Author Organization [facility] on Care Team Providers Care Intake Clinician Name Role Phone Cassandra Her Unavailable Unavailable Joaquin Acevedo Unavailable Unavailable Gomez Latif Unavailable Unavailable Constanza Pereira Unavailable Unavailable Kristine Rahman Unavailable Unavailable Valentina Krause Unavailable Unavailable Tiffanie Tammy Unavailable Unavailable Allergies and adverse reactions Code CodeSystem Substance Reaction Severity StartDate Concern Status 93537 RXNORM amLODIPine Mild 06/30/2022 active Care Team Name Role Address Phone Organization Dates Gomez Latif PCP [address] [place] [address], [address], [place] (Office): : [facility] 06/30/2022 - 07/14/2022 Cassandra Her Attending Physician [address] [place] [address], [id number], [place] (Office): [facility] 06/30/2022 - 07/14/2022 Joaquin Acevedo Attending Physician [address] [place] [address], [address], [place] (Office): [facility] 06/30/2022 - 07/14/2022 Constanza Pereira Attending Physician [address] [place] [address], [address], [place] (Office): : [facility] 06/30/2022 - 07/14/2022 Kristine Rahman Attending Physician [facility] [address] [place], [address], [place]Office): : [facility] 06/30/2022 - 07/14/2022 Valentina Krause Attending Physician [address] [place], [address], [place] (Office): [facility] 06/30/2022 - 07/14/2022 Tammy Moreno Attending Physician [address] [place] [address], [address], [place] (Office): [facility] 06/30/2022 - 07/14/2022 Immunizations Immunization Status Vaccine Details Vaccine Code CodeSystem Date Notes Influenza completed Influenza, split virus, trivalent, injectable, contains preservative 141 CVX created date: 06/30/2022 administer ed date: 04/07/2022 SARS-COV-2 (COVID-19) completed SARS-COV-2 (COVID-19) vaccine, D614, prefusion spike recombinant protein subunit (CoV2 preS dTM), AS03 adjuvant added, preservative free, 5mcg/0.5mL dose Mfg: Moderna Step 2 of Multi-step with next step required 225 CVX created date: 06/30/2022 administer ed date: 05/07/2021 SARS-COV-2 (COVID-19) completed SARS-COV-2 (COVID-19) vaccine, D614, prefusion spike recombinant protein subunit (CoV2 preS dTM), AS03 adjuvant added, preservative free, 5mcg/0.5mL dose Mfg: Moderna Step 1 of Multi-step with next step required 225 CVX created date: 06/30/2022 administer ed date: 09/14/2020 SARS-COV-2 (COVID-19 BOOSTER) completed SARS-COV-2 (COVID-19) vaccine, mRNA, spike protein, LNP, bivalent, preservative free, 50 mcg/0.5 mL or 25 mcg/0.25 mL dose Mfg: Moderna Bivalent Booster 229 CVX created date: 06/30/2022 administer ed date: 05/07/2022 Bivalent Booster Mental Status Section Date Assessment Total Score Description 07/14/2022 BIMS 15 cognitively int act CAM 0 No delirium ind icated PHQ-9 02 minimal depress ion 07/06/2022 BIMS 15 cognitively int act CAM 0 No delirium ind icated PHQ-9 02 minimal depress ion Problems Problem # Description Date of onset Resolved Date Code CodeSystem Concern Status 1 BRADYCARDIA, UNSPECIFIED 06/30/[address] active 2 CHRONIC KIDNEY DISEASE, STAGE 3 UNSPECIFIED 06/30/[address] active 3 ORTHOSTATIC HYPOTENSION 06/30/[address] active 4 PRESENCE OF CARDIAC PACEMAKER 06/30/[address] active 5 SYNCOPE AND COLLAPSE 06/30/[address] active 6 TYPE 2 DIABETES MELLITUS WITHOUT COMPLICATIONS 06/30/[address] active Reason for Referral No Reasons for Referral Entered Social History Social History Observation Description Start Date End Date Code Code System Current Smoking Status Tobacco smoking consumption unknown 298327486 SNOMED CT Sex Assigned At Male 1950 41783-6 [facility] Vital Signs Code Code System Vitals Name Values and Units Timing Information 74403-0 [facility] Pain Level Value=0.0 07/14/2022 2339-0 [facility] Blood Sugar Bbjem=109.0 Units=mg/dL 07/13/2022 9279-1 [facility] Respiratory Rate Value=18.0 Units=/m in 07/12/2022 8462-4 [facility] Blood Pressure-Diastolic Value=77 Un its=mmHg 07/12/2022 8480-6 [facility] Blood Pressure-Systolic Qlsqr=729 Un its=mmHg 07/12/2022 8310-5 [facility] Body Temperature Value=98.7 Units=?? F 07/12/2022 8867-4 [facility] Heart rate Value=74.0 Units=/min 02/2023 34869-2 [facility] O2 % BldC Oximetry Value=95.0 Units= % 07/12/2022 86395-0 LOINC Weight Apymo=127.0 Units=Lbs 10/2022 8302-2 LOINC Height Value=73.0 Units=Inches 07/01/2022
--- OUTSIDE RECORDS SUMMARY | 2024-11-08 12:30 | XMS_ITS | Encounter Summary ---
Author Organization [facility], Address [address] [place] [address] Phone Care Team Providers Care Digital Advertising Specialist Name Role Phone Elroy Smith MD Primary Care Provider [phone] Encounter Details Date Type Department Care Team (Late Contact Info) Description 05/31/2020 Orders Only [facility] [place] [facility] [address] [facility] [address] [place] [address] Lety Rubin MD Chronic kidney disease stage [...] Industry Job Start Date Job End Date [employer] Not on file Not on file Not on file documented as of this encounter Plan of Treatment Upcoming Encounters Date Type Department Care Team (Late st Contact Info) Description 03/02/2025 11:15 AM EDT Office Visit [facility] [address] [place] [phone] Nestor Coreas MD [address] [place] [phone] documented as of this encounter Visit Diagnoses Diagnosis Chronic kidney disease stage 3 (HCC) documented in this encounter Care Teams Digital Advertising Specialist Relationship Specialty Start Date End Date Elroy Smith MD [address] [place] [address], [address] [place] [address] PCP - General 05/09/19 documented as of this encounter
--- OUTSIDE RECORDS SUMMARY | 2024-11-08 12:30 | XMS_ITS | Clinical Summary ---
Author Organization [facility] Address [address] [place] [address] Care Team Providers Care Tank Wagon Driver Name Role Phone Edith Uriarte MD Primary Care Provider [phone] Allergies Active Allergy Reactions Criticality Noted Date [...] this topic Medical Devices Implanted Type Area Vacuum Cleaner Operator Device Identifier Shelf Expiration Date Model / Serial / Lot Shelley Cluster Shell Cementless 60mm Taper Size 5 Implanted:Qty: 1 on 03/06/2015 by Jovany Read MD at [facility] Left: Hip [employer] 04/03/2017 [id number] / / [id number] Shelley Liner Hxlpe 36mm Neutral Offset Size 5 Implanted:Qty: 1 on 03/06/2015 by Jovany Read MD at [facility] Left: Hip [employer] 05/03/2016 321.05.636 / / [id number] Stem Size 7 - Minihip Short Standard () - 130ccd - [id number] - [id number] Implanted:Qty: 1 on 03/06/2015 by Jovany Read MD at [facility] Left: Hip [employer] 01/31/2017 [id number] / / [id number] Modular Head 36mm Medium 0.0mm - [id number] - [id number] Implanted:Qty: 1 on 03/06/2015 by Jovany Read MD at [facility] Left: Hip [employer] 01/08/2020 [id number] / / [id number] Advance Directives For more information, please contact: [phone] Latest Code Status on File Code Status Date Activated Date Inactivated Comments Full Code 03/06/2015 10:12 AM 03/07/2015 7:32 PM This c ode status was ascertained in the following way: per chart. Code Status History Code Status Date Activated Date Inactivated Comments Full Code 03/06/2015 8:04 AM 03/06/2015 10:12 AM . Care Teams Tank Wagon Driver Relationship Specialty Start Date End Date Edith Uriarte MD [address] [place] [phone] PCP - General Family Medicine 03/05/15
--- OUTSIDE RECORDS SUMMARY | 2024-11-08 12:31 | XMS_ITS | Encounter Summary ---
Author Organization [facility] [place], Address [address] [place] [address] Phone Care Team Providers Care Cpr Instructor Name Role Phone Elroy Smith MD Primary Care Provider [phone] Encounter Details Date Type Department Care Team (Late st Contact Info) Description 02/12/2023 Documentation Only [facility] [place] [address] Lety Rubin MD Social History Tobacco Use Types Packs/Day Years Used Date Smoking Tobacco: Former Cigarettes 2 30 1 961 - 1987 Cigars Comments:Smokes 4 cigars a w [place] Currently Alcohol Use Standard Drinks/Week Comments Yes 35 (1 standard drink = 0.6 oz pu re alcohol) 5-6 beers a day Sex and Gender Information Value Date Recorded Sex Assigned at Not on file Legal Sex Male 4:35 PM EST Gender Identity Not on file Sexual Orientation Not on file Occupation Industry Job Start Date Job End Date [employer] Not on file Not on file Not on file documented as of this encounter Plan of Treatment Upcoming Encounters Date Type Department Care Team (Late st Contact Info) Description 03/02/2025 11:15 AM EDT [facility] [place] [address] Nestor Coreas MD [address] [place] [address] [place] [phone] documented as of this encounter Visit Diagnoses Not on filedocumented in this encounter Care Teams Cpr Instructor Relationship Specialty Start Date End Date Elroy Smith MD [address] [place] [address], [address] [place] [address] PCP - General 05/09/19 documented as of this encounter
--- OUTSIDE RECORDS SUMMARY | 2024-11-08 12:31 | XMS_ITS | Encounter Summary ---
Author Organization [facility] [place], Address [address] [place] [address] Phone Care Team Providers Care Lining Inserter Name Role Phone Elroy Smith MD Primary Care Provider [phone] Encounter Details Date Type Department Care Team (Late st Contact Info) Description 02/09/2023 Office Communication [facility] [place], - [address] [address] Nestor Coreas MD [address] [place] [address] [place] [address] Social History Tobacco Use Types Packs/Day Years Used Date Smoking Tobacco: Former Cigarettes 2 30 1 961 - 1987 Cigars Comments:Smokes 4 cigars a w [place] Currently Alcohol Use Standard Drinks/Week Comments Yes [...] Visit [facility] [place], [facility] - [address] [place] [phone] Nestor Coreas MD [address] [place] [phone] documented as of this encounter Visit Diagnoses Not on filedocumented in this encounter Care Teams Lining Inserter Relationship Specialty Start Date End Date Elroy Smith MD [address] [facility], [address] [place] [address] PCP - General 05/09/19 documented as of this encounter
--- OUTSIDE RECORDS SUMMARY | 2024-11-08 12:31 | XMS_ITS | Encounter Summary ---
Author Organization [facility] [place], Address [address] [place] [address] Phone Care Team Providers Care Hatchery Employee Name Role Phone Elroy Smith MD Primary Care Provider [phone] Encounter Details Date Type Department Care Team (Late Contact Info) Description 08/16/2024 Documentation Only [facility] [address] [place] [address] Erendira Luz [address] [place] [phone] Social History Tobacco Use Types Packs/Day Years Used Date Smoking Tobacco: Former Cigarettes 2 30 1 961 - 1987 Cigars Comments:Smokes 4 cigars a w [place] Currently Alcohol Use Standard Drinks/Week Comments Yes 35 (1 standard drink = 0.6 oz pu re alcohol) 5-6 beers a day Sex and Gender Information Value Date Recorded Sex Assigned at Not on file Legal Sex Male 4:35 PM EST Gender Identity Not on file Sexual Orientation Not on file Occupation Industry Job Start Date Job End Date [employer] [facility] [employer] Not on file Not on file Not on file documented as of this encounter Plan of Treatment Upcoming Encounters Date Type Department Care Team (Late st Contact Info) Description 03/02/2025 11:15 AM EDT Office Visit [facility] [address] [place] [phone] Nestor Coreas MD [address] [place] [address] [place] [address] documented as of this encounter Visit Diagnoses Not on filedocumented in this encounter Care Teams Hatchery Employee Relationship Specialty Start Date End Date Elroy Smith MD [address] [place] [address], [address] [place] [address] PCP - General 05/09/19 documented as of this encounter
--- OUTSIDE RECORDS SUMMARY | 2024-11-08 12:31 | XMS_ITS | Encounter Summary ---
Author Organization [facility] [place], Address [address] [place] [address] Phone Care Team Providers Care Meter Reader Inspector Name Role Phone Elroy Smith MD Primary Care Provider [phone] Encounter Details Date Type Department Care Team (Late st Contact Info) Description 02/17/2023 Documentation Only [facility] [address] [place] [address] Lety Rubin MD Social History Tobacco Use Types Packs/Day Years Used Date Smoking Tobacco: Former Cigarettes 2 30 1 961 - 1987 Cigars Comments:Smokes 4 cigars a w [place] Currently Alcohol Use Standard Drinks/Week Comments Yes 35 (1 standard drink = 0.6 oz pu re alcohol) 5-6 beers a day Sex and Gender Information Value Date Recorded Sex Assigned at Not on file Legal Sex Male 4:35 PM EST Gender Identity Not on file Sexual Orientation Not on file Occupation Industry Job Start Date Job End Date [employer] Not on file Not on file Not on file documented as of this encounter Plan of Treatment Upcoming Encounters Date Type Department Care Team (Late st Contact Info) Description 03/02/2025 11:15 AM EDT [facility] [address] [place] [address] Nestor Coreas MD [address] [place] [address] [place] [phone] documented as of this encounter Visit Diagnoses Not on filedocumented in this encounter Care Teams Meter Reader Inspector Relationship Specialty Start Date End Date Elroy Smith MD [address] [place] [address], [address] [place] [address] PCP - General 05/09/19 documented as of this encounter
--- OUTSIDE RECORDS SUMMARY | 2024-11-08 12:31 | XMS_ITS | Encounter Summary ---
Author Organization [facility] [place], Address [address] [place] [address] Phone Care Team Providers Care Motor Transport Inspector Name Role Phone Elroy Smith MD Primary Care Provider [phone] Encounter Details Date Type Department Care Team (Late st Contact Info) Description 08/25/2023 Documentation Only [facility] [address] [place] [address] [address]inette Keller [address] [place] [phone] Social History Tobacco Use Types Packs/Day Years Used Date Smoking Tobacco: Former Cigarettes 2 30 1 961 - 1987 Cigars Comments:Smokes 4 cigars a w [place] Currently Alcohol Use Standard Drinks/Week Comments Yes 35 (1 standard drink = 0.6 oz pu re alcohol) 5-6 beers a day Sex and Gender Information Value Date Recorded Sex Assigned at Not on file Legal Sex Male 4:35 PM EST Gender Identity Not on file Sexual Orientation Not on file Occupation Industry Job Start Date Job End Date [employer] [facility] Not on file Not on file Not on file documented as of this encounter Plan of Treatment Upcoming Encounters Date Type Department Care Team (Late st Contact Info) Description 03/02/2025 11:15 AM EDT Office Visit [facility] [place] [address] [place] [phone] Nestor Coreas MD [address] [place] [address] [place] [address] documented as of this encounter Visit Diagnoses Not on filedocumented in this encounter Care Teams Motor Transport Inspector Relationship Specialty Start Date End Date Elroy Smith MD [address] [place] [address], [address] [place] [address] PCP - General 05/09/19 documented as of this encounter
--- OUTSIDE RECORDS SUMMARY | 2024-11-08 12:31 | XMS_ITS | Clinical Summary ---
Author Organization [facility], Address [address] [place] [phone] Phone Care Team Providers Care Ethics Officer Name Role Phone Elroy Smith MD Primary Care Provider [phone] Allergies Active Allergy Reactions Criticality Noted Date [...] each day in the evening 07/17/2022 Active midodrine (PROAMATINE) 2.5 MG tablet Take 2.5 mg by mouth in the morning and 2.5 mg at noon and 2.5 mg in the evening. 07/17/2022 Active potassium chloride (KLOR-CON M20) 20 MEQ CR tablet Take 20 mEq by mouth in the morning. 07/27/2022 Active glipiZIDE (GLUCOTROL) 10 MG tablet Take 10 mg by mouth in the morning. 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); Orthostatic hypotension 08/25/2024 Documentation Only [facility] [address] [place] [address] Erendira Luz 08/25/2024 Documentation Only [facility] [address] [place] [address] Erendira Luz 08/16/2024 Documentation Only [facility] [address] [place] [address] Erendira Luz from Last 3 Months Immunizations Immunization Administration Dates Next Due Influenza Split High [...] Industry Job Start Date Job End Date Akhil Castillo Not on file Not on file Not [...] Visit [facility] [place], - [address] [place] [phone] Nestor Coreas MD [address] [place] [address] [place] [phone] Health Maintenance Due Date Last Done Comments Colorectal Cancer Screening: Annual FOBT 01/04/2001 Colorectal Cancer Screening: Colonoscopy 01/04/2001 Colorectal Cancer Screening: Sigmoidoscopy 01/04/2001 Diabetes: Hemoglobin A1C 09/25/2019 07/09/2017 Diabetes: Ophthalmology Exam 09/25/2019 Diabetes: Pedal Pulse Checked 09/25/2019 Diabetes: Sensory Foot Exam 09/25/2019 Diabetes: Visual Foot Exam 09/25/2019 Influenza Vaccine (Season Ended) 2025 04/29/2023, 04/27/2022, 04/07/2022, Additional history exists Pneumococcal Vaccine: 50+ Years Completed 06/14/2020, 08/12/2018, 07/05/2016, Additional history exists Pneumococcal Vaccine: Peds (0 to 5 Years) and At-Risk Patients (6 to 49 Years) Discontinued 06/14/2020, 08/12/2018, 07/05/2016, Additional history exists Hepatitis B Vaccine Aged Out No longe r eligible based on patient's age to complete this topic Procedures Procedure Name Priority Date/Time Associated Diagnosis Comments LAB PROJ MGR Routine 07/09/2017 2:00 PM EST from Last 3 Months or Most Recently Relevant to Health Maintenance Results * (ABNORMAL) Lab Certified Low Vision Therapist (07/09/2017 2:00 PM EST) Sodium 143 133 [...] 4.4 gm/dl [facility] 07/09/2017 2:00 PM EST [facility] Conversion LAB [id number] LICITED RESULTS Final Result KCTMA from Last 3 Months or Most Recently Relevant to Health Maintenance Insurance [facility] PPO [id number]) Care Teams Ethics Officer Relationship Specialty Start Date End Date Elroy Smith MD [address] [place] [address], [address] [place] [address] PCP - General 05/09/19
--- OUTSIDE RECORDS SUMMARY | 2024-11-08 12:31 | XMS_ITS | Encounter Summary ---
Author Organization [facility] [place], Address [address] [place] [address] Phone Care Team Providers Care Exercise Equipment Repair Technician Name Role Phone Elroy Smith MD Primary Care Provider [phone] Encounter Details Date Type Department Care Team (Late st Contact Info) Description 02/17/2023 Documentation Only [facility] [address] [place] [address] Lety Rubin MD Social History Tobacco Use Types Packs/Day Years Used Date Smoking Tobacco: Former Cigarettes 2 30 1 961 - 1987 Cigars Comments:Smokes 4 cigars a w [place] Currently Alcohol Use Standard Drinks/Week Comments Yes 35 (1 standard drink = 0.6 oz pu re alcohol) 5-6 beers a day Sex and Gender Information Value Date Recorded Sex Assigned at Not on file Legal Sex Male 4:35 PM EST Gender Identity Not on file Sexual Orientation Not on file Occupation Industry Job Start Date Job End Date [employer] Not on file Not on file Not on file documented as of this encounter Plan of Treatment Upcoming Encounters Date Type Department Care Team (Late st Contact Info) Description 03/02/2025 11:15 AM EDT [facility] [address] [address] [place] [address] Nestor Coreas MD [address] [place] [address] [place] [phone] documented as of this encounter Visit Diagnoses Not on filedocumented in this encounter Care Teams Exercise Equipment Repair Technician Relationship Specialty Start Date End Date Elroy Smith MD [address] [place] [address], [address] [place] [address] PCP - General 05/09/19 documented as of this encounter
--- OUTSIDE RECORDS SUMMARY | 2024-11-08 12:31 | XMS_ITS | Encounter Summary ---
Author Organization [facility] [place], Address [address] [place] [address] Phone Care Team Providers Care Felt Puller Name Role Phone Elroy Smith MD Primary Care Provider [phone] Encounter Details Date Type Department Care Team (Late st Contact Info) Description 08/25/2023 Documentation Only [facility] [address] [place] [address] Antoinette Keller [address] [place] [phone] Social History Tobacco Use Types Packs/Day Years Used Date Smoking Tobacco: Former Cigarettes 2 30 1 961 - 1987 Cigars Comments:Smokes 4 cigars a w [place] Currently Alcohol Use Standard Drinks/Week Comments Yes [...] Visit [facility] [place] [address] [place] [phone] Nestor Coreas MD [address] [place] [address] [place] [address] documented as of this encounter Visit Diagnoses Not on filedocumented in this encounter Care Teams Felt Puller Relationship Specialty Start Date End Date Elroy Smith MD [address] [place] [address], [address] [place] [address] PCP - General 05/09/19 documented as of this encounter
--- OUTSIDE RECORDS SUMMARY | 2024-11-08 12:31 | XMS_ITS | Data Portability ---
Author Organization [facility], , [facility] Address [address] [place] [address] Care Team Providers Care Assistant Professor Of Archaeology Name Role Phone SAMIRAKEVIN OTHER [phone] BENJAMIN URIARTE Primary Care Provider ANDERSON Simon Prenatal Genetic Counselor Assessment No assessment recorded. Plan of Treatment Reminders Order Date Submit Date Provider Last Modified By Organization Details Last Modified Time Details Appointments None recorded. Lab lipid panel, serum 2015 017 [facility], [address] [place] [address], [address], 7 12:43:53 HbA1c (hemoglob in A1c), blood 2015 017 [facility], [address] [place] [address], [address], 7 11:26:23 BMP, serum or plasma 2015 017 [facility], [address] [place] [address], [address], 7 11:26:17 Referral None recorded. Procedures None recorded. Surgeries None recorded. Imaging XR, chest - 66 year old patient with productiv e cough and rhonchi LLL 2016 017 [facility] ([facility]), [address], [place], [address], 7 12:31:29 Medication Orders Flovent HFA 110 mcg/actua tion aerosol inhaler 2016 017 INTERFACE [facility] [place], [address], 7 14:58:14 rosuvasta tin 20 mg tablet 2016 017 INTERFACE [facility] [address] [place], [address], 7 14:28:23 Tessalon Perles 100 mg capsule 2016 017 [facility] [address] [place], [address], 7 13:45:41 albuterol sulfate HFA 90 mcg/actua tion aerosol inhaler 2016 017 [email or web address] Not available 7 16:53:15 codeine 10 mg-guaife nesin 100 mg/5 mL oral liquid 2015 016 [facility] [address] [place], [address], 7 13:45:47 Patient TargetsNo targets recorded. Patient Instructions Encounter Date Encounter Id Patient Instructions Last Modified By Organization Details Last Modified Time 04/14/2016 [id number] Well Visit 50 to 65: Care Instructions [id number] Not available 06/20/2016 04:08:51 -Message us with [...] 6 months Not available 04/14/2016 16:46:09 05/29/2016 [id number] After a discussion of treatment options, which included consideration of best practices and patient preferences, the above treatment plan and objectives were adopted. New medication was discussed with patient including risks, benefits, possible and expected side effects. Patient understands and is willing to begin medication as prescribed. [email or web address] Not available 05/29/2016 13:49:49 09/07/2016 [id number] This looks like a post viral cough. At this point recommend trying Tessalon Perles her sodium but Zante. If that does not work then filled the prescription for the albuterol that was given to him by hand. [email or web address] Not available 09/07/2016 16:50:15 10/08/2016 [id number] -STOP pravastati n -START rosuvastatin and let [...] glucose 126 mg/dL 70-100 high Not Available [address], [address], 04/06/2016 11:21:55 04/04/20 16 04/06/2016 BMP, serum or plasm a BUN 25 mg/dL 7-18 high Not Available [address], [address], 04/06/2016 11:21:55 04/04/20 16 04/06/2016 BMP, serum or plasm a creatinine 1.6 mg/dL 0.8-1. 3 high Not Available [address], [address], 04/06/2016 11:21:55 04/04/20 16 04/06/2016 BMP, serum or plasm a B/C 15.6 ratio Not Available [address], [address], 04/06/2016 11:21:55 04/04/20 16 04/06/2016 BMP, serum or plasm a GFR -non 46.5 mL/mi n Recom kandi d GFR by the Natio nal Kidne y Found ation >60 mL/mi n/1.7 3m2 - Tiffany l <60 mL/mi n/1.7 3m2 - Chron ic Kidne y Disea se <15 mL/mi n/1.7 3m2 - Kidne y Failu re Not Available [address], [address], 04/06/2016 11:21:55 04/04/20 16 04/06/2016 BMP, serum or plasm a GFR - if 56.2 mL/mi n For Afric an Ameri can patie nts: Resul ts Multi plied by 1.21 Not Available [address], [address], 04/06/2016 11:21:55 04/04/20 16 04/06/2016 BMP, serum or plasm a sodium 144 mmol/ L 136-14 5 Not Available [address], [address], 04/06/2016 11:21:55 04/04/20 16 04/06/2016 BMP, serum or plasm a potassium 5.0 mmol/ L 3.5-5. 1 Not Available [address], [address], 04/06/2016 11:21:55 04/04/20 16 04/06/2016 BMP, serum or plasm a chloride 106 mmol/ L 96-107 Not Available [address], [address], 04/06/2016 11:21:55 04/04/20 16 04/06/2016 BMP, serum or plasm a anion gap 9.3 5.0-15 .0 Not Available [address], [address], 04/06/2016 11:21:55 04/04/20 16 04/06/2016 BMP, serum or plasm a CO2 29 mmol/ L 21-32 Not Available [address], [address], 04/06/2016 11:21:55 04/04/20 16 04/06/2016 BMP, serum or plasm a calcium 9.4 mg/dL 8.5-10 .3 Not Available [address], [address], 04/06/2016 11:21:55 04/04/20 16 04/06/2016 lipid panel , serum cholesterol 156 mg/dL <200 mg/dl Cee able 200-2 39 mg/dl Borde rline High >240 mg/dl High Not Available [address], [address], 04/06/2016 11:21:57 04/04/20 16 04/06/2016 lipid panel , serum triglyceride s 110 mg/dL <150 mg/dL Tiffany l 150-1 99 mg/dL Borde rline High 200-4 99 mg/dL High >500 mg/dL Very High Not Available [address], [address], 04/06/2016 11:21:57 04/04/20 16 04/06/2016 lipid panel , serum direct HDL 36 mg/dL Not Available [address], [address], 04/06/2016 11:21:57 04/04/20 16 04/06/2016 LDL, calcu lated , serum (OBS) LDL - calculated 98.0 RISK CATEG ORY LDL GOAL _ CHD or CHD Risk Equiv alent s <100 mg/dl (10-y ear risk >20%) 2+ Risk Facto rs <130 mg/dl (10-y ear risk <= 20%) 0-1 Risk Facto r? <160 mg/dl ? Almos t all peopl e with 0-1 risk facto r have a 10 year risk <10%, thus 10 year risk asses ment in peopl e with 0-1 risk facto r is not dee dee zuleyma. Not Available [address], [address], 04/06/2016 11:21:57 04/04/20 16 04/06/2016 HbA1c (hemo globi n A1c), blood hemoglobin A1C 6.5 % 4.8-6. 0 high Goal: <7% in Patie nts with Diabe zach Not Available [address], [address], 04/06/2016 11:31:06 04/04/20 16 04/06/2016 HbA1c (hemo globi n A1c), blood estimated average glucose 139.9 mg/dL Not Available [address], [address], 04/06/2016 11:31:06 04/04/20 16 04/06/2016 micro album in, urine microalbumin 677.9 mg/L 1.3-20 .0 high VERD= Verif ied by Dilut ion. Not Available [address], [address], 04/06/2016 14:18:23 04/04/20 16 04/06/2016 micro album in, urine creatinine urine 291.9 mg/dL 30.0-1 25.0 high Not Available [address], [address], 04/06/2016 14:18:23 04/04/20 16 04/06/2016 micro album in, urine microalb/cre at ratio 232.2 mg/g_ creat 0.0-29 .0 high Not Available [address], [address], 04/06/2016 14:18:23 10/04/19 17 10/05/2016 HbA1c (hemo globi n A1c), blood hemoglobin A1C 6.7 % 4.8-6. 0 high Goal: <7% in Patie nts with Diabe zach Not Available [address], [address], 10/05/2016 11:38:06 10/04/19 17 10/05/2016 HbA1c (hemo globi n A1c), blood estimated average glucose 145.6 mg/dL Not Available [address], [address], 10/05/2016 11:38:06 10/04/19 17 10/05/2016 BMP, serum or plasm a glucose 136 mg/dL 70-100 high Not Available [address], [address], 10/05/2016 12:43:51 10/04/19 17 10/05/2016 BMP, serum or plasm a BUN 30 mg/dL 7-18 high Not Available [address], [address], 10/05/2016 12:43:51 10/04/19 17 10/05/2016 BMP, serum or plasm a creatinine 1.6 mg/dL 0.8-1. 3 high Not Available [address], [address], 10/05/2016 12:43:51 10/04/19 17 10/05/2016 BMP, serum or plasm a B/C 18.8 ratio Not Available [address], [address], 10/05/2016 12:43:51 10/04/19 17 10/05/2016 BMP, serum or plasm a GFR -non 46.5 mL/mi n Recom kandi d GFR by the Natio nal Kidne y Found ation >60 mL/mi n/1.7 3m2 - Tiffany l <60 mL/mi n/1.7 3m2 - Chron ic Kidne y Disea se <15 mL/mi n/1.7 3m2 - Kidne y Failu re Not Available [address], [address], 10/05/2016 12:43:51 10/04/19 17 10/05/2016 BMP, serum or plasm a GFR - if 56.2 mL/mi n For Afric an Ameri can patie nts: Resul ts Multi plied by 1.21 Not Available [address], [address], 10/05/2016 12:43:51 10/04/19 17 10/05/2016 BMP, serum or plasm a sodium 144 mmol/ L 136-14 5 Not Available [address], [address], 10/05/2016 12:43:51 10/04/19 17 10/05/2016 BMP, serum or plasm a potassium 5.2 mmol/ L 3.5-5. 1 high Not Available [address], [address], 10/05/2016 12:43:51 10/04/19 17 10/05/2016 BMP, serum or plasm a chloride 107 mmol/ L 96-107 Not Available [address], [address], 10/05/2016 12:43:51 10/04/19 17 10/05/2016 BMP, serum or plasm a anion gap 10.6 5.0-15 .0 Not Available [address], [address], 10/05/2016 12:43:51 10/04/1910/05/2016 BMP, serum or plasm a CO2 26 mmol/ L 21-32 Not Available [address], [address], 10/05/2016 12:43:51 10/04/1910/05/2016 BMP, serum or plasm a calcium 9.2 mg/dL 8.5-10 .3 Not Available [address], [address], 10/05/2016 12:43:51 10/04/1910/05/2016 lipid panel , serum cholesterol 138 mg/dL <200 mg/dl Cee able 200-2 39 mg/dl Borde rline High >240 mg/dl High Not Available [address], [address], 10/05/2016 12:43:53 10/04/19 17 10/05/2016 lipid panel , serum triglyceride s 79 mg/dL <150 mg/dL Tiffany l 150-1 99 mg/dL Borde rline High 200-4 99 mg/dL High >500 mg/dL Very High Not Available [address], [address], 10/05/2016 12:43:53 10/04/19 17 10/05/2016 lipid panel , serum direct HDL 45 mg/dL Not Available [address], [address], 10/05/2016 12:43:53 10/04/19 17 10/05/2016 LDL, yenni castaneda , serum (OBS) LDL - calculated 77.2 RISK CATEG ORY LDL GOAL _ CHD or CHD Risk Equiv alent s <100 mg/dl (10-y ear risk >20%) 2+ Risk Facto rs <130 mg/dl (10-y ear risk <= 20%) 0-1 Risk Facto r? <160 mg/dl ? Almos t all peopl e with 0-1 risk facto r have a 10 year risk <10%, thus 10 year risk asses ment in peopl e with 0-1 risk facto r is not dee dee amor. Not Available [address], [address], 10/05/2016 12:43:53 11/28/19 17 11/27/2016 CBC w/ auto diff WBC 7.7 K/uL 3.4-11 .2 Not Available [facility] [address] [facility], [place], [address], 11/27/2016 17:28:53 11/28/19 17 11/27/2016 CBC w/ auto diff RBC 4.51 M/uL 4.50-5 .50 Not Available [address], [address], 11/27/2016 17:28:53 11/28/19 17 11/27/2016 CBC w/ auto diff hemoglobin 13.9 g/dL 13.0-1 7.0 Not Available [address], [address], 11/27/2016 17:28:53 11/28/19 17 11/27/2016 CBC w/ auto diff hematocrit 40.3 % 40.0-5 1.0 Not Available [address], [address], 11/27/2016 17:28:53 11/28/19 17 11/27/2016 CBC w/ auto diff MCV 89.4 fL 79.0-9 8.0 Not Available [address], [address], 11/27/2016 17:28:53 11/28/19 17 11/27/2016 CBC w/ auto diff MCH 30.8 pg 27.0-3 4.8 Not Available [address], [address], 11/27/2016 17:28:53 11/28/19 17 11/27/2016 CBC w/ auto diff MCHC 34.5 g/dL 31.5-3 6.0 Not Available [address], [address], 11/27/2016 17:28:53 11/28/19 17 11/27/2016 CBC w/ auto diff RDW 13.1 % 10.8-1 4.6 Not Available [address], [address], 11/27/2016 17:28:53 11/28/19 17 11/27/2016 CBC w/ auto diff MPV 10.4 fL 9.4-12 .4 Not Available [address], [address], 11/27/2016 17:28:53 11/28/19 17 11/27/2016 CBC w/ auto diff platelet count 256 K/uL 130-40 0 Not Available [address], [address], 11/27/2016 17:28:53 11/28/19 17 11/27/2016 CBC w/ auto diff neutrophils 63.3 % 45.3-7 7.7 Not Available [address], [address], 11/27/2016 17:28:53 11/28/19 17 11/27/2016 CBC w/ auto diff lymphocytes 25.2 % 12.3-3 9.7 Not Available [address], [address], 11/27/2016 17:28:53 11/28/19 17 11/27/2016 CBC w/ auto diff monocytes 5.5 % 4.1-12 .8 Not Available [address], [address], 11/27/2016 17:28:53 11/28/19 17 11/27/2016 CBC w/ auto diff eosinophils 5.60 % 0.00-7 .20 Not Available [address], [address], 11/27/2016 17:28:53 11/28/19 17 11/27/2016 CBC w/ auto diff basophils 0.40 % 0.00-2 .80 Not Available [address], [address], 11/27/2016 17:28:53 11/28/19 17 11/27/2016 CBC w/ auto diff absolute neutrophil 4.9 K/uL 1.4-7. 7 Not Available [address], [address], 11/27/2016 17:28:53 11/28/19 17 11/27/2016 CBC w/ auto diff absolute lymphocyte 1.9 K/uL 0.6-3. 2 Not Available [address], [address], 11/27/2016 17:28:53 11/28/19 17 11/27/2016 CBC w/ auto diff absolute monocytes 0.4 K/uL 0.1-0. 6 Not Available [address], [address], 11/27/2016 17:28:53 11/28/19 17 11/27/2016 CBC w/ auto diff absolute eosinophil 0.43 K/uL 0.01-0 .50 Not Available [address], [address], 11/27/2016 17:28:53 11/28/19 17 11/27/2016 CBC w/ auto diff absolute basophils 0.03 K/uL Not Available [address], [address], 11/27/2016 17:28:53 11/28/19 17 11/27/2016 CBC w/ auto diff immature granulocyte 0.00 % 0.00-0 .50 Not Available [address], [address], 11/27/2016 17:28:53 11/28/19 17 11/27/2016 CBC w/ auto diff absolute immature granulocyte 0.00 K/uL 0.00-0 .03 Not Available [address], [address], 11/27/2016 17:28:53 11/28/19 17 11/27/2016 renal funct ion panel , serum glucose 277 mg/dL 70-99 high Not Available [address], [address], 11/27/2016 17:59:06 11/28/19 17 11/27/2016 renal funct ion panel , serum BUN 24 mg/dL 6-19 high Not Available [address], [address], 11/27/2016 17:59:06 11/28/19 17 11/27/2016 renal funct ion panel , serum creatinine 1.5 mg/dL 0.5-1. 5 Not Available [address], [address], 11/27/2016 17:59:06 11/28/19 17 11/27/2016 renal funct [...] ages of 18 and 70. Not Available [address], [address], 11/27/2016 17:59:06 11/28/19 17 11/27/2016 renal funct ion panel , serum sodium 139 mEq/L 133-14 6 Not Available [address], [address], 11/27/2016 17:59:06 11/28/19 17 11/27/2016 renal funct ion panel , serum potassium 4.6 mEq/L 3.3-5. 2 Not Available [address], [address], 11/27/2016 17:59:06 11/28/19 17 11/27/2016 renal funct ion panel , serum chloride 100 mEq/L 96-108 Not Available [address], [address], 11/27/2016 17:59:06 11/28/19 17 11/27/2016 renal funct ion panel , serum CO2 26 mEq/L 21-35 Not Available [address], [address], 11/27/2016 17:59:06 11/28/19 17 11/27/2016 renal funct ion panel , serum calcium 9.3 mg/dL 8.4-10 .3 Not Available [address], [address], 11/27/2016 17:59:06 11/28/19 17 11/27/2016 renal funct ion panel , serum phosphorus 3.1 mg/dL 2.7-4. 5 Not Available [address], [address], 11/27/2016 17:59:06 11/28/19 17 11/27/2016 renal funct ion panel , serum albumin 3.9 g/dL 3.9-4. 8 Not Available [address], [address], 11/27/2016 17:59:06 11/28/19 17 11/27/2016 renal funct ion panel , serum anion gap 18 mEq/L 10-20 Not Available [address], [address], 11/27/2016 17:59:06 11/28/19 17 11/27/2016 PTH (para thyro id hormo ne), intac t, serum or plasm a PTH, stat 38 pg/mL 15-65 Not Available [address], [address], 11/27/2016 18:07:53 11/28/19 17 11/27/2016 micro album in/cr eatin ine, ratio panel , urine urine creatinine random 121 mg/dL Not Available [address], [address], 11/27/2016 18:19:10 11/28/19 17 11/27/2016 micro album in/cr eatin ine, ratio panel , urine microalbumin , random 47 mg/L 0-23 high Not Available [address], [address], 11/27/2016 18:19:10 11/28/19 17 11/27/2016 micro album in/cr eatin ine, ratio panel , urine microalb/cre at ratio 39 ug/mg 0-20 high Not Available [address], [place], [address], 11/27/2016 18:19:10 05/01/20 17 05/03/2017 HbA1c (hemo globi n A1c), blood hemoglobin A1C 6.2 % 4.8-6. 0 high Goal: <7% in Patie nts with Diabe zach Not Available [address], [address], 05/03/2017 11:08:28 05/01/20 17 05/03/2017 HbA1c (hemo globi n A1c), blood estimated average glucose 131.2 mg/dL Not Available [address], [address], 05/03/2017 11:08:28 05/01/20 17 05/03/2017 BMP, serum or plasm a glucose 120 mg/dL 70-100 high Not Available [address], [address], 05/03/2017 12:02:32 05/01/20 17 05/03/2017 BMP, serum or plasm a BUN 21 mg/dL 7-18 high Not Available [address], [address], 05/03/2017 12:02:32 05/01/20 17 05/03/2017 BMP, serum or plasm a creatinine 1.5 mg/dL 0.8-1. 3 high Not Available [address], [address], 05/03/2017 12:02:32 05/01/20 17 05/03/2017 BMP, serum or plasm a B/C 14.0 ratio Not Available [address], [address], 05/03/2017 12:02:32 05/01/20 17 05/03/2017 BMP, serum or plasm a GFR -non 49.9 mL/mi n Recom kandi d GFR by the Natio nal Kidne y Found ation >60 mL/mi n/1.7 3m2 - Tiffany l <60 mL/mi n/1.7 3m2 - Chron ic Kidne y Disea se <15 mL/mi n/1.7 3m2 - Kidne y Failu re Not Available [address], [address], 05/03/2017 12:02:32 05/01/20 17 05/03/2017 BMP, serum or plasm a GFR - if 60.4 mL/mi n For Afric an Ameri can patie nts: Resul ts Multi plied by 1.21 Not Available [address], [address], 05/03/2017 12:02:32 05/01/20 17 05/03/2017 BMP, serum or plasm a sodium 145 mmol/ L 136-14 5 Not Available [address], [address], 05/03/2017 12:02:32 05/01/20 17 05/03/2017 BMP, serum or plasm a potassium 5.0 mmol/ L 3.5-5. 1 Not Available [address], [address], 05/03/2017 12:02:32 05/01/20 17 05/03/2017 BMP, serum or plasm a chloride 107 mmol/ L 96-107 Not Available [address], [address], 05/03/2017 12:02:32 05/01/20 17 05/03/2017 BMP, serum or plasm a anion gap 10.6 5.0-15 .0 Not Available [address], [address], 05/03/2017 12:02:32 05/01/20 17 05/03/2017 BMP, serum or plasm a CO2 27 mmol/ L 21-32 Not Available [address], [address], 05/03/2017 12:02:32 05/01/20 17 05/03/2017 BMP, serum or plasm a calcium 9.6 mg/dL 8.5-10 .3 Not Available [address], [address], 05/03/2017 12:02:32 05/01/20 17 05/03/2017 lipid panel , serum cholesterol 106 mg/dL <200 mg/dl Cee able 200-2 39 mg/dl Borde rline High >240 mg/dl High Not Available [address], [address], 05/03/2017 12:02:33 05/01/20 17 05/03/2017 lipid panel , serum triglyceride s 82 mg/dL <150 mg/dL Tiffany l 150-1 99 mg/dL Borde rline High 200-4 99 mg/dL High >500 mg/dL Very High Not Available [address], [address], 05/03/2017 12:02:33 05/01/20 17 05/03/2017 lipid panel , serum direct HDL 37 mg/dL Not Available [address], [address], 05/03/2017 12:02:33 05/01/20 17 05/03/2017 LDL, calcu lated , serum (OBS) LDL - calculated 52.6 RISK CATEG ORY LDL GOAL _ CHD or CHD Risk Equiv alent s <100 mg/dl (10-y ear risk >20%) 2+ Risk Facto rs <130 mg/dl (10-y ear risk <= 20%) 0-1 Risk Facto r? <160 mg/dl ? Almos t all peopl e with 0-1 risk facto r have a 10 year risk <10%, thus 10 year risk asses ment in peopl e with 0-1 risk facto r is not neces zuleyma. Not Available [facility] [address] [facility], [place], [address], 05/03/2017 12:02:34 03/24/20 16 03/20/2016 MRI, hip, w/o contr ast No observ ation record ed. [address] [facility], [place], [address], 03/24/2016 17:59:55 05/24/20 16 05/24/2016 chest 2 V . PA and latera l chest. Compar ed to 011. Heart and medias tinum are normal in size and contou r. No infilt rate, effusi on or inters titial change s. No nodule s or masses . No pneumo thorax . No acute or worris ome bony abnorm alitie s. IMPRES RONALDO: No acute proces s. POS - CDHRAD BOARDW S7 POS - CDHRAD BOARDW S7 Electr onical ly Signed by: MARIA DE JESUS CASTILLO on 2015 1:22 PM Techno logist : BLAIR OLMSTEAD Transc ribed by: Triston gary, PS360 Result s 2015 01:20 PM Electr onical ly Signed By: MARIA DE JESUS DERAS MD 2015 01:[address] [facility] [address] [facility], [place], [address], 05/25/2016 08:12:33 11/21/19 17 11/20/2016 XR, chest OBSERV ATION: Chest 2 views Cough. There is no eviden ce of active inflam matory diseas e. Hypere xpansi on and a narrow medias tinal silhou ette are sugges tive of emphys flakito. There is scarri ng at the left costop hrenic angle. The bony and soft tissue s are normal Impres ronaldo: No acute radiog raphic abnorm ality probab le emphys flakito Electr onical ly signed Nikole carrasco Physic sonja: Jordin ziegler [facility] (Imaging) [address], [place], [address], 11/20/2016 15:00:32 Result Notes None recorded. Problems Name Problem SNOMED Code Status Onset Date Resolution Date Notes Provider Name and Address Organization Details Recorded Time Mixed hyperlipide cristian 287922107 Active Benjamin Uriarte [address] [place], [place] [address], [address], [facility] 6 14:21:24 Type 2 diabetes mellitus without complicatio n 134986142 Active Negar Groves null, [facility] 6 08:06:10 Chronic renal impairment Active Cr 1.5 - sees Kamel Benjamin Uriarte [address] [place], [place] [address], [address], [facility] 5 16:51:24 Benign essential hypertensio n 5579477 Completed 04/14/2016 Benjamin Uriarte [address] [place], [place] [address], [address], [facility] 6 16:33:25 Essential hypertensio n 19487856 Active Benjamin Uriarte [address] [place], [place] [address], [address], [facility] 6 14:21:24 Obesity 401778547 Active Benjamin Uriarte [address] [place], [place] [address], 1, [facility] 5 16:51:06 Neuropathy due to diabetes mellitus 567782529 Active Zeina Greenwood NP [address] [place], [place] [address], [address], [facility] 5 14:38:04 Notes:Some problems listed i n Documents: #[id number], #[id number], #[id number], #[id number] could not be added to this patient's chart. Please review these documents and add these problems to the patient's chart manually as needed. Problem Notes None recorded. Procedures Surgical History Date Name Laterality Status Provider Name and Address Organization Details Recorded Time 07/23/19 12 Glucose Meter Teaching completed Cinthia Ignacio RN [facility] 07/23/2011 14:45:39 02/20/20 11 Nutritional Diagnosis N1 5.8.3 completed Karen Andres, Ms, Rdn, Ldn, CDE [address] [facility], [place], [address], [place] [facility] 02/19/2011 14:57:29 07/05/19 03 Other (specify) completed Not Available [facility] 05[facility] 06:06:16 Imaging Results Imaging Date Name Status LastModified by Organiz ation Details LastModified Time 03/20/2016 MRI, hip, w/o contrast completed [address] [place], [address], 03/24/2016 17:59:55 05/24/2016 chest 2 V [facility] [address] [place], [address], 05/25/2016 08:12:33 11/20/2016 XR, chest completed [address] (Imaging) [address], [place], [address], 11/20/2016 15:00:32 Procedure Notes None recorded. Medical Equipment None Reported. Allergies Allergen ID Allergen Name Allergen Category Reaction Reaction Severity Criticality Documentation Date Start Date Code Code System Note Provider Name and Address Organization Details Recorded Time [id number] metoprolo l Not available Not available Not available Not available 03/04/2012 6918 RxNorm low heart rate Cecilia Gonzalez CMA(AAMA) null, [facility] 2 10:32:54 Medications Name Sig Start [...] Not Available Vitals Date Recorded Body height Body weight Body mass index (BMI) Oxygen saturation Oxygen saturation in Arterial blood by Pulse oximetry Heart rate Systolic blood pressure Diastolic blood pressure Provider Name and Address Organization Details Last Updated DateTime 7 185.42 cm 973921. 52 g 34.2 kg/m2 97 % 97 % 54 /min 136 mm[Hg] 60 mm[Hg] Radha Mckeon [facility] 7 16:30:06 Date Recorded Body height Body weight Body mass index (BMI) Heart rate Systolic blood pressure Diastolic blood pressure Provider Name and Address Organization Details Last Updated DateTime 7 185.42 cm 235187. 93 g 34.1 kg/m2 60 /min 124 mm[Hg] 60 mm[Hg] Fauzia Spears LPN [facility] 7 13:49:07 Date Recorded Body height Body weight Body mass index (BMI) Oxygen saturation Oxygen saturation in Arterial blood by Pulse oximetry Heart rate Systolic blood pressure Diastolic blood pressure Provider Name and Address Organization Details Last Updated DateTime 7 185.42 cm 056692. 52 g 34.2 kg/m2 96 % 96 % 60 /min 118 mm[Hg] 72 mm[Hg] Hilary [facility] 7 14:08:17 Date Recorded Body height Body weight Body mass index (BMI) Heart rate Systolic blood pressure Diastolic blood pressure Provider Name and Address Organization Details Last Updated DateTime 6 185.42 cm 192872. 79 g 34.7 kg/m2 62 /min 124 mm[Hg] 76 mm[Hg] [facility] 6 16:09:30 Date Recorded Body height Body weight Body mass index (BMI) Heart rate Provider Name and Address Organization Details Last Updated DateTime 05/29/2016 185.42 cm 870915.79 g 34.7 kg/m2 72 /min Vilma Ascencio [facility] 05/29/2016 13:37:19 Date Recorded Oxygen saturation Oxygen saturation in Arterial blood by Pulse oximetry Systolic blood pressure Diastolic blood pressure Provider Name and Address Organization Details Last Updated DateTime 05/29/2016 97 % 97 % 106 mm[Hg] 58 mm[Hg] Kamar Edwards MD [address] [place] [address], [place], [address] [place] [address] 6 13:45:12 Social History Question Answer Notes LastModified by Organizat ion Details LastModified Time Tobacco Smoking Status Former Smoker quit age 36 (at least 25 pack years) [facility]/26[facility]2010 14:59:27 Do You Have An Advance [...] not available 12/29/2010 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 16+yearssince lastcigararden Information not available 11/13/2014 How Many Days In The Past Year Have You Had A Heavy Drinking Consumption (4+ Female, 5+ Male)? 5 Information not available 11/13/2014 Are There Any Guns Present In Your Home? No Information not available 05/02/2013 Live Alone Or With Others? With Others With Information not available 05/21/2011 Patient Has Health [...] not available 05/21/2011 Behavior Change Needs Review Information not available 05/21/2011 DSME Plan Goal Healthy Eating Decrease Morning Snack To ~2 Carb Choices, Check Portion Size On Evening Snack [email or web address] Information not available 05/21/2011 DSME Plan Goal Evaluation: 02/19/2011 [email or web address] Information not [...] available 11/20/2014 Seat Belts Used Routinely Yes [email or web address] Information not available 05/21/2011 Are You Sexually Active? Yes [email or web address] Information not available 05/21/2011 Smoke Alarm In Home Yes Information not available 05/02/2013 What Types Of Sporting Activities Do You Participate In? None [email or web address] Information not available 11/20/2014 General Stress Level [...] History Condition Response Obesity Y Hyperlipidemia Y CARDIOVASCULAR Y Hypertension Y Immunizations Vaccine Type Date Status Note Provider Nam e and Address Organization Details Recorded Time Tdap 1 completed Not Available [facility] 07/22/2019 02:34:56 pneumococcal polysaccharide PPV23 8 completed Not Available [facility] 05/20/2011 05:22:52 Influenza, split virus, quadrivalent, PF 5 completed Not Available [facility] 07/22/2019 02:19:46 influenza, unspecified formulation 3 completed Denice Mcdonald RN [facility], [facility] 05/30/2013 15:34:24 zoster live 3 completed Fauzia Spears LPN [facility], [facility] 08/15/2015 17:24:11 influenza, unspecified formulation 6 completed Vilma Ascencio [facility], [facility] 05/29/2016 13:33:01 Past Encounters Encounter ID Performer Location Encounter Start Date Encounter Closed Date Diagnosis/Indication Diagnosis SNOMED-CT Code Diagnosis ICD10 Code Diagnosis Note [id number] Constanza Zuñiga NP , [facility], OFFICE [address] [facility] [address] 12/26/2010 14:33:25 12/26/2010 15:41:44 [id number] OMAR Chavis, [facility], OFFICE [address] [facility] [address] 01/16/2011 14:45:41 01/16/2011 15:59:20 [id number] Karen Campos, Ms, Rdn, Ldn, CDE [facility] [address] [place] [address] 02/19/2011 13:23:32 02/20/2011 15:42:33 [id number] Benjamin DE LA CRUZ, [facility], OFFICE [address] [place] [address] 02/19/2011 14:20:51 02/19/2011 15:31:12 [id number] Benjamin DE LA CRUZ, [facility], OFFICE [address] [facility] [place] [address] 05/21/2011 15:12:15 05/21/2011 16:16:55 [id number] Benjamin DE LA CRUZ, [facility], OFFICE [address] [place] [address] 07/23/2011 13:27:22 07/23/2011 14:47:58 [id number] Benjamin DE LA CRUZ, [facility], OFFICE [address] [place] [address] 08/06/2011 14:08:52 08/06/2011 14:59:03 [id number] Benjamin DE LA CRUZ, [facility], OFFICE [address] [place] [address] 09/03/2011 14:14:12 09/03/2011 14:55:14 [id number] MD DOROTHY Couch, [facility], OFFICE [address] [place] [address] 12/04/2011 07:57:51 12/04/2011 08:42:27 [id number] Jero Kiran MD , [facility], OFFICE [address] [facility] [address] 12/25/2011 12:16:08 12/25/2011 12:42:50 [id number] Jero Kiran MD , [facility], OFFICE [address] [place] [address] on [facility] [place] [address] 02/19/2012 07:53:40 02/19/2012 08:23:26 [id number] Jero Kiran MD , [facility], OFFICE [address] [place] [address] on [facility] [address] 04/15/2012 08:07:54 04/15/2012 08:58:41 [id number] Benjamin Uriarte , [facility], OFFICE [address] [place] [address] on [facility] [address] 11/04/2012 16:21:45 11/04/2012 17:01:48 [id number] Benjamin DE LA CRUZ, [facility], OFFICE [address] [facility] [place] [facility] [address] 12/02/2012 16:18:35 12/02/2012 16:46:33 [id number] Benjamin DE LA CRUZ, [facility], OFFICE [address] [place] [address] on [facility] [place] [address] 12/30/2012 16:16:54 12/30/2012 16:38:59 [id number] Benjamin DE LA CRUZ, [facility], OFFICE [address] [place] [address], [place] [address] 05/02/2013 15:56:57 05/02/2013 17:31:43 Adult health examination [id number] Chronic re nal impairment 620503230 Recommend AVOIDING naproxen/a leve and ibuprofen/ advil/motr in. Recommend repeating labwork prior to follow-up visit in 4-6 weeks. Essential hypertension 61980617 Elevated in office, but pt has been [...] Type 2 mike betes mellitus without complication 637587764 A1C is well controlled . Occasional low sugar. If ever under 70, to let me know as would consider going down on glipizide so as to avoid too many low sugars (since A1C is in normal range). Plan on follow-p for DM in 3 months. Mixed hyperlipidemia 613662855 At goal, if barely. Recommend rechecking in 3months; if this is higher, would need to increase pravastati n or consider another medication . [id number] Benjamin DE LA CRUZ, [facility], OFFICE [address] [place] [address] 05/30/2013 15:18:49 05/30/2013 16:09:59 Essential hypertension 97840384 Elevated in office and at home. Recommend increasing lisinopril to 20mg daily and rechecking BMP in 1 week to make sure kidney function is stable. To measure home blood pressures and bring to follow-up in 4-6 weeks. Cough [id number] Postvira l, but severe. Recommend waiting a week, if no improvemen t to start flovent with spacer and to follow-up in 4 weeks. If symptoms are not resolved by then would consider CXR given history of smoking. [id number] Benjamin DE LA CRUZ, [facility], OFFICE [address] [place] [address] 07/03/2013 15:25:45 07/03/2013 18:01:49 Essential hypertension 59255708 Still elevated. Recommend taking lisinopril 20mg daily and adding amlodipine 5mg daily (pt has tolerated this in the past; it had been changed by Dr. Rubin to the lisinopril at that point in time because he didn't want to trigger hypotensio n). Cough 76744030 Resolved at this point in time. [id number] Benjamin DE LA CRUZ, [facility], OFFICE [address] [place] [address] 08/09/2013 10:05:40 08/09/2013 10:51:36 Essential hypertension 63838559 Still elevated. Pt taking lisinopril 20mg daily; [...] would want to get Dr. Rubin's opinion. [id number] Benjamin Uriarte , [facility], OFFICE [address] [place] [address] 09/13/2013 15:49:54 09/13/2013 16:47:07 Essential hypertension 80767636 Still elevated. Pt taking lisinopril 20mg daily; amlodipine caused constipati on and HCTZ caused increasing creatinine . Recommend at this point in time trial of low-lose hydralazin e with follow-up with Dr. Rubin as scheduled 10/05/13 Chronic re nal impairment 762527887 To follow-up with Scottie, review below. [id number] RAMONA Simon, [facility], OFFICE [address] [place] [address] 11/22/2013 16:50:52 11/22/2013 17:15:16 Cough 90889587 [id number] Benjamin DE LA CRUZ, [facility], OFFICE [address] [place] [address] 12/18/2013 15:58:34 12/18/2013 16:57:13 Tachycardia 9465882 Ddx includes tachy-kenya y, afib. Discomfort with tachycardi a makes me question ?stable angina although pt had cardiac catheteriz ation done about [address] Victor for chest pain at the time. At this point in time, would refer back to Dr. Victor because concern. Essential hypertension 31547689 At goal with hydralazin e, lisinopril , HCTZ, amlodipine . Now with tachycardi a. Plan as above/patricia vick. Type 2 mike betes mellitus without complication 700336872 A1C at goal. To continue with current medication s with routine follow-up in 5 months. [id number] Benjamin DE LA CRUZ, [facility], OFFICE [address] [place] [address] 02/01/2014 16:06:42 02/01/2014 17:18:05 Pain of shoulder region 13292549 [id number] Benjamin Uriarte , [facility], OFFICE [address] [place] [address] 02/13/2014 15:47:04 02/13/2014 16:47:26 Essential hypertension 53241608 Previously at goal with hydralazin e, lisinopril . Pt with tachycardi a and cards changed him to diltiazem, lisinopril . Blood pressures are at goal, but pt with constipati on with diltiazem dose. Recommend mangaging constipati on and keeping follow-up with cardiology . Tachycardia 6825017 Pt t o keep follow-up with Dr. Ott's office for this - echo next week. Constipation 81172930 Re commenda tions as below for bowel regimen. [id number] Benjamin Uriarte , [facility], OFFICE [address] [place] [address] 05/22/2014 15:55:27 05/22/2014 17:35:45 Essential hypertension 61895737 Previously at goal with hydralazin e, lisinopril . Pt with tachycardi a and cards changed him to diltiazem, lisinopril . Blood pressures are at goal, but pt with constipati on with diltiazem dose. This is now managed with miralax, which pt is doing well with. Chronic re nal impairment 961204815 Stable, pt is following with Dr. Rubin. Mixed hyperlipidemia 239346179 LDL goal is <100. LDL at goal. To continue with current medication s with routine follow-up. Type 2 mike betes mellitus without complication 613683200 A1C at goal. To continue with current medication s with routine follow-up in 6 months. [id number] MD DOROTHY Downs, [facility], OFFICE [address] [place] [address] 06/05/2014 17:33:34 06/07/2014 08:06:48 Acute upper respiratory infection 15796783 Cough [id number] OMAR Sainz, [facility], OFFICE [address] [place] [address] 11/13/2014 16:17:21 11/16/2014 09:45:56 Type 2 diabetes mellitus without complication 728993099 Orthostati c hypotension 05123683 DDx includes dehydratio n, meds, anemia, HR or vascular issue, blood glucose d/w LS, will leave on meds and have him record BP and pulse and bring log next week ECG done, Check CBC, TSH [id number] Benjamin Uriarte , [facility], OFFICE [address] [place] [address] 11/20/2014 16:00:38 11/20/2014 17:20:31 Adult health examination 198380295 see Risk Assessment and Lifestyle Change Counseling section above Counseling [id number] Type 2 mike betes mellitus without complication 569563612 A1C at goal, but has increased dramatical ly from last check. Recommend checking sugars as below and will reassess A1C in 3 months rather than 6. Essential hypertension 35251435 Previously at goal with diltiazem, lisinopril . Pt with some high pressures, some normal. Recommenda tions as below. [id number] MD DOROTHY Couch, [facility], OFFICE [address] [place] [address] 02/15/2015 09:36:22 02/15/2015 10:33:12 Lifestyle 403409559 Benign ess ential hypertension 8997489 continue to work on diet, exercise, and lowering salt intake as discussed Blood pressure at goal Neuropathy due to diabetes mellitus 753804955 decreased sensation R 4th & 5th toes. [id number] Benjamin Uriarte , [facility], OFFICE [address] [place] [address] 02/20/2015 15:15:20 02/20/2015 16:13:59 Pre-surgery evaluation 878813237 Type 2 mike betes mellitus without complication 386102436 A1C at goal, but question if pt is having lows that are causing it to be 5.9. Recommend reducing glipizide to 2.5mg in AM, checking sugars twice daily and reporting these two me in a week. Essential hypertension 05334752 Blood pressures at goal (<140/90). To continue with current meds with routine follow-up. Osteoarthritis of hip 847864138 EKG WNL. Labs are stable. Will reduce glipizide dosing as concerns over lows. If sugars are stable over the next week, okay for surgery as outlined. Anesthesia should be aware pt with CKD with a GFR of 46 and medication s should be dosed appropriat celine. Influenza vaccine needed [id number] [id number] Benjamin Uriarte , [facility], OFFICE [address] [place] [address] 03/27/2015 11:52:58 03/27/2015 13:15:29 Type 2 diabetes mellitus without complication 819672238 Pt with a low, but otherwise sugars running 120-130. Will have him watch closely and plan on follow-up in 4-6 weeks. Essential hypertension 09282946 Blood pressures have been running far below [...] to monitor and follow-up in 4 weeks. [id number] Benjamin Uriarte , [facility], OFFICE [address] [place] [address] 05/08/2015 15:15:59 05/08/2015 16:34:47 Type 2 diabetes mellitus without complication 833199380 E11.9 A1C at goal. To continue with current medication s with routine follow-up in Aug with labs. Essential hypertension 08799230 I10 Blood pressures had been running far below goal (<140/90). Now above goal. Will restore lisinopril to 5mg daily, continue on Cardizem at current dose as it is the lowest dose and hx of tachycardi a (hx of morgan with metoprolol ). Will plan on pt continuing to monitor [id number] Benjamin DE LA CRUZ, [facility], OFFICE [address] [place] [address] 08/08/2015 12:47:06 08/08/2015 13:56:43 Inguinal pain 603697168 R10.2 No abnormalit y on exam except for post-surgi tami changes; scar healed well. Less likely a hernia at this point in time. Assuming x-rays of implant are normal, would recommend proceeding with alternativ e PT. If symptoms persist, could do further workup. [id number] Benjamin DE LA CRUZ, [facility], OFFICE [address] [place] [address] 08/15/2015 13:27:46 08/15/2015 14:25:50 Type 2 diabetes mellitus without complication 840561065 E11.9 A1C at goal. To continue with current medication s with routine follow-up in 6 months. Mixed hyperlipidemia 267 091055 E78.2 Chronic ki dney disease stage 3 753312980 N18.[address] Rubin Essential hypertension 24980754 I10 Blood pressures at goal (<140/90). Continue with cardizem daily (hx tachycardi a) and lisinopril at current doses with routine follow-up [id number] Benjamin Uriarte , [facility], OFFICE [address] [place] [address] 04/14/2016 15:45:28 04/14/2016 16:49:03 Adult health examination 890106029 Z00.00 see Risk Assessment and Lifestyle Change Counseling section above Counseling 485914887 Z71 .9 Type 2 mike betes mellitus without complication 439958753 E11.9 A1C at goal. To continue with current medication s with routine follow-up in 6 months. Essential hypertension 52076150 I10 Blood pressures at goal (<140/90). Continue with cardizem daily (hx tachycardi a) and lisinopril at current doses with routine follow-up Chronic ki dney disease stage 3 009761072 N18.[address] Rubin Mixed hyperlipidemia 267 279916 E78.2 LDL at goal (<100). To continue with current medication s with routine follow-up. Neuropathy due to diabetes mellitus 888400584 E11.40 On top of L foot, monofilame nt is still normal, however. Will monitor. [id number] Kamar Edwards MD , [facility], OFF[address] [place] [address] 05/29/2016 13:23:08 05/29/2016 14:39:45 Viral upper respiratory tract infection 471660168 J06.9 Patient with clinical presentati on of viral upper respirator y infection. No benefit of anti-viral treatment discussed. No hemodynami c instabilit y. Supportive care with ample oral hydration and rest discussed. Advised on nasal saline irrigation use. Cough syrup prescribed . Advised to contact the clinic if no improvemen t in 3-4 days. Indication s for UC/ER use discussed. [id number] Mike Novoa MD , [facility], OFFICE [address] [place] [address] 09/07/2016 16:19:26 09/07/2016 16:57:49 Cough 79383091 R05 [id number] Benjamin Uriarte , [facility], OFFICE [address] [place] [address] 10/08/2016 13:32:12 10/08/2016 14:37:19 Type 2 diabetes mellitus without complication 693306713 E11.9 A1C at goal (<6.7). To continue with current medication s with routine follow-up in 6 months. Essential hypertension 93781392 I10 Blood pressures at goal (<140/90). Pt has been symptomati c. Continue with current medication s with routine follow-up. Mixed hyperlipidemia 267 237588 E78.2 Per the new lipid guidelines , need to change to high intensity statin; will change from pravastati n to rosuvastat in as simvastati n and atorvastat in both interact with diltiazem. Chronic ki dney disease stage 3 451836831 N18.[address] Rubin Neuropathy due to diabetes mellitus 795580002 E11.40 On top of L foot, monofilame nt is still normal, however. Will monitor. [id number] Benjamin Uriarte , [facility], OFFICE [address] [place] [address] 11/20/2016 13:56:14 11/23/2016 12:31:29 Cough 90522064 R05 - normal chest xray other than [...] HEALTHY CT - SILVER ENHANCED STANDARD (PPO) [id number] Nasir Olsen [id number] Nasir Olsen 05/29/2016 1 HEALTHYCT - BRONZE BASIC STANDARD (PPO) Nasir Olsen [id number] Nasir Olsen 09/07/2016 1 [facility] (PPO) Nasir Olsen [id number] Nasir Olsen 10/08/2016 1 [facility] (PPO) Nasir Olsen [id number] Nasir Olsen 11/20/2016 1 [facility] (PPO) Nasir Olsen [id number] Nasir Olsen Notes Date Note Type Note [...] in ability to self manage condition Benjamin Fab Uriarte [address] [place], [address], [facility] 04/14/2016 16:46:54 6 text/html Patient present to Urgent Care with cough now going on for 11 days. No congestion, but some rhinorrhea. Sore throat at the onset. Denies F/C. Reports some SOB. Went to [facility] ER on 05/24/2016. Had normal CXR, but prescribed Doxycycline for presumed bronchitis. No inhaler given. Two cats at home. Feels fatigued. Tried OTC Mucinex without significant improvement. States cough is non-productive. Kamar Edwards MD [address] [place] [address], [phone], [facility] 05/29/2016 13:55:18 7 text/html Patient complaining of [...] in May- . And gets this 1-2x/yr. iMke Novoa MD [address] [place] [address], [phone], [facility] 09/07/2016 22:31:22 7 text/html [facility] DiabetesReported bypatient.Duration:chronic [...] ability to self manage condition Benjamin Uriarte [address] [place] [address], [phone], [facility] 10/08/2016 14:36:09 7 text/html [facility] URI Flu like SymptomsReported bypatient.Duration:started 10 days [...] yellow-green, thick sputum;Wheezing Modifying factors:has tried multiple thingsNotes:Radha-Jammie siegel PA-C [address] [place] [address], [phone], [facility] 11/20/2016 15:09:48
--- OUTSIDE RECORDS SUMMARY | 2024-11-08 12:31 | XMS_ITS | Encounter Summary ---
Author Organization [facility], Address [address] [place] [address] Phone Care Team Providers Care Landscape Engineer Name Role Phone Elroy Smith MD Primary Care Provider [phone] Encounter Details Date Type Department Care Team (Late st Contact Info) Description 08/25/2023 Documentation Only [facility] [address] [place] [address] Antoinette Keller [address] [place] [phone] Social History Tobacco Use Types Packs/Day Years [...] Industry Job Start Date Job End Date [employer] Not on file Not on file Not on file documented as of this encounter Plan of Treatment Upcoming Encounters Date Type Department Care Team (Late st Contact Info) Description 03/02/2025 11:15 AM EDT Office Visit [facility] [place] [address] [place] [phone] Nestor Coreas MD [address] [place] [address] [place] [address] documented as of this encounter Visit Diagnoses Not on filedocumented in this encounter Care Teams Landscape Engineer Relationship Specialty Start Date End Date Elroy Smith MD [address] [place] [address], [address] [place] [address] PCP - General 05/09/19 documented as of this encounter
--- OUTSIDE RECORDS SUMMARY | 2024-11-08 12:31 | XMS_ITS | Encounter Summary ---
Author Organization [facility], Address [address] [place] [address] Phone Care Team Providers Care Quarrying Specialist Name Role Phone Elroy Smith MD Primary Care Provider [phone] Encounter Details Date Type Department Care Team (Late st Contact Info) Description 02/17/2023 Documentation Only [facility] [address] [place] [address] Lety Rubin MD Social History Tobacco Use Types Packs/Day Years Used Date Smoking Tobacco: Former Cigarettes 2 30 1 961 - 1987 Cigars Comments:Smokes 4 cigars a w [place] Currently Alcohol Use Standard Drinks/Week Comments Yes 35 (1 standard drink = 0.6 oz pu re alcohol) 5-6 beers a day Sex and Gender Information Value Date Recorded Sex Assigned at Not on file Legal Sex Male 4:35 PM EST Gender Identity Not on file Sexual Orientation Not on file Occupation Industry Job Start Date Job End Date [employer] Not on file Not on file Not on file documented as of this encounter Plan of Treatment Upcoming Encounters Date Type Department Care Team (Late st Contact Info) Description 03/02/2025 11:15 AM EDT [facility] [place] [address] Nestor Coreas MD [address] [place] [address] [place] [phone] documented as of this encounter Visit Diagnoses Not on filedocumented in this encounter Care Teams Quarrying Specialist Relationship Specialty Start Date End Date Elroy Smith MD [address] [place] [address], [address] [place] [address] PCP - General 05/09/19 documented as of this encounter
== END 2024-11-08 12:07 | disposition home or self-care (01) ==
LOC: HO.HCS 11:03
PROVIDERS: PCP Internal Medicine; Visit Provider Internal Medicine Cardiovascular Disease
DX: I95.1 Orthostatic hypotension (principal); I10 Essential (primary) hypertension
CPT/HCPCS: 99214

== ENCOUNTER 2024-12-23 11:27 | Inpatient (IN) | payer MEDICARE, SELFPAY ==
[2024-12-23] VITALS (15 sets, daily range): BP systolic 76–209; BP diastolic 42–105; PULSE 74–87; RESP 14–19; TEMP 36.2–36.9; O2SAT 97–100; BMI 31.7; BMI 31.8
--- NOTE | ~2024-12-23 | CT_ITS ---
CLINICAL HISTORY: fall, +head strike CT cervical spine without contrast Comparison: None provided Findings: Vertebral alignment is within normal limits. Degenerative change of the C6-C7. No acute fractures or dislocations. No acute findings on limited view of the intracranial contents. No cervical fluid collections or masses. No consolidation or effusion at the lung apices. IMPRESSION: No acute findings. This document has been electronically signed by: Zeeshan Villalobos MD on 12/23/2024 13:11:20
--- NOTE | ~2024-12-23 | CT_ITS ---
CLINICAL HISTORY: fall, +head strike CT Brain without contrast Comparison: None FINDINGS: Cortical sulci: There is diffuse prominence of the cortical sulci compatible with age-related atrophy. Ventricles: Normal for age Brain parenchyma: There is patchy lucency throughout the deep white matter indicating chronic microvascular leukomalacia. Extra axial spaces: Normal Posterior Fossa: Normal Extracranial soft tissues: Normal Additional abnormality: None IMPRESSION: Age-related atrophy with chronic microvascular leukomalacia. No hemorrhage, mass effect, or acute findings identified. This document has been electronically signed by: Zeeshan Villalobos MD on 12/23/2024 13:09:25
--- NOTE | 2024-12-23 11:28 | ED.GENADULT ---
HPI - General Adult General Chief complaint: Dizziness Stated complaint: dizzy low bp Time Seen by Provider: 12/23/24 11:53 Source: patient Mode of arrival: ambulatory Limitations: no limitations History of Present Illness ED Provider: PENNY LYNN PA-C HPI narrative: 74 year old male with pmhx significant for CKD, orthostatic hypotension, pacemaker, COPD, BPH, DM, hypertension presents to the ED for evaluation of dizziness and low blood pressures. Reports feeling very dizzy and weak upon standing and ambulating to the bathroom this morning around 0730, causing him to fall to the ground. Denies LOC however did strike his head on the bathroom floor. He reports taking midodrine every morning. He took his dose around 0800 today post fall. His reports an episode yesterday patient ambulated to the kitchen to get a drink. His heard the orange juice drop on the floor in upon entrance into the kitchen she saw patient seated in a chair unconscious with his eyes rolling back . This lasted for approximately 1-2 minutes. EMS was contacted. BP was reportedly 70s/50s. He had refused EMS transport at that time as symptoms resolved and he was feeling well. His last follow up with cardiology (Dr. Rodriguez) was on 11/08/24 without any changes to his medications. He reports contacting Dr. Rodriguez's office yesterday following his syncopal episode. He was advised to discontinue his losartan. He has not taken his dose today. He states he was just started on Mounjaro 1 month ago. His sugars have been well controlled, monitored by his doctor. Denies any N/V/D. Denies seizure history. Denies fever, chills, headache, dizziness, vision changes, chest pain, palpitations, shortness of breath, lower extremity pain. He is asymptomatic at present. Has no complaints/ concerns. Related Data Home Medications ?Medication ?Instructions ?Recorded ?Confirmed acetaminophen 325 mg tablet 650 mg PO Q6H PRN Pain 06/23/22 11/08/24 (Tylenol) aspirin 81 mg tablet,delayed 81 mg PO DAILY 06/23/22 11/08/24 release gabapentin 100 mg capsule 300 mg PO BEDTIME 07/27/22 11/08/24 glipizide 10 mg tablet 10 mg PO DAILY 01/23/23 05/07/25 rosuvastatin 20 mg tablet 20 mg PO BEDTIME 11/23/22 11/08/24 Previous Rx's ?Medication ?Instructions ?Recorded nitroglycerin 2 % transdermal 1 inch transdermal ONCE PRN 02/10/23 ointment hypertension #60 grams losartan 25 mg tablet 25 mg PO DAILY #1 tab 09/22/23 midodrine 2.5 mg tablet 2.5 mg PO DAILY #90 tabs 09/13/24 Allergies Allergy/AdvReac Type Severity Reaction Status Date / Time amlodipine AdvReac Cough Verified 12/23/24 11:35 Review of Systems Review of Systems: Constitutional: No fever, chills, fatigue, night sweats, weight changes ENT/Mouth: No ear pain, hearing loss, nasal congestion, sinus pain, rhinorrhea, sore throat Eyes: No eye pain, swelling, redness, vision changes, discharge Cardio: No chest pain, palpitations, MANN, orthopnea, peripheral edema Pulm: No SOB, cough, sputum, wheezing, dyspnea, hemoptysis GI: No nausea, vomiting, hematemesis, abdominal pain, diarrhea, constipation, hematochezia, melena : No irregular bleeding, dysuria, frequency, urgency, hesitancy, hematuria, flank pain, urinary flow changes, urinary incontinence or retention MSK: No back pain, neck pain, joint pain, myalgias Skin: No lesions, rashes Neuro: No weakness, numbness, paresthesias, LOC, dizziness, headache Psych: No anxiety/panic, depression, SI/HI, AH/VH All other systems reviewed and are negative. [facility] Past Medical History Attestation statement: The following information was validated with the patient. Source: old records reviewed, obtained from family () and nursing notes reviewed Medical History CKD (chronic kidney disease) stage 2, GFR 60-89 ml/min Orthostatic hypotension Pacemaker Sciatica COPD (chronic obstructive pulmonary disease) BPH (benign prostatic hyperplasia) Chronic back pain Vasovagal syncope Diabetes mellitus type 2 in nonobese Hyperlipidemia Orthostatic hypotension Hypertension Surgical History Hx of colonoscopy S/P surgery on nasal septum History of total left hip replacement S/P placement of cardiac pacemaker Family History Family History Father Pacemaker Social History Social History Household Members: Spouse Housing: House Do you presently have visiting nurse or other home services: Yes Alcohol intake: never Comment: refused bed alarm Patient Tobacco Use Status: Current everyday Tobacco user Tobacco use type: Cigar Years Smoked: 15 +/- Smoked in Last 30 Days: No Use of substances other than those prescribed or required for medical reasons: No Advance Directives: Yes Advance Directives on File: Yes Advance Directives Date on File: 06/25/22 Do you have a plan to hurt others: No Plan service: No Current occupational status: retired Physical Exam ED Vital Signs: Vital Signs - 24 hr 12/23/24 11:35 12/23/24 11:38 12/23/24 13:15 Temperature 97.2 F 98.5 F Pulse Rate 74 81 80 Respiratory Rate 16 19 Blood Pressure 188/78 H 195/74 H 200/105 H Pulse Oximetry 99 100 Oxygen Delivery Method Room Air Room Air 12/23/24 13:16 12/23/24 13:16 12/23/24 13:47 Temperature 97.2 F Pulse Rate 87 86 78 Respiratory Rate 16 Blood Pressure 209/99 H 176/77 H Pulse Oximetry 97 Oxygen Delivery Method Room Air 12/23/24 13:59 12/23/24 14:00 12/23/24 14:00 Temperature Pulse Rate 80 82 84 Respiratory Rate Blood Pressure 190/96 H 194/100 H 76/42 L Pulse Oximetry Oxygen Delivery Method 12/23/24 14:00 Temperature 98.1 F Pulse Rate 81 Respiratory Rate 16 Blood Pressure 184/89 H Pulse Oximetry 100 Oxygen Delivery Method Room Air BMI result Body Mass Index 31.7 hypertensive, vitals otherwise wnl General: Well appearing, in no acute distress. Skin: Warm, dry, intact. No rashes or lesions. Head: Normocephalic, atraumatic. EENT: Hearing is intact b/l. Conjunctiva clear. Sclera is anicteric. PERRLA. EOM intact. Moist mucous membranes.? No tongue bite. Neck: no midline spinous tenderness, no step off deformity Cardiac: Chest wall symmetric. RRR Lungs: Normal respiratory effort without accessory muscle use. CTA bilaterally. Abdomen: Soft, non-tender, non-distended. No rebound tenderness or guarding. Positive BS x4. Back: No midline spinous or paraspinal tenderness. No step off deformity. Ext: Upper and lower extremities atraumatic, without tenderness, deformity, swelling or erythema. no pitting edema, no calf tenderness b/l. Neuro: AOx3. Normal speech. NIH 0. Normal [id number], [id number]. Strength 5/5 intact throughout. Sensation intact to light touch. NV intact distally. Ambulating with steady gait. Psych: Appropriate mood and affect. Responds appropriately to questions. NIH Stroke Scale Internal: Initial- Upon Arrival Time: 12:14 Level of Consciousness: Alert Level of Consciousness Questions: Answers both questions correctly Level of Consciousness Commands: Performs both tasks correctly Best Gaze: Normal Visual: No visual loss Facial Palsy: Normal Motor Arm (Right): No drift Motor Arm (Left): No drift Motor Leg (Right): No drift Motor Leg (Left): No drift Limb Ataxia: Absent Sensory: Normal Best Language: No aphasia Dysarthia: Normal Extinction and Inattention: No abnormality Score: 0 Course Course Course Narrative: This is an RME: Additional HPI, ROS, PE not included below will be deferred to primary provider. RME assessment and note performed by: Cinthia Ronquillo PA-C This is a 62-tihz-ifz-male, with a hx of CKD, orthostatic hypotension, pacemaker, COPD, BPH, DM, hypertension, who presents to the ER with complaints of dizziness and low blood pressure. Reports that he was very dizzy and weak upon standing to get to the bathroom this AM, fell to the ground this AM, did not lose consciousness. Yesterday he was sitting in a chair and lost consciouness for approximately 2 minutes , BP was 70/50, ambulance came and patient refused transport. Just started on Monjaro 1 month ago[address] Spoke to Dr. Rodriguez yesterday as BP has been very low over the last several days, told to stop the losartan today - no dose today. Took midodrine today. Neurologically intact on exam. Plan: Labs, EKG, CT head/neck, further Er eval needed. Reevaluation(s) Reevaluation #1: 1240 -- Patient hypertensive on arrival, systolic in the 180s to 190s. Likely secondary to midodrine administration. He is asymptomatic. He did not take his losartan today as directed by Dr. Rodriguez. I did reach out to Dr. Maximo enrique regarding losartan administration. Advises to hold losartan all together. He has suspicion for poor autonomic issues, symptoms may be attributable to his mounjaro that he was recently started on 1 mo ago as symptoms seem to coincide. 1315 -- BP 209/99 - asymptomatic. discussed case w/ my attending dr. talavera. not recommending any intervention at this time, likely d/t midodrine. 1440 -- CBC without leukocytosis or left shift. No anemia. H&H stable. Chemistry without acute electrolyte abnormality requiring intervention. Kidney function mildly elevated with BUN 30, creatinine 1.63. Normal liver function. troponin wnl. CT head without bleed or mass. CT cervical spine without fracture subluxation > patient has remained hypertensive while at rest, systolic in the 190s. We have attempted to obtain ortho vitals, blood pressure unreadable per automatic blood pressure cuff. RN performed manual BP x3 with readings of 70s over 40s. Patient denying any symptoms on standing however fingertips appeared to become cyanotic. > discussed case with inpatient pharmacist dr. rodriguez. Advises gentle fluid resuscitation and admission to medicine. Patient and are agreeable with this. > spoke with hospitalist OMAR Harper has accepted admission. 500 cc NS ordered. Medical Decision Making Medical Decision Making [facility] Narrative: 74 year old male with pmhx significant for CKD, orthostatic hypotension, pacemaker, COPD, BPH, DM, hypertension presents to the ED for evaluation of dizziness and low blood pressures. hypertensive vitals are otherwise wnl. he is well appearing and in NAD. RRR. lungs clear. no pitting edema or calf tenderness. exam is nonfocal, cerebellum is intact. Differential diagnoses includes: anemia, electrolyte abnormality, hypoglycemia, orthostatic hypotension, dehydration, medication side effect, BPPV vs labrynthitis No red flag features for central vertigo to include gradual onset, vertical/bidirectional or nonfatigable nystagmus, focal neurologic findings on exam (including inability to ambulate). Presentation not consistent with an acute [employer] infection, vertebral basilar artery insufficiency, cerebellar hemorrhage or infarction,?intracranial mass or bleed, temporal lobe epilepsy,?MS, trauma, complex migraine headache. I have also considered ACS, arrhythmia, PE (PERC ), pneumonia, UTI. Plan: labs, ekg, head/ c spine imaging, supportive care, serial reassessment Differential Diagnosis Differential Diagnoses: The differential diagnosis associated with the presentation includes as above. Admission/Observation Consideration of admission/observation: Escalation of care including admission/observation considered Patient admitted to medicine for further management of orthostatic hypotension Consult Healthcare Provider Management of the patient was discussed with: Hospitalist (Meredith NELSON) Lab Data MDM Lab Attestation statement: I reviewed the patient's lab results. as above. 12/23/24 13:09 12/23/24 13:09 Labs: Lab Results 12/23/24 Range/Units 13:09 WBC 10.7 (4.8-10.8) X10*3/uL RBC 5.05 (4.60-5.80) X10*6/uL Hgb 15.6 (14.0-18.0) g/dl Hct 44.6 (42.0-52.0) % MCV 88.3 (80.0-98.0) fL MCH 30.9 (27.0-33.0) pg MCHC 35.0 (31.0-36.0) g/dl RDW 13.0 (11.0-16.0) % Plt Count 173 (160-400) X10*3/uL MPV 10.1 (9.4-12.4) fL Immature Gran % (Auto) 0.3 (0.0-0.4) % Neut % (Auto) 76.5 H (45-73) % Lymph % (Auto) 13.3 L (20-40) % [place] % (Auto) 5.8 (2-11) % Eos % (Auto) 3.6 (0-4) % Baso % (Auto) 0.5 (0-2) % Lymph # (Auto) 1.4 (1.2-4.9) X10*3/uL [place] # (Auto) 0.6 (0.1-1.2) X10*3/uL Eos # (Auto) 0.4 (0.0-0.4) X10*3/uL Baso # (Auto) 0.1 (0.0-0.2) X10*3/uL Abs Immat Gran (auto) 0.03 (0.00-0.03) X10*3/uL Absolute Neuts (auto) 8.2 (2.0-8.3) x10*3/uL Absolute Nucleated RBC 0.000 (0.0-0.012) X10*3/uL Nucleated RBC % (auto) 0.0 (0.0-0.2) /100WBC Sodium 140 (135-145) mmol/L Potassium 4.7 D (3.3-5.1) mmol/L Chloride 105 (96-108) mmol/L Carbon Dioxide 27 (22-29) mmol/L Anion Gap 13 (12-20) BUN 30 H (9-16) mg/dL Creatinine 1.63 H (0.5-1.4) mg/dL Estim Creat Clear Calc 53.0 Estimated GFR 42 Random Glucose 102 (60-115) mg/dL Calcium 9.6 (8.4-10.2) mg/dL Magnesium 2.3 (1.6-2.6) mg/dL Total Bilirubin 0.6 (0.0-1.0) mg/dL Direct Bilirubin 0.3 (0.0-0.5) mg/dL AST 26 (5-37) U/L ALT 28 (0-40) U/L Alkaline Phosphatase 59 (39-117) U/L Troponin I High Sens 3.4 D (<3.5-35.0) ng/L Total Protein 8.0 (6.5-8.0) g/dL Albumin 4.7 (3.5-5.0) g/dL Independent Interpretation I performed an independent interpretation of an: EKG and CT Scan Interpretation: CT head/brain without bleed or mass CT cervical spine without fracture subluxation ekg showing atrial paced rhythm w/ prologed av conduction Radiology Impression Discussion of test interpretation with radiology: I have reviewed the radiologist's reading. Radiologist Impression: Date of Service: 12/23/24 Procedure(s): ECG 12 lead EKG Accession Number(s): [id number] cc: ~ Test Reason : DIZZINESS Blood Pressure : */* mmHG Vent. Rate : 81 BPM Atrial Rate : 81 BPM P-R Int : 212 ms QRS Dur : 114 ms QT Int : 372 ms P-R-T Axes : 91 -13 78 degrees QTcB Int : 432 ms Atrial-paced rhythm with prolonged AV conduction with occasional Premature ventricular complexes Incomplete right bundle branch block Nonspecific T wave abnormality Abnormal ECG When compared with ECG of 03-Dec-2023 14:24, Electronic atrial pacemaker has replaced Electronic ventricular pacemaker Referred By: Cinthia Ronquillo Electronically Signed By: Procedure(s): CT cervical spine wo IV con Accession Number(s): [id number] cc: MONICA NAJERA MD; Cinthia Eng~ Report Number: [id number]: Total DLP = 1182.00 mGy-cm CLINICAL HISTORY: fall, +head strike CT cervical spine without contrast Comparison: None provided Findings: Vertebral alignment is within normal limits. Degenerative change of the C6-C7. No acute fractures or dislocations. No acute findings on limited view of the intracranial contents. No cervical fluid collections or masses. No consolidation or effusion at the lung apices. IMPRESSION: No acute findings. This document has been electronically signed by: Zeeshan Villalobos MD on 12/23/2024 13:11:20 Date of Service: 12/23/24 Procedure(s): CT head/brain wo IV con Accession Number(s): [id number] cc: MONICA NAJERA MD; Cinthia Eng~ Report Number: [id number]: Total DLP = 0.00 mGy-cm CLINICAL HISTORY: fall, +head strike CT Brain without contrast Comparison: None FINDINGS: Cortical sulci: There is diffuse prominence of the cortical sulci compatible with age-related atrophy. Ventricles: Normal for age Brain parenchyma: There is patchy lucency throughout the deep white matter indicating chronic microvascular leukomalacia. Extra axial spaces: Normal Posterior Fossa: Normal Extracranial soft tissues: Normal Additional abnormality: None IMPRESSION: Age-related atrophy with chronic microvascular leukomalacia. No hemorrhage, mass effect, or acute findings identified. This document has been electronically signed by: Zeeshan Villalobos MD on 12/23/2024 13:09:25 Independent Historian Clinical information obtained from an independent historian. History obtained from or confirmed by: Spouse () External Record Review External record reviewed: Inpatient record, Office record, Outpatient record, Prior outpatient labs and Prior outpatient radiology Chronic Conditions Patient?s care impacted by: Hypertension and Other (Orthostatic hypotension) Social Determinants Patient?s care significantly limited by Social Determinants of Health including: Other Social Determinant of Health Critical Care Time Critical Care Time Critical Care Time: Yes Total Critical Care Time: 40 Attestation: Critical care time in the amount of 40 minutes has been provided to the patient in terms of direct patient care, frequent reevaluation, consultation with inpatient pharmacist and hospitalist, review and interpretation of medical data and results, and management of potentially life-threatening conditions. This is all outside of any medical procedures. Discharge Plan Discharge Clinical Impression: Orthostatic hypotension Patient Disposition: Admitted As Inpatient
--- NOTE | 2024-12-23 11:37 | ECG_ITS ---
Test Reason : DIZZINESS Blood Pressure : */* mmHG Vent. Rate : 81 BPM Atrial Rate : 81 BPM P-R Int : 212 ms QRS Dur : 114 ms QT Int : 372 ms P-R-T Axes : 91 -13 78 degrees QTcB Int : 432 ms Atrial-paced rhythm with prolonged AV conduction with occasional Premature ventricular complexes Poor data quality When compared with ECG of 03-Dec-2023 14:24, Poor data quality in current ECG precludes serial comparison Referred By: Cinthia Ronquillo Electronically Signed By: Louis Meade
--- NOTE | 2024-12-23 12:04 | PC.NURSE ---
Orthostatic vs attempted; BP supine 210/105, standing 201/100, standing BP cuff failed to measure a BP 4 times on both arms; pt denied dizziness upon standing; manual BP unavailable in area; when one was located, pt was again supine for an EKG; monitor BP read 148/79; manual bp 210/100; unable to obtain a real-time standing BP; will reattempt later; provider made aware
--- NOTE | 2024-12-23 12:07 | PC.NURSE ---
Pt's states that pt fell in the BR this morning attempting to go to the BR; pt/ unsure if pt struck head; denies LOC; no visual head injuries observed at this time
[2024-12-23 13:11] LABS: MANUAL DIFF FLAG NO
[2024-12-23 13:13] LABS: Basophils Absolute Auto 0.1 X10*3/uL (0.0-0.2); Basophils Percent Auto 0.5 % (0-2); Eosinophils Absolute Auto 0.4 X10*3/uL (0.0-0.4); Eosinophils Percent Auto 3.6 % (0-4); Hematocrit 44.6 % (42.0-52.0); Hemoglobin 15.6 g/dl (14.0-18.0); Imm Gran Abs Auto 0.03 X10*3/uL (0.00-0.03); Imm Gran Pct Auto 0.3 % (0.0-0.4); Lymphocytes Absolute Auto 1.4 X10*3/uL (1.2-4.9); Lymphocytes Percent Auto 13.3 % (20-40); Mean Corpuscular Hemoglobin 30.9 pg (27.0-33.0); Mean Corpuscular Volume 88.3 fL (80.0-98.0); Mean Platelet Volume 10.1 fL (9.4-12.4); Monocytes Absolute Auto 0.6 X10*3/uL (0.1-1.2); Monocytes Percent Auto 5.8 % (2-11); Neutrophils Absolute Auto 8.2 x10*3/uL (2.0-8.3); Neutrophils Percent Auto 76.5 % (45-73); Platelet Count 173 X10*3/uL (160-400); Red Blood Count 5.05 X10*6/uL (4.60-5.80); White Blood Count 10.7 X10*3/uL (4.8-10.8)
[2024-12-23 13:30] LABS: Alanine Aminotransferase 28 U/L (0-40); Albumin Level 4.7 g/dL (3.5-5.0); Alkaline Phosphatase 59 U/L (39-117); Anion Gap 13 (12-20); Aspartate Amino Transferase 26 U/L (5-37); Bilirubin Direct 0.3 mg/dL (0.0-0.5); Bilirubin Total 0.6 mg/dL (0.0-1.0); Blood Urea Nitrogen 30 mg/dL (9-16); Calcium 9.6 mg/dL (8.4-10.2); Carbon Dioxide 27 mmol/L (22-29); Chloride 105 mmol/L (96-108); Estimated Glomerular Filt Rate 42; Glucose Random 102 mg/dL (60-115); Magnesium 2.3 mg/dL (1.6-2.6); Potassium 4.7 mmol/L (3.3-5.1); Sodium 140 mmol/L (135-145)
[2024-12-23 13:37] LABS: Troponin-I High Sensitivity 3.4 ng/L (<3.5-35.0)
--- NOTE | 2024-12-23 14:15 | PC.NURSE ---
Pt's ortho BP's performed manually by this RN; (see flowsheet); pt's BPs were easily auscultated/loud when supine and sitting upright; when pt stood, BP was silent and needed to be repeated 3 times; stethescope in proper placement; final BP 76/42; pt states he felt no dizziness; HR remained stable; pt's nail beds became pale and faintly cyanotic on returning to sitting position; pt's states when [facility] nurses were at their house and performed ortho bp's, similar outcome happened with extremely low standing BP's; provider made aware
--- NOTE | 2024-12-23 15:06 | P.HPHOSP_ITS ---
History of Present Illness Date of Service: 12/23/24 Attending physician on admission: Shayan Huntley Chief Complaint: Dizziness Nasir Olsen is a 74 years old man with past medical history significant for orthostatic hypotension currently on midodrine 2.5 mg p.o. daily, CKD stage 3A, essential hypertension on losartan, HFpEF, type 2 diabetes mellitus on Mounjaro injections (started it 1 month ago), diabetic neuropathy and hyperlipidemia presents to the emergency department after he had an event of hypotension while ambulating to the bathroom yesterday. He has been feeling dizzy. During this event the patient became unresponsive for about 2 minutes and was witnessed by patient's . He did strike his head. He did not report any headache, chest pain, shortness on breath, cough, fever or chills. He also denied abdominal pain, nausea, vomiting or diarrhea. He is not currently taking fludrocortisone which he was taking in the past. He smokes cigars. He denied alcohol abuse or illicit drug use. He does not take diuretics. He hold his losartan yesterday as per cardiology recommendation. TTE June 2022 - hyperdynamic systolic function EF 70% with grade 1 diastolic dysfunction. No significant valve disease. In the ED, orthostatic vital signs are positive: Supine 190/96, sitting 194/100 and 76/42 standing. Other vital signs are normal. Blood workup showed normal CBC. There are no electrolyte imbalances. BUN is 30 and creatinine is 1.63 (around baseline). Glucose 102. LFTs are normal. Troponin is 3.4, total protein 8.0 albumin 4.7. Head and C-spine CT scan unremarkable. ECG (artifact) atrial paced rhythm, heart rate 81 bpm. ED tx: NS 500 mL bolus x1. Review of Systems 2 Review of Systems: All 12 systems were reviewed and normal except as noted in HPI. [facility] Medical History CKD (chronic kidney disease) stage 2, GFR 60-89 ml/min Orthostatic hypotension Pacemaker Sciatica COPD (chronic obstructive pulmonary disease) BPH (benign prostatic hyperplasia) Chronic back pain Vasovagal syncope Diabetes mellitus type 2 in nonobese Hyperlipidemia Orthostatic hypotension Hypertension Family History Father Pacemaker Surgical History Hx of colonoscopy S/P surgery on nasal septum History of total left hip replacement S/P placement of cardiac pacemaker Social History Household Members: Spouse Housing: House Do you presently have visiting nurse or other home services: No Alcohol intake: never Comment: refused bed alarm Patient Tobacco Use Status: Former Tobacco user Tobacco use type: Cigar Years Smoked: 15 +/- Smoked in Last 30 Days: No Use of substances other than those prescribed or required for medical reasons: No Currently Displaying Signs/Symptoms of Drug Intoxication Withdrawal: No Have you been hit, kicked, punched, or otherwise hurt by someone within the past year? If so, by whom?: No Do you feel safe in your current relationship?: Yes Is there a partner from a previous relationship who is making you feel unsafe now?: No Are you made to feel afraid or neglected: No Advance Directives: Yes Advance Directives on File: Yes Advance Directives Date on File: 06/25/22 Do you have a plan to hurt others: No Plan Recently lost weight without trying: No How much weight loss: Not applicable Eating poorly because of decreased appetite: No Nutrition screen score: 0 Nutrition Risks: No Nutritional Risk Poor oral hygiene: No service: No Current occupational status: retired Meds Allergies Allergy/AdvReac Type Severity Reaction Status Date / Time amlodipine AdvReac Cough Verified 12/23/24 11:35 Active Medications: Current Medications Acetaminophen (Acetaminophen 325 Mg Tablet) 975 mg PO Q6H PRN PRN Reason: Pain, Mild 1-3,fever,headache Dextrose (Dextrose 50 % 25 Gm/50 Ml Syringe) 25 gm IVPUSH Q15M PRN; Protocol PRN Reason: per Hypoglycemia Standing Ord. Enoxaparin Sodium (Enoxaparin Sodium 40 Mg/0.4 Ml Syringe) 40 mg SUBCUT Q24H [facility]ASIA Glucose (Glucose Gel 15 Gm Gel..Gram.) 15 gm PO Q15M PRN; Protocol PRN Reason: per Hypoglycemia Standing Ord. Sodium Chloride (Ns) 500 mls @ 500 mls/hr IV .Q1H TASIA Stop: 12/23/24 15:29 Insulin Human Lispro (Insulin Lispro 100 Unit/Ml 3 Ml Vial) 0 unit SUBCUT QIDACHS [facility]; Protocol Melatonin (Melatonin 3 Mg Tablet) 6 mg PO BEDTIME PRN PRN Reason: Insomnia Sodium Chloride (0.9 % Sodium Chloride Flush 3 Ml Syringe) 3 ml IVFLUSH QSHIFT [facility] Home Medications ?Medication ?Instructions ?Recorded ?Confirmed ?Last Taken ?Type acetaminophen 325 mg tablet 650 mg PO Q6H PRN Pain 12/23/24 Unknown History (Tylenol) aspirin 81 mg tablet,delayed 81 mg PO DAILY 06/23/22 0 12/23/24 12/23/24 History release rosuvastatin 20 mg tablet 20 mg PO BEDTIME 11/23/22 Unknown History gabapentin 300 mg capsule 300 mg PO TID 12/23/2412/2312/23/24 History tirzepatide 2.5 mg/0.5 mL 2.5 mg subcut WE 12/23/2412/20/24 History subcutaneous pen injector (Bhaskar) Physical Exam 2 Vital Signs and Narrative: Vital Signs: Last Vital Signs Temp 98.1 F 12/23/24 14:00 Pulse 81 12/23/24 14:00 Resp 16 12/23/24 14:00 BP 184/89 H 12/23/24 14:00 Pulse Ox 100 12/23/24 14:00 O2 Del Method Room Air 12/23/24 14:00 BMI result Body Mass Index 31.7 Constitutional - Awake and Alert, No apparent distress. Pleasant. Cooperative. HEENT - PER, EOMI Heart - RRR, No murmurs Lungs - Normal lung expansion, Normal respiratory effort, No respiratory distress, CTA bilaterally Abdomen - NT / ND; +BS; No rebound or guarding Extremities - no calf tenderness bilaterally, no swelling Musculoskeletal - Normal inspection, normal ROM Skin - Warm/Dry Neurological - Alert & oriented x3. No obvious facial droop. Moving all extremities spontaneously. Normal speech. Psychological - Appropriate affect Results Labs 12/24/24 06:59 12/24/24 06:59 Labs: Laboratory Results - last 24 hr 12/23/24 13:09 MCV 88.3 MCH 30.9 MCHC 35.0 RDW 13.0 Plt Count 173 MPV 10.1 Immature Gran % (Auto) 0.3 Neut % (Auto) 76.5 H Lymph % (Auto) 13.3 L [place] % (Auto) 5.8 Eos % (Auto) 3.6 Baso % (Auto) 0.5 Lymph # (Auto) 1.4 [place] # (Auto) 0.6 Eos # (Auto) 0.4 Baso # (Auto) 0.1 Abs Immat Gran (auto) 0.03 Absolute Neuts (auto) 8.2 Absolute Nucleated RBC 0.000 Nucleated RBC % (auto) 0.0 Anion Gap 13 Estim Creat Clear Calc 53.0 Estimated GFR 42 Random Glucose 102 Calcium 9.6 Magnesium 2.3 Total Bilirubin 0.6 Direct Bilirubin 0.3 AST 26 ALT 28 Alkaline Phosphatase 59 Troponin I High Sens 3.4 D Total Protein 8.0 Albumin 4.7 Assessment and Plan (1) Orthostatic hypotension: Status: Acute (2) Hypertension: Qualifiers: Hypertension type: primary hypertension Qualified Code(s): I10 - Essential (primary) hypertension Status: Acute Plan Nasir Olsen is a 74 y/o man admitted with: * Orthostatic hypotension. Admit to hospitalist service. Telemetry. Orthostatic vital signs Q shift and notify provider. Status post NS 500 mL x1. Midodrine 5 mg p.o. now then TID. Check cortisol. Start fludrocortisone 0.5 mg p.o. daily, 1st dose now. Encourage oral hydration. Fall precautions (pt and educated). * Essential hypertension. Losartan on hold due to above. Continue to monitor blood pressure. * Hyperlipidemia. Continue statin. * Diabetic neuropathy. Continue gabapentin. * Type 2 diabetes mellitus. On Mounjaro injections every Wednesday. BG checks before meals at bedtime. Diabetic diet. Insulin sliding scale. * HFpEF. No acute symptoms. * CKD stage 3A. Stable renal function. Avoid nephrotoxic agents. Continue to monitor. * Permanent pacemaker. Atrial-paced rhythm. DVT prophylaxis: Lovenox Code status: Full Patient will need hospitalization for at least 2 midnights for orthostatic hypotension management and treatment with IV fluids, midodrine, fludrocortisone and close monitoring of vital signs. Quality Stroke Does the patient have a stroke diagnosis?: No VTE Prior VTE?: No VTE Risk Level:: Medical - moderate - high VTE Device Contraindication: Treatment Not Indicated VTE Drug Contraindication: N/A - Med Ordered
--- NOTE | 2024-12-23 15:13 | PHA.MEDREC ---
Addendum entered by Brenda Gerard [facility] 12/23/24 15:29: reviewed Original Note: Pharmacy Consult ? Medication Reconciliation Pharmacy has completed the medication reconciliation. Spoke with patient to confirm medications. He is no longer taking losartan, his doctor discontinued it yesterday. He is no longer on glipizide, he was switched to Mounjaro a few weeks ago. He is currently on the 2.5 mg every Wednesday. He took gabapentin, baby aspirin, and midodrine this morning.
[2024-12-23] MEDS: Midodrine HCl 5 MG TABLET PO (15:42)
[2024-12-23] MEDS: 0.9 % Sodium Chloride 500 ML IV (15:42)
[2024-12-23] MEDS: Fludrocortisone Acetate 0.1 MG TABLET PO (15:42)
[2024-12-23 15:53] LABS: Cortisol Random 15.4 ug/dL
--- NOTE | 2024-12-23 17:03 | PC.NURSE ---
Pt tolerating PO fluids; declines more than crackers at this time; pt denies pain/dizziness at rest; SR per tele 70's
[2024-12-23 17:23] LABS: Glucose, Whole Blood 99 mg/dL (60-115)
[2024-12-23 20:51] LABS: Glucose, Whole Blood 188 mg/dL (60-115)
[2024-12-23] MEDS: Gabapentin 300 MG CAPSULE PO (22:09)
[2024-12-23] MEDS: Atorvastatin Calcium 80 MG TABLET PO (22:09)
[2024-12-23 22:24] LABS: Glucose, Whole Blood 146 mg/dL (60-115)
[2024-12-24] VITALS (10 sets, daily range): BP systolic 70–195; BP diastolic 50–81; PULSE 71–89; RESP 16–18; TEMP 36.1–37.2; O2SAT 94–100
[2024-12-24 07:30] LABS: MANUAL DIFF FLAG NO
[2024-12-24 07:35] LABS: Basophils Percent Auto 0.4 % (0-2); Eosinophils Absolute Auto 0.5 X10*3/uL (0.0-0.4); Eosinophils Percent Auto 5.8 % (0-4); Hematocrit 42.1 % (42.0-52.0); Hemoglobin 14.4 g/dl (14.0-18.0); Imm Gran Abs Auto 0.02 X10*3/uL (0.00-0.03); Imm Gran Pct Auto 0.3 % (0.0-0.4); Lymphocytes Absolute Auto 1.7 X10*3/uL (1.2-4.9); Lymphocytes Percent Auto 20.9 % (20-40); Mean Corpuscular HGB Conc 34.2 g/dl (31.0-36.0); Mean Corpuscular Hemoglobin 30.4 pg (27.0-33.0); Mean Corpuscular Volume 88.8 fL (80.0-98.0); Mean Platelet Volume 9.9 fL (9.4-12.4); Monocytes Absolute Auto 0.6 X10*3/uL (0.1-1.2); Monocytes Percent Auto 7.7 % (2-11); Neutrophils Absolute Auto 5.1 x10*3/uL (2.0-8.3); Neutrophils Percent Auto 64.9 % (45-73); Platelet Count 168 X10*3/uL (160-400); Red Blood Count 4.74 X10*6/uL (4.60-5.80); White Blood Count 7.9 X10*3/uL (4.8-10.8)
[2024-12-24 07:42] LABS: Glucose, Whole Blood 107 mg/dL (60-115)
[2024-12-24 07:47] LABS: Anion Gap 11 (12-20); Blood Urea Nitrogen 30 mg/dL (9-16); Calcium 9.5 mg/dL (8.4-10.2); Carbon Dioxide 29 mmol/L (22-29); Chloride 110 mmol/L (96-108); Creatinine Clr Calc Pharmacy 63.6; Estimated Glomerular Filt Rate 52; Glucose Random 109 mg/dL (60-115); Potassium 4.6 mmol/L (3.3-5.1); Sodium 145 mmol/L (135-145)
[2024-12-24] MEDS: Enoxaparin Sodium 40 MG/0.4 ML SYRINGE SUBCUT (09:08)
[2024-12-24] MEDS: Fludrocortisone Acetate 0.1 MG TABLET PO (09:09)
[2024-12-24] MEDS: Gabapentin 300 MG CAPSULE PO ×3 (09:09→21:32)
[2024-12-24] MEDS: Aspirin Enteric Coated 81 MG TABLET.DR PO (09:09)
[2024-12-24] MEDS: Midodrine HCl 5 MG TABLET PO (09:09)
[2024-12-24] MEDS: 0.9 % Sodium Chloride Flush 3 ML SYRINGE IVFLUSH ×3 (09:12→21:36)
--- NOTE | 2024-12-24 09:12 | MHC.CM.PN ---
Pt lives with his , Ruthy, she is HCP, copy is in chart. PCP confirmed: Elroy Smith. Pt. does not have home health services, or use DME. He can arrange a ride home at [place], DCP: home, self care. CM to follow for DC needs.
[2024-12-24 11:33] LABS: Glucose, Whole Blood 126 mg/dL (60-115)
--- NOTE | 2024-12-24 12:06 | P.CONCA_ITS ---
History of Present Illness History of Present Illness Date of Service: 12/24/24 Requesting physician: Byron Chapin Chief complaint: Orthostatic Hypotension Narrative: [age] year gentleman with orthostatic hypertension and diabetes here for syncope. He has known history of orthostasis for long time and has been managed with midodrine. It has been quite difficult to control his blood pressure because with midodrine his blood pressures go up significantly also along with orthostasis. He was getting low-dose losartan to control the blood pressure and was doing fine for many months. Recently started taking it his appetite for diabetes. He is saying that this has helped his sugar control and he has not been eating as much as he was before. We received a message from his that he has been feeling dizzy and we advised him to stop the losartan but it appears he had syncopal episode and came to the emergency department. In the ER initially blood pressure was very elevated but he was also significantly orthostatic. No chest discomfort or any other complaints. No recent infections. [facility] Past Medical History Medical History CKD (chronic kidney disease) stage 2, GFR 60-89 ml/min Orthostatic hypotension Pacemaker Sciatica COPD (chronic obstructive pulmonary disease) BPH (benign prostatic hyperplasia) Chronic back pain Vasovagal syncope Diabetes mellitus type 2 in nonobese Hyperlipidemia Orthostatic hypotension Hypertension Family History Family History Father Pacemaker Surgical History Surgical History Hx of colonoscopy S/P surgery on nasal septum History of total left hip replacement S/P placement of cardiac pacemaker Social History Social History Household Members: Spouse Housing: House Do you presently have visiting nurse or other home services: No Alcohol intake: never Comment: refused bed alarm Patient Tobacco Use Status: Former Tobacco user Tobacco use type: Cigar Years Smoked: 15 +/- Smoked in Last 30 Days: No Use of substances other than those prescribed or required for medical reasons: No Currently Displaying Signs/Symptoms of Drug Intoxication Withdrawal: No Have you been hit, kicked, punched, or otherwise hurt by someone within the past year? If so, by whom?: No Do you feel safe in your current relationship?: Yes Is there a partner from a previous relationship who is making you feel unsafe now?: No Are you made to feel afraid or neglected: No Advance Directives: Yes Advance Directives on File: Yes Advance Directives Date on File: 06/25/22 Do you have a plan to hurt others: No Plan Recently lost weight without trying: No How much weight loss: Not applicable Eating poorly because of decreased appetite: No Nutrition screen score: 0 Nutrition Risks: No Nutritional Risk Poor oral hygiene: No service: No Current occupational status: retired Meds Allergies Allergy/AdvReac Type Severity Reaction Status Date / Time amlodipine AdvReac Cough Verified 12/23/24 11:35 Active Medications: Current Medications Acetaminophen (Acetaminophen 325 Mg Tablet) 975 mg PO Q6H PRN PRN Reason: Pain, Mild 1-3,fever,headache Aspirin (Aspirin Enteric Coated 81 Mg Tablet.) 81 mg PO DAILY [facility] Last Admin: 12/24/24 09:09 Dose: 81 mg Atorvastatin Calcium (Atorvastatin Calcium 80 Mg Tablet) 80 mg PO BEDTIME [facility] Last Admin: 12/23/24 22:09 Dose: 80 mg Dextrose (Dextrose 50 % 25 Gm/50 Ml Syringe) 25 gm IVPUSH Q15M PRN; Protocol PRN Reason: per Hypoglycemia Standing Ord. Enoxaparin Sodium (Enoxaparin Sodium 40 Mg/0.4 Ml Syringe) 40 mg SUBCUT Q24H [facility] Last Admin: 12/24/24 09:08 Dose: 40 mg Fludrocortisone Acetate (Fludrocortisone Acetate 0.1 Mg Tablet) 0.1 mg PO DAILY [facility] Last Admin: 12/24/24 09:09 Dose: 0.1 mg Gabapentin (Gabapentin 300 Mg Capsule) 300 mg PO TID [facility] Last Admin: 12/24/24 09:09 Dose: 300 mg Glucose (Glucose Gel 15 Gm Gel..Gram.) 15 gm PO Q15M PRN; Protocol PRN Reason: per Hypoglycemia Standing Ord. Insulin Human Lispro (Insulin Lispro 100 Unit/Ml 3 Ml Vial) 0 unit SUBCUT QIDACHS [facility]; Protocol Last Admin: 12/24/24 11:58 Dose: Not Given Melatonin (Melatonin 3 Mg Tablet) 6 mg PO BEDTIME PRN PRN Reason: Insomnia Midodrine (Midodrine Hcl 5 Mg Tablet) 5 mg PO TID [facility] Last Admin: 12/24/24 09:09 Dose: 5 mg Sodium Chloride (0.9 % Sodium Chloride Flush 3 Ml Syringe) 3 ml IVFLUSH QSHIFT [facility] Last Admin: 12/24/24 09:12 Dose: 3 ml Home Medications ?Medication ?Instructions ?Recorded ?Confirmed ?Last Taken ?Type acetaminophen 325 mg tablet 650 mg PO Q6H PRN Pain 12/23/24 Unknown History (Tylenol) aspirin 81 mg tablet,delayed 81 mg PO DAILY 06/23/22 0 12/23/24 12/23/24 History release rosuvastatin 20 mg tablet 20 mg PO BEDTIME 11/23/22 Unknown History gabapentin 300 mg capsule 300 mg PO TID 12/23/2412/2312/23/24 History tirzepatide 2.5 mg/0.5 mL 2.5 mg subcut WE 12/23/2412/20/24 History subcutaneous pen injector (Bhaskar) Physical Exam 2 Vital Signs: Vital Signs: Last Vital Signs Temp 97.1 F 12/24/24 08:00 Pulse 72 12/24/24 08:00 Resp 18 12/24/24 08:00 BP 134/74 12/24/24 09:09 Pulse Ox 98 12/24/24 08:00 O2 Del Method Room Air 12/24/24 08:00 O2 Flow Rate 94 12/24/24 03:50 BMI result Body Mass Index 31.8 GENERAL APPEARANCE: in no acute distress, pleasant. NECK: no carotid bruit, no jugular venous distention. SKIN: no suspicious lesions, warm and dry. HEART: no murmurs, regular rate and rhythm. LUNGS: clear to auscultation bilaterally. ABDOMEN: soft, nontender. EXTREMITIES: no edema. PERIPHERAL PULSES: equal. NEUROLOGIC: No gross deficits, AAO X 3 Objective Labs and Meds 12/24/24 06:59 12/24/24 06:59 Lab results: Laboratory Results - last 24 hr 12/23/24 12/23/24 12/23/24 13:09 17:19 20:48 WBC 10.7 RBC 5.05 Hgb 15.6 Hct 44.6 MCV 88.3 MCH 30.9 MCHC 35.0 RDW 13.0 Plt Count 173 MPV 10.1 Immature Gran % (Auto) 0.3 Neut % (Auto) 76.5 H Lymph % (Auto) 13.3 L [place] % (Auto) 5.8 Eos % (Auto) 3.6 Baso % (Auto) 0.5 Lymph # (Auto) 1.4 [place] # (Auto) 0.6 Eos # (Auto) 0.4 Baso # (Auto) 0.1 Abs Immat Gran (auto) 0.03 Absolute Neuts (auto) 8.2 Absolute Nucleated RBC 0.000 Nucleated RBC % (auto) 0.0 Sodium 140 Potassium 4.7 D Chloride 105 Carbon Dioxide 27 Anion Gap 13 BUN 30 H Creatinine 1.63 H Estim Creat Clear Calc 53.0 Estimated GFR 42 POC Glucose 99 188 H Random Glucose 102 Calcium 9.6 Magnesium 2.3 Total Bilirubin 0.6 Direct Bilirubin 0.3 AST 26 ALT 28 Alkaline Phosphatase 59 Troponin I High Sens 3.4 D Total Protein 8.0 Albumin 4.7 Random Cortisol 15.4 12/23/24 12/24/24 12/24/24 22:14 06:59 07:32 WBC 7.9 RBC 4.74 Hgb 14.4 Hct 42.1 MCV 88.8 MCH 30.4 MCHC 34.2 RDW 13.0 Plt Count 168 MPV 9.9 Immature Gran % (Auto) 0.3 Neut % (Auto) 64.9 Lymph % (Auto) 20.9 [place] % (Auto) 7.7 Eos % (Auto) 5.8 H Baso % (Auto) 0.4 Lymph # (Auto) 1.7 [place] # (Auto) 0.6 Eos # (Auto) 0.5 H Baso # (Auto) 0.0 Abs Immat Gran (auto) 0.02 Absolute Neuts (auto) 5.1 Absolute Nucleated RBC 0.000 Nucleated RBC % (auto) 0.0 Sodium 145 Potassium 4.6 Chloride 110 H Carbon Dioxide 29 Anion Gap 11 L BUN 30 H Creatinine 1.36 Estim Creat Clear Calc 63.6 Estimated GFR 52 POC Glucose 146 H 107 Random Glucose 109 Calcium 9.5 Magnesium Total Bilirubin Direct Bilirubin AST ALT Alkaline Phosphatase Troponin I High Sens Total Protein Albumin Random Cortisol 12/24/24 11:23 WBC RBC Hgb Hct MCV MCH MCHC RDW Plt Count MPV Immature Gran % (Auto) Neut % (Auto) Lymph % (Auto) [place] % (Auto) Eos % (Auto) Baso % (Auto) Lymph # (Auto) [place] # (Auto) Eos # (Auto) Baso # (Auto) Abs Immat Gran (auto) Absolute Neuts (auto) Absolute Nucleated RBC Nucleated RBC % (auto) Sodium Potassium Chloride Carbon Dioxide Anion Gap BUN Creatinine Estim Creat Clear Calc Estimated GFR POC Glucose 126 H Random Glucose Calcium Magnesium Total Bilirubin Direct Bilirubin AST ALT Alkaline Phosphatase Troponin I High Sens Total Protein Albumin Random Cortisol Assessment and Plan (1) Orthostatic hypotension: Status: Acute (2) Hypertension: Qualifiers: Hypertension type: primary hypertension Qualified Code(s): I10 - Essential (primary) hypertension Status: Acute Plan [age] year gentleman with longstanding history of orthostatic hypotension. He also has significant hypertension when he is laying down and was on losartan and was doing fine for many months. He has presented with syncope. He is significantly orthostatic. Stop the losartan. Continue midodrine. He was previously taking midodrine only in the morning. He has been started on t.i.d. dosing and I think it is okay for now. Gentle hydration and encourage oral intake. He has not tolerated fludrocortisone in the past and had significant hypokalemia. I think fludrocortisone should be discontinued. Check daily orthostatics. We will follow along with you. Thank you for allowing me to participate in the care of your patient. Please feel free to contact me if you have any questions. Procedures Date of Service Date of Service: 12/24/24
[2024-12-24 16:32] LABS: Glucose, Whole Blood 130 mg/dL (60-115)
--- NOTE | 2024-12-24 17:13 | P.PNIM_ITS ---
Subjective Subjective Date of Service: 12/24/24 Interval History: Reports feels well when lying down Lightheadedness and dizziness when standing Continued difficulty walking due to dizziness Denies chest pain/pressure, palpitations No SOB or difficulty breathing Denies lower extremity swelling No fever or chills Review of Systems Negative except for that which is stated in the [facility] Physical Exam 2 Vital Signs: Vital Signs: Last Vital Signs Temp 98.0 F 12/24/24 15:53 Pulse 88 12/24/24 15:53 Resp 18 12/24/24 15:53 BP 179/77 H 12/24/24 16:10 Pulse Ox 98 12/24/24 12:00 O2 Del Method Nasal Cannula 12/24/24 15:53 O2 Flow Rate 2 12/24/24 15:53 BMI result Body Mass Index 31.8 General: AOx3, no acute distress Resp: CTA bilaterally CVS: S1, S2, RRR GI: +BS, NT, no distention Skin: Warm, dry Neuro: Cranial nerves II-XII grossly intact bilaterally. Motor grossly intact bilaterally. No focal deficits noted. Extremities: No edema Psych: Appropriate affect Objective Data Active Medications Acetaminophen (Acetaminophen 325 Mg Tablet) 975 mg PO Q6H PRN PRN Reason: Pain, Mild 1-3,fever,headache Aspirin (Aspirin Enteric Coated 81 Mg Tablet.) 81 mg PO DAILY [facility] Last Admin: 12/24/24 09:09 Dose: 81 mg Documented By: SHERRY Atorvastatin Calcium (Atorvastatin Calcium 80 Mg Tablet) 80 mg PO BEDTIME [facility] Last Admin: 12/23/24 22:09 Dose: 80 mg Documented By: JESSIE Dextrose (Dextrose 50 % 25 Gm/50 Ml Syringe) 25 gm IVPUSH Q15M PRN; Protocol PRN Reason: per Hypoglycemia Standing Ord. Enoxaparin Sodium (Enoxaparin Sodium 40 Mg/0.4 Ml Syringe) 40 mg SUBCUT Q24H [facility] Last Admin: 12/24/24 09:08 Dose: 40 mg Documented By: SHERRY Gabapentin (Gabapentin 300 Mg Capsule) 300 mg PO TID [facility] Last Admin: 12/24/24 16:13 Dose: 300 mg Documented By: SHERRY Glucose (Glucose Gel 15 Gm Gel..Gram.) 15 gm PO Q15M PRN; Protocol PRN Reason: per Hypoglycemia Standing Ord. Insulin Human Lispro (Insulin Lispro 100 Unit/Ml 3 Ml Vial) 0 unit SUBCUT QIDACHS [facility]; Protocol Last Admin: 12/24/24 16:54 Dose: Not Given Documented By: SHERRY Non-Admin Reason: No Insulin Coverage Melatonin (Melatonin 3 Mg Tablet) 6 mg PO BEDTIME PRN PRN Reason: Insomnia Midodrine (Midodrine Hcl 5 Mg Tablet) 5 mg PO TID [facility] Last Admin: 12/24/24 16:10 Dose: Not Given Documented By: SHERRY Non-Admin Reason: Physician Held Med Sodium Chloride (0.9 % Sodium Chloride Flush 3 Ml Syringe) 3 ml IVFLUSH QSHIFT [facility] Last Admin: 12/24/24 16:15 Dose: 3 ml Documented By: SHERRY Labs 12/24/24 06:59 12/24/24 06:59 Labs: Laboratory Results - last 24 hr 12/23/24 12/23/24 12/23/24 17:19 20:48 22:14 MCV MCH MCHC RDW Plt Count MPV Immature Gran % (Auto) Neut % (Auto) Lymph % (Auto) [place] % (Auto) Eos % (Auto) Baso % (Auto) Lymph # (Auto) [place] # (Auto) Eos # (Auto) Baso # (Auto) Abs Immat Gran (auto) Absolute Neuts (auto) Absolute Nucleated RBC Nucleated RBC % (auto) Anion Gap Estim Creat Clear Calc Estimated GFR POC Glucose 99 188 H 146 H Random Glucose Calcium 12/24/24 12/24/24 12/24/24 06:59 07:32 11:23 MCV 88.8 MCH 30.4 MCHC 34.2 RDW 13.0 Plt Count 168 MPV 9.9 Immature Gran % (Auto) 0.3 Neut % (Auto) 64.9 Lymph % (Auto) 20.9 [place] % (Auto) 7.7 Eos % (Auto) 5.8 H Baso % (Auto) 0.4 Lymph # (Auto) 1.7 [place] # (Auto) 0.6 Eos # (Auto) 0.5 H Baso # (Auto) 0.0 Abs Immat Gran (auto) 0.02 Absolute Neuts (auto) 5.1 Absolute Nucleated RBC 0.000 Nucleated RBC % (auto) 0.0 Anion Gap 11 L Estim Creat Clear Calc 63.6 Estimated GFR 52 POC Glucose 107 126 H Random Glucose 109 Calcium 9.5 12/24/24 16:22 MCV MCH MCHC RDW Plt Count MPV Immature Gran % (Auto) Neut % (Auto) Lymph % (Auto) [place] % (Auto) Eos % (Auto) Baso % (Auto) Lymph # (Auto) [place] # (Auto) Eos # (Auto) Baso # (Auto) Abs Immat Gran (auto) Absolute Neuts (auto) Absolute Nucleated RBC Nucleated RBC % (auto) Anion Gap Estim Creat Clear Calc Estimated GFR POC Glucose 130 H Random Glucose Calcium Assessment and Plan (1) Orthostatic hypotension: Status: Acute Assessment and Plan: Pt is a 74 years old man with past medical history significant for orthostatic hypotension currently on midodrine 2.5 mg p.o. daily, CKD stage 3A, essential hypertension on losartan, HFpEF, type 2 diabetes mellitus on Mounjaro injections (started it 1 month ago), diabetic neuropathy and hyperlipidemia presents to the emergency department after he had an event of hypotension while ambulating to the bathroom yesterday. In the ED, orthostatic vital signs are positive: Supine 190/96, sitting 194/100 and 76/42 standing. Pt is admitted to the hospital for treatment and further evaluation of symptomatic orthostatic hypotension. Repeat Orthostatic hypotension Pt with hx of orthostatic hypotension x2.5 years, previously well-controlled on midodrine 5 mg daily Initially positive in the ED: Supine 190/96, sitting 194/100 and 76/42 standing; unable to tolerate standing today Possibly secondary to Mounjaro, started 1 month ago Orthostatic vital signs daily Received Q shift and notify provider Continue midodrine 5 mg TID Unable to tolerate fludrocortisone due to hypokalemia Will gently hydrate with additional 1L @75 mls/hr Encourage oral hydration Fall precautions (pt and educated). Compression stockings Cardiology consult Essential hypertension. Discontinue Losartan Continue to monitor blood pressure Hold midodrine for SBP >140 Hyperlipidemia. Continue statin. Diabetic neuropathy. Continue gabapentin. Type 2 diabetes mellitus. On Mounjaro injections every Wednesday started 1 month ago. Sugars have been much better controlled than prior. BG checks before meals at bedtime. Diabetic diet. Insulin sliding scale. Hold Mounjaro for now, consider resuming once discharged HFpEF. No acute symptoms. CKD stage 3A. Stable renal function. Avoid nephrotoxic agents. Continue to monitor. Permanent pacemaker. Atrial-paced rhythm. DVT prophylaxis: Lovenox Code status: Full Pt continues to be symptomatic and orthostatic positive, requiring continued hospitalization. Quality Stroke Does the patient have a stroke diagnosis?: No VTE Prior VTE?: No VTE Risk Level:: Medical - moderate - high VTE Device Contraindication: Treatment Not Indicated VTE Drug Contraindication: N/A - Med Ordered
[2024-12-24] MEDS: Lactated Ringers 1,000 ML 75 ML IVCONT (18:01)
[2024-12-24 21:16] LABS: Glucose, Whole Blood 136 mg/dL (60-115)
[2024-12-24] MEDS: Atorvastatin Calcium 80 MG TABLET PO (21:32)
--- NOTE | 2024-12-24 23:23 | PC.NURSE ---
Covering Dr. Anderson was made aware of evening orthostatics obtained per existing order. Pt denied symptoms. MD orders received to hold scheduled midodrine.
[2024-12-25] VITALS (18 sets, daily range): BP systolic 87–221; BP diastolic 53–100; PULSE 60–82; RESP 15–18; TEMP 36.3–36.9; O2SAT 93–98
[2024-12-25 07:15] LABS: Glucose, Whole Blood 103 mg/dL (60-115)
[2024-12-25] MEDS: 0.9 % Sodium Chloride Flush 3 ML SYRINGE IVFLUSH ×2 (09:10→19:33)
[2024-12-25] MEDS: Gabapentin 300 MG CAPSULE PO ×3 (09:11→19:33)
[2024-12-25] MEDS: Midodrine HCl 5 MG TABLET PO (09:11)
[2024-12-25] MEDS: Enoxaparin Sodium 40 MG/0.4 ML SYRINGE SUBCUT (09:13)
[2024-12-25] MEDS: Aspirin Enteric Coated 81 MG TABLET.DR PO (09:17)
--- NOTE | 2024-12-25 09:38 | PM.PNCARD ---
Subjective Subjective Date of Service: 12/25/24 Interval history: He states that he is feeling better. Per notes, known history of orthostasis for a long time and has taken midodrine. It seems that it was difficult to control in the past as the blood pressure also goes up significantly along with orthostasis. And he was getting losartan to control the high blood pressure. Midodrine dose has been increased. He states he is feeling a bit better. Review of Systems Review of Systems Yes all other systems are reviewed and are negative Constitutional: Reports as per HPI and Reports no additional constitutional complaints Eyes: Reports as per HPI and Denies no additional eye complaints Denies system reviewed and no additional complaints, except as documented and Reports as per HPI Cardiovascular: Reports as per HPI, Reports no additional cardiovascular complaints, Denies acrocyanosis, Denies cool extremities, Denies chest pain, Denies leg edema, Reports lightheadedness, Denies palpitations and Denies dyspnea Respiratory: Reports as per HPI, Denies no additional respiratory complaints and Denies dyspnea Gastrointestinal: Reports as per HPI and Denies no additional gastrointestinal complaints Genitourinary: Reports no additional male genitourinary complaints and Reports as per HPI Musculoskeletal: Reports no additional musculoskeletal complaints and Reports as per HPI Skin/Breast: Reports system reviewed and no additional complaints, except as docu Reports system reviewed and no additional complaints, except as documented and Reports as per HPI Psychiatric: Reports no additional psychiatric complaints and Reports as per HPI Endocrine: Reports no additional endocrine complaints, Reports as per HPI and Denies palpitations Hematologic/Lymphatic: Reports no additional hematologic/lymphatic complaints and Reports as per HPI Allergic/Immunologic: Reports no additional allergic/immunologic complaints and Reports as per HPI Physical Exam Vital Signs: Last Vital Signs Temp 97.5 F 12/25/24 07:41 Pulse 72 12/25/24 07:52 Resp 15 12/25/24 07:41 BP 162/74 H 12/25/24 09:11 Pulse Ox 98 12/25/24 07:41 O2 Del Method Room Air 12/25/24 07:41 O2 Flow Rate 2 12/24/24 15:53 BMI result Body Mass Index 31.8 Const General: comfortable and no acute distress Orientation/consciousness: patient oriented x3 HEENT Other: Unremarkable Head: Yes normal to inspection Neck Neck: Yes normal visual inspection Chest Chest palpation & inspection: normal inspection of the chest Resp Auscultation: clear to auscultation bilaterally Cardio Palpation: normal PMI Heart sounds: S1 normal heart sound present, S2 normal heart sound present, no gallops, no murmurs and no rubs GI Palpation (GI): Soft to palpation Back/Spine/Pelvis Other: unremarkable Skin General skin exam: no rashes or lesions noted Neuro General: patient oriented x3 Extrem General: Yes normal to inspection Psych Mental Status: mental status grossly normal Objective Labs and Meds 12/24/24 06:59 12/24/24 06:59 Lab results: Laboratory Results - last 24 hr 12/24/24 12/24/24 12/24/24 11:23 16:22 21:08 POC Glucose 126 H 130 H 136 H 12/25/24 07:06 POC Glucose 103 Progress Note: A&P Assessment and plan (1) Orthostatic hypotension: Status: Acute Assessment and Plan: Probably autonomic insufficiency in setting of diabetes. At home, midodrine dose was 2.5 mg daily. Currently, it has been increased to 5 mg 3 times a day. However, he is getting some blood pressure readings in the hypertension range as well. Overall, going to be difficult as he might be having both hypotensive as well as hypertensive episodes. Some degree of hypertension up to 150/90 mm Hg may have to be a acceptable in his situation as strict control be very difficult. Continue the current regimen and we will need to adjust on an ongoing basis. He may have to in fact check his blood pressures daily at home before taking the midodrine. If he is indeed already hypertensive, then skip that dose. Compression stockings. Discussed with patient in detail. Time Spent With Patient Time: Total time managing care of this patient today ____ minutes. Progress Note: Quality Stroke Does the patient have a stroke diagnosis?: No Procedures Date of Service Date of Service: 12/25/24
[2024-12-25 11:44] LABS: Glucose, Whole Blood 132 mg/dL (60-115)
[2024-12-25 16:30] LABS: Glucose, Whole Blood 113 mg/dL (60-115)
--- NOTE | 2024-12-25 18:24 | HO.PM.IMPN ---
Subjective Subjective Date of Service: 12/25/24 Interval History: Continues to have positive orthostatics with a drop from 182-87 systolic Continues to have lightheadedness and dizziness with standing, difficulty walking Otherwise has no acute medical complaints No chest pain/pressure, palpitations Denies SOB or difficulty breathing Review of Systems Review of Systems: Yes all other systems are reviewed and are negative Physical Exam Vital Signs: Vital Signs: Last Vital Signs Temp 97.6 F 12/25/24 15:47 Pulse 76 12/25/24 16:28 Resp 16 12/25/24 15:47 BP 129/56 L 12/25/24 16:28 Pulse Ox 96 12/25/24 15:47 O2 Del Method Room Air 12/25/24 15:47 O2 Flow Rate 2 12/24/24 15:53 BMI result Body Mass Index 31.8 General: AOx3, no acute distress Resp: CTA bilaterally CVS: S1, S2, RRR GI: +BS, NT, no distention Skin: Warm, dry Neuro: Cranial nerves II-XII grossly intact bilaterally. Motor grossly intact bilaterally Extremities: No edema Psych: Appropriate affect Objective Data Active Medications Acetaminophen (Acetaminophen 325 Mg Tablet) 975 mg PO Q6H PRN PRN Reason: Pain, Mild 1-3,fever,headache Aspirin (Aspirin Enteric Coated 81 Mg Tablet.) 81 mg PO DAILY [facility] Last Admin: 12/25/24 09:17 Dose: 81 mg Documented By: SHERRY Atorvastatin Calcium (Atorvastatin Calcium 80 Mg Tablet) 80 mg PO BEDTIME [facility] Last Admin: 12/24/24 21:32 Dose: 80 mg Documented By: SONG Dextrose (Dextrose 50 % 25 Gm/50 Ml Syringe) 25 gm IVPUSH Q15M PRN; Protocol PRN Reason: per Hypoglycemia Standing Ord. Enoxaparin Sodium (Enoxaparin Sodium 40 Mg/0.4 Ml Syringe) 40 mg SUBCUT Q24H [facility] Last Admin: 12/25/24 09:13 Dose: 40 mg Documented By: SHERRY Gabapentin (Gabapentin 300 Mg Capsule) 300 mg PO TID [facility] Last Admin: 12/25/24 16:23 Dose: 300 mg Documented By: SHERRY Glucose (Glucose Gel 15 Gm Gel..Gram.) 15 gm PO Q15M PRN; Protocol PRN Reason: per Hypoglycemia Standing Ord. Insulin Human Lispro (Insulin Lispro 100 Unit/Ml 3 Ml Vial) 0 unit SUBCUT QIDACHS [facility]; Protocol Last Admin: 12/25/24 17:05 Dose: Not Given Documented By: SHERRY Non-Admin Reason: No Insulin Coverage Melatonin (Melatonin 3 Mg Tablet) 6 mg PO BEDTIME PRN PRN Reason: Insomnia Midodrine (Midodrine Hcl 5 Mg Tablet) 5 mg PO TID [facility] Last Admin: 12/25/24 16:23 Dose: Not Given Documented By: SHERRY Non-Admin Reason: Elevated Blood Pressure Sodium Chloride (0.9 % Sodium Chloride Flush 3 Ml Syringe) 3 ml IVFLUSH QSHIFT [facility] Last Admin: 12/25/24 17:12 Dose: Not Given Documented By: SHERRY Non-Admin Reason: Previously Administered Labs 12/24/24 06:59 12/24/24 06:59 Labs: Laboratory Results - last 24 hr 12/24/24 12/25/24 12/25/24 21:08 07:06 11:39 POC Glucose 136 H 103 132 H 12/25/24 16:23 POC Glucose 113 Assessment and Plan (1) Orthostatic hypotension: Status: Acute Plan Pt is a 74 years old man with past medical history significant for orthostatic hypotension currently on midodrine 2.5 mg p.o. daily, CKD stage 3A, essential hypertension on losartan, HFpEF, type 2 diabetes mellitus on Mounjaro injections (started it 1 month ago), diabetic neuropathy and hyperlipidemia presents to the emergency department after he had an event of hypotension while ambulating to the bathroom yesterday. In the ED, orthostatic vital signs are positive: Supine 190/96, sitting 194/100 and 76/42 standing. Pt is admitted to the hospital for treatment and further evaluation of symptomatic orthostatic hypotension. Repeat Orthostatic hypotension Pt with hx of orthostatic hypotension x2.5 years, previously well-controlled on midodrine 2.5 mg daily Initially positive in the ED: Supine 190/96, sitting 194/100 and 76/42 standing; continues to be orthostatic today with SBP drop of 182-->87 Possibly secondary to Mounjaro, started 1 month ago Unable to tolerate fludrocortisone due to hypokalemia Orthostatic vital signs bid SBP has been elevated, will decrease midodrive to 2.5 mg TID; hold midodrine for SBP >140 Encourage oral hydration Compression stockings Cardiology consult Essential hypertension. Discontinue Losartan Continue to monitor blood pressure Hold midodrine for SBP >140 Hyperlipidemia. Continue statin. Diabetic neuropathy. Continue gabapentin. Type 2 diabetes mellitus. On Mounjaro injections every Wednesday started 1 month ago. Sugars have been much better controlled than prior. BG checks before meals at bedtime. Diabetic diet. Insulin sliding scale. Hold Mounjaro for now, consider resuming once discharged HFpEF. No acute symptoms. CKD stage 3A. Stable renal function. Avoid nephrotoxic agents. Continue to monitor. Permanent pacemaker. Atrial-paced rhythm. DVT prophylaxis: Lovenox Code status: Full Pt continues to be symptomatic and orthostatic positive, requiring continued hospitalization. Quality Stroke Does the patient have a stroke diagnosis?: No VTE Prior VTE?: No VTE Risk Level:: Medical - moderate - high VTE Device Contraindication: Treatment Not Indicated VTE Drug Contraindication: N/A - Med Ordered
[2024-12-25] MEDS: Atorvastatin Calcium 80 MG TABLET PO (19:33)
[2024-12-25 20:57] LABS: Glucose, Whole Blood 148 mg/dL (60-115)
[2024-12-26] VITALS (12 sets, daily range): BP systolic 88–192; BP diastolic 56–90; PULSE 67–113; RESP 16–18; TEMP 36.4–37.1; O2SAT 92–98
[2024-12-26 07:52] LABS: Glucose, Whole Blood 121 mg/dL (60-115)
[2024-12-26] MEDS: Enoxaparin Sodium 40 MG/0.4 ML SYRINGE SUBCUT (08:21)
[2024-12-26] MEDS: Aspirin Enteric Coated 81 MG TABLET.DR PO (08:21)
[2024-12-26] MEDS: 0.9 % Sodium Chloride Flush 3 ML SYRINGE IVFLUSH ×3 (08:22→20:57)
[2024-12-26] MEDS: Gabapentin 300 MG CAPSULE PO ×3 (08:22→20:57)
[2024-12-26] MEDS: polyethylene glycoL 3350 17 GM POWD.PACK PO (09:51)
[2024-12-26] MEDS: Docusate Sodium 100 MG CAPSULE PO (09:51)
[2024-12-26 11:41] LABS: Glucose, Whole Blood 133 mg/dL (60-115)
[2024-12-26 16:29] LABS: Glucose, Whole Blood 112 mg/dL (60-115)
--- NOTE | 2024-12-26 16:36 | P.PNIM_ITS ---
Subjective Subjective Date of Service: 12/26/24 Interval History: orthostatic hypotension Review of Systems bp still flactuating has some lightheadness with walking Physical Exam 2 Vital Signs: Vital Signs: Last Vital Signs Temp 97.6 F 12/26/24 16:00 Pulse 76 12/26/24 16:00 Resp 18 12/26/24 16:00 BP 170/90 H 12/26/24 16:26 Pulse Ox 96 12/26/24 16:00 O2 Del Method Room Air 12/26/24 16:00 O2 Flow Rate 2 12/24/24 15:53 BMI result Body Mass Index 31.8 General: AOx3, no acute distress Resp: CTA bilaterally CVS: S1, S2, RRR GI: +BS, NT, no distention Skin: Warm, dry Neuro: Cranial nerves II-XII grossly intact bilaterally. Motor grossly intact bilaterally Extremities: No edema Psych: Appropriate affect Objective Data Active Medications Acetaminophen (Acetaminophen 325 Mg Tablet) 975 mg PO Q6H PRN PRN Reason: Pain, Mild 1-3,fever,headache Aspirin (Aspirin Enteric Coated 81 Mg Tablet.) 81 mg PO DAILY [facility] Last Admin: 12/26/24 08:21 Dose: 81 mg Documented By: SHERRY Atorvastatin Calcium (Atorvastatin Calcium 80 Mg Tablet) 80 mg PO BEDTIME [facility] Last Admin: 12/25/24 19:33 Dose: 80 mg Documented By: ARGENTINA Dextrose (Dextrose 50 % 25 Gm/50 Ml Syringe) 25 gm IVPUSH Q15M PRN; Protocol PRN Reason: per Hypoglycemia Standing Ord. Docusate Sodium (Docusate Sodium 100 Mg Capsule) 100 mg PO BID [facility] Last Admin: 12/26/24 09:51 Dose: 100 mg Documented By: SHERRY Enoxaparin Sodium (Enoxaparin Sodium 40 Mg/0.4 Ml Syringe) 40 mg SUBCUT Q24H [facility] Last Admin: 12/26/24 08:21 Dose: 40 mg Documented By: SHERRY Gabapentin (Gabapentin 300 Mg Capsule) 300 mg PO TID [facility] Last Admin: 12/26/24 16:28 Dose: 300 mg Documented By: SHERRY Glucose (Glucose Gel 15 Gm Gel..Gram.) 15 gm PO Q15M PRN; Protocol PRN Reason: per Hypoglycemia Standing Ord. Insulin Human Lispro (Insulin Lispro 100 Unit/Ml 3 Ml Vial) 0 unit SUBCUT QIDACHS [facility]; Protocol Last Admin: 12/26/24 11:51 Dose: Not Given Documented By: SHERRY Non-Admin Reason: No Insulin Coverage Melatonin (Melatonin 3 Mg Tablet) 6 mg PO BEDTIME PRN PRN Reason: Insomnia Midodrine (Midodrine Hcl 2.5 Mg Tablet) 2.5 mg PO TID [facility] Last Admin: 12/26/24 16:26 Dose: Not Given Documented By: SHERRY Non-Admin Reason: Elevated Blood Pressure Polyethylene Glycol (Polyethylene Glycol 3350 17 Gm Powd.Pack) 17 gm PO DAILY [facility] Last Admin: 12/26/24 09:51 Dose: 17 gm Documented By: SHERRY Sodium Chloride (0.9 % Sodium Chloride Flush 3 Ml Syringe) 3 ml IVFLUSH QSHIFT [facility] Last Admin: 12/26/24 08:22 Dose: 3 ml Documented By: SHERRY Labs 12/24/24 06:59 12/24/24 06:59 Labs: Laboratory Results - last 24 hr 12/25/24 12/26/24 12/26/24 20:52 07:49 11:36 POC Glucose 148 H 121 H 133 H 12/26/24 16:06 POC Glucose 112 Assessment and Plan (1) Hypertension: Status: Acute Plan 74 years old man with past medical history significant for orthostatic hypotension currently on midodrine 2.5 mg p.o. daily, CKD stage 3A, essential hypertension on losartan, HFpEF, type 2 diabetes mellitus on Mounjaro injections (started it 1 month ago), diabetic neuropathy and hyperlipidemia presents to the emergency department after he had an event of hypotension while ambulating to the bathroom yesterday. In the ED, orthostatic vital signs are positive: Supine 190/96, sitting 194/100 and 76/42 standing. Pt is admitted to the hospital for treatment and further evaluation of symptomatic orthostatic hypotension. Repeat Orthostatic hypotension Pt with hx of orthostatic hypotension x2.5 years, previously well-controlled on midodrine 2.5 mg daily Initially positive in the ED: Supine 190/96, sitting 194/100 and 76/42 standing; continues to be orthostatic today with SBP drop of 182-->87 Possibly secondary to Mounjaro, started 1 month ago Unable to tolerate fludrocortisone due to hypokalemia Orthostatic vital signs bid Encourage oral hydration Compression stockings Cardiology consult noted -midodrine adjusted to 2.5 mg t.i.d.:SBP has been elevated, will decrease midodrive to 2.5 mg TID; hold midodrine for SBP >140 Essential hypertension. Discontinue Losartan Continue to monitor blood pressure Hold midodrine for SBP >140 Hyperlipidemia. Continue statin. Diabetic neuropathy. Continue gabapentin. Type 2 diabetes mellitus. On Mounjaro injections every Wednesday started 1 month ago. Sugars have been much better controlled than prior. BG checks before meals at bedtime. Diabetic diet. Insulin sliding scale. Hold Mounjaro for now, consider resuming once discharged HFpEF. No acute symptoms. CKD stage 3A. Stable renal function. Avoid nephrotoxic agents. Continue to monitor. Permanent pacemaker. Atrial-paced rhythm. DVT prophylaxis: Lovenox Code status: Full Pt continues to be symptomatic and orthostatic positive, requiring continued hospitalization. Quality Stroke Does the patient have a stroke diagnosis?: No VTE Prior VTE?: No VTE Risk Level:: Medical - moderate - high VTE Device Contraindication: Treatment Not Indicated VTE Drug Contraindication: N/A - Med Ordered
[2024-12-26 19:47] LABS: Glucose, Whole Blood 140 mg/dL (60-115)
[2024-12-26] MEDS: Atorvastatin Calcium 80 MG TABLET PO (20:57)
[2024-12-27] VITALS (9 sets, daily range): BP systolic 90–195; BP diastolic 55–90; PULSE 62–105; RESP 16–20; TEMP 36.3–36.9; O2SAT 94–98
[2024-12-27 07:59] LABS: Glucose, Whole Blood 120 mg/dL (60-115)
[2024-12-27] MEDS: 0.9 % Sodium Chloride 1,000 ML 100 ML IVCONT ×2 (08:40→18:15)
[2024-12-27] MEDS: 0.9 % Sodium Chloride Flush 3 ML SYRINGE IVFLUSH (08:41)
[2024-12-27] MEDS: Aspirin Enteric Coated 81 MG TABLET.DR PO (08:43)
[2024-12-27] MEDS: Docusate Sodium 100 MG CAPSULE PO (08:45)
[2024-12-27] MEDS: polyethylene glycoL 3350 17 GM POWD.PACK PO (08:45)
[2024-12-27] MEDS: Gabapentin 300 MG CAPSULE PO ×3 (08:45→20:35)
[2024-12-27] MEDS: Enoxaparin Sodium 40 MG/0.4 ML SYRINGE SUBCUT (08:45)
[2024-12-27 11:38] LABS: Glucose, Whole Blood 220 mg/dL (60-115)
--- NOTE | 2024-12-27 13:23 | PM.CNNEP ---
History of Present Illness Reason for Consult Consult date: 12/27/24 Chief Complaint Chief complaint: Orthostatic Hypotension History of Present Illness Narrative: 74 y/o male with a medical history of orthostatic hypotension on midodrine 2.5mg daily, CKD3a, HTN on losartan, HFpEF, DMII, diabetic neuropathy and hyperlipidemia. presented 12/23 after syncopal episode while ambulating to the bathroom at home x2, he had been feeling dizzy prior to fall. orthostatic vital signs: 190/96, 194/100, 76/42. patient reports he had stopped his losartan due to low blood pressures at home while sitting. Jun 2022 TTE with hyperdynamic systolic function EF 70%, grade 1 diastolic dysfunction, no valve disease. florinef started, resulted in hypokalemia and was discontinued midodrine increased to 5mg TID, decreased to 2.5mg TID to once daily due to elevated systolic blood pressures. Review of Systems Gastrointestinal: Denies abdominal pain, Denies diarrhea and Denies vomiting Genitourinary: Denies hematuria, Denies oliguria, Denies dysuria and Denies flank pain Musculoskeletal: Denies back pain Skin/Breast: Denies rash [facility] Past Medical History Medical History CKD (chronic kidney disease) stage 2, GFR 60-89 ml/min Orthostatic hypotension Pacemaker Sciatica COPD (chronic obstructive pulmonary disease) BPH (benign prostatic hyperplasia) Chronic back pain Vasovagal syncope Diabetes mellitus type 2 in nonobese Hyperlipidemia Orthostatic hypotension Hypertension Family History Family History Father Pacemaker Surgical History Surgical History Hx of colonoscopy S/P surgery on nasal septum History of total left hip replacement S/P placement of cardiac pacemaker Social History Social History Household Members: Spouse Housing: House Do you presently have visiting nurse or other home services: No Alcohol intake: never Comment: refused bed alarm Patient Tobacco Use Status: Former Tobacco user Tobacco use type: Cigar Years Smoked: 15 +/- Smoked in Last 30 Days: No Use of substances other than those prescribed or required for medical reasons: No Currently Displaying Signs/Symptoms of Drug Intoxication Withdrawal: No Have you been hit, kicked, punched, or otherwise hurt by someone within the past year? If so, by whom?: No Do you feel safe in your current relationship?: Yes Is there a partner from a previous relationship who is making you feel unsafe now?: No Are you made to feel afraid or neglected: No Advance Directives: Yes Advance Directives on File: Yes Advance Directives Date on File: 06/25/22 Do you have a plan to hurt others: No Plan Recently lost weight without trying: No How much weight loss: Not applicable Eating poorly because of decreased appetite: No Nutrition screen score: 0 Nutrition Risks: No Nutritional Risk Poor oral hygiene: No service: No Current occupational status: retired [employer] Allergies Allergy/AdvReac Type Severity Reaction Status Date / Time amlodipine AdvReac Cough Verified 12/23/24 11:35 Active Medications: Current Medications Acetaminophen (Acetaminophen 325 Mg Tablet) 975 mg PO Q6H PRN PRN Reason: Pain, Mild 1-3,fever,headache Aspirin (Aspirin Enteric Coated 81 Mg Tablet.) 81 mg PO DAILY [facility] Last Admin: 12/27/24 08:43 Dose: 81 mg Atorvastatin Calcium (Atorvastatin Calcium 80 Mg Tablet) 80 mg PO BEDTIME [facility] Last Admin: 12/26/24 20:57 Dose: 80 mg Dextrose (Dextrose 50 % 25 Gm/50 Ml Syringe) 25 gm IVPUSH Q15M PRN; Protocol PRN Reason: per Hypoglycemia Standing Ord. Docusate Sodium (Docusate Sodium 100 Mg Capsule) 100 mg PO BID [facility] Last Admin: 12/27/24 08:45 Dose: 100 mg Enoxaparin Sodium (Enoxaparin Sodium 40 Mg/0.4 Ml Syringe) 40 mg SUBCUT Q24H [facility] Last Admin: 12/27/24 08:45 Dose: 40 mg Gabapentin (Gabapentin 300 Mg Capsule) 300 mg PO TID [facility] Last Admin: 12/27/24 08:45 Dose: 300 mg Glucose (Glucose Gel 15 Gm Gel..Gram.) 15 gm PO Q15M PRN; Protocol PRN Reason: per Hypoglycemia Standing Ord. Sodium Chloride (Ns) 1,000 mls @ 100 mls/hr IVCONT .Q10H [facility] Last Admin: 12/27/24 08:40 Dose: 100 mls/hr Insulin Human Lispro (Insulin Lispro 100 Unit/Ml 3 Ml Vial) 0 unit SUBCUT QIDACHS [facility]; Protocol Last Admin: 12/27/24 12:31 Dose: Not Given Melatonin (Melatonin 3 Mg Tablet) 6 mg PO BEDTIME PRN PRN Reason: Insomnia Midodrine (Midodrine Hcl 2.5 Mg Tablet) 2.5 mg PO TID [facility] Last Admin: 12/27/24 09:07 Dose: Not Given Polyethylene Glycol (Polyethylene Glycol 3350 17 Gm Powd.Pack) 17 gm PO DAILY [facility] Last Admin: 12/27/24 08:45 Dose: 17 gm Sodium Chloride (0.9 % Sodium Chloride Flush 3 Ml Syringe) 3 ml IVFLUSH QSHIFT [facility] Last Admin: 12/27/24 08:41 Dose: 3 ml Home Medications ?Medication ?Instructions ?Recorded ?Confirmed ?Last Taken ?Type acetaminophen 325 mg tablet 650 mg PO Q6H PRN Pain 06/23/22 12/23/24 Unknown History (Tylenol) aspirin 81 mg tablet,delayed 81 mg PO DAILY 06/23/22 12/23/24 12/23/24 History release rosuvastatin 20 mg tablet 20 mg PO BEDTIME 11/23/22 12/23/24 Unknown History gabapentin 300 mg capsule 300 mg PO TID 12/23/24 12/23/24 12/23/24 History tirzepatide 2.5 mg/0.5 mL 2.5 mg subcut WE 12/23/24 12/23/24 12/20/24 History subcutaneous pen injector (Tangunmarkro) Physical Exam Vital Signs: Last Vital Signs Temp 97.7 F 12/27/24 10:41 Pulse 62 12/27/24 11:51 Resp 20 12/27/24 10:41 BP 143/63 H 12/27/24 11:51 Pulse Ox 98 12/27/24 10:41 O2 Del Method Room Air 12/27/24 10:41 O2 Flow Rate 2 12/24/24 15:53 BMI result Body Mass Index 31.8 Const General: comfortable and no acute distress Resp Effort & Inspection: normal respiratory effort and able to speak in complete sentences Auscultation: clear to auscultation bilaterally Cardio Rate: regular rate Rhythm: regular rhythm Heart sounds: S1 normal heart sound present and S2 normal heart sound present GI Palpation (GI): Soft to palpation and nontender General: Yes no CVA tenderness Back/Spine/Pelvis Back: no CVA tenderness Skin Rashes: no rashes Extrem General: No edema and No pedal edema Results Lab Results 12/24/24 06:59 12/24/24 06:59 Assessment and Plan (1) Hypertension: Qualifiers: Hypertension type: primary hypertension Qualified Code(s): I10 - Essential (primary) hypertension Status: Acute (2) Orthostatic hypotension: Status: Acute Plan Orthostatic hypotension may be secondary to autonomic dysnfuction- neuropathy from diabetes should re-start losartan at half of his home dose given hypertension recommend 5mg midodrine daily due to orthostasis adequate hydration, compression stockings and slow position changes, elevate head of bed Continue supportive care, will continue to follow discussed with Dr Car Hanley Date of Service Date of Service: 12/27/24
[2024-12-27 16:02] LABS: Glucose, Whole Blood 117 mg/dL (60-115)
--- NOTE | 2024-12-27 16:24 | MHC.CM.PN ---
EMR REVIEWED, PT REMAINS ORTHOSTATIC, NEPHRO CONSULT PENDING, NO PLAN FOR DC TODAY, CM WILL CONT TO FOLLOW DC NEEDS.
--- NOTE | 2024-12-27 16:36 | P.PNIM_ITS ---
Subjective Subjective Date of Service: 12/28/24 Interval History: orthostasis Physical Exam 2 Vital Signs: Vital Signs: Last Vital Signs Temp 97.6 F 12/27/24 15:43 Pulse 74 12/27/24 15:43 Resp 18 12/27/24 15:43 BP 181/74 H 12/27/24 15:43 Pulse Ox 94 12/27/24 15:43 O2 Del Method Room Air 12/27/24 15:43 O2 Flow Rate 2 12/24/24 15:53 BMI result Body Mass Index 31.8 General: AOx3, no acute distress Resp: CTA bilaterally CVS: S1, S2, RRR GI: +BS, NT, no distention Skin: Warm, dry Neuro: Cranial nerves II-XII grossly intact bilaterally. Motor grossly intact bilaterally Extremities: No edema Psych: Appropriate affect Objective Data Active Medications Acetaminophen (Acetaminophen 325 Mg Tablet) 975 mg PO Q6H PRN PRN Reason: Pain, Mild 1-3,fever,headache Aspirin (Aspirin Enteric Coated 81 Mg Tablet.) 81 mg PO DAILY [facility] Last Admin: 12/27/24 08:43 Dose: 81 mg Documented By: SHERRY Atorvastatin Calcium (Atorvastatin Calcium 80 Mg Tablet) 80 mg PO BEDTIME [facility] Last Admin: 12/26/24 20:57 Dose: 80 mg Documented By: HAL Dextrose (Dextrose 50 % 25 Gm/50 Ml Syringe) 25 gm IVPUSH Q15M PRN; Protocol PRN Reason: per Hypoglycemia Standing Ord. Docusate Sodium (Docusate Sodium 100 Mg Capsule) 100 mg PO BID [facility] Last Admin: 12/27/24 08:45 Dose: 100 mg Documented By: SHERRY Enoxaparin Sodium (Enoxaparin Sodium 40 Mg/0.4 Ml Syringe) 40 mg SUBCUT Q24H [facility] Last Admin: 12/27/24 08:45 Dose: 40 mg Documented By: SHERRY Gabapentin (Gabapentin 300 Mg Capsule) 300 mg PO TID [facility] Last Admin: 12/27/24 16:30 Dose: 300 mg Documented By: SHERRY Glucose (Glucose Gel 15 Gm Gel..Gram.) 15 gm PO Q15M PRN; Protocol PRN Reason: per Hypoglycemia Standing Ord. Sodium Chloride (Ns) 1,000 mls @ 100 mls/hr IVCONT .Q10H [facility] Last Admin: 12/27/24 08:40 Dose: 100 mls/hr Documented By: SHERRY Insulin Human Lispro (Insulin Lispro 100 Unit/Ml 3 Ml Vial) 0 unit SUBCUT QIDACHS [facility]; Protocol Last Admin: 12/27/24 12:31 Dose: Not Given Documented By: SHERRY Non-Admin Reason: No Insulin Coverage Melatonin (Melatonin 3 Mg Tablet) 6 mg PO BEDTIME PRN PRN Reason: Insomnia Midodrine (Midodrine Hcl 2.5 Mg Tablet) 2.5 mg PO TID [facility] Last Admin: 12/27/24 16:18 Dose: Not Given Documented By: SHERRY Non-Admin Reason: Elevated Blood Pressure Polyethylene Glycol (Polyethylene Glycol 3350 17 Gm Powd.Pack) 17 gm PO DAILY [facility] Last Admin: 12/27/24 08:45 Dose: 17 gm Documented By: SHERRY Sodium Chloride (0.9 % Sodium Chloride Flush 3 Ml Syringe) 3 ml IVFLUSH QSHIFT [facility] Last Admin: 12/27/24 08:41 Dose: 3 ml Documented By: SHERRY Labs 12/24/24 06:59 12/24/24 06:59 Labs: Laboratory Results - last 24 hr 12/26/24 12/27/24 12/27/24 19:44 07:33 10:39 POC Glucose 140 H 120 H 220 H 12/27/24 15:42 POC Glucose 117 H Assessment and Plan (1) Hypertension: Status: Acute Plan 74 years old man with past medical history significant for orthostatic hypotension currently on midodrine 2.5 mg p.o. daily, CKD stage 3A, essential hypertension on losartan, HFpEF, type 2 diabetes mellitus on Mounjaro injections (started it 1 month ago), diabetic neuropathy and hyperlipidemia presents to the emergency department after he had an event of hypotension while ambulating to the bathroom yesterday. In the ED, orthostatic vital signs are positive: Supine 190/96, sitting 194/100 and 76/42 standing. Pt is admitted to the hospital for treatment and further evaluation of symptomatic orthostatic hypotension. Repeat Orthostatic hypotension Pt with hx of orthostatic hypotension x2.5 years, previously well-controlled on midodrine 2.5 mg daily Initially positive in the ED: Supine 190/96, sitting 194/100 and 76/42 standing; continues to be orthostatic today with SBP drop of 182-->87 thought to be Mounjaro might be contributing,started 1 month ago Unable to tolerate fludrocortisone due to hypokalemia Orthostatic vital signs bid Encourage oral hydration Compression stockings Cardiology consult noted -midodrine adjusted to 5 mg daily; hold midodrine for SBP >140 added small dose tele has run of paced beats? yesterday no new events overnight,patient asymptomatic continue to moniter , if further episodes -will check with cardiology. Essential hypertension. Discontinue Losartan, will check Continue to monitor blood pressure Hold midodrine for SBP >140 Hyperlipidemia. Continue statin. Diabetic neuropathy. Continue gabapentin. Type 2 diabetes mellitus. On Mounjaro injections every Wednesday started 1 month ago. Sugars have been much better controlled than prior. BG checks before meals at bedtime. Diabetic diet. Insulin sliding scale. Hold Mounjaro for now, consider resuming once discharged HFpEF. No acute symptoms. CKD stage 3A. Stable renal function. Avoid nephrotoxic agents. Continue to monitor. Permanent pacemaker. Atrial-paced rhythm. DVT prophylaxis: Lovenox Code status: Full Pt continues to be symptomatic and orthostatic positive, requiring continued hospitalization. Quality Stroke Does the patient have a stroke diagnosis?: No VTE Prior VTE?: No VTE Risk Level:: Medical - moderate - high VTE Device Contraindication: Treatment Not Indicated VTE Drug Contraindication: N/A - Med Ordered
[2024-12-27 20:01] LABS: Glucose, Whole Blood 154 mg/dL (60-115)
[2024-12-27] MEDS: Atorvastatin Calcium 80 MG TABLET PO (20:35)
[2024-12-28] MEDS: 0.9 % Sodium Chloride 1,000 ML 100 ML IVCONT (03:13)
[2024-12-28 03:18] VITALS: BP 144/71; PULSE 80; RESP 18; TEMP 36.3; O2SAT 98
[2024-12-28 07:07] VITALS: BP 170/80; PULSE 68; RESP 18; TEMP 36.3; O2SAT 97
--- NOTE | 2024-12-28 07:12 | PC.NURSE ---
Pt orthostatic blood pressure around 2240 elevated. Laying 190/90 to standing 160/56. MD notified. OK to continue IVF and monitor. Around 2340 patient had 20 second run of vtach. Asymptomatic. VSS. notified. No new orders.
[2024-12-28 07:25] LABS: Glucose, Whole Blood 103 mg/dL (60-115)
[2024-12-28 07:27] LABS: Anion Gap 11 (12-20); Blood Urea Nitrogen 23 mg/dL (9-16); Carbon Dioxide 27 mmol/L (22-29); Chloride 112 mmol/L (96-108); Creatinine Clr Calc Pharmacy 59.2; Estimated Glomerular Filt Rate 47; Glucose Random 104 mg/dL (60-115); Potassium 4.5 mmol/L (3.3-5.1); Sodium 145 mmol/L (135-145)
--- NOTE | 2024-12-28 08:45 | P.PNNP_ITS ---
Subjective Subjective Date of Service: 12/28/24 Interval history: Following for orthostasis hypertension has improved wtih addition of losartan at half home dose patient conitnues with orthostasis, though reports he had no symptoms last evening with orthostatic vital signs now on 5mg midodrine daily Physical Exam 2 Vital Signs: Vital Signs: Last Vital Signs Temp 97.3 F 12/28/24 12:00 Pulse 70 12/28/24 12:00 Resp 18 12/28/24 12:00 BP 138/82 12/28/24 12:00 Pulse Ox 97 12/28/24 12:00 O2 Del Method Room Air 12/28/24 12:00 O2 Flow Rate 2 12/24/24 15:53 BMI result Body Mass Index 31.8 Const: General: comfortable and no acute distress Resp: Effort & Inspection: normal respiratory effort and able to speak in complete sentences Auscultation: clear to auscultation bilaterally Cardio: Rate: regular rate Rhythm: regular rhythm Heart sounds: S1 normal heart sound present and S2 normal heart sound present GI: Palpation (GI): Soft to palpation and nontender : General: Yes no CVA tenderness Back/Spine/Pelvis: Back: no CVA tenderness Skin: Rashes: no rashes Extrem: General: No edema and No pedal edema Objective Data Labs 12/24/24 06:59 12/28/24 06:27 Labs: Laboratory Results - last 24 hr 12/27/24 12/27/24 12/28/24 15:42 19:48 06:27 Sodium 145 Potassium 4.5 Chloride 112 H Carbon Dioxide 27 Anion Gap 11 L BUN 23 H Creatinine 1.46 H Estim Creat Clear Calc 59.2 Estimated GFR 47 POC Glucose 117 H 154 H Random Glucose 104 Calcium 9.0 12/28/24 12/28/24 07:09 11:48 Sodium Potassium Chloride Carbon Dioxide Anion Gap BUN Creatinine Estim Creat Clear Calc Estimated GFR POC Glucose 103 127 H Random Glucose Calcium Procedures Date of Service Date of Service: 12/28/24 Assessment & Plan Assessment and plan (1) Orthostatic hypotension: Status: Acute Plan Orthostatic hypotension may be secondary to autonomic dysnfuction- neuropathy from diabetes should continue losartan at 12.5mg daily at nighttime, may increase back up to home dose of 25mg daily if blood pressures increase (well controlled this a.m.). recommend continuing midodrine 5mg daily in the a.m. adequate hydration, compression stockings and slow position changes, elevate head of bed Continue supportive care, will continue to follow discussed with Dr Hopkins. Time Spent With Patient Time: Total time managing care of this patient today ____ minutes. Progress Note: Quality Stroke Does the patient have a stroke diagnosis?: No
[2024-12-28] MEDS: 0.9 % Sodium Chloride Flush 3 ML SYRINGE IVFLUSH (09:05)
[2024-12-28 09:18] VITALS: BP 192/80
[2024-12-28 09:19] VITALS: BP 184/82
[2024-12-28 09:20] VITALS: BP 130/60
[2024-12-28] MEDS: Enoxaparin Sodium 40 MG/0.4 ML SYRINGE SUBCUT (09:22)
[2024-12-28] MEDS: Aspirin Enteric Coated 81 MG TABLET.DR PO (09:22)
[2024-12-28] MEDS: Gabapentin 300 MG CAPSULE PO (09:22)
[2024-12-28] MEDS: Losartan Potassium 25 MG TABLET 12.5 MG PO (09:46)
[2024-12-28 11:55] LABS: Glucose, Whole Blood 127 mg/dL (60-115)
[2024-12-28 12:00] VITALS: BP 138/82; PULSE 70; RESP 18; TEMP 36.3; O2SAT 97
--- NOTE | 2024-12-28 12:05 | P.CDIM_ITS ---
PROVIDER RESPONSE TEXT: To clarify, the appropriate diagnosis supported by the clinical indicators: Diabetic neuropathy: unclear which one. QUERY TEXT: PHYSICIAN'S DOCUMENTATION REQUEST Date of Query: 12/28/2024 08:39 AM EDT Patient Name: Nasir Olesn Admit Date: 12/23/2024 Dear Mirella Mello MD, A review of the medical record indicates additional documentation may be needed. Please review below and update the documentation accordingly. Clinical Indicators: Progress notes: Diabetic neuropathy Continue Gabapentin. Please clarify the following regarding any further specifics to the noted Neuropathy: Diabetic neuropathy Peripheral, Autonomic, Polyneuropathy, Mononeuropathy etc. Other specified Other (explain) Clinically unable to determine (explain) Thank you, May Harrison, CCS, CDIS Use of terms such as suspected, likely, concern for, or probable (associated with a specific diagnosis that is being evaluated, monitored, or treated as if it exists) are acceptable and can be coded in the inpatient setting, when documented at the time of discharge. Please use your independent medical judgment in providing your response. THIS QUERY IS PART OF THE PERMANENT MEDICAL RECORD
--- NOTE | 2024-12-28 12:28 | MHC.CM.PN ---
Per ROUNDS Discussion, Patient will be medically cleared for dc to home today, with services. [facility] has accepted Patient Patient and has been made aware of today's dc. IMM was addressed with Patient today at bedside; Patient received the original and a copy was placed on the chart.
--- NOTE | 2024-12-28 13:54 | P.F2F_ITS ---
Service Date Service Date: 12/28/24 Encounter Date of encounter: 12/28/24 Encounter: orthostasis Reasons for Services Signs and symptoms assessed: Dizziness or shortness of breath or chest pain or any new complaints. Reason for long-term: medication management, medication treatment and teach disease management Reason for physical therapy: home safety and mobility, therapeutic exercises, restore joint function, gait/transfer training, assess need for DME, ADL training, energy conservation and other MD Overseeing Care: Elroy Smith Homebound: Leaving the home is medically contraindicated at this time without the asist of a device and/or another person due th the listed conditions above and below. Reason homebound: weakness related to hospital stay Homebound supporting statement: Patient is generalised weak post hospitlisation and need help with going to appointments and labs draws as well as PT. Certification: Based on the above findings, I certify that this patient is confined to the home and needs intermittent long-term care, physical therapy and/or speech therapy, or continues to need occupational therapy. The patient is under my care, and I have initiated the establishment of the plan of care. The patient will be followed by a physician who will periodically review the plan of care. Time Spent With Patient Time: Total time managing care of this patient today ____ minutes.
--- NOTE | 2024-12-28 13:56 | PM.DS ---
DS: Providers Provider Date of Service: 12/28/24 Date of admission: 12/23/24 14:32 Date of discharge: 12/28/24 Primary care physician: Elroy Smith MD Consults: 12/23/24 15:09 Consult to Cardiology Routine Consulting Provider: [facility] Reason for consultation: Hypotension Has provider been notified: Yes 12/27/24 09:25 Consult to Nephrology Routine Consulting Provider: [facility] Reason for consultation: Orthostasis Has provider been notified: No Attending physician on discharge: Mirella Mello Discharging clinician: Mirella Mello DS: Diagnosis Discharge Diagnosis (1) Orthostatic hypotension: Status: Acute DS: Summary Hospital Course Hospital Course: HPI:74 years old man with past medical history significant for orthostatic hypotension currently on midodrine 2.5 mg p.o. daily, CKD stage 3A, essential hypertension on losartan, HFpEF, type 2 diabetes mellitus on Mounjaro injections (started it 1 month ago), diabetic neuropathy and hyperlipidemia presents to the emergency department after he had an event of hypotension while ambulating to the bathroom yesterday. He has been feeling dizzy. During this event the patient became unresponsive for about 2 minutes and was witnessed by patient's . He did strike his head. He did not report any headache, chest pain, shortness on breath, cough, fever or chills. He also denied abdominal pain, nausea, vomiting or diarrhea. He is not currently taking fludrocortisone which he was taking in the past. He smokes cigars. He denied alcohol abuse or illicit drug use. He does not take diuretics. He hold his losartan yesterday as per cardiology recommendation. TTE June 2022 - hyperdynamic systolic function EF 70% with grade 1 diastolic dysfunction. No significant valve disease. In the ED, orthostatic vital signs are positive: Supine 190/96, sitting 194/100 and 76/42 standing. Other vital signs are normal. Blood workup showed normal CBC. There are no electrolyte imbalances. BUN is 30 and creatinine is 1.63 (around baseline). Glucose 102. LFTs are normal. Troponin is 3.4, total protein 8.0 albumin 4.7. Head and C-spine CT scan unremarkable. ECG (artifact) atrial paced rhythm, heart rate 81 bpm. Hospital course: 74 years old man with past medical history significant for orthostatic hypotension currently on midodrine 2.5 mg p.o. daily, CKD stage 3A, essential hypertension on losartan, HFpEF, type 2 diabetes mellitus on Mounjaro injections (started it 1 month ago), diabetic neuropathy and hyperlipidemia presents to the emergency department after he had an event of hypotension while ambulating to the bathroom yesterday. In the ED, orthostatic vital signs are positive: Supine 190/96, sitting 194/100 and 76/42 standing. Pt is admitted to the hospital for treatment and further evaluation of symptomatic orthostatic hypotension: Patient blood pressure closely monitor, also patient midodrine adjusted to 5 mg q.day as well as added losartan 25 mg q.h.s. patient symptoms are improved currently asymptomatic. In addition patient had a run of paced beats-discussed with Cardiology no acute intervention ,no new episodes. Essential hypertension. on Losartan. Continue to monitor blood pressure hold midodrine for SBP >140 Patient seen by PT patient will be going home with VNA/PT. plan: adjusted midodrine 5 mg q daily,hold midodrine for SBP >140 losartan 25 mg qhs moniter renal function closely Orthostatic precautions discussed with the patient in detail, Jack candelaria. Follow[facility]up with [facility] outpatient Follow-up with PCP and Nephro, consider outpatient cardio follow-up. Any new symptoms or worsening please go to nearest emergency room. Above management discussed with the patient and his in detail length they both understand and in agreement with the above plan, time spent 40 minute, all questions answered, staff was present during conversation. Time Attestation Total time managing care of this patient today: 40 mintues. Discharge Coordination Time (in mins): 40 min Quality: Safe Use of Opioids Does Pt have an Active Cancer Diagnosis on the Problem List?: No Quality: Stroke Does the patient have a stroke diagnosis?: No Physical Exam Vital Signs: Vital Signs: Last Vital Signs Temp 97.3 F 12/28/24 12:00 Pulse 70 12/28/24 12:00 Resp 18 12/28/24 12:00 BP 138/82 12/28/24 12:00 Pulse Ox 97 12/28/24 12:00 O2 Del Method Room Air 12/28/24 12:00 O2 Flow Rate 2 12/24/24 15:53 BMI result Body Mass Index 31.8 General: AOx3, no acute distress Resp: CTA bilaterally CVS: S1, S2, RRR GI: +BS, NT, no distention Skin: Warm, dry Neuro: Cranial nerves II-XII grossly intact bilaterally. Motor grossly intact bilaterally Extremities: No edema Psych: Appropriate affect DS: Data Data Completed and Pending Labs on day of discharge: Laboratory Results - last 24 hr 12/27/24 12/27/24 12/28/24 15:42 19:48 06:27 Sodium 145 Potassium 4.5 Chloride 112 H Carbon Dioxide 27 Anion Gap 11 L BUN 23 H Creatinine 1.46 H Estim Creat Clear Calc 59.2 Estimated GFR 47 POC Glucose 117 H 154 H Random Glucose 104 Calcium 9.0 12/28/24 12/28/24 07:09 11:48 Sodium Potassium Chloride Carbon Dioxide Anion Gap BUN Creatinine Estim Creat Clear Calc Estimated GFR POC Glucose 103 127 H Random Glucose Calcium Imaging Chest x-ray: My impression: ct head and neck: IMPRESSION: No acute findings. IMPRESSION: Age-related atrophy with chronic microvascular leukomalacia. No hemorrhage, mass effect, or acute findings identified. Discharge Plan Discharge Anticipated Discharge Date/Time: 12/28/24 13:43 Patient Disposition: Home Health Service Discharge Diagnosis: htn, orthostasis Referrals: [facility] [Outside] - 1 Week Elroy Smith MD [Primary Care Provider, Medical] - 1 Week Discharge Medications: New losartan 25 mg tablet 25 mg PO BEDTIME Qty: 90 0RF docusate sodium 100 mg Capsule 100 mg PO BID PRN (Reason: constipation) Qty: 60 0RF Continued acetaminophen [Tylenol] 325 mg Tablet 650 mg PO Q6H PRN (Reason: Pain) aspirin 81 mg Tablet,Delayed Release (Dr/Ec) 81 mg PO DAILY rosuvastatin 20 mg tablet 20 mg PO BEDTIME gabapentin 300 mg capsule 300 mg PO TID Mounjaro 2.5 mg/0.5 mL pen injector 2.5 mg subcut WE Changed midodrine 2.5 mg tablet 5 mg PO DAILY Qty: 90 3RF Discharge Orders: Discharge Order (Routine); Ordered 12/28/24 Ordered By: Mirella Mello Diet: Advance to usual diet Activity on Discharge: As tolerated Stand Alone Forms: Patient Portal Discharge page Print Language: Ukrainian Other Ambulatory Orders: Basic Metabolic Panel (Routine) Timeframe: 1 Week Facility: [facility] - Location: Laboratory Ordered By: Mirella Mello Care Plan Goals: as below. Health Concerns: as below. Plan of Treatment: adjusted midodrine 5 mg q daily losartan 25 mg qhs moniter renal function closely Orthostatic precautions discussed with the patient in detail, Jack candelaria. Any new symptoms or worsening please go to nearest emergency room. Assessment: As above.
== END 2024-12-28 14:48 | disposition home health service (06) | DRG 312 ==
LOC: HO.ED 13:19 → HO.EDOVER 14:43 → HO.IMC 19:21
PROVIDERS: Physician Assistant Medical; Student in an Organized Health Care Education/Training Program; Admitting Provider Internal Medicine; Emergency Provider Emergency Medicine; PCP Internal Medicine; Visit Provider Internal Medicine
DX: I95.1 Orthostatic hypotension (principal); I13.0 Hypertensive heart and chronic kidney disease with heart failure and stage 1 through stage 4 chronic kidney disease, or unspecified chronic kidney disease; I50.32 Chronic diastolic (congestive) heart failure; N18.31 Chronic kidney disease, stage 3a; E11.40 Type 2 diabetes mellitus with diabetic neuropathy, unspecified; E78.5 Hyperlipidemia, unspecified; G90.9 Disorder of the autonomic nervous system, unspecified; E11.22 Type 2 diabetes mellitus with diabetic chronic kidney disease; E87.6 Hypokalemia; T38.0X5A Adverse effect of glucocorticoids and synthetic analogues, initial encounter; Z87.891 Personal history of nicotine dependence; Z95.0 Presence of cardiac pacemaker; Z79.82 Long term (current) use of aspirin; Z79.85 Long-term (current) use of injectable non-insulin antidiabetic drugs; Z79.899 Other long term (current) drug therapy
CPT/HCPCS: 36415; 70450; 72125; 80048; 80076; 82533; 82947; 83735; 84484; 85025; 93005; 97161; 99285; J1650; J7120

== ENCOUNTER → 2024-12-23 11:37 | Outpatient (BNV) | payer BC, SELFPAY | PROVIDERS: Emergency Provider Emergency Medicine; PCP Internal Medicine; Visit Provider Nuclear Medicine | DX: M50.323 Other cervical disc degeneration at C6-C7 level (principal); G31.9 Degenerative disease of nervous system, unspecified | CPT/HCPCS: 70450; 72125 ==

== ENCOUNTER → 2024-12-23 14:32 | Outpatient (BNV) | payer BC, SELFPAY | PROVIDERS: Admitting Provider Internal Medicine; Emergency Provider Emergency Medicine; PCP Internal Medicine; Visit Provider Internal Medicine | DX: I95.1 Orthostatic hypotension (principal); I10 Essential (primary) hypertension | CPT/HCPCS: 99223; 99231; 99232; 99239; G0180 ==

== ENCOUNTER → 2024-12-23 14:32 | Outpatient (BNV) | payer BC, SELFPAY | PROVIDERS: Admitting Provider Internal Medicine; Emergency Provider Emergency Medicine; PCP Internal Medicine; Visit Provider Internal Medicine Cardiovascular Disease | DX: I95.1 Orthostatic hypotension (principal); I10 Essential (primary) hypertension | CPT/HCPCS: 93010; 99232; 99233 ==

== ENCOUNTER → 2024-12-23 14:32 | Outpatient (BNV) | payer MEDICARE, SELFPAY | PROVIDERS: Admitting Provider Internal Medicine; Emergency Provider Emergency Medicine; PCP Internal Medicine; Visit Provider Nurse Practitioner Family | DX: I95.1 Orthostatic hypotension (principal) | CPT/HCPCS: 99221; 99231 ==

== ENCOUNTER 2025-01-04 09:37 | Outpatient (REF) | payer MEDICARE, SELFPAY ==
--- OUTSIDE RECORDS SUMMARY | 2025-01-04 10:00 | XMS_ITS | Clinical Summary ---
Author Organization [facility] Address [address] [place] [address] Care Team Providers Care Associate Dentist Name Role Phone Edith Uriarte MD Primary Care Provider [phone] Allergies Active Allergy Reactions Criticality Noted Date [...] 60 03/07/2015 7:54 AM EDT Temperature 36.3 C (97.4 F) 03/07/2015 7:54 AM EDT Respiratory Rate 16 03/07/2015 7:54 AM EDT [...] of 1 - PCV) 01/04/2017 Influenza Vaccine (Season Ended) 2025 RSV Adult > 60+ Yrs or Pregn ant (1 - 1-dose 75+ series) 01/04/2027 Hepatitis B Vaccines Aged Out No long er eligible based on patient's age to complete this topic RSV Ped < 20 months Aged Out No longe r eligible based on patient's age to complete this topic Medical Devices Implanted Type Area Dry Cell Battery Assembler Device Identifier Shelf Expiration Date Model / Serial / Lot Shelley Cluster Shell Cementless 60mm Taper Size 5 Implanted:Qty: 1 on 03/06/2015 by Jovany Read MD at [facility] Left: Hip [employer] 04/03/2017 [id number] / / [id number] Shelley Liner Hxlpe 36mm Neutral Offset Size 5 Implanted:Qty: 1 on 03/06/2015 by Jovany Read MD at [facility] Left: Hip [employer] 05/03/2016 [id number] / / [id number] Stem Size 7 - Minihip Short Standard (14) - 130ccd - [id number] - [id number] Implanted:Qty: 1 on 03/06/2015 by Jovany Read MD at [facility] Left: Hip [employer] 01/31/2017 [id number] / / [id number] Modular Head 36mm Medium 0.0mm - [id number] - [id number] Implanted:Qty: 1 on 03/06/2015 by Jovany Read MD at [facility] Left: Hip [employer] 01/08/2020 [id number] / / [id number] Advance Directives For more information, please contact: [phone] Latest Code Status on File Code Status Date Activated Date Inactivated Comments Full Code 03/06/2015 10:12 AM 03/07/2015 7:32 PM This c ode status was ascertained in the following way: per chart. Code Status History Code Status Date Activated Date Inactivated Comments Full Code 03/06/2015 8:04 AM 03/06/2015 10:12 AM . Care Teams Associate Dentist Relationship Specialty Start Date End Date Edith Uriarte MD [address] [place] [phone] PCP - General Family Medicine 03/05/15
--- OUTSIDE RECORDS SUMMARY | 2025-01-04 10:00 | XMS_ITS | Encounter Summary ---
Author Organization [facility], Address [address] [place] [address] Phone Care Team Providers Care [employer] Boss Name Role Phone Elroy Smith MD Primary Care Provider [phone] Encounter Details Date Type Department Care Team (Late Contact Info) Description 08/25/2024 Documentation Only [facility] [address] [place] [address] Erendira Luz [address] [place] [phone] Social History Tobacco Use Types Packs/Day Years Used Date Smoking Tobacco: Former Cigarettes 2 30 1 961 - 1987 Cigars Comments:Smokes 4 cigars a w akiak Currently Alcohol Use Standard Drinks/Week Comments Yes 35 (1 standard drink = 0.6 oz pu re alcohol) 5-6 beers a day Sex and Gender Information Value Date Recorded Sex Assigned at Not on file Legal Sex Male 4:35 PM EST Gender Identity Not on file Sexual Orientation Not on file Occupation Industry Job Start Date Job End Date [employer] Not on file Not on file Not on file documented as of this encounter Plan of Treatment Upcoming Encounters Date Type Department Care Team (Late st Contact Info) Description 03/02/2025 11:15 AM EDT Office Visit [facility] [address] [place] [phone] Nestor Coreas MD [address] [place] [address] [place] [address] documented as of this encounter Visit Diagnoses Not on filedocumented in this encounter Care Teams [employer] Boss Relationship Specialty Start Date End Date Elroy Smith MD [address] [place] [address], [address] [place] [address] PCP - General 05/09/19 documented as of this encounter
--- OUTSIDE RECORDS SUMMARY | 2025-01-04 10:00 | XMS_ITS | Data Portability ---
Author Organization [facility], , [facility] Address [address] [place] [address] Care Team Providers Care Crib Tender Name Role Phone KEVIN HOGAN OTHER BENJAMIN URIARTE Primary Care Provider ANDERSON Simon Tierce Filler Assessment No assessment recorded. Plan of Treatment Reminders Order Date Submit Date Provider Last Modified By Organization Details Last Modified Time Details Appointments None recorded. Lab lipid panel, serum 2015 017 [facility], [address] [place] [address], [address], 7 12:43:53 HbA1c (hemoglob in A1c), blood [address] [facility], [address] [place] [address], [address], 7 11:26:23 BMP, serum or plasma [address] [facility], [address] [place] [address], [address], 7 11:26:17 Referral None recorded. Procedures None recorded. Surgeries None recorded. Imaging XR, chest - 66 year old patient with productiv e cough and rhonchi LLL 2016 017 [facility] (Imaging), [address], [place], [address], 7 12:31:29 Medication Orders Flovent HFA 110 mcg/actua tion aerosol inhaler 2016 017 INTERFACE [facility] [place], [address], 7 14:58:14 rosuvasta tin 20 mg tablet 2016 017 INTERFACE [facility] [address] [place], [address], 7 14:28:23 Tessalon Perles 100 mg capsule 2016 017 [facility] [address] [place], [address], 7 13:45:41 albuterol sulfate HFA 90 mcg/actua tion aerosol inhaler 2016 017 [email or web address] Not available 7 16:53:15 codeine 10 mg-guaife nesin 100 mg/5 mL oral liquid 2015 016 [facility] [address] [place], [address], 7 13:45:47 Patient TargetsNo targets recorded. Patient Instructions Encounter Date Encounter Id Patient Instructions Last Modified By Organization Details Last Modified Time 04/14/2016 [id number] Well Visit 50 to 65: Care Instructions [id number] Not available 06/20/2016 04:08:51 -Message us with the date of when you get your flu shot at work -Eye exam due in June -Call Dr. Rubin's office - if they have not seen you in 2016, you need a vist, if they have, we need the note (thanks!) -Check your feet once daily (either in AM or PM) -Non-weight bearing exercise (bicycling or wading with a pam or learning to swim) -Follow-up in 6 months Not available 04/14/2016 16:46:09 05/29/2016 [id number] After a discussion of treatment options, which included consideration of best practices and patient preferences, the above treatment plan and objectives were adopted. New medication was discussed with patient including risks, benefits, possible and expected side effects. Patient understands and is willing to begin medication as prescribed. [email or web address] Not available 05/29/2016 13:49:49 09/07/2016 [id number] This looks like a post viral cough. At this point recommend trying Tessalon Perles her sodium but Zante. If that does not work then filled the prescription for the albuterol that was given to him by hand. [email or web address] Not available 09/07/2016 16:50:15 10/08/2016 [id number] -STOP pravastati n -START rosuvastatin and let me know if you have any side effects -Otherwise continue on current medications and will follow-up in six months when due [email or web address] Not available 10/08/2016 14:35:35 Reason for Referral None Reported. Results Created Date Observation Date Name Description Value Unit Range Abnormal Flag Note LastModifiedBy Organization Detail LastModifiedTime 04/04/20 16 04/06/2016 BMP, serum or plasm a glucose 126 mg/dL 70-100 high Not Available [address], [address], 04/06/2016 11:21:55 04/04/20 16 04/06/2016 BMP, serum or plasm a BUN 25 mg/dL 7-18 high Not Available [address], [address], 04/06/2016 11:21:55 04/04/20 16 04/06/2016 BMP, serum or plasm a creatinine 1.6 mg/dL 0.8-1. 3 high Not Available [address], [address], 04/06/2016 11:21:55 04/04/20 16 04/06/2016 BMP, serum or plasm a B/C 15.6 ratio Not Available [address], [address], 04/06/2016 11:21:55 04/04/20 16 04/06/2016 BMP, serum or plasm a GFR -non 46.5 mL/mi n Recom kandi d GFR by the Natio nal Kidne y Found ation >60 mL/mi n/1.7 3m2 - Tiffany l <60 mL/mi n/1.7 3m2 - Chron ic Kidne y Disea se <15 mL/mi n/1.7 3m2 - Kidne y Failu re Not Available [address], [address], 04/06/2016 11:21:55 04/04/20 16 04/06/2016 BMP, serum or plasm a GFR - if 56.2 mL/mi n For Afric an Ameri can patie nts: Resul ts Multi plied by 1.21 Not Available [address], [address], 04/06/2016 11:21:55 04/04/20 16 04/06/2016 BMP, serum or plasm a sodium 144 mmol/ L 136-14 5 Not Available [address], [address], 04/06/2016 11:21:55 04/04/20 16 04/06/2016 BMP, serum or plasm a potassium 5.0 mmol/ L 3.5-5. 1 Not Available [address], [address], 04/06/2016 11:21:55 04/04/20 16 04/06/2016 BMP, serum or plasm a chloride 106 mmol/ L 96-107 Not Available [address], [address], 04/06/2016 11:21:55 04/04/20 16 04/06/2016 BMP, serum or plasm a anion gap 9.3 5.0-15 .0 Not Available [address], [address], 04/06/2016 11:21:55 04/04/20 16 04/06/2016 BMP, serum or plasm a CO2 29 mmol/ L 21-32 Not Available [address], [address], 04/06/2016 11:21:55 04/04/20 16 04/06/2016 BMP, serum or plasm a calcium 9.4 mg/dL 8.5-10 .3 Not Available [address], [address], 04/06/2016 11:21:55 04/04/20 16 04/06/2016 lipid panel , serum cholesterol 156 mg/dL <200 mg/dl Cee able 200-2 39 mg/dl Borde rline High >240 mg/dl High Not Available [address], [address], 04/06/2016 11:21:57 04/04/20 16 04/06/2016 lipid panel , serum triglyceride s 110 mg/dL <150 mg/dL Tiffany l 150-1 99 mg/dL Borde rline High 200-4 99 mg/dL High >500 mg/dL Very High Not Available [address], [address], 04/06/2016 11:21:57 04/04/20 16 04/06/2016 lipid panel , serum direct HDL 36 mg/dL Not Available [address], [address], 04/06/2016 11:21:57 04/04/20 16 04/06/2016 LDL, calcu lated , serum (OBS) LDL - calculated 98.0 RISK CATEG ORY LDL GOAL _ CHD or CHD Risk Equiv alent s <100 mg/dl (10-y ear risk >20%) 2+ Risk Facto rs <130 mg/dl (10-y ear risk <= 20%) 0-1 Risk Facto r <160 mg/dl [facility] all peopl e with 0-1 risk facto r have a 10 year risk <10%, thus 10 year risk asses ment in peopl e with 0-1 risk facto r is not neces zuleyma. Not Available [address], [address], 04/06/2016 11:21:57 04/04/20 16 04/06/2016 HbA1c (hemo globi n A1c), blood hemoglobin A1C 6.5 % 4.8-6. 0 high Goal: <7% in Patie nts with Diabe zach Not Available [address], [address], 04/06/2016 11:31:06 04/04/20 16 04/06/2016 HbA1c (hemo globi n A1c), blood estimated average glucose 139.9 mg/dL Not Available [address], [address], 04/06/2016 11:31:06 04/04/20 16 04/06/2016 micro album in, urine microalbumin 677.9 mg/L 1.3-20 .0 high VERD= Verif ied by Dilut ion. Not Available [address], [address], 04/06/2016 14:18:23 04/04/20 16 04/06/2016 micro album in, urine creatinine urine 291.9 mg/dL 30.0-1 25.0 high Not Available [address], [address], 04/06/2016 14:18:23 04/04/20 16 04/06/2016 micro album in, urine microalb/cre at ratio 232.2 mg/g_ creat 0.0-29 .0 high Not Available [address], [address], 04/06/2016 14:18:23 10/04/19 17 10/05/2016 HbA1c (hemo globi n A1c), blood hemoglobin A1C 6.7 % 4.8-6. 0 high Goal: <7% in Patie nts with Diabe zach Not Available [address], [address], 10/05/2016 11:38:06 10/04/19 17 10/05/2016 HbA1c (hemo globi n A1c), blood estimated average glucose 145.6 mg/dL Not Available [address], [address], 10/05/2016 11:38:06 10/04/19 17 10/05/2016 BMP, serum or plasm a glucose 136 mg/dL 70-100 high Not Available [address], [address], 10/05/2016 12:43:51 10/04/19 17 10/05/2016 BMP, serum or plasm a BUN 30 mg/dL 7-18 high Not Available [address], [address], 10/05/2016 12:43:51 10/04/19 17 10/05/2016 BMP, serum or plasm a creatinine 1.6 mg/dL 0.8-1. 3 high Not Available [address], [address], 10/05/2016 12:43:51 10/04/19 17 10/05/2016 BMP, serum or plasm a B/C 18.8 ratio Not Available [address], [address], 10/05/2016 12:43:51 10/04/19 17 10/05/2016 BMP, serum or plasm a GFR -non 46.5 mL/mi n Recom kandi d GFR by the Natio nal Kidne y Found ation >60 mL/mi n/1.7 3m2 - Tiffany l <60 mL/mi n/1.7 3m2 - Chron ic Kidne y Disea se <15 mL/mi n/1.7 3m2 - Kidne y Failu re Not Available [address], [address], 10/05/2016 12:43:51 10/04/19 17 10/05/2016 BMP, serum or plasm a GFR - if 56.2 mL/mi n For Afric an Ameri can patie nts: Resul ts Multi plied by 1.21 Not Available [address], [address], 10/05/2016 12:43:51 10/04/19 17 10/05/2016 BMP, serum or plasm a sodium 144 mmol/ L 136-14 5 Not Available [address], [address], 10/05/2016 12:43:51 10/04/19 17 10/05/2016 BMP, serum or plasm a potassium 5.2 mmol/ L 3.5-5. 1 high Not Available [address], [address], 10/05/2016 12:43:51 10/04/19 17 10/05/2016 BMP, serum or plasm a chloride 107 mmol/ L 96-107 Not Available [address], [address], 10/05/2016 12:43:51 10/04/1910/05/2016 BMP, serum or plasm a anion gap 10.6 5.0-15 .0 Not Available [address], [address], 10/05/2016 12:43:51 10/04/1910/05/2016 BMP, serum or plasm a CO2 26 mmol/ L 21-32 Not Available [address], [address], 10/05/2016 12:43:51 10/04/1910/05/2016 BMP, serum or plasm a calcium 9.2 mg/dL 8.5-10 .3 Not Available [address], [address], 10/05/2016 12:43:51 10/04/1910/05/2016 lipid panel , serum cholesterol 138 mg/dL <200 mg/dl Cee able 200-2 39 mg/dl Borde rline High >240 mg/dl High Not Available [address], [address], 10/05/2016 12:43:53 10/04/19 17 10/05/2016 lipid panel , serum triglyceride s 79 mg/dL <150 mg/dL Tiffany l 150-1 99 mg/dL Borde rline High 200-4 99 mg/dL High >500 mg/dL Very High Not Available [address], [address], 10/05/2016 12:43:53 10/04/19 17 10/05/2016 lipid panel , serum direct HDL 45 mg/dL Not Available [address], [address], 10/05/2016 12:43:53 10/04/19 17 10/05/2016 LDL, calcu lated , serum (OBS) LDL - calculated 77.2 RISK CATEG ORY LDL GOAL _ CHD or CHD Risk Equiv alent s <100 mg/dl (10-y ear risk >20%) 2+ Risk Facto rs <130 mg/dl (10-y ear risk <= 20%) 0-1 Risk Facto r <160 mg[facility] peopl e with 0-1 risk facto r have a 10 year risk <10%, thus 10 year risk asses ment in peopl e with 0-1 risk facto r is not dee dee amor. Not Available [address], [address], 10/05/2016 12:43:53 11/28/19 17 11/27/2016 CBC w/ auto diff WBC 7.7 K/uL 3.4-11 .2 Not Available [address], [address], 11/27/2016 17:28:53 11/28/19 17 11/27/2016 CBC w/ auto diff RBC 4.51 M/uL 4.50-5 .50 Not Available [address], [address], 11/27/2016 17:28:53 11/28/19 17 11/27/2016 CBC w/ auto diff hemoglobin 13.9 g/dL 13.0-1 7.0 Not Available [address], [address], 11/27/2016 17:28:53 11/28/19 17 11/27/2016 CBC w/ auto diff hematocrit 40.3 % 40.0-5 1.0 Not Available [address], [address], 11/27/2016 17:28:53 11/28/19 17 11/27/2016 CBC w/ auto diff MCV 89.4 fL 79.0-9 8.0 Not Available [address], [address], 11/27/2016 17:28:53 11/28/19 17 11/27/2016 CBC w/ auto diff MCH 30.8 pg 27.0-3 4.8 Not Available [address], [address], 11/27/2016 17:28:53 11/28/19 17 11/27/2016 CBC w/ auto diff MCHC 34.5 g/dL 31.5-3 6.0 Not Available [address], [address], 11/27/2016 17:28:53 11/28/19 17 11/27/2016 CBC w/ auto diff RDW 13.1 % 10.8-1 4.6 Not Available [address], [address], 11/27/2016 17:28:53 11/28/19 17 11/27/2016 CBC w/ auto diff MPV 10.4 fL 9.4-12 .4 Not Available [address], [address], 11/27/2016 17:28:53 11/28/19 17 11/27/2016 CBC w/ auto diff platelet count 256 K/uL 130-40 0 Not Available [address], [address], 11/27/2016 17:28:53 11/28/19 17 11/27/2016 CBC w/ auto diff neutrophils 63.3 % 45.3-7 7.7 Not Available [address], [address], 11/27/2016 17:28:53 11/28/19 17 11/27/2016 CBC w/ auto diff lymphocytes 25.2 % 12.3-3 9.7 Not Available [address], [address], 11/27/2016 17:28:53 11/28/19 17 11/27/2016 CBC w/ auto diff monocytes 5.5 % 4.1-12 .8 Not Available [address], [address], 11/27/2016 17:28:53 11/28/19 17 11/27/2016 CBC w/ auto diff eosinophils 5.60 % 0.00-7 .20 Not Available [address], [address], 11/27/2016 17:28:53 11/28/19 17 11/27/2016 CBC w/ auto diff basophils 0.40 % 0.00-2 .80 Not Available [address], [address], 11/27/2016 17:28:53 11/28/19 17 11/27/2016 CBC w/ auto diff absolute neutrophil 4.9 K/uL 1.4-7. 7 Not Available [address], [address], 11/27/2016 17:28:53 11/28/19 17 11/27/2016 CBC w/ auto diff absolute lymphocyte 1.9 K/uL 0.6-3. 2 Not Available [address], [address], 11/27/2016 17:28:53 11/28/19 17 11/27/2016 CBC w/ auto diff absolute monocytes 0.4 K/uL 0.1-0. 6 Not Available [address], [address], 11/27/2016 17:28:53 11/28/19 17 11/27/2016 CBC w/ auto diff absolute eosinophil 0.43 K/uL 0.01-0 .50 Not Available [address], [address], 11/27/2016 17:28:53 11/28/19 17 11/27/2016 CBC w/ auto diff absolute basophils 0.03 K/uL Not Available [address], [address], 11/27/2016 17:28:53 11/28/19 17 11/27/2016 CBC w/ auto diff immature granulocyte 0.00 % 0.00-0 .50 Not Available [address], [address], 11/27/2016 17:28:53 11/28/19 17 11/27/2016 CBC w/ auto diff absolute immature granulocyte 0.00 K/uL 0.00-0 .03 Not Available [address], [address], 11/27/2016 17:28:53 11/28/19 17 11/27/2016 renal funct ion panel , serum glucose 277 mg/dL 70-99 high Not Available [address], [address], 11/27/2016 17:59:06 11/28/19 17 11/27/2016 renal funct ion panel , serum BUN 24 mg/dL 6-19 high Not Available [address], [address], 11/27/2016 17:59:06 11/28/19 17 11/27/2016 renal funct ion panel , serum creatinine 1.5 mg/dL 0.5-1. 5 Not Available [address], [address], 11/27/2016 17:59:06 11/28/19 17 11/27/2016 renal funct [...] ages of 18 and 70. Not Available [address], [address], 11/27/2016 17:59:06 11/28/19 17 11/27/2016 renal funct ion panel , serum sodium 139 mEq/L 133-14 6 Not Available [address], [address], 11/27/2016 17:59:06 11/28/19 17 11/27/2016 renal funct ion panel , serum potassium 4.6 mEq/L 3.3-5. 2 Not Available [address], [address], 11/27/2016 17:59:06 11/28/19 17 11/27/2016 renal funct ion panel , serum chloride 100 mEq/L 96-108 Not Available [address], [address], 11/27/2016 17:59:06 11/28/19 17 11/27/2016 renal funct ion panel , serum CO2 26 mEq/L 21-35 Not Available [address], [address], 11/27/2016 17:59:06 11/28/19 17 11/27/2016 renal funct ion panel , serum calcium 9.3 mg/dL 8.4-10 .3 Not Available [address], [address], 11/27/2016 17:59:06 11/28/19 17 11/27/2016 renal funct ion panel , serum phosphorus 3.1 mg/dL 2.7-4. 5 Not Available [address], [address], 11/27/2016 17:59:06 11/28/19 17 11/27/2016 renal funct ion panel , serum albumin 3.9 g/dL 3.9-4. 8 Not Available [address], [address], 11/27/2016 17:59:06 11/28/19 17 11/27/2016 renal funct ion panel , serum anion gap 18 mEq/L 10-20 Not Available [address], [address], 11/27/2016 17:59:06 11/28/19 17 11/27/2016 PTH (para thyro id hormo ne), intac t, serum or plasm a PTH, stat 38 pg/mL 15- Not Available [address], [address], 11/27/2016 18:07:53 11/28/19 17 11/27/2016 micro album in/cr eatin ine, ratio panel , urine urine creatinine random 121 mg/dL Not Available [address], [address], 11/27/2016 18:19:10 11/28/19 17 11/27/2016 micro album in/cr eatin ine, ratio panel , urine microalbumin , random 47 mg/L 0-23 high Not Available [address], [address], 11/27/2016 18:19:10 11/28/19 17 11/27/2016 micro album in/cr eatin ine, ratio panel , urine microalb/cre at ratio 39 ug/mg 0-20 high Not Available [facility] [address] [place], [address], 11/27/2016 18:19:10 05/01/20 17 05/03/2017 HbA1c (hemo globi n A1c), blood hemoglobin A1C 6.2 % 4.8-6. 0 high Goal: <7% in Patie nts with Diabe zach Not Available [address], [address], 05/03/2017 11:08:28 05/01/20 17 05/03/2017 HbA1c (hemo globi n A1c), blood estimated average glucose 131.2 mg/dL Not Available [address], [address], 05/03/2017 11:08:28 05/01/20 17 05/03/2017 BMP, serum or plasm a glucose 120 mg/dL 70-100 high Not Available [address], [address], 05/03/2017 12:02:32 05/01/20 17 05/03/2017 BMP, serum or plasm a BUN 21 mg/dL 7-18 high Not Available [address], [address], 05/03/2017 12:02:32 05/01/20 17 05/03/2017 BMP, serum or plasm a creatinine 1.5 mg/dL 0.8-1. 3 high Not Available [address], [address], 05/03/2017 12:02:32 05/01/20 17 05/03/2017 BMP, serum or plasm a B/C 14.0 ratio Not Available [address], [address], 05/03/2017 12:02:32 05/01/20 17 05/03/2017 BMP, serum or plasm a GFR -non 49.9 mL/mi n Recom kandi d GFR by the Natio nal Kidne y Found ation >60 mL/mi n/1.7 3m2 - Tiffany l <60 mL/mi n/1.7 3m2 - Chron ic Kidne y Disea se <15 mL/mi n/1.7 3m2 - Kidne y Failu re Not Available [address], [address], 05/03/2017 12:02:32 05/01/20 17 05/03/2017 BMP, serum or plasm a GFR - if 60.4 mL/mi n For Afric an Ameri can patie nts: Resul ts Multi plied by 1.21 Not Available [address], [address], 05/03/2017 12:02:32 05/01/20 17 05/03/2017 BMP, serum or plasm a sodium 145 mmol/ L 136-14 5 Not Available [address], [address], 05/03/2017 12:02:32 05/01/20 17 05/03/2017 BMP, serum or plasm a potassium 5.0 mmol/ L 3.5-5. 1 Not Available [address], [address], 05/03/2017 12:02:32 05/01/20 17 05/03/2017 BMP, serum or plasm a chloride 107 mmol/ L 96-107 Not Available [address], [address], 05/03/2017 12:02:32 05/01/20 17 05/03/2017 BMP, serum or plasm a anion gap 10.6 5.0-15 .0 Not Available [address], [address], 05/03/2017 12:02:32 05/01/20 17 05/03/2017 BMP, serum or plasm a CO2 27 mmol/ L 21-32 Not Available [address], [address], 05/03/2017 12:02:32 05/01/20 05/03/2017 BMP, serum or plasm a calcium 9.6 mg/dL 8.5-10 .3 Not Available [address], [address], 05/03/2017 12:02:32 05/01/20 17 05/03/2017 lipid panel , serum cholesterol 106 mg/dL <200 mg/dl Cee able 200-2 39 mg/dl Borde rline High >240 mg/dl High Not Available [address], [address], 05/03/2017 12:02:33 05/01/20 17 05/03/2017 lipid panel , serum triglyceride s 82 mg/dL <150 mg/dL Tiffany l 150-1 99 mg/dL Borde rline High 200-4 99 mg/dL High >500 mg/dL Very High Not Available [address], [address], 05/03/2017 12:02:33 05/01/2005/03/2017 lipid panel , serum direct HDL 37 mg/dL Not Available [address], [address], 05/03/2017 12:02:33 05/01/20 17 05/03/2017 LDL, calcu lated , serum (OBS) LDL - calculated 52.6 RISK CATEG ORY LDL GOAL _ CHD or CHD Risk Equiv alent s <100 mg/dl (10-y ear risk >20%) 2+ Risk Facto rs <130 mg/dl (10-y ear risk <= 20%) 0-1 Risk Facto r <160 mg/dl [facility] all peopl e with 0-1 risk facto r have a 10 year risk <10%, thus 10 year risk asses ment in peopl e with 0-1 risk facto r is not necridge zuleyma. Not Available [address], [address], 05/03/2017 12:02:34 03/24/20 16 03/20/2016 MRI, hip, w/o contr ast No observ ation record ed. [address] [facility], [place], [address], 03/24/2016 17:59:55 05/24/20 16 05/24/2016 chest 2 [...] DE JESUS DERAS MD 2015 01:[address] [facility] [address] [place], [address], 05/25/2016 08:12:33 11/21/19 17 11/20/2016 XR, chest [...] emphys flakito Electr onical ly signed Nikole casillas: Jordin gallagher[address] [place] [address] (Imaging) [address], [place], [address], 11/20/2016 15:00:32 Result Notes Documentation Provider Name and Address Organization Details Recorded Time Xr, Chest : OBSERVATION: Chest 2 views Cough. There is no evidence of active inflammatory disease. Hyperexpansion and a narrow mediastinal silhouette are suggestive of emphysema. There is scarring at the left costophrenic angle. The bony and soft tissues are normal Impression: No acute radiographic abnormality probable emphysema Electronically signed Reading Physician: Jordin Marcos PA-C [address] [place] [address], [phone], [facility] 11/20/2016 15:00:32 Problems Name Problem SNOMED Code Status Onset Date Resolution Date Notes Provider Name and Address Organization Details Recorded Time Mixed hyperlipide cristian 006018144 Active Benjamin Uriarte [address] [place], [place] [address]U[place], 1, [facility] 6 14:21:24 Type 2 diabetes mellitus without complicatio n 159776667 Active [facility] 6 08:06:10 Chronic renal impairment Active Cr 1.5 - sees Kamel Benjamin Uriarte [address] [place] [address] [place], [address], [facility] 5 16:51:24 Benign essential hypertensio n 1024108 Completed 04/14/2016 Benjamin Uriarte [address] [place], [place] [address], [address], [facility] 6 16:33:25 Essential hypertensio n 15010405 Active Benjamin Uriarte [address] [place], [place] [address], [address], [facility] 6 14:21:24 Obesity 722402630 Active Benjamin Uriarte [address] [place], [place] [address], [address], [facility] 5 16:51:06 Neuropathy due to diabetes mellitus 125839970 Active Zeina Greenwood NP [address] [place], [place] [address], [address], [facility] 5 14:38:04 Notes:Some problems listed i n Documents: #[id number], #[id number], #[id number], #[id number] could not be added to this patient's chart. Please review these documents and add these problems to the patient's chart manually as needed. Problem Notes None recorded. Procedures Surgical History Date Name Laterality Status Provider Name and Address Organization Details Recorded Time 07/23/19 12 Glucose Meter Teaching completed Cinthia Ignacio RN [facility] 07/23/2011 14:45:39 02/20/20 11 Nutritional Diagnosis N1 5.8.3 completed Karen Campos, Ms, Rdn, Ldn, CDE [address] [place], [address], [facility] 02/19/2011 14:57:29 07/05/19 03 Other (specify) completed [facility] 06[facility]16 Imaging Results None recorded. Procedure Notes None recorded. Medical Equipment None Reported. Allergies Allergen ID Allergen Name Allergen Category Reaction Reaction Severity Criticality Documentation Date Start Date Code Code System Note Provider Name and Address Organization Details Recorded Time 953581 metoprolo l Not available Not available Not available Not available 03/04/2012 6918 RxNorm low heart rate Cecilia Gonzalez CMA(AAMA) [facility], [facility] 2 10:32:54 Medications Name Sig Start [...] blood by Pulse oximetry Heart rate Systolic And Diastolic Provider Name and Address Organization Details Last Updated DateTime 7 185.42 cm 082540. 52 g 34.2 kg/m2 97 % 97 % 54 /min 136/60 mm[Hg] Radha Mike [facility] 7 16:30:06 Date Recorded Body height Body weight Body mass index (BMI) Heart rate Systolic And Diastolic Provider Name and Address Organization Details Last Updated DateTime 10/08/2016 185.42 cm 432721.9 3 g 34.1 kg/m2 60 /min 124/60 mm[Hg] Fauzia Spears LPN [facility] 10/08/2016 13:49:07 Date Recorded Body height Body weight Body mass index (BMI) Oxygen saturation Oxygen saturation in Arterial blood by Pulse oximetry Heart rate Systolic And Diastolic Provider Name and Address Organization Details Last Updated DateTime 7 185.42 cm 765800. 52 g 34.2 kg/m2 96 % 96 % 60 /min 118/72 mm[Hg] Hilary [facility] 7 14:08:17 Date Recorded Body height Body weight Body mass index (BMI) Heart rate Systolic And Diastolic Provider Name and Address Organization Details Last Updated DateTime 04/14/2016 185.42 cm 857820.7 9 g 34.7 kg/m2 62 /min 124/76 mm[Hg] Hilary [facility] 04/14/2016 16:09:30 Date Recorded Oxygen saturation Oxygen saturation in Arterial blood by Pulse oximetry Systolic And Diastolic Provider Name and Address Organization Details Last Updated DateTime 05/29/2016 97 % 97 % 106/58 mm[Hg] Kamar Edwards MD [address] [place] [address], [phone], [facility] 05/29/2016 13:45:12 Date Recorded Body height Body weight Body mass index (BMI) Heart rate Provider Name and Address Organization Details Last Updated DateTime 05/29/2016 185.42 cm 598511.79 g 34.7 kg/m2 72 /min Vilma Ascencio [facility] 05/29/2016 13:37:19 Social History Question Answer Notes LastModified by Organizat ion Details LastModified Time Tobacco Smoking Status Former Smoker quit age 36 (at least 25 pack years) Janel rosas [facility] 12/26/2010 14:59:27 Do You Have An Advance Directive? No Information not available 05/02/2013 Do You Wear A Helmet When Biking? [...] Hx IVDU lappleton1 Information not available 12/29/2010 When Did You Quit Smoking? 16+yearssinc elastcigaret te Information not available 11/13/2014 How Many Days In The Past Year Have You Had A Heavy Drinking Consumption (4+ Female, 5+ Male)? 5 Information no t available 11/13/2014 Are There Any Guns Present In Your Home? No Information not available 05/02/2013 Live Alone Or With Others? With Others With litzy Information not available 05/21/2011 Patient Has Health [...] 11/20/2014 What Is Your Current Pack Years? 20-29packyea rs Information not available 11/20/2014 Seat Belts Used [...] not available 11/13/2014 Sex: Unknown Functional Status Question Answer Note LastModified by Organizat ion Details LastModified Time What is your level of alcohol consumption? Moderate (5) 12 fl oz beers on Saturdays and sundays Information not available 11/13/2014 What is your occupation? [employer] 17 Information not available 05/21/2011 Mental Status None recorded. Family History Relationship [...] Recorded Time Tdap 1 completed [facility] 07[facility]2019 02:34:56 pneumococcal polysaccharide PPV23 8 completed Not Available [facility] 05/20/2011 05:22:52 Influenza, split virus, quadrivalent, PF 5 completed Not Available [facility] 07/22/2019 02:19:46 influenza, unspecified formulation 3 completed Denice Mcdonald RN [facility], [facility] 05/30/2013 15:34:24 zoster live 3 completed Fauzia Spears LPN [facility], [facility] 08/15/2015 17:24:11 influenza, unspecified formulation 6 completed Vilma Ascencio [facility], [facility] 05/29/2016 13:33:01 Past Encounters Encounter ID Performer Location Encounter Start Date Encounter Closed Date Diagnosis/Indication Diagnosis SNOMED-CT Code Diagnosis ICD10 Code Diagnosis Note [id number] OMAR Chavis, Fab, OFFICE [address] [place] [address] 12/26/2010 14:33:25 12/26/2010 15:41:44 [id number] OMAR Chavis, Fab, OFFICE [address] [facility] [place] [address] 01/16/2011 14:45:41 01/16/2011 15:59:20 [id number] Karen Campos, Ms, Rdn, Ldn, CDE Nutrition -[facility] [address] [place] [facility] [place] [address] 02/19/2011 13:23:32 02/20/2011 15:42:33 [id number] Benjamin Uriarte , [facility], OFFICE [address] [place] [facility] [address] 02/19/2011 14:20:51 02/19/2011 15:31:12 [id number] Benjamin Uriarte , [facility], OFFICE [address] [place] [facility] [place] [address] 05/21/2011 15:12:15 05/21/2011 16:16:55 [id number] Benjamin DE LA CRUZ, [facility], OFFICE [address] [facility] [place] [facility] [address] 07/23/2011 13:27:22 07/23/2011 14:47:58 [id number] Benjamin DE LA CRUZ, [facility], OFFICE [address] [place] [facility] [place] [address] 08/06/2011 14:08:52 08/06/2011 14:59:03 [id number] Benjamin DE LA CRUZ, [facility], OFFICE [address] [place] [facility] [place] [address] 09/03/2011 14:14:12 09/03/2011 14:55:14 [id number] MD DOROTHY Couch, [facility], OFFICE [address] [place] [facility] [place] [address] 12/04/2011 07:57:51 12/04/2011 08:42:27 [id number] MD DOROTHY Couch, [facility], OFFICE [address] [place] [facility] [place] [address] 12/25/2011 12:16:08 12/25/2011 12:42:50 [id number] MD DOROTHY Couch, [facility], OFFICE [address] [facility] [place] [facility] [address] 02/19/2012 07:53:40 02/19/2012 08:23:26 [id number] Jero Kiran MD , [facility], OFFICE [address] [facility] [place] [facility] [address] 04/15/2012 08:07:54 04/15/2012 08:58:41 [id number] Benjamin DE LA CRUZ, [facility], OFFICE [address] [facility] [place] [address] 11/04/2012 16:21:45 11/04/2012 17:01:48 [id number] Benjamin Uriarte , [facility], OFFICE [address] [facility] [place] [facility] [address] 12/02/2012 16:18:35 12/02/2012 16:46:33 [id number] Benjamin Uriarte , [facility], OFFICE [address] [facility] [place] [facility] [place] [address] 12/30/2012 16:16:54 12/30/2012 16:38:59 [id number] Benjamin Uriarte , [facility], OFFICE [address] [place] [place] [facility] [address] 05/02/2013 15:56:57 05/02/2013 17:31:43 Adult health examination [id number] Chronic re nal impairment 326627899 Recommend AVOIDING naproxen/a leve and ibuprofen/ advil/motr in. Recommend repeating labwork prior to follow-up visit in 4-6 weeks. Essential hypertension 76723942 Elevated in office, but pt has been [...] Type 2 mike betes mellitus without complication 386533205 A1C is well controlled . Occasional low sugar. If ever under 70, to let me know as would consider going down on glipizide so as to avoid too many low sugars (since A1C is in normal range). Plan on follow-p for DM in 3 months. Mixed hyperlipidemia 453655711 At goal, if barely. Recommend rechecking in 3months; if this is higher, would need to increase pravastati n or consider another medication . [id number] Benjamin DE LA CRUZ, [facility], OFFICE [address] [place] [address] 05/30/2013 15:18:49 05/30/2013 16:09:59 Essential hypertension 46794833 Elevated in office and at home. Recommend increasing lisinopril to 20mg daily and rechecking BMP in 1 week to make sure kidney function is stable. To measure home blood pressures and bring to follow-up in 4-6 weeks. Cough 80315684 Postvira l, but severe. Recommend waiting a week, if no improvemen t to start flovent with spacer and to follow-up in 4 weeks. If symptoms are not resolved by then would consider CXR given history of smoking. [id number] Benjamin DE LA CRUZ, [facility], OFFICE [address] [place] [address] 07/03/2013 15:25:45 07/03/2013 18:01:49 Essential hypertension 69484308 Still elevated. Recommend taking lisinopril 20mg daily and adding amlodipine 5mg daily (pt has tolerated this in the past; it had been changed by Dr. Rubin to the lisinopril at that point in time because he didn't want to trigger hypotensio n). Cough 94176929 Resolved at this point in time. [id number] Benjamin DE LA CRUZ, [facility], OFFICE [address] [place] [address] 08/09/2013 10:05:40 08/09/2013 10:51:36 Essential hypertension 72070508 Still elevated. Pt taking lisinopril 20mg daily; [...] would want to get Dr. Rubin's opinion. [id number] Benjamin DE LA CRUZ, [facility], OFFICE [address] [place] [address] 09/13/2013 15:49:54 09/13/2013 16:47:07 Essential hypertension 61578572 Still elevated. Pt taking lisinopril 20mg daily; amlodipine caused constipati on and HCTZ caused increasing creatinine . Recommend at this point in time trial of low-lose hydralazin e with follow-up with Dr. Rubin as scheduled 10/05/13 Chronic re nal impairment 230722569 To follow-up with Scottie, review below. [id number] RAMONA Simon, [facility], OFFICE [address] [place] [address] 11/22/2013 16:50:52 11/22/2013 17:15:16 Cough 07279721 [id number] Benjamin DE LA CRUZ, [facility], OFFICE [address] [place] [address] 12/18/2013 15:58:34 12/18/2013 16:57:13 Tachycardia 1906410 Ddx includes tachy-kenya y, afib. Discomfort with tachycardi a makes me question ?stable angina although pt had cardiac catheteriz ation done about [address] Victor for chest pain at the time. At this point in time, would refer back to Dr. Victor because concern. Essential hypertension 82033285 At goal with hydralazin e, lisinopril , HCTZ, amlodipine . Now with tachycardi a. Plan as above/patricia vick. Type 2 mike betes mellitus without complication 472948251 A1C at goal. To continue with current medication s with routine follow-up in 5 months. [id number] Benjamin DE LA CRUZ, [facility], OFFICE [address] [place] [address] 02/01/2014 16:06:42 02/01/2014 17:18:05 Pain of shoulder region 25220384 [id number] Benjamin DE LA CRUZ, [facility], OFFICE [address] [place] [address] 02/13/2014 15:47:04 02/13/2014 16:47:26 Essential hypertension 66628500 Previously at goal with hydralazin e, lisinopril . Pt with tachycardi a and cards changed him to diltiazem, lisinopril . Blood pressures are at goal, but pt with constipati on with diltiazem dose. Recommend mangaging constipati on and keeping follow-up with cardiology . Tachycardia 0867493 Pt t o keep follow-up with Dr. Ott's office for this - echo next week. Constipation 87814854 Re commenda tions as below for bowel regimen. [id number] Benjamin DE LA CRUZ, [facility], OFFICE [address] [place] [address] 05/22/2014 15:55:27 05/22/2014 17:35:45 Essential hypertension 27140231 Previously at goal with hydralazin e, lisinopril . Pt with tachycardi a and cards changed him to diltiazem, lisinopril . Blood pressures are at goal, but pt with constipati on with diltiazem dose. This is now managed with miralax, which pt is doing well with. Chronic re nal impairment 733439650 Stable, pt is following with Dr. Rubin. Mixed hyperlipidemia 306801029 LDL goal is <100. LDL at goal. To continue with current medication s with routine follow-up. Type 2 mike betes mellitus without complication 919459066 A1C at goal. To continue with current medication s with routine follow-up in 6 months. [id number] MD DOROTHY Downs, [facility], OFFICE [address] [place] [address] 06/05/2014 17:33:34 06/07/2014 08:06:48 Acute upper respiratory infection 31775420 Cough [id number] OMAR Sainz, [facility], OFFICE [address] [place] [address] 11/13/2014 16:17:21 11/16/2014 09:45:56 Type 2 diabetes mellitus without complication 216257059 Orthostati c hypotension 34782721 DDx includes dehydratio n, meds, anemia, HR or vascular issue, blood glucose d/w LS, will leave on meds and have him record BP and pulse and bring log next week ECG done, Check CBC, TSH [id number] Benjamin DE LA CRUZ, [facility], OFFICE [address] [place] [address] 11/20/2014 16:00:38 11/20/2014 17:20:31 Adult health examination 025395038 see Risk Assessment and Lifestyle Change Counseling section above Counseling 946415192 Type 2 mike betes mellitus without complication 427925116 A1C at goal, but has increased dramatical ly from last check. Recommend checking sugars as below and will reassess A1C in 3 months rather than 6. Essential hypertension 21531746 Previously at goal with diltiazem, lisinopril . Pt with some high pressures, some normal. Recommenda tions as below. [id number] MD DOROTHY Couch, [facility], OFFICE [address] [place] [address] 02/15/2015 09:36:22 02/15/2015 10:33:12 Lifestyle 838217834 Benign ess ential hypertension 9569951 continue to work on diet, exercise, and lowering salt intake as discussed Blood pressure at goal Neuropathy due to diabetes mellitus 562010484 decreased sensation R 4th & 5th toes. [id number] Benjamin DE LA CRUZ, [facility], OFFICE [address] [place] [address] 02/20/2015 15:15:20 02/20/2015 16:13:59 Pre-surgery evaluation 712340181 Type 2 mike betes mellitus without complication 008108628 A1C at goal, but question if pt is having lows that are causing it to be 5.9. Recommend reducing glipizide to 2.5mg in AM, checking sugars twice daily and reporting these two me in a week. Essential hypertension 76882792 Blood pressures at goal (<140/90). To continue with current meds with routine follow-up. Osteoarthritis of hip 451668947 EKG WNL. Labs are stable. Will reduce glipizide dosing as concerns over lows. If sugars are stable over the next week, okay for surgery as outlined. Anesthesia should be aware pt with CKD with a GFR of 46 and medication s should be dosed appropriat celine. Influenza vaccine needed [id number] Benjamin DE LA CRUZ, [facility], OFFICE [address] [place] [address] 03/27/2015 11:52:58 03/27/2015 13:15:29 Type 2 diabetes mellitus without complication 014058293 Pt with a low, but otherwise sugars running 120-130. Will have him watch closely and plan on follow-up in 4-6 weeks. Essential hypertension 41020434 Blood pressures have been running far below [...] to monitor and follow-up in 4 weeks. [id number] Benjamin Uriarte , [facility], OFFICE [address] [place] [address] 05/08/2015 15:15:59 05/08/2015 16:34:47 Type 2 diabetes mellitus without complication 664512715 E11.9 A1C at goal. To continue with current medication s with routine follow-up in Aug with labs. Essential hypertension 15027055 I10 Blood pressures had been running far below goal (<140/90). Now above goal. Will restore lisinopril to 5mg daily, continue on Cardizem at current dose as it is the lowest dose and hx of tachycardi a (hx of morgan with metoprolol ). Will plan on pt continuing to monitor [id number] Benjamin Uriarte , [facility], OFFICE [address] [place] [address] 08/08/2015 12:47:06 08/08/2015 13:56:43 Inguinal pain 290005788 R10.2 No abnormalit y on exam except for post-surgi atmi changes; scar healed well. Less likely a hernia at this point in time. Assuming x-rays of implant are normal, would recommend proceeding with alternativ e PT. If symptoms persist, could do further workup. [id number] Benjamin Uriarte , [facility], OFFICE [address] [place] [address] 08/15/2015 13:27:46 08/15/2015 14:25:50 Type 2 diabetes mellitus without complication 218408887 E11.9 A1C at goal. To continue with current medication s with routine follow-up in 6 months. Mixed hyperlipidemia 267 074245 E78.2 Chronic ki dney disease stage 3 294609250 N18.[address] Rubin Essential hypertension 72678213 I10 Blood pressures at goal (<140/90). Continue with cardizem daily (hx tachycardi a) and lisinopril at current doses with routine follow-up [id number] Benjamin Uriarte , [facility], OFFICE [address] [place] [address] 04/14/2016 15:45:28 04/14/2016 16:49:03 Adult health examination 490221506 Z00.00 see Risk Assessment and Lifestyle Change Counseling section above Counseling 359785274 Z71 .9 Type 2 mike betes mellitus without complication 478368724 E11.9 A1C at goal. To continue with current medication s with routine follow-up in 6 months. Essential hypertension 14884574 I10 Blood pressures at goal (<140/90). Continue with cardizem daily (hx tachycardi a) and lisinopril at current doses with routine follow-up Chronic ki dney disease stage 3 657580617 N18.[address] Rubin Mixed hyperlipidemia 267 445213 E78.2 LDL at goal (<100). To continue with current medication s with routine follow-up. Neuropathy due to diabetes mellitus 887317225 E11.40 On top of L foot, monofilame nt is still normal, however. Will monitor. [id number] Kamar Edwards MD , [facility], [address] [place] [address] 05/29/2016 13:23:08 05/29/2016 14:39:45 Viral upper respiratory tract infection 718141903 J06.9 Patient with clinical presentati on of viral upper respirator y infection. No benefit of anti-viral treatment discussed. No hemodynami c instabilit y. Supportive care with ample oral hydration and rest discussed. Advised on nasal saline irrigation use. Cough syrup prescribed . Advised to contact the clinic if no improvemen t in 3-4 days. Indication s for UC/ER use discussed. [id number] MD DOROTHY Downs, [facility], OFFICE [address] [place] [address] 09/07/2016 16:19:26 09/07/2016 16:57:49 Cough 09839415 R05 [id number] Benjamin DE LA CRUZ, [facility], OFFICE [address] [place] [address] 10/08/2016 13:32:12 10/08/2016 14:37:19 Type 2 diabetes mellitus without complication 173963751 E11.9 A1C at goal (<6.7). To continue with current medication s with routine follow-up in 6 months. Essential hypertension 67920458 I10 Blood pressures at goal (<140/90). Pt has been symptomati c. Continue with current medication s with routine follow-up. Mixed hyperlipidemia 267 237375 E78.2 Per the new lipid guidelines , need to change to high intensity statin; will change from pravastati n to rosuvastat in as simvastati n and atorvastat in both interact with diltiazem. Chronic ki dney disease stage 3 697499576 N18[address] Rubin Neuropathy due to diabetes mellitus 428138348 E11.40 On top of L foot, monofilame nt is still normal, however. Will monitor. [id number] Benjamin Uriarte , [facility], OFFICE [address] [place] [address] 11/20/2016 13:56:14 11/23/2016 12:31:29 Cough 09524004 R05 - normal chest xray other than [...] None Recorded Advance Directives Directive N: Payers Insurance Date Sequence Insurance Name Policy Number Policy Fraser Covered Member ID Fraser Member ID Guarantor Name 04/28/2017 1 [facility] Nasir Olsen [id number] Nasir Olsen 07/24/2016 1 [employer] (O) Nasir Olsen [id number] Nasir Olsen 02/20/2015 1 [employer] (O) Nasir Olsen ? ? Nasir Olsen 02/20/2015 1 [facility] [id number] Nasir Olsen [id number] Nasir Olsen 02/20/2015 1 [employer] - OPTION 5 - NAP (PPO) [id number] Nasir Olsen [id number] Nasir Olsen 01/16/2011 1 *SELF PAY* Shaila Olsen 02/20/2015 1 [facility] (O) [id number] Nasir Olsen [id number] Nasir Olsen 02/15/[address] [employer] S[employer]ED STANDARD (PPO) [id number] Nasir Olsen [id number] Nasir Olsen Notes Date Note Type Note [...] ability to self manage condition Benjamin Uriarte [address] [place] [address], [phone], [facility] 04/14/2016 16:46:54 6 text/html Patient present to Urgent Care with cough now going on for 11 days. No congestion, but some rhinorrhea. Sore throat at the onset. Denies F/C. Reports some SOB. Went to [facility] ER on 05/24/2016. Had normal CXR, but prescribed Doxycycline for presumed bronchitis. No inhaler given. Two cats at home. Feels fatigued. Tried OTC Mucinex without significant improvement. States cough is non-productive. Kamar Edwards MD [address] [place], [phone], [facility] 05/29/2016 13:55:18 7 text/html Patient complaining of [...] And gets this 1-2x/yr. Mike Novoa MD [address] [place], [phone], [facility] 09/07/2016 22:31:22 7 text/html [facility] DiabetesReported bypatient.Duration:chronic [...] the low 100s); seeing eye doctor regularly ([place]); checking feet regularly; no side effects from [...] ability to self manage condition Benjamin Uriarte [address] [place] [address], [phone], [facility] 10/08/2016 14:36:09 7 text/html [facility] URI Flu [...] Modifying factors:has tried multiple thingsNotes:Radha-Jammie siegel PA-C [address] [place] [address], [phone], [facility] 11/20/2016 15:09:48
[2025-01-04 10:46] LABS: Anion Gap 13 (12-20); Blood Urea Nitrogen 31 mg/dL (9-16); Calcium 9.1 mg/dL (8.4-10.2); Carbon Dioxide 27 mmol/L (22-29); Chloride 104 mmol/L (96-108); Estimated Glomerular Filt Rate 40; Potassium 4.7 mmol/L (3.3-5.1); Sodium 139 mmol/L (135-145)
== END 2025-01-04 09:38 | disposition home or self-care (01) ==
LOC: HO.LAB 09:37
PROVIDERS: Internal Medicine; PCP Internal Medicine; Visit Provider Internal Medicine Rheumatology
DX: N18.2 Chronic kidney disease, stage 2 (mild) (principal)
CPT/HCPCS: 36415; 80048

== ENCOUNTER 2025-05-02 09:53 | Outpatient (AMB) | payer MEDICARE, SELFPAY ==
--- OUTSIDE RECORDS SUMMARY | 2021-06-13 13:19 | XMS_ITS | Encounter Summary ---
Author Organization [facility] Address [address] [facility] [address] [place] [phone] Phone Care Team Providers Care Mortgage Professional Name Role Phone Elroy Smith MD Primary Care Provider [phone] Encounter Details Date Type Department Care Team ([facility] st Contact Info) Description 06/13/2021 12:19 PM [facility] Hospital Encounter [facility] [address] [place] [id number] Ángel De Leon PA [address] [place] [phone] [email or web address] Social History Tobacco Use Types Packs/Day Years Used Date Smoking Tobacco: Some Days Cigars Smokeless Tobacco: Never Comments:Now no cigarettes, but continues 4 cigars/week Alcohol Use Standard Drinks/Week Comments Not Currently 35 (1 standard drink = 0.6 oz pu re alcohol) 05/2022 Home Health Assessment: Transportation Answer Date Recorded Lack of Transportation (Medical) No 08/13/2022 Lack of Transportation (Non-Medical) No 08/13/2022 Patient Unable or Declines to Respond No 08/13/2022 Child or Family Care Answer Date Record ed Do you have problems with on e of the following making it difficult for you to work, study, or receive health care? No 02/10/2021 Education Answer Date Recorded Are you interested in more education? Not on arik e 02/11/2023 Are you concerned about learning? Not on file 02/11/2023 No 02/11/2023 No 02/11/2023 Food Answer Date Recorded Within the past 6 months we worried whether our food would run out before we got money to buy more. Never True 02/10/2021 Within the past 6 months the food we bought just didn't last and we didn't have enough money to get more. Never True Residential Stability Answer Date Recor ded What is your housing situation today? I have scot montoya 02/10/2021 How many times have you move d in the past 12 months? Zero (I did not move) 02/10/2021 Paying for Meds Answer Date Recorded Do you have trouble paying for medicines? No 02/10/2021 Paying Utility Bills Answer Date Record ed Do you have trouble paying your heating or elect ricity bill? No 02/10/2021 Transportation Answer Date Recorded Has the lack of transportati on kept you from medical appointments or from getting medications? No 02/10/2021 Unemployment Answer Date Recorded Are you currently unemployed or working on a part-time or temporary basis, and looking for work? Yes 02/10/2021 Digital Access Answer Date Recorded No 11/24/2022 No 11/24/2022 Reliable internet access at home? Not on file 11/24/2022 Device with a working camera? Not on file Intimate Partner Violence Answer Date R ecorded Denied Basic Needs Not on file 03/06/2025 In the past 12 months have y ou been in a relationship with a person who hurts, threatens, or tries to control you? No 03/06/2025 Worried food would run out Not on file 03/06 In the past 12 months have y ou been in a relationship with a person who hurts, threatens, or tries to control you? 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 Wish to be (Past 1 Month) No 06/16/2022 12:03 PM Mayra Bravo RN 2. Non-Specific Active Suici cinthia Thoughts (Past 1 Month) No 06/16/2022 12:03 PM Keon Bravo RN 6. Suicidal Behavior (Lifetime) No 12:03 PM Mayra Bravo RN documented as of this encounter Plan of Treatment Upcoming Encounters Date Type Department Care Team (Late st Contact Info) Description 08/27/2025 2:40 PM EST Office Visit [facility] [address] [place] [address] [place] [address] Daija Hu MD [address] [place] [address], 1[address] [place] [address] [email or web address] 03/19/2026 11:00 AM EDT Office Visit [facility] [address] [place] [address] [place] [phone] Elroy Smith MD [address] [place] [address], [address] [place] [address] [email or web address] documented as of this encounter Procedures Procedure Name Priority Date/Time Associated Diagnosis Comments XR CHEST PA AND LATERAL 2 VIEWS Urgent/patient waiting 06/13/2021 12:27 PM EST Upper respiratory tract infection, unspecified type documented in this encounter Results * XR CHEST PA AND LATERAL 2 VIEWS (06/13/2021 12:27 PM EST) Anatomical Region Laterality Modality Chest Computed Radiogr aphy 06/13/2021 12:3 5 PM EST Impressions 06/13/2021 12:39 PM EST No pneumonia or pulmonary edema. ATTESTATION: I, Linwood Kwon as teaching physician, have reviewed the images for this case and if necessary edited the report originally created by Eric Guaman. Narrative 06/13/2021 12:39 PM EST XR CHEST PA AND LATERAL 2 VIEWS COMPARISON: XR CHEST PA AND LATERAL 2 VIEWS FINDINGS: Devices/Tubes/Lines: Left-sided chest wall pacemaker leads project over the right ventricle and right atrium, unchanged in position. Lungs: No focal consolidation or pulmonary edema. Pleura: No pleural effusion or pneumothorax. Heart/Mediastinum: Normal cardiomediastinal silhouette. Bones/Soft Tissues: No significant skeletal abnormality. Procedure Note Linwood Kwon, DO - 06/13/2021 XR CHEST PA AND LATERAL 2 VIEWS COMPARISON: XR CHEST PA AND LATERAL 2 VIEWS FINDINGS: Devices/Tubes/Lines: Left-sided chest wall pacemaker leads project overthe right ventricle and right atrium, unchanged in position. Lungs: No focal consolidation or pulmonary edema. Pleura: No pleural effusion or pneumothorax. Heart/Mediastinum: Normal cardiomediastinal silhouette. Bones/Soft Tissues: No significant skeletal abnormality. IMPRESSION: No pneumonia or pulmonary edema. ATTESTATION: I, Linwood Kwon as teaching physician, have reviewed theimages for this case and if necessary edited the report originally createdby Eric Guaman. Ángel HUERTA IMG XR CHEST Final Resul t documented in this encounter Visit Diagnoses Not on filedocumented in this encounter Additional Health Concerns Infection Onset Date Last Indicated Resolved Time CoV-Risk 06/13/2021 06/13/2021 06/23/2021 1:24 AM EST CoV-Presumed 01/12/2022 01/12/2022 02/02/2022 1:21 AM EDT CoV-Risk 04/07/2024 04/07/2024 04/18/2024 1:22 AM EDT Assessment Noted Time PHQ-2 Depression Total Score: 0 02/11/20 11:05 AM EDT documented as of this encounter Care Teams Mortgage Professional Relationship Specialty Start Date End Date Elroy Smith MD [address] [place] [address], [address] [place] [address] [email or web address] PCP - General Internal Medicine 05/07/17 documented as of this encounter Additional Source Comments The information contained in this document represents components of the legal health record. It is not the complete legal health record.[facility]
--- OUTSIDE RECORDS SUMMARY | 2024-04-07 14:19 | XMS_ITS | Encounter Summary ---
Author Organization [facility] Address [address] [facility] [address] [place] [phone] Phone Care Team Providers Care Fabricator Industrial Furnace Name Role Phone Elroy Smith MD Primary Care Provider [phone] Encounter Details Date Type Department Care Team (Late st Contact Info) Description 04/07/2024 2:19 PM EDT Hospital Encounter [facility] [address] [place] [id number] Suzanne Mccurdy FNP [address] [place] [address] [email or web address] Social History Tobacco Use Types Packs/Day Years [...] your housing situation today? 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 Not on file N ot on file Not on file documented as of this encounter Plan of Treatment Upcoming Encounters Date Type Department Care Team (Late st Contact Info) Description 08/27/2025 2:40 PM EST Office Visit [facility] [address] [place] [address] Daija Hu MD [address] [facility] 1st [place] [address] [email or web address] 03/19/2026 11:00 AM EDT Office Visit [facility] [address] [place] [address] Elroy Smith MD [address] [facility] [place] [address] [email or web address] documented as of this encounter Procedures Procedure Name Priority Date/Time Associated Diagnosis Comments XR CHEST PA AND LATERAL 2 VIEWS Urgent/patient waiting 04/07/2024 2:22 PM EDT Upper respiratory infection with cough and congestion documented in this encounter Results * XR CHEST PA AND LATERAL 2 VIEWS (04/07/2024 2:22 PM EDT) Anatomical Region Laterality Modality Chest Computed Radiogr aphy 04/07/2024 2:44 PM EDT Impressions 04/07/2024 2:56 PM EDT No acute process. ATTESTATION: I, Rosa Marie as teaching physician, have reviewed the images for this case and if necessary edited the report originally created by Becki Valderrama MD. Narrative 04/07/2024 2:56 PM EDT XR CHEST PA AND LATERAL 2 VIEWS Referring clinician's provided indication for this examination in Epic: Cough; 8 days of productive cough and sob. hx of copd COMPARISON: XR CHEST PORTABLE FINDINGS: Devices/Tubes/Lines: AV pacemaker with left chest wall battery pack. Lungs: Hyperinflation. No focal consolidation or pulmonary edema. Pleura: No pleural effusion or pneumothorax. Heart/Mediastinum: Normal heart and mediastinum. Bones/Soft Tissues: No significant skeletal abnormality. Procedure Note Rosa Marie MD - 04/07/2024 XR CHEST PA AND LATERAL 2 VIEWS Referring clinician's provided indication for this examination in [facility]:Cough; 8 days of productive cough and sob. hx of copd COMPARISON: XR CHEST PORTABLE FINDINGS: Devices/Tubes/Lines: AV pacemaker with left chest wall battery pack. Lungs: Hyperinflation. No focal consolidation or pulmonary edema. Pleura: No pleural effusion or pneumothorax. Heart/Mediastinum: Normal heart and mediastinum. Bones/Soft Tissues: No significant skeletal abnormality. IMPRESSION: No acute process. ATTESTATION: I, Rosa Marie as teaching physician, have reviewed theimages for this case and if necessary edited the report originally createdby Becki Valderrama MD. Suzanne Mccurdy SURVEY COMPILER IMG XR CHEST Final Resul t documented in this encounter Visit Diagnoses Not on filedocumented in this encounter Additional Health Concerns Infection Onset Date Last Indicated Resolved Time CoV-Risk 04/07/2024 04/07/2024 04/18/2024 1:22 AM EDT Assessment Noted Time PHQ-2 Depression Total Score: 0 02/26/20 24 7:45 PM EDT documented as of this encounter Care Teams Fabricator Industrial Furnace Relationship Specialty Start Date End Date Elroy Smith MD [address] [place] [address], [address] [place] [address] [email or web address] PCP - General Internal Medicine 05/07/17 documented as of this encounter Additional Source Comments The information contained in this document represents components of the legal health record. It is not the complete legal health record.[facility]
--- NOTE | 2025-05-02 10:12 | A.OFFVIS_ITS ---
Vital Signs 05/02/25 10:14 Height 6 ft 1 in Weight 239 lb 13.807 oz BMI 31.6 BP 150/80 H Blood Pressure Location Rt brachial Position Sitting Pulse 76 Pulse Source Monitor Intake Visit Reasons: r/s 03/12/25 4 mos followup Intake Note: r.s- 4 mth f/up Nailing Machine Feeder Required: No Accompanied by: Spouse Allergies amlodipine Adverse Reaction (Verified 12/23/24 11:35) Cough Medication List - Last Reconciled 05/02/25 by Louis Meade MD acetaminophen (Tylenol) 650 mg PO Q6H PRN aspirin 81 mg PO DAILY gabapentin 300 mg PO TID glipizide 10 mg PO DAILY midodrine 2 tablets in AM, 1 tablet at noon and 1 at bedtime orally; rosuvastatin 20 mg PO BEDTIME HPI Comments Details: 75-year-old gentleman here for follow-up. He was seen in the hospital for orthostatic hypotension. Since discharge he started regular exercise and has been doing well. He has not had significant orthostasis. He continues to be on midodrine and fludrocortisone. He has increased his PO potassium intake. Pacemaker was interrogated and is functioning fine. 02/10/23: He returns for follow-up. He is currently off the midodrine and fludrocortisone. He was noticed to be hypokalemic potassium 2.6 and is currently taking potassium chloride 20 mg daily. 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 He has hypokalemia due to fludrocortisone which was stopped last night by Nephrology. Midodrine has been held previously because of his high blood pressures. His home blood pressures are fluctuating and they are low in the morning but higher at the evening time. He had 1 episode of feeling weak where he had presyncope and went to the ER. He also received some potassium infusions in the emergency department for hypokalemia. 05/31/2023: He returns for follow-up. He continues to get morning hypotension with blood pressure in 80s. He is saying that he does exercises for orthostatic hypotension in the morning and then takes midodrine 1 or half tablet. He had 1 episode where he had low blood pressure and started shaking all over which is usually his symptom of hypotension. He did not fall or had syncope. He has stop checking his blood pressure in the evening hours. Previously had hypertension at nighttime. We gave him previous plan of using nitroglycerin paste in case his blood pressures are elevated but he has not been checking his blood pressure or using nitroglycerin. 09/22/23: He is here for follow-up. He has been doing well and has been following closely with Nephrology. We previously had morning hypotension and evening hypertension. He was on losartan 50 mg which has been changed to 25 mg and he has to take it at noon time. His morning readings are anywhere from 70s to 80s systolic blood pressure. He has been using midodrine almost daily in the morning. No dizziness or falls. He was in [place] where he had some dizziness walking around. It appears he does better in cold weather than hot weather which is quite usual with orthostasis and autonomic issues in general. 03/20/2024: He is here for follow-up. He had 2 episodes of fall with 1 episode of syncope along with fall. One was on February 26 and the 2nd episode was during 1st week of March. He saw his primary care physician recently and his midodrine was stopped on March 05. His hemoglobin A1c is 8. He has not been drinking. Overall his home blood pressure readings are normal. Previously his morning blood pressure readings were low and he was using midodrine. More recently his blood pressures have been 110s to 120s in the morning. The episodes of syncope were at noon time at at 18:00 previously was getting episodes mostly in the morning time. No other significant complaints. 06/21/2024: On follow-up today his blood pressure is elevated. Manual blood pressure 150/80. He is using losartan 25 mg daily. He is taking midodrine 2.5 mg in the morning. He has not had any significant symptoms since he started taking midodrine in the morning. When he was monitoring his blood pressure he noted that his blood pressure was lowest in the morning and has a day pass his blood pressure was higher. 11/08/2024: He is here for follow-up. He had 2 episodes in the last few months of fall due to hypotension. Last episode was 2 months ago when he was with his friend and was sitting down and stood up and started walking and then fell to the ground due to low blood pressure. He is saying that he is getting some dizziness in the morning but his lasting for few sec. He has been using once a day midodrine regularly. Blood pressure overall has been stable. He is waiting to see endocrinology and following his sugars very closely. 05/02/2025: He is here for follow-up. He recently was admitted to [facility] with syncope. At that time his losartan was discontinued and he went home on midodrine 5 mg daily. He is saying that he is taking midodrine 5 mg in the morning, 2.5 mg around 11-12 o'clock and then 3rd dose close to bedtime. He is saying once he takes 5 mg of midodrine in the morning his blood pressure is 180/100. Second dose around 11-12 o'clock and his blood pressures run in 140s after that. At bedtime his blood pressure is again are in 140s. He has not had any further syncopal episodes but his blood pressure especially in the morning appears to be quite elevated. Without medication when he checks his blood pressure it is in 80s in the morning. He previously had hypotension in the morning hours and hypotension before bedtime. [facility] Medical History CKD (chronic kidney disease) stage 2, GFR 60-89 ml/min Orthostatic hypotension Pacemaker Sciatica COPD (chronic obstructive pulmonary disease) BPH (benign prostatic hyperplasia) Chronic back pain Vasovagal syncope Diabetes mellitus type 2 in nonobese Hyperlipidemia Orthostatic hypotension Hypertension Surgical History Hx of colonoscopy S/P surgery on nasal septum History of total left hip replacement S/P placement of cardiac pacemaker Family History Father Pacemaker Social History Household Members: Spouse Housing: House Do you presently have visiting nurse or other home services: No Alcohol intake: never Comment: refused bed alarm Patient Tobacco Use Status: Former Tobacco user Tobacco use type: Cigar Years Smoked: 15 +/- Advance Directives Date on File: 06/25/22 service: No Current occupational status: retired Review of Systems Const Denies chills, Denies fatigue, Denies fever(s), Denies frequent falls, Denies weakness, Denies weight gain and Denies weight loss ENT Denies dizziness Card Denies chest pain, Denies leg edema, Denies lightheadedness, Denies palpitations, Denies dyspnea and Denies dyspnea on exertion Resp Denies cough, Denies dyspnea and Denies dyspnea on exertion GI Denies hematochezia Musc Denies abnormal gait, Denies muscle weakness, Denies numbness, Denies radiating pain into limb and Denies tingling Neuro Denies abnormal gait, Denies dizziness, Denies frequent falls, Denies numbness, Denies tingling and Denies weakness Endo Denies fatigue and Denies palpitations Physical Exam Vital Signs: Last Vital Signs Pulse 76 05/02/25 10:14 BP 150/80 H 05/02/25 10:14 BMI result Body Mass Index 31.6 Last Vital Signs Temp 97.1 F 12/24/24 08:00 Pulse 72 12/24/24 08:00 Resp 18 12/24/24 08:00 BP 134/74 12/24/24 09:09 Pulse Ox 98 12/24/24 08:00 O2 Del Method Room Air 12/24/24 08:00 O2 Flow Rate 94 12/24/24 03:50 BMI result Body Mass Index 31.8 GENERAL APPEARANCE: in no acute distress, pleasant. NECK: no carotid bruit, no jugular venous distention. SKIN: no suspicious lesions, warm and dry. HEART: no murmurs, regular rate and rhythm. LUNGS: clear to auscultation bilaterally. ABDOMEN: soft, nontender. EXTREMITIES: no edema. PERIPHERAL PULSES: equal. NEUROLOGIC: No gross deficits, AAO X 3 Office Procedures EKG Details: Sinus rhythm 76 beats per minute, normal axis, normal ECG, QTC 429 milliseconds. 64098-[id number], Complete Assessment & Plan Assessment & Plan (1) Neurogenic orthostatic hypotension: Code(s): G90.3 - Multi-system degeneration of the autonomic nervous system Category: Medical (2) Orthostatic hypotension: Code(s): I95.1 - Orthostatic hypotension Category: Medical Plan Pleasant 75 year gentleman who is here for follow-up. He has background history of orthostatic hypotension due to dysautonomia due to alcoholism as well as diabetes. He has stopped drinking a while ago now. His diabetes control is okay. He is back on glipizide at this stage. He is taking midodrine 5 mg in the morning 2.5 in the afternoon and 2.5 at bedtime. His blood pressure readings during the day are okay but in the morning when he takes the 5 mg dose his blood pressure is significantly elevated. I have explained to him that low blood pressure definitely is of concern but very high blood pressures can be a challenge to because they put he is cardiovascular system under stress and may lead to issues in the future. I have advised him that he should take midodrine 2.5 mg in the morning and 2.5 mg around 2-3 pm. He should omit the nighttime dose and see how he does with that. He has seen Nephrology who told him about Northera. I think it maybe reasonable option in him and I have sent a script to see if it is affordable for him. If he can afford it then we can transition him to Northera. Continue general measures like hydration and compression stockings. Thank you for allowing me to participate in the care of your patient. Please feel free to contact me if you have any questions. Medications: New droxidopa (Northera) give consistently with OR without food, upon rising, at midday, late PM/at least 3hrs before bedtime 100 mg PO TID 90 caps 0RF Louis Meade MD G90.3 - Multi-system degeneration of the autonomic nervous system Changed From midodrine 5 mg (2 x 2.5 mg) PO DAILY 90 tabs 3RF To midodrine 2 tablets in AM, 1 tablet at noon and 1 at bedtime orally; Mirella Mello MD Coding Level of Care Code Est Pt Level 4 (64672) Diagnoses Neurogenic orthostatic hypotension G90.3 Orthostatic hypotension I95.1 CPT Codes EKG - CPT: 91698-[id number], Complete ([id number])
[2025-05-02 10:14] VITALS: BP 150/80; PULSE 76; BMI 31.6
--- OUTSIDE RECORDS SUMMARY | 2025-05-02 11:54 | XMS_ITS | Encounter Summary ---
Author Organization [facility] Address [email or web address] [place] [address] Phone Care Team Providers Care Milieu Technician Name Role Phone Elroy Smith MD Primary Care Provider [phone] Encounter Details Date Type Department Care Team (Late st Contact Info) Description 09/05/2021 Procedure Pass [facility], Ct Scan - [address] [address] Social History Tobacco Use Types Packs/Day Years Used Date Smoking Tobacco: Former Cigarettes 2 27 1 961 - 1987 Cigars Smokeless Tobacco: Never Comments:Now no cigarettes, just a cigar every now and then Alcohol Use Standard Drinks/Week Comments Yes 14 (1 standard drink = 0.6 oz pu re alcohol) couple a day Child or Family Care Answer Date Record ed Do you have problems with on e of the following making it difficult for you to work, study, or receive health care? No 02/10/2021 Education Answer Date Recorded Are you interested in help w ith more adult education (for example, completing high school, GED, job training, learning the [place] language, technical skills, or developing parenting skills)? No 02/10/2021 Food Answer Date Recorded Within the past [...] basis, and looking for work? 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 Not on file N ot on file Not on file documented as of this encounter Plan of Treatment Upcoming Encounters Date Type Department Care Team (Late st Contact Info) Description 08/27/2025 2:40 PM EST Office Visit [facility] [address] [place] [address] [place] [address] Daija Hu MD [address] [place] [address], 1[address] [place] [address] [email or web address] 03/19/2026 11:00 AM EDT Office Visit [facility] [address] [place] [address] [place] [address] Elroy Smith MD [address] [place] [address], [address] [place] [address] documented as of this encounter Visit Diagnoses Not on filedocumented in this encounter Additional Health Concerns Infection Onset Date Last Indicated Resolved Time CoV-Presumed 01/12/2022 01/12/2022 02/02/2022 1:21 AM EDT CoV-Risk 04/07/2024 04/07/2024 04/18/2024 1:22 AM EDT Assessment Noted Time PHQ-2 Depression Total Score: 0 02/11/20 21 11:05 AM EDT documented as of this encounter Care Teams Milieu Technician Relationship Specialty Start Date End Date Elroy Smith MD [address] [place] [address], [address] [place] [id number] [email or web address] PCP - General Internal Medicine 05/07/17 documented as of this encounter Additional Source Comments The information contained in this document represents components of the legal health record. It is not the complete legal health record.[facility]
--- OUTSIDE RECORDS SUMMARY | 2025-05-02 11:54 | XMS_ITS | Encounter Summary ---
Author Organization [facility] Address [address] [place] [address] Phone Care Team Providers Care Elastic Cutter Name Role Phone Elroy Smith MD Primary Care Provider [phone] Encounter Details Date Type Department Care Team (Late st Contact Info) Description 03/24/2022 Procedure Pass [facility], Ct Scan - [address] [address] Social History Tobacco Use Types Packs/Day Years Used Date Smoking Tobacco: Former Cigarettes 2 27 1 961 - 1987 Cigars Smokeless Tobacco: Never Comments:Now no cigarettes, just a cigar every now and then Alcohol Use Standard Drinks/Week Comments Yes 35 (1 standard drink = 0.6 oz pu re alcohol) 5-6 beers a day Child or Family Care Answer Date Record ed Do you have problems with on e of the following making it difficult for you to work, study, or receive health care? No 02/10/2021 Education Answer Date Recorded Are you interested in help w ith more adult education (for example, completing high school, GED, job training, learning the [place] language, technical skills, or developing parenting skills)? 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 Wish to be (Past 1 Month) No 022 8:42 AM EDT Julia Cage RN 2. Non-Specific Active Suici cinthia Thoughts (Past 1 Month) No 03/24/2022 8:42 AM EDT Julia Cage RN 6. Suicidal Behavior (Lifetime) No 8:42 AM EDT Julia Cage RN documented as of this encounter Plan of Treatment Upcoming Encounters Date Type Department Care Team (Late st Contact Info) Description 08/27/2025 2:40 PM EST Office [facility] [address] [place] [address] [place] [address] Daija Hu MD [address] [facility], 1st [place] [address] 03/19/2026 11:00 AM EDT [facility] [address] [place] [address] Elroy Smith MD [address] [place] [address], [address] [place] [address] [email or web address] documented as of this encounter Visit Diagnoses Not on filedocumented in this encounter Additional Health Concerns Infection Onset Date Last Indicated Resolved Time CoV-Risk 04/07/2024 04/07/2024 04/18/2024 1:22 AM EDT Assessment Noted Time PHQ-2 Depression Total Score: 0 02/12/20 10:51 AM EDT documented as of this encounter Care Teams Elastic Cutter Relationship Specialty Start Date End Date Elroy Smith MD [address] [place] [address], [address] [place] [address] [email or web address] PCP - General Internal Medicine 05/07/17 documented as of this encounter Additional Source Comments The information contained in this document represents components of the legal health record. It is not the complete legal health record.[facility]
--- OUTSIDE RECORDS SUMMARY | 2025-05-02 11:54 | XMS_ITS | Encounter Summary ---
Author Organization [facility] Address [address] [facility] [address] [place] [address] Phone Care Team Providers Care Percussion Instructor Name Role Phone Elroy Smith MD Primary Care Provider [phone] Reason for Referral * MRI/CAT Scan - Closed Specialty Diagnoses / Procedures Referred By Contac t Referred To Contact Radiology Diagnoses Lumbar radiculopathy Procedures CT Lumbar Spine CHG CT SCAN,LUMBAR SPINE,W/O CONTRAST CHG CT SCAN LUMBAR SP CONTRAST CHG CT SCAN LUMBAR SP COMBO Alberto Melgar DO [address] [place] [address] Phone: tel: fax: [email or web address] Referral ID Status Reason Start Date Expiration Date Visits Re quested Visits Authorized [id number] Closed 01/19/2025 03/19/2025 1 1 Encounter Details Date Type Department Care Team (Latest Contact Info) Description 01/19/2025 Transcribe Orders Virtual Department [address] [place] [address] Alberto Melgar DO [address] [place] [address] [email or web address] Lumbar radiculopathy (Primary Dx) Social History Tobacco Use Types Packs/Day Years [...] ecorded Denied Basic Needs Not on file 02/26/2024 In the past 12 months have y ou been in a relationship with a person who hurts, threatens, or tries to control you? No 02/26/2024 Worried food would run out Not on file 02/25 In the past 12 months have y ou been in a relationship with a person who hurts, threatens, or tries to control you? 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 N ot on file Not on file documented as of this encounter Plan of Treatment Upcoming Encounters Date Type Department Care Team (Late st Contact Info) Description 08/27/2025 2:40 PM EST Office Visit [facility] [address] [place] [address] Daija Hu MD [address] [place] [address], 1[address] [place] [address] 03/19/2026 11:00 AM EDT Office Visit [facility] [address] [place] [address] [place] [address] Elroy Smith MD [address] [place] [address], [address] [place] [address] [email or web address] documented as of this encounter Results * CT LUMBAR SPINE WITHOUT CONTRAST (01/26/2025 3:53 PM EDT) Anatomical Region Laterality Modality L-spine Computed Tomogra phy 01/29/2025 1:28 PM EDT Impressions 01/29/2025 1:39 PM EDT Chronic bilateral L5 spondylolysis with resulting grade 1 L5-S1 anterolisthesis and severe discovertebral degeneration. Narrative 01/29/2025 1:[address] LUMBAR SPINE WITHOUT CONTRAST Referring clinician's provided indication for this examination in Epic: Outside Radiology Order; RADICULOPATHY, LUMBAR REGION TECHNIQUE: Multidetector-row CT of the lumbar spine was performed without intravenous contrast using tailored dose modulation techniques. Images were reconstructed in the axial, coronal, and sagittal planes. COMPARISON: CT LUMBAR SPINE WITHOUT CONTRAST FINDINGS: Vertebrae: There is chronic bilateral L5 spondylolysis with resulting grade 1 L5-S1 anterolisthesis, similar to prior. No acute fracture. No compression fracture. Discs and Endplates: There is severe discovertebral degeneration at L5-S1 with high-grade osseous foraminal stenosis, greater on the left. There is mild multilevel disc height loss in the rest of the lumbar spine. Facet joints: Normal alignment. Soft Tissue: No prevertebral soft tissue edema. Other: Vascular calcifications. Procedure Note Yuliya Pinedo MD - 01/29/2025 CT LUMBAR SPINE WITHOUT CONTRAST Referring clinician's provided indication for this examination in [facility]:Outside Radiology Order; RADICULOPATHY, LUMBAR REGION TECHNIQUE: Multidetector-row CT of the lumbar spine was performed withoutintravenous contrast using tailored dose modulation techniques. Imageswere reconstructed in the axial, coronal, and sagittal planes. COMPARISON: CT LUMBAR SPINE WITHOUT CONTRAST FINDINGS: Vertebrae: There is chronic bilateral L5 spondylolysis with resultinggrade 1 L5- S1 anterolisthesis, similar to prior. No acute fracture. Nocompression fracture. Discs and Endplates: There is severe discovertebral degeneration at L5-S1with high-grade osseous foraminal stenosis, greater on the left. There ismild multilevel disc height loss in the rest of the lumbar spine. Facet joints: Normal alignment. Soft Tissue: No prevertebral soft tissue edema. Other: Vascular calcifications. IMPRESSION: Chronic bilateral L5 spondylolysis with resulting grade 1 L5-T4pikemngvhynarft and severe discovertebral degeneration. Alberto Melgar DO IMG CT XSPECIALTY ORDERABLES Final Result documented in this encounter Visit Diagnoses Diagnosis Lumbar radiculopathy- Primary Thoracic or lumbosacral neuritis or radiculitis, unspecified Lumbar radiculopathy Thoracic or lumbosacral neuritis or radiculitis, unspecified documented in this encounter Additional Health Concerns Assessment Noted Time PHQ-2 Depression Total Score: 0 02/26/20 24 7:45 PM EDT documented as of this encounter Care Teams Percussion Instructor Relationship Specialty Start Date End Date Elroy Smith MD [address] [place] [address], [address] [place] [address] [email or web address] PCP - General Internal Medicine 05/07/17 documented as of this encounter Additional Source Comments The information contained in this document represents components of the legal health record. It is not the complete legal health record.[facility]
--- OUTSIDE RECORDS SUMMARY | 2025-05-02 11:54 | XMS_ITS | Encounter Summary ---
Author Organization [facility], Address [address] [place] [address] Phone Care Team Providers Care Key Punch Teacher Name Role Phone Elroy Smith MD Primary Care Provider [phone] Encounter Details Date Type Department Care Team (Late st Contact Info) Description 08/25/2024 Documentation Only [facility] [address] [place] [address] Erendira Luz [address] [place] [phone] Social History Tobacco Use Types Packs/Day Years Used Date Smoking Tobacco: Former Cigarettes 2 30 1 961 - 1987 Cigars Comments:Smokes 4 cigars a w [place] Currently Alcohol Use Standard Drinks/Week Comments Yes [...] Care Team (Late st Contact Info) Description 08/16/2025 11:00 AM EST Office Visit [facility] [place] [address] [place] [phone] Nestor Coreas MD [address] [place] [address] [place] [address] documented as of this encounter Visit Diagnoses Not on filedocumented in this encounter Care Teams Key Punch Teacher Relationship Specialty Start Date End Date Elroy Smith MD [address] [place] [address], [address] [place] [address] PCP - General 05/09/19 documented as of this encounter
--- OUTSIDE RECORDS SUMMARY | 2025-05-02 11:54 | XMS_ITS | Encounter Summary ---
Author Organization [facility], Address [address] [place] [address] Phone Care Team Providers Care Combine Driver Name Role Phone Elroy Smith MD Primary Care Provider [phone] Encounter Details Date Type Department Care Team (Late st Contact Info) Description 08/25/2024 Documentation Only [facility] [address] [place] [address] Erendira Luz [address] [place] [phone] Social History Tobacco Use Types Packs/Day Years Used Date Smoking Tobacco: Former Cigarettes 2 30 1 961 - 1987 Cigars Comments:Smokes 4 cigars a w samish Currently Alcohol Use Standard Drinks/Week Comments Yes 35 (1 standard drink = 0.6 oz pu re alcohol) 5-6 beers a day Sex and Gender Information Value Date Recorded Sex Assigned at Not on file Legal Sex Male 4:35 PM EST Gender Identity Not on file Sexual Orientation Not on file Occupation Industry Job Start Date Job End Date [employer] Not on file Not on file Not on file documented as of this encounter Plan of Treatment Upcoming Encounters Date Type Department Care Team (Late st Contact Info) Description 08/16/2025 11:00 AM EST Office Visit [facility] [address] [place] [phone] Nestor Coreas MD [address] [place] [address] [place] [address] documented as of this encounter Visit Diagnoses Not on filedocumented in this encounter Care Teams Combine Driver Relationship Specialty Start Date End Date Elroy Smith MD [address] [place] [address], [address] [place] [address] PCP - General 05/09/19 documented as of this encounter
--- OUTSIDE RECORDS SUMMARY | 2025-05-02 11:54 | XMS_ITS | Encounter Summary ---
Author Organization [facility] Address [address] [place] [address] Phone Care Team Providers Care Ship'S Carpenter Name Role Phone Elroy Smith MD Primary Care Provider [phone] Encounter Details Date Type Department Care Team (Late st Contact Info) Description 05/29/2022 Procedure Pass [facility], Ct Scan - [address] [address] Social History Tobacco Use Types Packs/Day Years Used Date Smoking Tobacco: Former Cigarettes 2 27 1 961 - 1988 Cigars Smokeless Tobacco: Never Comments:Now no cigarettes, but continues 4 cigars/week Alcohol Use Standard Drinks/Week Comments Yes 35 [...] high school, GED, job training, learning the Slovak language, technical skills, or developing parenting skills)? 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 Wish to be (Past 1 Month) No 022 1:39 PM Paulina Shea RN 2. Non-Specific Active Suici cinthia Thoughts (Past 1 Month) No 05/29/2022 1:39 PM Arely Shea ace, RN 6. Suicidal Behavior (Lifetime) No 2 1:39 PM Paulina Shea RN documented as of this encounter Plan of Treatment Upcoming Encounters Date Type Department Care Team (Late st Contact Info) Description 08/27/2025 2:40 PM EST Office Visit [facility] [address] [place] [address] [place] [address] Daija Hu MD [address] [place] [address], 1st [place] [address] 03/19/2026 11:00 AM EDT Office Visit [facility] [address] [place] [address] Elroy Smith MD [address] [place] [address], [address] [place] [address] [email or web address] documented as of this encounter Visit Diagnoses Not on filedocumented in this encounter Additional Health Concerns Infection Onset Date Last Indicated Resolved Time CoV-Risk 04/07/2024 04/07/2024 04/18/2024 1:22 AM EDT Assessment Noted Time PHQ-2 Depression Total Score: 0 02/12/20 10:51 AM EDT documented as of this encounter Care Teams Ship'S Carpenter Relationship Specialty Start Date End Date Elroy Smith MD [address] [place] [address], [address] [place] [address] [email or web address] PCP - General Internal Medicine 05/07/17 documented as of this encounter Additional Source Comments The information contained in this document represents components of the legal health record. It is not the complete legal health record.[facility]
--- OUTSIDE RECORDS SUMMARY | 2025-05-02 11:54 | XMS_ITS | Encounter Summary ---
Author Organization [facility] Address [address] [facility] [address] [place] [address] Phone Care Team Providers Care Life Enrichment Manager Name Role Phone Elroy Smith MD Primary Care Provider [phone] Encounter Details Date Type Department Care Team (Latest Contact Info) Description 07/30/2018 Transcribe Orders [facility] [address] [place] [address] Elroy Smith MD [address] [facility], [address] [place] [address] [email or web address] Type 2 diabetes mellitus without complication, without long-term current use of insulin Social History Tobacco Use Types Packs/Day Years Used Date Smoking Tobacco: Former Cigarettes Q uit: 1970 Smokeless Tobacco: Never Alcohol Use Standard Drinks/Week Comments Yes 0 (1 standard drink = 0.6 oz pur e alcohol) occasionally Sex and Gender Information Value Date Recorded Sex Assigned at Male 06/02/2021 11:10 AM EST Legal Sex Male 10:00 PM EDT Gender Identity Male 11/11/2021 6:19 PM EDT Sexual Orientation Not on file documented as of this encounter Plan of Treatment Upcoming Encounters Date Type Department Care Team (Late st Contact Info) Description 08/27/2025 2:40 PM EST Office Visit [facility] [address] [place] [address] Daija Hu MD [address] [facility], 1st [place] [address] [email or web address] 03/19/2026 11:00 AM EDT Office Visit [facility] [address] [place] [address] Elroy Smith MD [address] [facility], [address] [place] [address] [email or web address] documented as of this encounter Procedures Procedure Name Priority Date/Time Associated Diagnosis Comments MICROALBUMIN/CREATIN INE RATIO, RANDOM URINE Routine 07/30/2018 8:23 AM EST Type 2 diabetes mellitus without complication, without long-term current use of insulin HEMOGLOBIN A1C Routine 07/30/2018 8:23 AM EST Type 2 diabetes mellitus without complication, without long-term current use of insulin documented in this encounter Results * (ABNORMAL) Hemoglobin A1c (07/30/2018 8:23 AM EST) HEMOGLOBIN A1C 6.6(H) 4.3 - 5.8 % [facility] Blood 07/30/2018 8:23 AM EST 07/30/2018 8:25 AM EST us Elroy Smith MD LAB BLOOD ORDERABLES Final Resu lt [facility] [address] [place] [address] * (ABNORMAL) Microalbumin/creatinine ratio, random urine (07/30/2018 8:23 AM EST) URINE MICROALBUMIN 3.8(H) 0 - 2.3 mg/dL [facility] URINE CREATININE 65 mg/dL [facility] MICROALB/CRE RATIO 58.5(H) 0 - 20 mg/g Cre [facility] Urine (Urine) 07/30/2018 8:2 3 AM EST 07/30/2018 8:25 AM EST us Elroy Smith MD URINE ORDERABLES Final Result [facility] [address] [place] [address] documented in this encounter Visit Diagnoses Diagnosis Type 2 diabetes mellitus without complication, without long-term current use of insulin documented in this encounter Additional Health Concerns Infection Onset Date Last Indicated Resolved Time CoV-Risk 06/13/2021 06/13/2021 06/23/2021 1:24 AM EST CoV-Presumed 01/12/2022 01/12/2022 02/02/2022 1:21 AM EDT CoV-Risk 04/07/2024 04/07/2024 04/18/2024 1:22 AM EDT documented as of this encounter Care Teams Life Enrichment Manager Relationship Specialty Start Date End Date Elroy Smith MD [address] [place] [address], [address] [place] [address] [email or web address] PCP - General Internal Medicine 05/07/17 documented as of this encounter Additional Source Comments The information contained in this document represents components of the legal health record. It is not the complete legal health record.[facility]
--- OUTSIDE RECORDS SUMMARY | 2025-05-02 11:54 | XMS_ITS | Encounter Summary ---
Author Organization [facility] Address [address] [facility] [address] [place] [address] Phone Care Team Providers Care Rocket Propellant Plant Supervisor Name Role Phone Elroy Smith MD Primary Care Provider [phone] Encounter Details Date Type Department Care Team (Latest Contact Info) Description 11/20/2017 Transcribe Orders [facility] Laboratory [address] [place] [address] Lety Rubin MD [address] [place] [address], [address] [place] [address] [email or web address] Diabetic glomerulopathy (Primary Dx); Chronic kidney disease, stage III (moderate); Parenchymal renal hypertension, 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, [address] [place] [address] 03/19/2026 11:00 AM EDT Office Visit [facility] [address] [place] [address] Elroy Smith MD 22 [facility], [address] [place] [address] [email or web address] documented as of this encounter Results * Urine protein/creatinine with ratio (11/20/2017 9:26 AM EDT) Pathologist [facility] URINE TOTAL PROTEIN 18.8 mg/dL [facility] URINE CREATININE 153 mg/dL [facility] URINE TP CRE RATIO 0.12 0 - 0.19 [facility] Urine (Urine) 11/20/2017 9:2 6 AM EDT 11/20/2017 12:42 PM EDT us Lety Rubin MD URINE ORDERABLES Final Result [facility] [address] [place] [address] * (ABNORMAL) CBC and differential (11/20/2017 9:26 AM EDT) WBC 8.18 3.40 - 11.20 K/uL [facility] RBC 4.72 4.50 - 5.50 M/uL [facility] HGB 14.6 13.0 - 17.0 g/dL [facility] HCT 42.7 40.0 - 51.0 % [facility] PLT 171 130 - 400 K/uL [facility] MCV 90.5 79.0 - 98.0 fL [facility] MCH 30.9 27.0 - 34.8 pg [facility] MCHC 34.2 31.5 - 36.0 g/dL [facility] RDW 12.6 10.8 - 14.6 % [facility] MPV 10.2 9.4 - 12.4 fl [facility] NRBC 0.00 /100 WBCs [facility] ABSOLUTE NRBC 0.00 K/uL [facility] DIFF METHOD Auto [facility] NEUTS 57.2 45.30 - 77.70 % [facility] LYMPHS 25.6 12.30 - 39.70 % [facility] MONOS 7.8 4.10 - 12.80 % [facility] EOS 8.1(H) 0 - 7.2 % [facility] BASOS 0.9 0 - 2.80 % [facility] Granulocytes, immature (%) 0.4 0.0 - 0.9 % [facility] ABSOLUTE NEUTS 4.69 1.40 - 7.70 K/uL [facility] ABSOLUTE LYMPHS 2.09 0.60 - 3.20 K/uL [facility] ABSOLUTE MONOS 0.64(H) 0.11 - 0.59 K/uL [facility] ABSOLUTE EOS 0.66(H) 0.01 - 0.50 K/uL [facility] ABSOLUTE BASOS 0.07 0.00 - 0.08 K/uL [facility] Granulocytes, immature 0.03 0.00 - 0.05 K/uL [facility] Blood 11/20/2017 9:26 AM EDT 11/20/2017 9:28 AM EDT Lety Rubin MD LAB BLOOD ORDERABLES Final Re sult Performing Organization Address City/[facility]/ZIP Co de Phone Number [address] [address] * Albumin (11/20/2017 9:26 AM EDT) ALBUMIN 4.1 3.9 - 4.8 g/dL [facility] Blood 11/20/2017 9:26 AM EDT 11/20/2017 9:28 AM EDT Lety Rubin MD LAB BLOOD ORDERABLES Final Re sult [address] [address] * Magnesium (11/20/2017 9:26 AM EDT) MAGNESIUM 2.1 1.6 - 2.6 mg/dL [facility] Blood 11/20/2017 9:26 AM EDT 11/20/2017 9:28 AM EDT us Lety Rubin MD LAB BLOOD ORDERABLES Final Re sult [address] [address] * Phosphorus (11/20/2017 9:26 AM EDT) PHOSPHORUS 3.3 2.7 - 4.5 mg/dL [facility] Blood 11/20/2017 9:26 AM EDT 11/20/2017 9:28 AM EDT us Lety Rbuin MD LAB BLOOD ORDERABLES Final Re sult Performing Organization Address City/[facility]/ZIP Co de Phone Number [address] [address] * (ABNORMAL) Basic metabolic panel (11/20/2017 9:26 AM EDT) SODIUM 143 133 - 146 mmol/L [facility] CHLORIDE 106 96 - 108 mmol/L [facility] POTASSIUM 4.8 3.3 - 5.1 mmol/L [facility] CO2 27 21 - 35 mmol/L [facility] BUN 28(H) 6 - 19 mg/dL [facility] CREATININE 1.40 0.5 - 1.5 mg/dL [facility] GLUCOSE 98 70 - 99 mg/dL [facility] CALCIUM 9.3 8.4 - 10.3 mg/dL [facility] EGFR 52(L) >59 mL/min/1.7 3m2 [facility] Comment:If patient is black, multiply result by 1.159. The eGFR calculation has changed from the MDRD equation to the CKD-EPI equation as of September 07, 2017. ANION GAP 15 10 - 20 mmol/L [facility] Blood 11/20/2017 9:26 AM EDT 11/20/2017 9:28 AM EDT Lety Rubin MD LAB BLOOD ORDERABLES Final Re sult Performing Organization Address City/[facility]/ZIP Co de Phone Number [address] [address] * Parathyroid hormone (PTH) (11/20/2017 9:26 AM EDT) PARATHYROID HORMONE 43 15 - 65 pg/mL [facility] Blood 11/20/2017 9:26 AM EDT 11/20/2017 11:37 AM EDT Lety Rubin MD LAB BLOOD ORDERABLES Final Re sult Performing Organization Address City/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 Hyperlipidemia, unspecified hyperlipidemia type documented in this encounter Additional Health Concerns Infection Onset Date Last Indicated Resolved Time CoV-Risk 06/13/2021 06/13/2021 06/23/2021 1:24 AM EST CoV-Presumed 01/12/2022 01/12/2022 02/02/2022 1:21 AM EDT CoV-Risk 04/07/2024 04/07/2024 04/18/2024 1:22 AM EDT documented as of this encounter Care Teams Rocket Propellant Plant Supervisor Relationship Specialty Start Date End Date Elroy Smith MD [address] [place] [address], [address] [place] [address] PCP - General Internal Medicine 05/07/17 documented as of this encounter Additional Source Comments The information contained in this document represents components of the legal health record. It is not the complete legal health record.[facility]
--- OUTSIDE RECORDS SUMMARY | 2025-05-02 11:54 | XMS_ITS | Encounter Summary ---
Author Organization [facility] Address [address] [place] [address] Phone Care Team Providers Care Peace Officer Name Role Phone Elroy Smith MD Primary Care Provider [phone] Encounter Details Date Type Department Care Team (Late st Contact Info) Description 05/29/2022 Procedure Pass [facility], Ct Scan - [address] [address] Social History Tobacco Use Types Packs/Day Years [...] high school, GED, job training, learning the Estonian language, technical skills, or developing parenting skills)? 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 N ot on file Not on file documented as of this encounter Functional Status * Calculated C-SSRS Risk Score (Lifetime/Recent) Answer Date of Assessment Author No Risk Indicated 05/29/2022 1:39 PM Paulina Shea RN * Adams Suicide Severity Rating Scale (Screener/Recent Self-Report) Question [...] Description 08/27/2025 2:40 PM EST Office Visit [facility] [address] [place] [address] [place] [address] Daija Hu MD [address] [place] [address], 1st [place] [address] 03/19/2026 11:00 AM EDT Office Visit [facility] [address] [place] [address] Elroy Smith MD [address] [place] [address], [address] [place] [address] [email or web address] documented as of this encounter Visit Diagnoses Not on filedocumented in this encounter Additional Health Concerns Infection Onset Date Last Indicated Resolved Time CoV-Risk 04/07/2024 04/07/2024 04/18/2024 1:22 AM EDT Assessment Noted Time PHQ-2 Depression Total Score: 0 02/12/20 10:51 AM EDT documented as of this encounter Care Teams Peace Officer Relationship Specialty Start Date End Date Elroy Smith MD [address] [place] [address], [address] [place] [address] [email or web address] PCP - General Internal Medicine 05/07/17 documented as of this encounter Additional Source Comments The information contained in this document represents components of the legal health record. It is not the complete legal health record.[facility]
--- OUTSIDE RECORDS SUMMARY | 2025-05-02 11:54 | XMS_ITS | Encounter Summary ---
Author Organization [facility] Address [address] [facility] [address] [place] [address] Phone Care Team Providers Care Barrel Endshake Adjuster Name Role Phone Elroy Smith MD Primary Care Provider [phone] Encounter Details Date Type Department Care Team (Late st Contact Info) Description 06/04/2021 Procedure Pass [facility] [address] [place] [address] Social History Tobacco Use Types Packs/Day Years Used Date Smoking Tobacco: Some Days Cigarettes 2 27 Started: 1960; Last attempted to quit: 1987 Cigars Smokeless Tobacco: Never Comments:Now no [...] high school, GED, job training, learning the Macanese language, technical skills, or developing parenting skills)? 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 Wish to be (Past 1 Month) No 06/04/2021 7:47 PM Tanika Roblero RN 2. Non-Specific Active Suici cinthia Thoughts (Past 1 Month) No 06/04/2021 7:47 PM Henry Roblero RN 6. Suicidal Behavior (Lifetime) No 7:47 PM Tanika Roblero RN documented as of this encounter Plan of Treatment Upcoming Encounters Date Type Department Care Team (Late st Contact Info) Description 08/27/2025 2:40 PM EST Office Visit [facility] [address] [place] [address] Daija Hu MD [address] [place] [address], 1st [place] [address] 03/19/2026 11:00 AM EDT Office Visit [facility] Medicine [address] [place] [address] Elroy Smith MD [address] [facility], [address] [place] [address] [email or web address] documented as of this encounter Visit Diagnoses Not on filedocumented in this encounter Additional Health Concerns Infection Onset Date Last Indicated Resolved Time CoV-Risk 06/13/2021 06/13/2021 06/23/2021 1:24 AM EST CoV-Presumed 01/12/2022 01/12/2022 02/02/2022 1:21 AM EDT CoV-Risk 04/07/2024 04/07/2024 04/18/2024 1:22 AM EDT Assessment Noted Time PHQ-2 Depression Total Score: 0 02/11/20 11:05 AM EDT documented as of this encounter Care Teams Barrel Endshake Adjuster Relationship Specialty Start Date End Date Elroy Smith MD [address] [place] [address], [address] [place] [address] [email or web address] PCP - General Internal Medicine 05/07/17 documented as of this encounter Additional Source Comments The information contained in this document represents components of the legal health record. It is not the complete legal health record.[facility]
--- OUTSIDE RECORDS SUMMARY | 2025-05-02 11:54 | XMS_ITS | Encounter Summary ---
Author Organization [facility] Address [address] [place] [address] Phone Care Team Providers Care Car Escort Name Role Phone Elroy Smith MD Primary Care Provider [phone] Encounter Details Date Type Department Care Team (Late st Contact Info) Description 01/19/2025 Procedure Pass [facility], Ct Scan - [address] [address] Social History Tobacco Use Types Packs/Day Years [...] your housing situation today? 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 file Not on file documented as of this encounter Plan of Treatment Upcoming Encounters Date Type Department Care Team (Late st Contact Info) Description 08/27/2025 2:40 PM EST Office Visit [facility] [address] [place] [address] Daija Hu MD 22 [facility], 1st [place] [address] [email or web address] 03/19/2026 11:00 AM EDT [facility] [address] [address] Elroy Smith MD [address] [place] [address], [address] [place] [address] [email or web address] documented as of this encounter Visit Diagnoses Not on filedocumented in this encounter Additional Health Concerns Assessment Noted Time PHQ-2 Depression Total Score: 0 02/26/20 24 7:45 PM EDT documented as of this encounter Care Teams Car Escort Relationship Specialty Start Date End Date Elroy Smith MD [address] [place] [address], [address] [place] [address] PCP - General Internal Medicine 05/07/17 documented as of this encounter Additional Source Comments The information contained in this document represents components of the legal health record. It is not the complete legal health record.[facility]
--- OUTSIDE RECORDS SUMMARY | 2025-05-02 11:54 | XMS_ITS | Clinical Summary ---
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 Active CLEARLAX 17 gram/dose powder MIX 17G OF POWDER IN LIQUID AND DRINK DAILY 1 Bottle 11 03/09/20 19 Active acetaminophen (TYLENOL) 325 mg tablet Take 650 mg by mouth every 6 (six) hours as needed for pain (specific location in comments). 07/15/19 23 Active losartan (COZAAR) 25 MG tabletIndications: Type 2 diabetes mellitus with stage 3b chronic kidney disease, without long-term current use of insulin,Primary hypertension Take 25 mg by mouth daily as needed (for SBP >150). As needed Active rosuvastatin (CRESTOR) 20 MG tabletIndications: Mixed hyperlipidemia TAKE 1 TABLET BY MOUTH EVERYDAY AT BEDTIME 90 tablet 3 01/05/20 25 Active midodrine (PROAMATINE) 2.5 MG tablet Take 10 mg by mouth daily. Pt taking 5 mg in the morning and 2.5 as needed later in the day 01/09/20 25 Active glipiZIDE (GLUCOTROL) 10 MG tabletIndications: Type 2 diabetes mellitus with diabetic polyneuropathy, without long-term current use of insulin Take 1 tablet (10 mg total) by mouth daily. 90 tablet 3 02/24/20 25 Active gabapentin (NEURONTIN) 300 MG capsuleIndications :Neuropathic pain of both legs TAKE 1 CAPSULE BY MOUTH THREE TIMES A DAY 90 capsule 03/06/20 Active blood-glucose sensor (DEXCOM G7 SENSOR) Eliana 1 each by See Administration Instructions route Every [address] one sensor by miscellaneous route every 10 days 3 each 04/02/20 025 Active Active Problems Problem Noted Date Diagnosed Date Type 2 diabetes mellitus wit h diabetic chronic kidney disease 12/29/2024 Assessment & Plan (02/23/2025 5:47 PM EDT): Most recent labs reviewed, GFR [address] Coreas Blood pressure is reasonably well controlled Continues on ARB We discussed that UMAÑA therapy remains challenging since the duration of medication action is prolonged and the risk for hypoglycemia is greater, Nasir's tendency toward hypoglycemia will be most likely related to UMAÑA therapy, he will continue once daily dosing of this Nasir trialed GLP/GIP which would be likely to provide CV and renal benefits, however he did not tolerate optimized dosage due to h/o orthostatic hypotension and issues with this related to LOC episodes necessitated hospital stay Nasir did ok with initial, low dose Mounjaro and we may revisit this again in the future Advised to contact me with any questions or concerns, we will meet again in 6 months Diabetic neuropathy 11/28/2024 Spondylolisthesis at L5-S1 level 06/06/2024 Primary osteoarthritis of right hip 06/06/2024 Neuropathy involving both lower extremities 02/04 Overview (03/03/2024): Likely due to diabetes. Symptoms controlled with gabapentin Assessment & Plan (03/03/2024 11:44 AM EDT): He requests increase of gabapentin to 3 times daily to cover daytime symptoms Syncope 05/29/2022 Assessment & Plan (05/31/2022 12:49 PM EST): Almost certinly from orthostasis. Bps are dropping dramatically Patient presented with recurrent episode of syncope likely secondary to vasovagal but cannot rule out cardiogenic or medication induced. In April 2021 showed preserved EF of 66%. Last echocardiogram patient does have a history of pacemaker placement for significant bradycardia. Suspect last check would be in April during his last appointment. Patient has a significant history of orthostatic hypotension requiring Florinef since November 2021. Patient also has concurrent hypertension which he takes losartan. According to the last office visit with PCP in March, his instructions to take losartan 50 mg in the morning and add 50 mg in the evening if systolics greater than 160. But it appears patient may have been told to take an additional 25 mg at nighttime if SBP is less than 160. Certainly may have contributed to symptomatic hypotension in the morning resulting in dizziness and syncope. -Observe in telemetry -We will need to have device checked by cardiology -We will repeat echocardiogram -Cardiology consult See also HTN section Chronic left-sided back pain 05/29/2022 Overview (06/16/2022): , CT showed left paramedian disc extrusion with compression at L4-08 June 2022 after worsening of pain. Patient unable to get MRI Assessment & Plan (03/13/2025 11:31 AM EDT): Has BEAR this month with Dr Melgar Assessment & Plan (06/22/2022 4:50 PM EST): Benefiting from home physical therapy, now is using a walker not a wheelchair. Pains have improved, not using Dilaudid. Assessment & Plan (05/30/2022 11:45 AM EST): Patient has chronic left lower back pain with sciatica. Patient was seen in the ED a few days ago and received a x-ray without evidence of fracture. Patient was given a dose of hydromorphone with significant improvement. No neurological deficit. -Continue conservative management -Holding off narcotics if possible, definitely will avoid anatispasmodics - Continue Tylenol as needed/heat or ice pack/ Lidoderm patch as needed Foot pain 03/02/2022 Assessment & Plan (03/02/2022 10:43 AM EDT): 02/09/2022 arterial duplex study and ABIs shows the right common iliac artery revealing a significant stenosis, 50-89%. The right common femoral artery reveals a moderate stenosis, 20-49%. The left common iliac reveals a moderate stenosis, 20-49%. Plaque within the aorta is calcified. CARLOS show a normal ankle-brachial index on both right and left (1.0-1.30) Cause for his foot pain is not caused by nocturnal issue. Is likely this is a neuropathy caused by diabetes. Strongly encouraged to go back to Dr. Smith to see if there is anything could be done for pain control. Orthostatic hypotension 02/27/2022 Overview (06/22/2022): Better on florinef, and midodrine was added June 2022 with good effect but now BPs are higher. Syncope and collapse 11/14/2021 Assessment & Plan (11/14/2021 3:34 PM EDT): Related to orthostatic hypotension with postural changes. Device check by Bertha in the office today without any reported events. Patient has been prescribed fludrocortisone by PCP for management of this. He will follow-up with his PCP for further management plan. Encounter for preprocedure s creening laboratory testing for COVID-19 06/04/2021 Symptomatic bradycardia 06/04/2021 Assessment & Plan (04/13/2022 2:32 PM EDT): S/p Biotronick PPM. Continue in office device checks every 6 months, remote downloads every 3 months. Assessment & Plan (03/02/2022 10:42 AM EDT): Biotronik pacemaker placed. He will continue on 3-month remote checks as well as 6 months in person visit. Assessment & Plan (06/05/2021 8:43 AM EST): Observation on telemetry after elective pacemaker placement with Dr. Greene. -Admitted to the telemetry floor for safety inspector -Post procedure EKG -Aspirin 81 mg per cardiology -Chest x-ray postprocedure and again in the morning -Biotronik device rep to see the patient for education regarding home monitoring prior to discharge. -No lifting left arm above shoulder level for 3-4 weeks -No repetitive motion or lifting heavy weight for 3-4 weeks -No driving, alcohol or making legal decisions for 24 hours. -Keep wound completely dry for 7 days; no showers. -No soaking in hot tubs or baths for 10 days. May sponge bath. -Remove band-aid/tegaderm in 1 day; allow steristrips underneath to fall off naturally. -Call the cardiology office after discharge with any periincisional discharge, worsening pain, swelling, fever, or other symptoms of concern. -Follow-up in the outpatient cardiology office in the device clinic in 2-3 weeks for a wound check and device interrogation as scheduled. Sinus bradycardia 04/01/2021 Rosacea 02/10/2021 Overview (03/03/2024): Sees Dr Chavez Assessment & Plan (06/04/2021 2:22 PM EST): Patient has been using topical clindamycin several times daily for his rosacea rash on his face. Not available on the hospital formulary. Patient refused substitution, not felt to be needed tonight. Chronic hip pain after total replacement of left hip joint 02/10/2021 Overview (02/10/2021): [place] TH[place] [address] Jovany Read, reports persistent pain. Refer for 2nd opinion. Diabetic nephropathy associa celso with type 2 diabetes mellitus 11/15/2019 Assessment & Plan (11/28/2024 12:14 PM EDT): Most recent labs reviewed, GFR [address] Coreas Blood pressure is reasonably well controlled Continues on ARB We discussed that UMAÑA therapy is challenging in this setting since the duration of medication action is prolonged and the risk for hypoglycemia is greater, Nasir's variability in glucose and fairly consistent tendency toward hypoglycemia is very likely related to UMAÑA therapy We discussed change in therapy to GLP/GIP which, based on preliminary CVOT results, is likely to provide CV and renal benefits as other members of the class do Nasir is agreeable to this change and we discussed dosing, he will reduced UMAÑA therapy to 1/2 tab daily and stop this once he starts Mounjaro We discussed the likely side effects associated with this class of medications Advised to contact me with any questions or concerns, we will meet again in 3 months Stage 3 chronic kidney disease 11/15/2019 Assessment & Plan (03/13/2025 11:31 AM EDT): Uncontrolled hypertension 07/09/2017 Overview (06/11/2023): Has some brittle hypertension, with postprandial orthostatic symptoms, intermittent uncontrolled blood pressures around 1 50-1 60 systolic. Will take amlodipine and lisinopril in the evening. Increase fluid intake. HTN mgmt is by Dr Gutierrez at [facility]. Has NTG oint for episodes of BP>180 Assessment & Plan (03/13/2025 11:31 AM EDT): Assessment & Plan (05/31/2022 12:49 PM EST): Patient is noted to have supine HTN with severe orthostasis requiring losartan and Florinef. For now will hold all antihypertensives TEDS and abdominal binder Continue florinef Will start low dose losartan at night Will have to tolerate supine htn Used to see Dr. Rubin, will ask for renal to get involved this hospitalization Assessment & Plan (03/02/2022 10:41 AM EDT): He has had a difficult time controlling his hypertension He also has hypotensive episodes. He recently was put on losartan 50 mg daily with an extra 50 mg in the evening of his systolic blood pressure is elevated. He will continue his medications without change. Assessment & Plan (06/04/2021 2:20 PM EST): Moderate hypertension post procedure in the setting of mild pain. Not on antihypertensives prior to arrival. Noted allergy to metoprolol. -Pain management -Monitor vital signs per unit protocol -Defer to cardiology if antihypertensives are needed Orthostatic hypotension 07/09/2017 Overview (03/13/2025): Pacemaker placed June: Worsening sx, large BP drop on orthostatics here. Rx haily, f/u with cardiology November 2021: 2 emergency room visits, multiple complete syncope is at home. Increase Florinef to twice daily, wear compression stockings, reminded him regarding pre-prandial fluid loading January 2025: recent hosp for low BPs. Now on midodrine 5mg am, and 2.5mg prn. Losartan is 25mg as needed for BP>160 Mar 2025: midodrine 10mg daily. Has low BPs before it, but high BPs afterwards. I suggested he try taking midodrine 5mg am, and 7.5 in the early afternoon, then 2.5 later if his BP goes below 100 Assessment & Plan (03/13/2025 11:31 AM EDT): Assessment & Plan (07/17/2022 9:56 AM EST): Just discharged after admission at [facility]. Required rehab afterwards, now getting VNA with PT. Midodrine is 2.5 mg 3 times daily, lowered due to uncontrolled hypertension while on full dose. Continues with Florinef. Now seeing Dr. Savage in cardiology at [facility] Assessment & Plan (06/05/2022 3:50 PM EST): Symptoms of worsened, blood pressure quite labile. Dr. Mcclendon reviewed his management today and they are planning to continue with losartan and Florinef for now. Consider adding a dopamine agonist if symptoms worsen. Assessment & Plan (04/13/2022 2:34 PM EDT): He brought his BP cuff into the office today. On his right arm, on my manual read, his BP was 160/90. His BP cuff read around 185/102 just seconds later on the same arm. I suspect some of his readings from home may be inaccurate. Reviewed with Dr Mcclendon. Given that he is feeling so well and his orthostatic/syncopal symptoms have resolved, will continue current medications/doses (specifically fludrocortisone and losartan). He does not wear compression stockings on a regular basis- I've advised him to do so. I did instruct him to check his BP less frequently at home, especially given the likely inaccuracy of his cuff and his lack of concerning symptoms. Assessment & Plan (11/14/2021 3:30 PM EDT): Patient continues to experience orthostatic hypotension with postural changes. He is experiencing syncopal episodes secondary to this. All antihypertensive medications have been DC'd. Patient has been maintaining hydration status. Discussed with patient that he could increase his salt intake as well to between 2 to 3 g daily. Additionally discussed compression stockings which the patient reported he has tried previously without any benefits. Advised patient to follow-up with PCP for further management and plan. Mixed hyperlipidemia 07/09/2017 Assessment & Plan (03/13/2025 11:31 AM EDT): Assessment & Plan (02/23/2025 5:47 PM EDT): Most recent lipid panel reviewed LDL is at goal Continues on statin at high intensity Most recent GFR 39 Glucose control is very good Assessment & Plan (11/28/2024 12:06 PM EDT): Most recent lipid panel reviewed LDL is at goal Continues on statin at high intensity Most recent GFR 39 Glucose control is very good Assessment & Plan (06/04/2021 2:21 PM EST): Home dose of nightly rosuvastatin continued Class 1 obesity due to exces s calories with serious comorbidity and body mass index (BMI) of 31.0 to 31.9 in adult 07/09/2017 Assessment & Plan (03/13/2025 11:31 AM EDT): Lost 15 lbs this year Trying to keep going Assessment & Plan (02/23/2025 5:38 PM EDT): Nasir lost weight, ~10lb, since July Current BMI ~31 is very supportive of healthy eating, emphasizes protein in meals and lower carb Stays active with stationary bike nearly daily Assessment & Plan (08/12/2018 2:16 PM EST): We discussed strategies for improving fitness and losing weight. Patient should concentrate on developing healthy habits of aerobic and light weight training exercise for 30-60 minutes, averaging at least 3-4 times a week. This should include light weight training, core strengthening, flexibility, and at least 30 minutes of aerobic exercise. Also try to cut down or eliminate carbohydrates and unnecessary calories from beverages. Assessment & Plan (07/09/2017 2:16 PM EST): He stretches then bikes indoors for 20-30min. We discussed strategies for improving fitness and losing weight. Patient should concentrate on developing healthy habits of aerobic and light weight training exercise for 30-60 minutes, averaging at least 3-4 times a week. This should include light weight training, core strengthening, flexibility, and at least 30 minutes of aerobic exercise. Also try to cut down or eliminate carbohydrates and unnecessary calories from beverages. Hypertensive disorder Overview (02/27/2022): Diff control, brittle. Losartan added February 2022. 02/27/2022: Take losartan 50 mg in the morning, add 50 mg at evening time if systolic is 160 or greater Assessment & Plan (02/23/2025 5:29 PM EDT): Blood pressure has been variable, reasonably well controlled in recent past Continues on ARB Follows with Dr. Coreas Most recent GFR 39 Assessment & Plan (11/28/2024 12:05 PM EDT): Blood pressure has been variable, reasonably well controlled today Continues on ARB Follows with Dr. Coreas Most recent GFR 39 Assessment & Plan (06/22/2022 4:51 PM EST): Hypertension control is quite brittle, if enough medications are used to bring blood pressure down to a safe level, he becomes severely orthostatic. Today they said they would like to see Dr. Savage at [facility], they state that they have not had good feedback from our cardiology group. 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, managed with gabapentin with suboptimal effect per Nasir He has cold sensation at distal extremities which are likely related to DPN as well as circulatory issues, exercise is likely to be helpful Overall glucose control is good, has been doing well to avoid hypoglycemia; we discussed upcoming steroid injection which will very likely elevate glucose, we discussed dietary approaches to this, advised to hydrate well DPN symptoms continue at geovani feet, these do not interfere with QOL and sleep; we discussed nonprescription approaches namely vit B12 and ALA which may be helpful for his symptoms Encouraged to reach out to me with any questions or concerns, we will meet again in 6 months Assessment & Plan (11/28/2024 12:19 PM EDT): 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, managed with gabapentin with good effect He has cold sensation at distal extremities which are likely related to DPN as well as circulatory issues Overall glucose control is good however likely more variable than necessary on UMAÑA therapy due to unpredictable impact on insulin release as well as increased duration of action in setting of renal dysfunction We discussed stopping UMAÑA therapy in favor of a medication which is likely to provide CV and renal benefits and a much lower risk of hypoglycemia, Nasir is agreeable to trial of Mounjaro and we discussed the most common side effects as well as the therapeutic effects of the medication which he can anticipate, we discussed recommended adjustments to eating habits, portion control, etc to help manage side effects Nasir is advised to continue his efforts at exercise as tolerated, we discussed benefit of adding in some toning/strength training as well Encouraged to reach out to me with any questions or concerns, we will meet again in 3 months Assessment & Plan (06/04/2021 2:21 PM EST): Patient's dose of glipizide was held for surgery. Glucose 120 post procedure. Will manage with insulin sliding scale and Humalog with meals tonight. Restart home medical regimen in the morning when taking in adequate oral intake. Resolved Problems Problem Noted Date Diagnosed Date Resolved Date Type 2 diabetes mellitus without complication 07/09/19 18 11/28/2024 Overview (06/12/2021): Last Assessment & Plan: Stable on 10mg glipizide. Assessment & Plan (05/30/2022 11:47 AM EST): Well-controlled type 2 diabetes on glipizide. -Holding glipizide and start low-dose insulin sliding scale Assessment & Plan (08/12/2018 2:16 PM EST): Stable on 10mg glipizide. Encounters Date Type Department Care Team Description 03/24/[address] [place] [address] Elroy Smith MD Medication Refill 03/13/2025 11:00 AM EDT Office Visit [address] [place] [address] Elroy Smith MD Medicare annual wellness visit, subsequent (Primary Dx); Annual physical exam; Uncontrolled hypertension; Orthostatic hypotension; Mixed hyperlipidemia; Class 1 obesity due to excess calories with serious comorbidity and body mass index (BMI) of 31.0 to 31.9 in adult; Stage 3b chronic kidney disease; Chronic left-sided low back pain with left-sided sciatica 03/06/2025 8:21 AM EDT - 03/06/2025 11:59 PM EDT Hospital Encounter [facility] [address] [place] [address] Nestor Coreas MD Discharge Disposition: Home or Self Care 03/06/2025 7:53 AM EDT - 03/06/2025 8:20 AM EDT Hospital Encounter [facility] [address] [place] [id number] Nestor Coreas MD Discharge Disposition: Home or Self Care 03/06/2025 Transcribe Orders [facility] [address] [place] [id number] Nestor Coreas MD Stage 3a chronic kidney disease (Primary Dx) 03/06/2025 Transcribe Orders [facility] [address] [place] [id number] Nestor Coreas MD Stage 3a chronic kidney disease (Primary Dx) 03/03/[address] [place] [address] Elroy Smith MD Medication Refill 02/28/2025 2:39 PM EDT - 02/28/2025 11:59 PM EDT Hospital Encounter [facility] [address] [place] [address] Nestor Coreas MD Discharge Disposition: Home or Self Care 02/28/2025 Transcribe Orders [facility] [address] [place] [address] [place] [address] Nestor Coreas MD Type 2 diabetes mellitus with diabetic polyneuropathy, without long-term current use of insulin (Primary Dx); Stage 3a chronic kidney disease 02/23/2025 4:40 PM EDT Office Visit [facility] [address] [place] [address] [place] [address] Daija Hu MD Type 2 diabetes mellitus with diabetic polyneuropathy, without long-term current use of insulin (Primary Dx); Type 2 diabetes mellitus with stage 3b chronic kidney disease, without long-term current use of insulin; Primary hypertension; Class 1 obesity due to excess calories with serious comorbidity and body mass index (BMI) of 31.0 to 31.9 in adult; Mixed hyperlipidemia from Last 3 Months Immunizations Immunization Administration Dates Next Due COVID-19 (Pre-04/26) Dayana Vaccine, [id number], PF 09/14/2020 COVID-19 (Pre-04/26) Moderna Vaccine, mRNA, PF 05/07/2022 COVID-19 (Pre-04/26) Pfizer Vaccine, mRNA, PF 05/07/2021,09/14/2020 COVID-19, Unspecified Formulation 05/07/2021, INFLUENZA, SPLIT VIRUS, TRIV ALENT W/ PRESERVATIVE IM 04/07/2022 Influenza High-Dose Quadriva lent Preservative Free IM 04/27/2022,04/05/2020 Influenza High-Dose Trivalen t Preservative Free IM 04/27/2022,03/08/2017 Influenza Quadrivalent Adjuv anted Preservative Free IM 04/29/2023,04/09/2021 Influenza Quadrivalent Preservative Free IM 02/02 Influenza Trivalent Adjuvant ed Preservative free IM 04/25/2024 Influenza, Unspecified Formulation 04/29/2023,,04/04/2013 Pneumococcal conjugate PCV13 08/12/2018,07/05/19 17 Pneumococcal polysaccharide PPSV23 06/14/2020, Tdap 08/12/2018,12/26/2010 Zoster live 05/27/2013 Zoster recombinant 04/29/2023,12/28/2022 Family History Medical History Relation Comments Multiple sclerosis Brother Diabetes Father Cancer Neg Hx Coronary artery disease Neg Hx Relation Status Comments Brother Alive Father (Age 81) Mother (Age 86) Sister Alive Social History Tobacco Use Types Packs/Day Years Used Date Smoking Tobacco: Some Days Cigars Smokeless Tobacco: Never Tobacco Cessation:Ready to Q uit: Not Asked; Counseling Given: Not Answered Comments:Now no cigarettes, but continues 4 cigars/week 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, 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 Not on file N ot on file Not on file Last Filed Vital Signs Vital Sign Reading Time Taken Comments Blood Pressure 116/58 03/13/2025 10:53 AM EDT Pulse 68 03/13/2025 10:53 AM EDT Temperature 36.4 C (97.5 F) 03/13/2025 10:53 AM EDT Respiratory Rate 18 04/07/2024 2:04 PM EDT Oxygen Saturation 98% 03/13/2025 10:53 AM EDT Inhaled Oxygen Concentration - - Weight 108 kg (238 lb) 03/13/2025 10:53 AM EDT Height 186 cm (6' 1.23 ) 03/13/2025 10:53 AM EDT Body Mass Index 31.21 03/13/2025 10:53 AM EDT Plan of Treatment Upcoming Encounters Date Type Department Care Team (Late st Contact Info) Description 08/27/2025 2:40 PM EST Office Visit [facility] [address] [place] [address] Daija Hu MD [address] [place] [address], [address] [place] [address] [email or web address] 03/19/2026 11:00 AM EDT Office Visit [facility] [address] [place] [address] [place] [address] Elroy Smith MD [address] [place] [address], [address] [place] [address] [email or web address] Maintenance Due Date Last Done Comments COLOGUARD 01/04/1997 FIT TEST 01/04/1997 FOBT 01/04/1997 SIGMOIDOSCOPY 01/04/1997 VIRTUAL COLONOSCOPY 01/04/1997 RSV VACCINE (1 - Risk 50-74 years 1-dose series) 01/04/2002 DIABETIC EYE EXAM 11/04/2024 11/05/2023, , 07/21/2019, Additional history exists INFLUENZA VACCINE (#1) 2025 , 04/29/2023, 04/29/2023, Additional history exists COVID-19 VACCINE (2024- season) 2025 05/07/2022, 05/07/2022, 05/07/2021, Additional history exists HEMOGLOBIN A1C 08/31/2025 02/28/2025, 02/03, 11/28/2024, Additional history exists BLOOD PRESSURE 09/10/2025 03/13/2025 CREATININE LEVEL 02/28/2026 02/28/2025, , 07/21/2024, Additional history exists POTASSIUM LEVEL 02/28/2026 02/28/2025, 08/05, 07/21/2024, Additional history exists DEPRESSION SCREENING 03/06/2026 03/06/2025 SMOKING Hx and SMOKELESS TOBACCO SCREENING 03/13/2026 03/13/2025 COLONOSCOPY 08/12/2027 08/12/2017 COLORECTAL CANCER SCREENING 08/12/2027 Adult Td,Tdap Booster 08/12/2028 08/12/2018, 011 PNEUMOCOCCAL VACCINES (50+ years) Completed 06/14/2020, 08/12/2018, 07/05/2016, Additional history exists HEPATITIS C SCREENING Completed 02/10/2021 ZOSTER VACCINES Completed 04/29/2023, 12/04, 05/27/2013 ABDOMINAL AORTIC ANEURYSM (AAA) SCREENING Completed 07/23/2023, 03/24/2022 HEPATITIS A VACCINES Aged Out No long er eligible based on patient's age to complete this topic HIB VACCINES Aged Out No longer eligi ble based on patient's age to complete this topic MENINGOCOCCAL VACCINES (ACWY) Aged Out No longer eligible based on patient's age to complete this topic MENINGOCOCCAL VACCINES (B) Aged Out N o longer eligible based on patient's age to complete this topic Medical Devices Implanted Type Area Hvac R Tech Device Identifier Shelf Expiration Date Model / Serial / Lot Envelope Tyrx Cardiac Med Absorbable Antibacterial Sterile - [id number] Implanted:Qty: 1 on 06/04/2021 by Alexandra Greene MD at [facility] Collagen [employer] [id number] 01/24/2022 [id number] / / [id number] Lead Pacing Solia 60cm Steroid Eluting Ra Is 1 Bipolar Promri Larry - [id number] Implanted:Qty: 1 on 06/04/2021 by Alexandra Greene MD at [facility] Lead Left: Chest Wall [employer] [id number] 05/04/2023 [id number] / [id number] / Lead Pacing Solia 53cm Steroid Eluting Ra Is 1 Bipolar Promri Larry - [id number] Implanted:Qty: 1 on 06/04/2021 by Alexandra Greene MD at [facility] Lead Left: Chest Wall [employer] [id number] 05/04/2023 [id number] / [id number] / Pacemaker Edora Dual Chamber Joyce Promri W/Automri Cls And Hm - [id number] Implanted:Qty: 1 on 06/04/2021 by Alexandra Greene MD at [facility] Pacemaker Left: Chest Wall [employer] [id number] 09/01/2022 [id number] / [id number] / Prosthetic Joint Prosthetic Joint Left: Hip Procedures Procedure Name Priority Date/Time Associated Diagnosis Comments CORTISOL AM Routine 03/06/2025 8:34 AM EDT Stage 3a chronic kidney disease RENIN Routine 03/06/2025 8:34 AM EDT Stage 3a chronic kidney disease ALDOSTERONE Routine 03/06/2025 8:34 AM EDT Stage 3a chronic kidney disease MICROALBUMIN/CREATIN INE RATIO, RANDOM URINE Routine 02/28/2025 2:53 PM EDT Type 2 diabetes mellitus with diabetic polyneuropathy, without long-term current use of insulin Stage 3a chronic kidney disease RENAL PANEL Routine 02/28/2025 2:44 PM EDT Type 2 diabetes mellitus with diabetic polyneuropathy, without long-term current use of insulin Stage 3a chronic kidney disease 25-OH VITAMIN D Routine 02/28/2025 2:44 PM EDT Type 2 diabetes mellitus with diabetic polyneuropathy, without long-term current use of insulin Stage 3a chronic kidney disease HEMOGLOBIN A1C Routine 02/28/2025 2:44 PM EDT Type 2 diabetes mellitus with diabetic polyneuropathy, without long-term current use of insulin PARATHYROID HORMONE (PTH) Routine 02/28/2025 2:44 PM EDT Type 2 diabetes mellitus with diabetic polyneuropathy, without long-term current use of insulin Stage 3a chronic kidney disease IRON AND IRON BINDING CAPACITY Routine 02/28/2025 2:44 PM EDT Type 2 diabetes mellitus with diabetic polyneuropathy, without long-term current use of insulin Stage 3a chronic kidney disease CBC Routine 02/28/2025 2:44 PM EDT Type 2 diabetes mellitus with diabetic polyneuropathy, without long-term current use of insulin Stage 3a chronic kidney disease POCT HEMOGLOBIN A1C Routine 02/23/2025 5 :12 PM EDT Type 2 diabetes mellitus with diabetic polyneuropathy, without long-term current use of insulin DIABETES EYE EXAM FOR RESULT ENTRY ONLY Routine 11/05/2023 9:[address] ABDOMEN ONLY Routine 07/23/2023 3:44 PM EST Intractable abdominal pain HEPATITIS C ANTIBODY, QUALITATIVE Routine 02/10/2021 12:34 PM EDT Need for hepatitis C screening test COLONOSCOPY FOR RESULT ENTRY ONLY Routine 08/12/2017 from Last 3 Months or Most Recently Relevant to Health Maintenance Results * (ABNORMAL) Cortisol AM (03/06/2025 8:34 AM EDT) CORTISOL AM 18.9(H) 6.02 - 18.4 ug/dL [facility] Blood 03/06/2025 8:34 AM EDT 03/06/2025 8:37 AM EDT us Nestor Coreas MD LAB BLOOD ORDERABLES Final Resul t [address] [address] * Aldosterone (03/06/2025 8:34 AM EDT) ALDOSTERONE <4.0 <=21 ng/dL [facility] SU[facility] Comment: (NOTE) ADDITIONAL INFORMATION Reference range for patients 11 years and older is based on upright A.M. collection from subjects without sodium restrictions. This test was developed and its performance characteristics determined by [facility] in a manner consistent with CLIA requirements. This test has not been cleared or approved by the U.S. Food and Drug Administration. Blood 03/06/2025 8:34 AM EDT 03/06/2025 8:36 AM EDT us Nestor Coreas MD LAB BLOOD ORDERABLES Final Resul t Performing Organization Address [facility] de Phone Number [facility] [address] [place] [address] * Renin (03/06/2025 8:34 AM EDT) RENIN ACTIVITY <0.6 ng/ml/h [facility] Comment: (NOTE) REFERENCE VALUE (Peripheral vein specimen) Na-deplete, upright: Mean: 5.9 Range: 2.9-10.8 Na-replete, upright: Mean: 1.0 Range: < or =0.6-3.0 ADDITIONAL INFORMATION Testing performed by Liquid Chromatography-Tandem Mass Spectrometry (LC-MS/MS). This test was developed and its performance characteristics determined by [facility] in a manner consistent with CLIA requirements. This test has not been cleared or approved by the U.S. Food and Drug Administration. Blood 03/06/2025 8:34 AM EDT 03/06/2025 8:36 AM EDT us Nestor Coreas MD LAB BLOOD ORDERABLES Final Resul t Performing Organization Address [facility] de Phone Number [facility] [address] [place] [address] * (ABNORMAL) Microalbumin/creatinine ratio, random urine (02/28/2025 2:53 PM EDT) URINE MICROALBUMIN 6.8(H) 0 - 2.3 mg/dL [facility] URINE CREATININE 116 mg/dL [facility] MICROALB/CRE RATIO 58.6(H) 0 - 20 mg/g Cre [facility] Urine (Urine) 02/28/2025 2:5 3 PM EDT 02/28/2025 2:54 PM EDT Nestor Coreas MD URINE ORDERABLES Final Result Performing Organization Address [facility]/ZIP Co de Phone Number [address] [address] * (ABNORMAL) Renal panel (02/28/2025 2:44 PM EDT) SODIUM 141 133 - 146 mmol/L [facility] POTASSIUM 4.8 3.3 - 5.1 mmol/L [facility] CHLORIDE 103 96 - 108 mmol/L [facility] CO2 26 21 - 35 mmol/L [facility] GLUCOSE 138(H) 70 - 99 mg/dL [facility] BUN 36(H) 6 - 19 mg/dL [facility] CREATININE 1.80(H) 0.5 - 1.5 mg/dL [facility] CALCIUM 9.9 8.4 - 10.3 mg/dL [facility] PHOSPHORUS 3.9 2.7 - 4.5 mg/dL [facility] ALBUMIN 4.2 3.9 - 4.8 g/dL [facility] EGFR 39(L) >59 mL/min/1.7 3m2 [facility] Comment:Estimated glomerular filtration rate calculated using the CKD-EPI refit equation. ANION GAP 17 10 - 20 mmol/L [facility] Blood 02/28/2025 2:44 PM EDT 02/28/2025 2:52 PM EDT Nestor Coreas MD LAB BLOOD ORDERABLES Final Resul t Performing Organization Address City/[facility]/ZIP Co de Phone Number [address] [address] * Iron and iron binding capacity (02/28/2025 2:44 PM EDT) IRON 70 45 - 160 ug/dL [facility] IRON BINDING CAPACITY 233 228 - 428 ug/dL [facility] TRANSFERRIN SATURAT. 30 20 - 55 % [facility] Blood 02/28/2025 2:44 PM EDT 02/28/2025 2:52 PM EDT us Nestor Coreas MD LAB BLOOD ORDERABLES Final Resul t Performing Organization Address City/[facility]/ZIP Co de Phone Number [address] [address] * 25-OH vitamin D (02/28/2025 2:44 PM EDT) 25 OH VIT D (TOTAL) 39 30 - 60 ng/mL [facility] Blood 02/28/2025 2:44 PM EDT 02/28/2025 2:52 PM EDT Nestor Coreas MD LAB BLOOD ORDERABLES Final Resul t Performing Organization Address City/[facility]/ZIP Co de Phone Number [address] [address] * CBC (02/28/2025 2:44 PM EDT) WBC 7.58 4.00 - 11.00 K/uL [facility] RBC 5.03 4.50 - 5.90 M/uL [facility] HGB 15.3 13.5 - 17.5 g/dL [facility] HCT 46.6 41.0 - 53.0 % [facility] PLT 192 150 - 450 K/uL [facility] MCV 92.6 80.0 - 100.0 fL [facility] MCH 30.4 27.0 - 31.0 pg [facility] MCHC 32.8 32.0 - 36.0 g/dL [facility] RDW 12.8 11.5 - 14.5 % [facility] MPV 11.5 8.4 - 12.0 fL [facility] NRBC 0.00 0.00 /100 WBCs [facility] ABSOLUTE NRBC 0.00 0.00 K/uL [facility] Blood 02/28/2025 2:44 PM EDT 02/28/2025 2:52 PM EDT us Nestor Coreas MD LAB BLOOD ORDERABLES Final Resul t Performing Organization Address [facility]/ZIP Co de Phone Number [address] [address] * Parathyroid hormone (PTH) (02/28/2025 2:44 PM EDT) PARATHYROID HORMONE 53 15 - 65 pg/mL [facility] Blood 02/28/2025 2:44 PM EDT 02/28/2025 2:53 PM EDT us Nestor Coreas MD LAB BLOOD ORDERABLES Final Resul t Performing Organization Address [facility] Co de Phone Number [address] [address] * (ABNORMAL) Hemoglobin A1c (02/28/2025 2:44 PM EDT) HEMOGLOBIN A1C 6.7(H) 4.3 - 5.8 % [facility] Blood 02/28/2025 2:44 PM EDT 02/28/2025 2:45 PM EDT us Nestor Coreas MD LAB BLOOD ORDERABLES Final Resul t Performing Organization Address [facility]/ZIP Co de Phone Number [address] [address] * (ABNORMAL) POCT Hemoglobin A1c (02/23/2025 5:12 PM EDT) Hemoglobin A1c 6.6(A) 4.2 - 5.6 % [facility] Other 02/23/2025 5:12 PM EDT us Daija Hu MD POINT OF CARE TEST ORDERABLES F inal Result Performing Organization Address City/[facility]/ZIP Co de Phone Number [address] [place] [address], [place] * DIABETES EYE EXAM FOR RESULT ENTRY ONLY (11/05/2023 9:37 AM EDT) us Unknown Unknown MD HEALTH MAINTENANCE Final Resu lt * CT Abdomen Only (No Pelvis) (07/23/2023 3:44 PM EST) Anatomical Region Laterality Modality Abdomen, Abdominal Vasculature C T Diagnostic us Elroy Smith MD IMG CT XSPECIALTY ORDERABLES Fi nal Result * Hepatitis C antibody, qualitative (02/10/2021 12:34 PM EDT) HCV NON-REACTIV E NON-REACTI VE [facility] Blood 02/10/2021 12:3 4 PM EDT 02/10/2021 12:36 PM EDT us Elroy Smith MD LAB BLOOD ORDERABLES Final Resu lt [address] [address] * COLONOSCOPY FOR RESULT ENTRY ONLY (08/12/2017) Pathologist [facility] Colonoscopy ... us Historical Provider HEALTH MAINTENANCE Final Result from Last 3 Months or Most Recently Relevant to Health Maintenance Insurance [facility] MEDICARE PPO BLUE REPLACEMENT MEDICARE PART A & B Member Subscriber Plan / Payer (Ef fective 2020-Present) Name:Nasir Olsen Member ID:[id number] Relation to Subscriber:Self Name:Nasir Olsen Subscriber ID:[id number] Payer ID:[id number] Group ID:Not on file Type:Medicare Address: [facility] [employer] [id number] [facility] MEDICARE PPO BLUE REPLACEMENT MEDICARE PART A & B [facility] MEDICARE PPO BLUE REPLACEMENT MEDICARE PART A & B [facility] MEDICARE PPO BLUE REPLACEMENT [facility] MEDICARE PPO BLUE REPLACEMENT [facility] MEDICARE PPO BLUE REPLACEMENT MEDICARE PART A & B [facility] MEDICARE PPO BLUE REPLACEMENT [facility] MEDICARE PPO BLUE REPLACEMENT MEDICARE PART A & B [facility] MEDICARE PPO BLUE REPLACEMENT MEDICARE PART A & B Advance Directives For more information, please contact: [phone] (9AM - 5PM [facility], Wednesday-Wednesday) Documents on File Type Date Recorded Patient Hot Repairman Expl anation Healthcare Proxy 06/18/2022 3:35 PM Healthcare Proxy 06/18/2022 9:24 AM HCP S igned: 06/17/22 * Full Code (Latest Code Status on File) Date Activated Date Inactivated Comments 05/29/2022 8:58 PM Question Answer Comments Code Status Confirmed With: Patient Code Status Communicated To: Inpatient Attending * Full Code Date Activated Date Inactivated Comments 06/04/2021 3:41 PM 05/29/2022 8:58 PM Question Answer Comments Code Status Confirmed With: PatientFamily * Full Code Date Activated Date Inactivated Comments 06/04/2021 1:24 PM 06/04/2021 3:41 PM Question Answer Comments Code Status Confirmed With: PatientFamily Care Teams Certified Vehicle Fire Investigator Relationship Specialty Start Date End Date Elroy Smith MD [address] [place] [address], [address] [place] [address] [email or web address] PCP - General Internal Medicine 05/07/17 Additional Source Comments The information contained in this document represents components of the legal health record. It is not the complete legal health record.[facility]
--- OUTSIDE RECORDS SUMMARY | 2025-05-02 11:54 | XMS_ITS | Encounter Summary ---
Author Organization [facility], Address [address] [place] [address] Phone Care Team Providers Care V Belt Inspector Name Role Phone Elroy Smith MD Primary Care Provider [phone] Encounter Details Date Type Department Care Team (Late st Contact Info) Description 08/16/2024 Documentation Only [facility] [address] [place] [address] Erendira Luz [address] [place] [phone] Social History Tobacco Use Types Packs/Day Years Used Date Smoking Tobacco: Former Cigarettes 2 30 1 961 - 1987 Cigars Comments:Smokes 4 cigars a w belkofski Currently Alcohol Use Standard Drinks/Week Comments Yes 35 (1 standard drink = 0.6 oz pu re alcohol) 5-6 beers a day Sex and Gender Information Value Date Recorded Sex Assigned at Not on file Legal Sex Male 4:35 PM EST Gender Identity Not on file Sexual Orientation Not on file Occupation Industry Job Start Date Job End Date [employer] Not on file Not on file Not on file documented as of this encounter Plan of Treatment Upcoming Encounters Date Type Department Care Team (Late st Contact Info) Description 08/16/2025 11:00 AM EST Office Visit [facility] [address] [place] [phone] Nestor Coreas MD [address] [place] [address] [place] [address] documented as of this encounter Visit Diagnoses Not on filedocumented in this encounter Care Teams V Belt Inspector Relationship Specialty Start Date End Date Elroy Smith MD [address] [place] [address], [address] [place] [address] PCP - General 05/09/19 documented as of this encounter
--- OUTSIDE RECORDS SUMMARY | 2025-05-02 11:54 | XMS_ITS | Encounter Summary ---
Author Organization [facility], Address [address] [place] [address] Phone Care Team Providers Care District Operations Manager Name Role Phone Elroy Smith MD Primary Care Provider [phone] Encounter Details Date Type Department Care Team (Late st Contact Info) Description 03/02/2025 Documentation Only [facility] [address] [place] [address] Antoinette Keller [address] [place] [phone] Social History Tobacco Use Types Packs/Day Years Used Date Smoking Tobacco: Former Cigarettes 2 30 1 961 - 1987 Cigars Comments:Smokes 4 cigars a w sycuan Currently Alcohol Use Standard Drinks/Week Comments Yes 35 (1 standard drink = 0.6 oz pu re alcohol) 5-6 beers a day Sex and Gender Information Value Date Recorded Sex Assigned at Not on file Legal Sex Male 4:35 PM EST Gender Identity Not on file Sexual Orientation Not on file Occupation Industry Job Start Date Job End Date [employer] Not on file Not on file Not on file documented as of this encounter Plan of Treatment Upcoming Encounters Date Type Department Care Team (Late st Contact Info) Description 08/16/2025 11:00 AM EST [facility] [address] [place] [address] Nestor Coreas MD [address] [facility] [address] [place] [phone] documented as of this encounter Visit Diagnoses Not on filedocumented in this encounter Care Teams District Operations Manager Relationship Specialty Start Date End Date Elroy Smith MD [address] [place] [address], [address] [place] [address] PCP - General 05/09/19 documented as of this encounter
--- OUTSIDE RECORDS SUMMARY | 2025-05-02 11:54 | XMS_ITS | Encounter Summary ---
Author Organization [facility] Address [address] [facility] [address] [place] [address] Phone Care Team Providers Care Almond Sorter Name Role Phone Elroy Smith MD Primary Care Provider [phone] Encounter Details Date Type Department Care Team (Late st Contact Info) Description 06/19/2021 Procedure Pass Non-Invasive Cardiology [address] [place] [address] Social History Tobacco Use Types Packs/Day Years [...] high school, GED, job training, learning the Bulgarian language, technical skills, or developing parenting skills)? 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 N ot on file Not on file documented as of this encounter Plan of Treatment Upcoming Encounters Date Type Department Care Team (Late st Contact Info) Description 08/27/2025 2:40 PM EST Office Visit [facility] [address] [place] [address] [place] [address] Daija Hu MD [address] [place] [address], 1[address] [place] [address] 03/19/2026 11:00 AM EDT Office Visit [facility] [address] [place] [address] [place] [address] Elroy Smith MD [address] [place] [address], [address] [place] [address] documented as of this encounter Visit Diagnoses Not on filedocumented in this encounter Additional Health Concerns Infection Onset Date Last Indicated Resolved Time CoV-Risk 06/13/2021 06/13/2021 06/23/2021 1:24 AM EST CoV-Presumed 01/12/2022 01/12/2022 02/02/2022 1:21 AM EDT CoV-Risk 04/07/2024 04/07/2024 04/18/2024 1:22 AM EDT Assessment Noted Time PHQ-2 Depression Total Score: 0 02/12/20 10:51 AM EDT documented as of this encounter Care Teams Almond Sorter Relationship Specialty Start Date End Date Elroy Smith MD [address] [place] [address], [address] [place] [address] [email or web address] PCP - General Internal Medicine 05/07/17 documented as of this encounter Additional Source Comments The information contained in this document represents components of the legal health record. It is not the complete legal health record.[facility]
--- OUTSIDE RECORDS SUMMARY | 2025-05-02 11:54 | XMS_ITS | Encounter Summary ---
Author Organization [facility] Address [address] [facility] [address] [place] [address] Phone Care Team Providers Care Ranch Hand Supervisor Name Role Phone Elroy Smith MD Primary Care Provider Encounter Details Date Type Department Care Team (Late st Contact Info) Description 07/29/2022 Procedure Pass OR Admitting Dept - Virtual Department [address] [place] [address] Social History Tobacco Use Types Packs/Day Years [...] high school, GED, job training, learning the Ethiopian language, technical skills, or developing parenting skills)? 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 N ot on file Not on file documented as of this encounter Plan of Treatment Upcoming Encounters Date Type Department Care Team (Late st Contact Info) Description 08/27/2025 2:40 PM EST Office Visit [facility] [address] [place] [address] [place] [address] Daija Hu MD [address] [place] [address], 1[address] [place] [address] [email or web address] 03/19/2026 11:00 AM EDT Office Visit [facility] [address] [place] [address] [place] [address] Elroy Smith MD [address] [place] [address], [address] [place] [address] documented as of this encounter Visit Diagnoses Not on filedocumented in this encounter Additional Health Concerns Infection Onset Date Last Indicated Resolved Time CoV-Risk 04/07/2024 04/07/2024 04/18/2024 1:22 AM EDT Assessment Noted Time PHQ-2 Depression Total Score: 0 02/12/20 10:51 AM EDT documented as of this encounter Care Teams Ranch Hand Supervisor Relationship Specialty Start Date End Date Elroy Smith MD [address] [place] [address], [address] [place] [address] [email or web address] PCP - General Internal Medicine 05/07/17 documented as of this encounter Additional Source Comments The information contained in this document represents components of the legal health record. It is not the complete legal health record.[facility]
--- OUTSIDE RECORDS SUMMARY | 2025-05-02 11:54 | XMS_ITS | Encounter Summary ---
Author Organization [facility] Address [address] [place] [address] Phone Care Team Providers Care Bufferer Name Role Phone Elroy Smith MD Primary Care Provider [phone] Encounter Details Date Type Department Care Team (Late st Contact Info) Description 06/08/2022 Procedure Pass [facility], Ct Scan - [address] [address] Social History Tobacco Use Types Packs/Day Years [...] high school, GED, job training, learning the Swiss language, technical skills, or developing parenting skills)? 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 N ot on file Not on file documented as of this encounter Plan of Treatment Upcoming Encounters Date Type Department Care Team (Late st Contact Info) Description 08/27/2025 2:40 PM EST Office Visit [facility] [address] [place] [address] [place] [address] Daija Hu MD [address] [place] [address], 1st [place] [address] 03/19/2026 11:00 AM EDT Office Visit [facility] Family Medicine [address] [place] [address] [place] [address] Elroy Smith MD [address] [place] [address], [address] [place] [address] documented as of this encounter Visit Diagnoses Not on filedocumented in this encounter Additional Health Concerns Infection Onset Date Last Indicated Resolved Time CoV-Risk 04/07/2024 04/07/2024 04/18/2024 1:22 AM EDT Assessment Noted Time PHQ-2 Depression Total Score: 0 02/12/20 10:51 AM EDT documented as of this encounter Care Teams Bufferer Relationship Specialty Start Date End Date Elroy Smith MD [address] [place] [address], [address] [place] [address] [email or web address] PCP - General Internal Medicine 05/07/17 documented as of this encounter Additional Source Comments The information contained in this document represents components of the legal health record. It is not the complete legal health record.[facility]
--- OUTSIDE RECORDS SUMMARY | 2025-05-02 11:54 | XMS_ITS | Encounter Summary ---
Author Organization [facility] Address [address] [facility] [address] [place] [address] Phone Care Team Providers Care Manager Income Tax Name Role Phone Elroy Smith MD Primary Care Provider [phone] Encounter Details Date Type Department Care Team (Late st Contact Info) Description 06/04/2021 Procedure Pass Non-Invasive Cardiology [address] [place] [address] Social History Tobacco Use Types Packs/Day Years Used Date Smoking Tobacco: Former Cigarettes 2 1 961 - 1987 Cigars Smokeless Tobacco: [...] high school, GED, job training, learning the Burmese language, technical skills, or developing parenting skills)? 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 Not on file documented as of this encounter Functional Status * Calculated C-SSRS Risk Score (Lifetime/Recent) Answer Date of Assessment Author No Risk Indicated 06/04/2021 7:47 PM Tanika Orellana RN * [facility] Suicide Severity Rating Scale (Screener/Recent Self-Report) Question [...] EST Office Visit [facility] [address] [place] [address] [place] [address] Daija Hu MD [address] [place] [address], 1st [place] [address] 03/19/2026 11:00 AM EDT Office Visit [facility] Family [facility] [address] [place] [address] [place] [address] Elroy Smith MD [address] [place] [address], [address] [place] [address] [email or web address] documented as of this encounter Visit Diagnoses Not on filedocumented in this encounter Additional Health Concerns Infection Onset Date Last Indicated Resolved Time CoV-Risk 06/13/2021 06/13/2021 06/23/2021 1:24 AM EST CoV-Presumed 01/12/2022 01/12/2022 02/02/2022 1:21 AM EDT CoV-Risk 04/07/2024 04/07/2024 04/18/2024 1:22 AM EDT Assessment Noted Time PHQ-2 Depression Total Score: 0 02/11/20 11:05 AM EDT documented as of this encounter Care Teams Manager Income Tax Relationship Specialty Start Date End Date Elroy Smith MD [address] [place] [address], [address] [place] [address] [email or web address] PCP - General Internal Medicine 05/07/17 documented as of this encounter Additional Source Comments The information contained in this document represents components of the legal health record. It is not the complete legal health record.[facility]
--- OUTSIDE RECORDS SUMMARY | 2025-05-02 11:55 | XMS_ITS | Encounter Summary ---
Author Organization [facility] Address [address] [facility] [address] [place] [address] Phone Care Team Providers Care Phlebotomy Specialist Name Role Phone Elroy Smith MD Primary Care Provider [phone] Encounter Details Date Type Department Care Team (Late st Contact Info) Description 03/30/2022 Procedure Pass Non-Invasive Cardiology [address] [place] [address] Social History Tobacco Use Types Packs/Day Years [...] high school, GED, job training, learning the Vietnamese language, technical skills, or developing parenting skills)? 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 N ot on file Not on file documented as of this encounter Plan of Treatment Upcoming Encounters Date Type Department Care Team (Late st Contact Info) Description 08/27/2025 2:40 PM EST Office Visit [facility] [address] [place] [address] [place] [address] Daija Hu MD [address] [place] [address], 1st [place] [address] 03/19/2026 11:00 AM EDT Office Visit [facility] Family Medicine [address] [place] [address] [place] [address] Elroy Smith MD [address] [place] [address], [address] [place] [address] documented as of this encounter Visit Diagnoses Not on filedocumented in this encounter Additional Health Concerns Infection Onset Date Last Indicated Resolved Time CoV-Risk 04/07/2024 04/07/2024 04/18/2024 1:22 AM EDT Assessment Noted Time PHQ-2 Depression Total Score: 0 02/12/20 10:51 AM EDT documented as of this encounter Care Teams Phlebotomy Specialist Relationship Specialty Start Date End Date Elroy Smith MD [address] [place] [address], [address] [place] [address] [email or web address] PCP - General Internal Medicine 05/07/17 documented as of this encounter Additional Source Comments The information contained in this document represents components of the legal health record. It is not the complete legal health record.[facility]
--- OUTSIDE RECORDS SUMMARY | 2025-05-02 11:55 | XMS_ITS | Encounter Summary ---
Author Organization [facility] Address [address] [employer] [facility] [address] [place] [address] Phone Care Team Providers Care Captain Fishing Vessel Name Role Phone Elroy Smith MD Primary Care Provider [phone] Encounter Details Date Type Department Care Team (Latest Contact Info) Description 11/01/2018 Ancillary Orders [facility] Family Medicine [address] [place] [address] [place] [address] Jovany Jimenez MD [address] [place] [address], [address] [place] [address] [email or web address] Lightheadedness; Exertional dyspnea Social History Tobacco Use Types Packs/Day Years Used Date Smoking Tobacco: Former Cigarettes 2 27 1 961 - 1987 Smokeless Tobacco: Never Alcohol Use Standard Drinks/Week [...] Description 08/27/2025 2:40 PM EST Office Visit [facility] [address] [place] [address] [place] [address] Daija Hu MD [address] [place] [address], 1st [place] [address] 03/19/2026 11:00 AM EDT Office Visit [facility] [address] [place] [address] Elroy Smith MD [address] [facility], [address] [place] [address] [email or web address] documented as of this encounter Results * Holter Monitor 48 Hours (10/31/2018 8:40 AM EDT) Anatomical Region Laterality Modality Heart Other Narrative 11/14/2018 12:31 PM EDT 48-hour monitor: Baseline rhythm is sinus with a minimum heart rate of 45, maximum 96, average 57 bpm. No long pauses present. Occasional PACs and PVCs present. The patient reported symptoms of dizziness several times. Symptoms occurred during sinus bradycardia and sinus rhythm, rates ranging from 52-74. Impression: Abnormal 48-hour monitor. Some degree of sinus node dysfunction present, with failure to exceed 100 bpm during the recording. The patient reported symptoms of dizziness during the baseline rhythm of sinus bradycardia and sinus rhythm. Procedure Note David Contreras MD - 11/14/2018 48-hour monitor: Baseline rhythm is sinus with a minimum heart rate of 45,maximum 96, average 57 bpm. No long pauses present. Occasional PACs andPVCs present. The patient reported symptoms of dizziness several times.Symptoms occurred during sinus bradycardia and sinus rhythm, rates rangingfrom 52-74. Impression: Abnormal 48-hour monitor. Some degree of sinus nodedysfunction present, with failure to exceed 100 bpm during the recording.The patient reported symptoms of dizziness during the baseline rhythm ofsinus bradycardia and sinus rhythm. Jovany Jimenez MD [facility] ORDER[facility]LES Final Result documented in this encounter Visit Diagnoses Diagnosis Lightheadedness Dizziness and giddiness Exertional dyspnea Other dyspnea and respiratory abnormality Lightheadedness Dizziness and giddiness Exertional dyspnea Other dyspnea and respiratory abnormality documented in this encounter Additional Health Concerns Infection Onset Date Last Indicated Resolved Time CoV-Risk 06/13/2021 06/13/2021 06/23/2021 1:24 AM EST CoV-Presumed 01/12/2022 01/12/2022 02/02/2022 1:21 AM EDT CoV-Risk 04/07/2024 04/07/2024 04/18/2024 1:22 AM EDT Assessment Noted Time PHQ-2 Depression Total Score: 0 08/12/19 19 1:54 PM EST documented as of this encounter Care Teams Captain Fishing Vessel Relationship Specialty Start Date End Date Elroy Smith MD [address] [place] [address], [address] [place] [address] [email or web address] PCP - General Internal Medicine 05/07/17 documented as of this encounter Additional Source Comments The information contained in this document represents components of the legal health record. It is not the complete legal health record.[facility]
--- OUTSIDE RECORDS SUMMARY | 2025-05-02 11:55 | XMS_ITS | Encounter Summary ---
Author Organization [facility] Address [address] [place] [address] Phone Care Team Providers Care Network Security Architect Name Role Phone Elroy Smith MD Primary Care Provider [phone] Encounter Details Date Type Department Care Team (Latest Contact Info) Description 10/22/2021 Ancillary Orders [facility] [address], [address] [place] [address] Alexandra Greene MD [address] [place] [phone] [email or web address] Sinus bradycardia Social History Tobacco Use Types Packs/Day Years Used Date Smoking Tobacco: Former Cigarettes 2 31 07 96 - 1987 Cigars Smokeless Tobacco: Never Comments:Now [...] high school, GED, job training, learning the Guinean language, technical skills, or developing parenting skills)? 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 N ot on file Not on file documented as of this encounter Plan of Treatment Upcoming Encounters Date Type Department Care Team (Late st Contact Info) Description 08/27/2025 2:40 PM EST Office Visit [facility] [address] [place] [address] [place] [address] Daija Hu MD [address] [place] [address], 1st [place] [address] 03/19/2026 11:00 AM EDT Office Visit [facility] Family Medicine [address] [place] [address] [place] [address] Elroy Smith MD [address] [place] [address], [address] [place] [address] documented as of this encounter Results * DEVICE CHECK: PPM IN-HOME INTERROGATION (10/22/2021 3:39 PM EDT) Narrative Arcoleo, David A - 10/23/2021 11:18 AM EDT Reason for appointment: Remote pacemaker interrogation HPI: Routine 3 month remote pacemaker interrogation. No device related complaints. Indication for device: SSS. Examination: Device type: Pacemaker Senior Php Web Developer: [employer] Mode: DDD-CLS LRL/UPL: 60/130 bpm Mode switches: 0 High V rates: 0 Thresholds, impedances, and sensing stable. Atrial pacin% Ventricular pacin% Battery: MYNOR Additional comments: Device functioning appropriately. Normal device function. Patient to follow-up for continued monitoring every 3 months. Report prepared by Tabby Bocanegra RN Alexandra Greene MD [facility] ORDER [email or web address] Final Result documented in this encounter Visit Diagnoses Diagnosis Sinus bradycardia Other specified cardiac dysrhythmias Sinus bradycardia Other specified cardiac dysrhythmias documented in this encounter Additional Health Concerns Infection Onset Date Last Indicated Resolved Time CoV-Presumed 01/12/2022 01/12/2022 02/02/2022 1:21 AM EDT CoV-Risk 04/07/2024 04/07/2024 04/18/2024 1:22 AM EDT Assessment Noted Time PHQ-2 Depression Total Score: 0 02/11/20 11:05 AM EDT documented as of this encounter Care Teams Network Security Architect Relationship Specialty Start Date End Date Elroy Smith MD [address] [place] [address], [address] [place] [address] [email or web address] PCP - General Internal Medicine 05/07/17 documented as of this encounter Additional Source Comments The information contained in this document represents components of the legal health record. It is not the complete legal health record.[facility]
--- OUTSIDE RECORDS SUMMARY | 2025-05-02 11:55 | XMS_ITS | Clinical Summary ---
Author Organization [facility] Address [address] [place] [address] Care Team Providers Care Retarder Operator Name Role Phone Edith Uriarte MD Primary Care Provider [phone] Allergies Active Allergy Reactions Criticality Noted Date [...] 1 - PCV) 01/04/2017 Influenza Vaccine (#1) 2025 RSV Adult > 60+ Yrs or Pregn ant (1 - 1-dose 75+ series) 01/04/2027 Hepatitis B Vaccines Aged Out No long er eligible based on patient's age to complete this topic RSV Ped < 20 months Aged Out No longe r eligible based on patient's age to complete this topic Medical Devices Implanted Type Area Branch Operation Evaluation Manager Device Identifier Shelf Expiration Date Model / Serial / Lot Shelley Cluster Shell Cementless 60mm Taper Size 5 Implanted:Qty: 1 on 03/06/2015 by Jovany Read MD at [facility] Left: Hip [employer] 04/03/2017 [id number] / / [id number] Shelley Liner Hxlpe 36mm Neutral Offset Size 5 Implanted:Qty: 1 on 03/06/2015 by Jovany Read MD at [facility] Left: Hip [employer] 05/03/2016 [id number] / / [id number] Stem Size 7 - Minihip Short Standard (14) - 130ccd - [id number] - [id number] Implanted:Qty: 1 on 03/06/2015 by Jovany Read MD at [facility] Left: Hip [employer] 01/31/2017 [id number] / / [id number] Modular Head 36mm Medium 0.0mm - [id number] - [id number] Implanted:Qty: 1 on 03/06/2015 by Jovany Read MD at [facility] Left: Hip [employer] 01/08/2020 [id number] / / [id number] Advance Directives For more information, please contact: [phone] Latest Code Status on File Code Status Date Activated Date Inactivated Comments Full Code 03/06/2015 10:12 AM 03/07/2015 7:32 PM This c ode status was ascertained in the following way: per chart. Code Status History Code Status Date Activated Date Inactivated Comments Full Code 03/06/2015 8:04 AM 03/06/2015 10:12 AM . Care Teams Retarder Operator Relationship Specialty Start Date End Date Edith Uriarte MD [address] [place] [phone] PCP - General Family Medicine 03/05/15
--- OUTSIDE RECORDS SUMMARY | 2025-05-02 11:55 | XMS_ITS | Encounter Summary ---
Author Organization [facility] Address [address] [facility] [address] [place] [address] Phone Care Team Providers Care Personal Injury Attorney Name Role Phone Elroy Smith MD Primary Care Provider [phone] Encounter Details Date Type Department Care Team (Latest Contact Info) Description 09/22/2018 Ancillary Orders [facility] Family Medicine [address] [place] [address] [place] [address] Jovany Jimenez MD [address] [facility], [address] [place] [address] [email or web address] Lightheadedness; Exertional dyspnea Social History [...] Description 08/27/2025 2:40 PM EST Office Visit [facility] [address] [place] [address] [place] [address] Daija Hu MD [address] [place] [address], 1st [place] [address] 03/19/2026 11:00 AM EDT Office Visit [facility] [address] [address] Elroy Smith MD [address] [facility], [address] [place] [address] [email or web address] documented as of this encounter Visit Diagnoses Diagnosis Lightheadedness Dizziness [...] documented as of this encounter Care Teams Personal Injury Attorney Relationship Specialty Start Date End Date Elroy Smith MD [address] [place] [address], [address] [place] [address] [email or web address] PCP - General Internal Medicine 05/07/17 documented as of this encounter Additional Source Comments The information contained in this document represents components of the legal health record. It is not the complete legal health record.[facility]
--- OUTSIDE RECORDS SUMMARY | 2025-05-02 11:55 | XMS_ITS | Encounter Summary ---
Author Organization [facility] Address [address] [facility] [address] [place] [address] Phone Care Team Providers Care Solutions Consultant Name Role Phone Elroy Smith MD Primary Care Provider [phone] Encounter Details Date Type Department Care Team (Latest Contact Info) Description 11/29/2018 Transcribe Orders [facility] [address] [place] [address] Lety Rubin MD 51 [facility], [address] [place] [address] Diabetic glomerulopathy (Primary Dx) Social History Tobacco Use Types Packs/Day Years Used Date Smoking Tobacco: Former Cigarettes 2 1 - 1987 Smokeless Tobacco: Never Alcohol Use [...] Description 08/27/2025 2:40 PM EST Office Visit [facility] [address] [place] [address] Daija Hu MD 22 [facility], 1st [place] [address] 03/19/2026 11:00 AM EDT Office Visit [address] [place] [address] Elroy Smith MD 22 [facility], [address] [place] [address] [email or web address] documented as of this encounter Results * TOTAL PROTEIN CREATININE RATIO, RANDOM URINE (11/29/2018 4:33 PM EDT) URINE TOTAL PROTEIN 4.1 mg/dL [facility] URINE CREATININE 50 mg/dL [facility] URINE TP CRE RATIO 0.08 0 - 0.19 [facility] Urine (Urine) 11/29/2018 4:3 3 PM EDT 11/29/2018 4:39 PM EDT Lety Rubin MD URINE ORDERABLES Final Result Performing Organization Address City/State/[facility] Co de Phone Number [facility] [address] [place] [address] * (ABNORMAL) CBC and differential (11/29/2018 4:33 PM EDT) WBC 7.53 3.40 - 11.20 K/uL [facility] RBC 4.53 4.50 - 5.50 M/uL [facility] HGB 14.2 13.0 - 17.0 g/dL [facility] HCT 41.5 40.0 - 51.0 % [facility] PLT 211 130 - 400 K/uL [facility] MCV 91.6 79.0 - 98.0 fL [facility] MCH 31.3 27.0 - 34.8 pg [facility] MCHC 34.2 31.5 - 36.0 g/dL [facility] RDW 12.9 10.8 - 14.6 % [facility] MPV 11.1 9.4 - 12.4 fl [facility] NRBC 0.00 0.00 /100 WBCs [facility] ABSOLUTE NRBC 0.00 0.00 K/uL [facility] DIFF METHOD Auto [facility] NEUTS 57.6 45.30 - 77.70 % [facility] LYMPHS 25.0 12.30 - 39.70 % [facility] MONOS 8.1 4.10 - 12.80 % [facility] EOS 8.4(H) 0 - 7.2 % [facility] BASOS 0.8 0 - 2.80 % [facility] Granulocytes, immature (%) 0.1 0.0 - 0.9 % [facility] ABSOLUTE NEUTS 4.34 1.40 - 7.70 K/uL [facility] ABSOLUTE LYMPHS 1.88 0.60 - 3.20 K/uL [facility] ABSOLUTE MONOS 0.61(H) 0.11 - 0.59 K/uL [facility] ABSOLUTE EOS 0.63(H) 0.01 - 0.50 K/uL [facility] ABSOLUTE BASOS 0.06 0.00 - 0.08 K/uL [facility] Granulocytes, immature 0.01 0.00 - 0.05 K/uL [facility] Blood 11/29/2018 4:33 PM EDT 11/29/2018 4:37 PM EDT Lety Rubin MD LAB BLOOD ORDERABLES Final Re sult Performing Organization Address [facility] Co de Phone Number [address] [address] * Albumin (11/29/2018 4:33 PM EDT) ALBUMIN 4.2 3.9 - 4.8 g/dL [facility] Blood 11/29/2018 4:33 PM EDT 11/29/2018 4:37 PM EDT Lety Rubin MD LAB BLOOD ORDERABLES Final Re sult Performing Organization Address [facility]/ZIP Co de Phone Number [address] [address] * Magnesium (11/29/2018 4:33 PM EDT) MAGNESIUM 2.3 1.6 - 2.6 mg/dL [facility] Blood 11/29/2018 4:33 PM EDT 11/29/2018 4:37 PM EDT Lety Rubin MD LAB BLOOD ORDERABLES Final Re sult [address] [address] * Phosphorus (11/29/2018 4:33 PM EDT) PHOSPHORUS 3.1 2.7 - 4.5 mg/dL [facility] Blood 11/29/2018 4:33 PM EDT 11/29/2018 4:37 PM EDT us Lety Rubin MD LAB BLOOD ORDERABLES Final Re sult Performing Organization Address City/[facility]/ZIP Co de Phone Number [address] [address] * (ABNORMAL) Basic metabolic panel (11/29/2018 4:33 PM EDT) Pathologist [facility] SODIUM 139 133 - 146 mmol/L [facility] CHLORIDE 103 96 - 108 mmol/L [facility] POTASSIUM 4.6 3.3 - 5.1 mmol/L [facility] CO2 25 21 - 35 mmol/L [facility] BUN 31(H) 6 - 19 mg/dL [facility] CREATININE 1.50 0.5 - 1.5 mg/dL [facility] GLUCOSE 90 70 - 99 mg/dL [facility] CALCIUM 9.6 8.4 - 10.3 mg/dL [facility] EGFR 48(L) >59 mL/min/1.7 3m2 [facility] Comment:If patient is black, multiply result by 1.159. Estimated glomerular filtration rate calculated using the CKD-EPI equation. ANION GAP 16 10 - 20 mmol/L [facility] Blood 11/29/2018 4:33 PM EDT 11/29/2018 4:37 PM EDT us Lety Rubin MD LAB BLOOD ORDERABLES Final Re sult Performing Organization Address City/[facility]/ZIP Co de Phone Number [address] [address] * Parathyroid hormone (PTH) (11/29/2018 4:33 PM EDT) PARATHYROID HORMONE 55 15 - 65 pg/mL [facility] Blood 11/29/2018 4:33 PM EDT 11/29/2018 4:38 PM EDT us Lety Rubin MD LAB BLOOD ORDERABLES Final Re sult Performing Organization Address [facility] Co de Phone Number [address] [address] documented in this encounter Visit Diagnoses Diagnosis 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, not stated as uncontrolled documented in this encounter Additional Health Concerns Infection Onset Date Last Indicated Resolved Time CoV-Risk 06/13/2021 06/13/2021 06/23/2021 1:24 AM EST CoV-Presumed 01/12/2022 01/12/2022 02/02/2022 1:21 AM EDT CoV-Risk 04/07/2024 04/07/2024 04/18/2024 1:22 AM EDT Assessment Noted Time PHQ-2 Depression Total Score: 0 08/12/19 19 1:54 PM EST documented as of this encounter Care Teams Solutions Consultant Relationship Specialty Start Date End Date Elroy Smith MD [address] [place] [address], [address] [place] [address] PCP - General Internal Medicine 05/07/17 documented as of this encounter Additional Source Comments The information contained in this document represents components of the legal health record. It is not the complete legal health record.[facility]
--- OUTSIDE RECORDS SUMMARY | 2025-05-02 11:55 | XMS_ITS | Encounter Summary ---
Author Organization [facility] Address [address] [employer] [facility] [address] [place] [address] Phone Care Team Providers Care Feed Mixer Name Role Phone Elroy Smith MD Primary Care Provider [phone] Encounter Details Date Type Department Care Team (Late st Contact Info) Description 04/07/2024 Telephone [employer] 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 Not on file documented as of this encounter Plan of Treatment Upcoming Encounters Date Type Department Care Team (Late st Contact Info) Description 08/27/2025 2:40 PM EST Office Visit [facility] [address] [place] [address] Daija Hu MD [address] [place] [address], 1st [place] [address] 03/19/2026 11:00 AM EDT Office Visit [facility] [address] [place] [address] Elroy Smith MD [address] [place] [address], [address] [place] [address] [email or web address] documented as of this encounter Visit Diagnoses Not on filedocumented in this encounter Additional Health Concerns Infection Onset Date Last Indicated Resolved Time CoV-Risk 04/07/2024 04/07/2024 04/18/2024 1:22 AM EDT Assessment Noted Time PHQ-2 Depression Total Score: 0 02/26/20 7:45 PM EDT documented as of this encounter Care Teams Feed Mixer Relationship Specialty Start Date End Date Elroy Smith MD [address] [place] [address], [address] [place] [address] PCP - General Internal Medicine 05/07/17 documented as of this encounter Additional Source Comments The information contained in this document represents components of the legal health record. It is not the complete legal health record.[facility]
--- OUTSIDE RECORDS SUMMARY | 2025-05-02 11:55 | XMS_ITS | Encounter Summary ---
Author Organization [facility] Address [address] [employer] [facility] [address] [place] [address] Phone Care Team Providers Care Special Events Coordinator Name Role Phone Elroy Smith MD Primary Care Provider [phone] Encounter Details Date Type Department Care Team (Late st Contact Info) Description 10/22/2021 Procedure Pass Non-Invasive Cardiology [address] [place] [address] Social History Tobacco Use Types Packs/Day Years [...] high school, GED, job training, learning the Thai language, technical skills, or developing parenting skills)? 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 Not on file documented as of this encounter Plan of Treatment Upcoming Encounters Date Type Department Care Team (Late st Contact Info) Description 08/27/2025 2:40 PM EST Office Visit [facility] [address] [place] [address] [place] [address] Daija Hu MD [address] [place] [address], 1st [place] [address] [email or web address] 03/19/2026 11:00 AM EDT Office Visit [facility] [address] [place] [address] [place] [address] Elroy Smith MD [address] [place] [address], [address] [place] [address] documented as of this encounter Visit Diagnoses Not on filedocumented in this encounter Additional Health Concerns Infection Onset Date Last Indicated Resolved Time CoV-Presumed 01/12/2022 01/12/2022 02/02/2022 1:21 AM EDT CoV-Risk 04/07/2024 04/07/2024 04/18/2024 1:22 AM EDT Assessment Noted Time PHQ-2 Depression Total Score: 0 02/11/20 21 11:05 AM EDT documented as of this encounter Care Teams Special Events Coordinator Relationship Specialty Start Date End Date Elroy Smith MD 22 [facility], [address] [place] [address] [email or web address] PCP - General Internal Medicine 05/07/17 documented as of this encounter Additional Source Comments The information contained in this document represents components of the legal health record. It is not the complete legal health record.[facility]
--- OUTSIDE RECORDS SUMMARY | 2025-05-02 11:55 | XMS_ITS | Encounter Summary ---
Author Organization [facility] Address [address] [facility] [address] [place] [address] Phone Care Team Providers Care Physicist [employer] Name Role Phone Elroy Smith MD Primary Care Provider [phone] Encounter Details Date Type Department Care Team (Late st Contact Info) Description 06/05/2022 [facility] 22 [facility] 3rd Floor, [address] [place] [address] Mehran Bourne MD, MS 22 [facility], [address] [place] [address] [email or web address] Social History Tobacco Use Types Packs/Day Years Used Date Smoking Tobacco: Former Cigarettes 2 - 1987 Cigars Smokeless Tobacco: Never Comments:Now [...] high school, GED, job training, learning the Czech language, technical skills, or developing parenting skills)? 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 Please re send. Patient presented to office. documented in this encounter Plan of Treatment Upcoming Encounters Date Type Department Care Team (Late st Contact Info) Description 08/27/2025 2:40 PM EST Office Visit [facility] [address] [place] [address] [place] [address] Daija Hu MD [address] [place] [address], 1st [place] [address] 03/19/2026 11:00 AM EDT Office Visit [facility] [address] [place] [address] [place] [address] Elroy Smith MD [address] [place] [address], [address] [place] [address] [email or web address] documented as of this encounter Visit Diagnoses Diagnosis Medication refill- Primary Issue of repeat prescriptions documented in this encounter Additional Health Concerns Infection Onset Date Last Indicated Resolved Time CoV-Risk 04/07/2024 04/07/2024 04/18/2024 1:22 AM EDT Assessment Noted Time PHQ-2 Depression Total Score: 0 02/12/20 10:51 AM EDT documented as of this encounter Care Teams Physicist [employer] Relationship Specialty Start Date End Date Elroy Smith MD [address] [place] [address], [address] [place] [address] [email or web address] PCP - General Internal Medicine 05/07/17 documented as of this encounter Additional Source Comments The information contained in this document represents components of the legal health record. It is not the complete legal health record.[facility]
--- OUTSIDE RECORDS SUMMARY | 2025-05-02 11:55 | XMS_ITS | Encounter Summary ---
Author Organization [facility] Address [address] [employer] [facility] [address] [place] [address] Phone Care Team Providers Care Coal Yard Supervisor Name Role Phone Elroy Smith MD Primary Care Provider [phone] Encounter Details Date Type Department Care Team (Late st Contact Info) Description 04/08/2021 Procedure Pass [facility] [address] [place] [address] Social History Tobacco Use Types Packs/Day Years [...] high school, GED, job training, learning the Libyan language, technical skills, or developing parenting skills)? 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 N ot on file Not on file documented as of this encounter Plan of Treatment Upcoming Encounters Date Type Department Care Team (Late st Contact Info) Description 08/27/2025 2:40 PM EST Office Visit [facility] [address] [place] [address] [place] [address] Daija Hu MD [address] [place] [address], 1st [place] [address] 03/19/2026 11:00 AM EDT Office Visit [facility] [address] [place] [address] [place] [address] Elroy Smith MD [address] [place] [address], [address] [place] [address] documented as of this encounter Visit Diagnoses [...] documented as of this encounter Care Teams Coal Yard Supervisor Relationship Specialty Start Date End Date Elroy Smith MD [address] [place] [address], [address] [place] [id number] [email or web address] PCP - General Internal Medicine 05/07/17 documented as of this encounter Additional Source Comments The information contained in this document represents components of the legal health record. It is not the complete legal health record.[facility]
--- OUTSIDE RECORDS SUMMARY | 2025-05-02 11:55 | XMS_ITS | Encounter Summary ---
Author Organization [facility] Address [address] [place] [address] Phone Care Team Providers Care Flight Paramedic Name Role Phone Elroy Smith MD Primary Care Provider [phone] Encounter Details Date Type Department Care Team (Late st Contact Info) Description 11/11/2021 Procedure Pass [facility] Scan - [address] [address] Social History Tobacco Use Types Packs/Day Years [...] high school, GED, job training, learning the Bruneian language, technical skills, or developing parenting skills)? 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 Wish to be (Past 1 Month) No 11/14/2021 7:02 AM Deepika Argueta RN 2. Non-Specific Active Suicidal Thoughts (Past 1 Month) No 11/14/2021 7:02 AM Deepika Argueta RN 6. Suicidal Behavior (Lifetime) No 11/14/2021 7:02 AM Deepika Argueta RN documented as of this encounter Plan of Treatment Upcoming Encounters Date Type Department Care Team (Late st Contact Info) Description 08/27/2025 2:40 PM EST Office Visit [facility] [address] [place] [address] Daija Hu MD [address] [place] [address], 1st [place] [address] 03/19/2026 11:00 AM EDT Office Visit [facility] [address] [place] [address] Elroy Smith MD 22 [facility], [address] [place] [address] [email or web address] documented as of this encounter Visit Diagnoses Not on filedocumented in this encounter Additional Health Concerns Infection Onset Date Last Indicated Resolved Time CoV-Presumed 01/12/2022 01/12/2022 02/02/2022 1:21 AM EDT CoV-Risk 04/07/2024 04/07/2024 04/18/2024 1:22 AM EDT Assessment Noted Time PHQ-2 Depression Total Score: 0 02/11/20 21 11:05 AM EDT documented as of this encounter Care Teams Flight Paramedic Relationship Specialty Start Date End Date Elroy Smith MD [address] [place] [address], [address] [place] [address] [email or web address] PCP - General Internal Medicine 05/07/17 documented as of this encounter Additional Source Comments The information contained in this document represents components of the legal health record. It is not the complete legal health record.[facility]
--- OUTSIDE RECORDS SUMMARY | 2025-05-02 11:55 | XMS_ITS | Encounter Summary ---
Author Organization [facility] Address [address] [employer] [facility] [address] [place] [address] Phone Care Team Providers Care Sheet Metal Former Name Role Phone Elroy Smith MD Primary Care Provider [phone] Encounter Details Date Type Department Care Team (Late st Contact Info) Description 11/26/2018 Transcribe Orders [facility] [address] [place] [address] Lety Rubin MD [address] [place] [address], [address] [place] [address] Social History Tobacco Use Types Packs/Day Years Used Date Smoking Tobacco: Former Cigarettes 2 1 961 - 1987 Smokeless Tobacco: Never [...] Encounters Date Type Department Care Team (Late Contact Info) Description 08/27/2025 2:40 PM EST Office Visit [facility] [address] [place] [address] Daija Hu MD 22 [facility], 1st [place] [address] 03/19/2026 11:00 AM EDT Office Visit [facility] [address] [place] [address] Elroy Smith MD [address] [place] [address], [address] [place] [address] documented as of this encounter Visit Diagnoses [...] documented as of this encounter Care Teams Sheet Metal Former Relationship Specialty Start Date End Date Elroy Smith MD [address] [place] [address], [address] [place] [address] PCP - General Internal Medicine 05/07/17 documented as of this encounter Additional Source Comments The information contained in this document represents components of the legal health record. It is not the complete legal health record.[facility]
--- OUTSIDE RECORDS SUMMARY | 2025-05-02 11:56 | XMS_ITS | Encounter Summary ---
Author Organization [facility], Address [address] [place] [address] Phone Care Team Providers Care Help Desk Representative Name Role Phone Elroy Smith MD Primary Care Provider [phone] Encounter Details Date Type Department Care Team (Late st Contact Info) Description 02/12/2023 Documentation Only [facility] [address] [place] [address] Lety Rubin MD Social History Tobacco Use Types Packs/Day Years Used Date Smoking Tobacco: Former Cigarettes 2 30 1 961 - 1987 Cigars Comments:Smokes 4 cigars a w [place] Currently Alcohol Use Standard Drinks/Week Comments Yes 35 (1 standard drink = 0.6 oz pu re alcohol) 5-6 beers a day Sex and Gender Information Value Date Recorded Sex Assigned at Not on file Legal Sex Male 4:35 PM EST Gender Identity Not on file Sexual Orientation Not on file Occupation Industry Job Start Date Job End Date [employer] Not on file Not on file Not on file documented as of this encounter Plan of Treatment Upcoming Encounters Date Type Department Care Team (Late st Contact Info) Description 08/16/2025 11:00 AM EST [facility] [place] [address] Nestor Coreas MD [address] [place] [address] [place] [id number] documented as of this encounter Visit Diagnoses Not on filedocumented in this encounter Care Teams Help Desk Representative Relationship Specialty Start Date End Date Elroy Smith MD [address] [place] [address], [address] [place] [id number] PCP - General 05/09/19 documented as of this encounter
--- OUTSIDE RECORDS SUMMARY | 2025-05-02 11:56 | XMS_ITS | Encounter Summary ---
Author Organization [facility], Address [address] [place] [address] Phone Care Team Providers Care Assistant Director Of Financial Aid Name Role Phone Elroy Smith MD Primary Care Provider [phone] Encounter Details Date Type Department Care Team (Late st Contact Info) Description 08/25/2023 Documentation Only [facility] [address] [place] [address] Antoinette Keller [address] [place] [address] Social History Tobacco Use Types Packs/Day [...] Industry Job Start Date Job End Date [employer] Not on file Not on file Not on file documented as of this encounter Plan of Treatment Upcoming Encounters Date Type Department Care Team (Late st Contact Info) Description 08/16/2025 11:00 AM EST Office Visit [facility] [address] [place] [phone] Nestor Coreas MD [address] [place] [address] [place] [address] documented as of this encounter Visit Diagnoses Not on filedocumented in this encounter Care Teams Assistant Director Of Financial Aid Relationship Specialty Start Date End Date Elroy Smith MD [address] [place] [address], [address] [place] [address] PCP - General 05/09/19 documented as of this encounter
--- OUTSIDE RECORDS SUMMARY | 2025-05-02 11:56 | XMS_ITS | Encounter Summary ---
Author Organization [facility] [place], Address [address] [place] [address] Phone Care Team Providers Care Storeroom Keeper Name Role Phone Elroy Smith MD Primary Care Provider [phone] Encounter Details Date Type Department Care Team (Late st Contact Info) Description 08/25/2023 Documentation Only [facility] [address] [place] [address] Antoinette Keller [address] [place] [phone] Social History Tobacco Use Types Packs/Day Years Used Date Smoking Tobacco: Former Cigarettes 2 30 1 961 - 1987 Cigars Comments:[place]okes 4 [place] Currently Alcohol Use Standard Drinks/Week Comments Yes 35 (1 standard drink = 0.6 oz pu re alcohol) 5-6 beers a day Sex and Gender Information Value Date Recorded Sex Assigned at Not on file Legal Sex Male 4:35 PM EST Gender Identity Not on file Sexual Orientation Not on file Occupation Industry Job Start Date Job End Date [employer] Not on file Not on file Not on file documented as of this encounter Plan of Treatment Upcoming Encounters Date Type Department Care Team (Late st Contact Info) Description 08/16/2025 11:00 AM EST Office Visit [facility] [address] [place] [phone] Nestor Coreas MD [address] [place] [address] [place] [address] documented as of this encounter Visit Diagnoses Not on filedocumented in this encounter Care Teams Storeroom Keeper Relationship Specialty Start Date End Date Elroy Smith MD [address] [place] [address], [address] [place] [address] PCP - General 05/09/19 documented as of this encounter
--- OUTSIDE RECORDS SUMMARY | 2025-05-02 11:56 | XMS_ITS | Encounter Summary ---
Author Organization [facility] [place], Address [address] [place] [address] Phone Care Team Providers Care Line Maintainer Section Name Role Phone Elroy Smith MD Primary Care Provider [phone] Encounter Details Date Type Department Care Team (Late st Contact Info) Description 02/17/2023 Documentation Only [facility] [place] [address] [place] [address] Lety Rubin MD Social History Tobacco Use Types Packs/Day Years Used Date Smoking Tobacco: Former Cigarettes 2 30 1 961 - 1987 Cigars Comments:Smokes 4 cigars a w [place] Currently Alcohol Use Standard Drinks/Week Comments Yes 35 (1 standard drink = 0.6 oz pu re alcohol) 5-6 beers a day Sex and Gender Information Value Date Recorded Sex Assigned at Not on file Legal Sex Male 4:35 PM EST Gender Identity Not on file Sexual Orientation Not on file Occupation Industry Job Start Date Job End Date [employer] Not on file Not on file Not on file documented as of this encounter Plan of Treatment Upcoming Encounters Date Type Department Care Team (Late st Contact Info) Description 08/16/2025 11:00 AM EST [facility] [address] [place] [address] Nestor Coreas MD [address] [place] [address] [place] [phone] documented as of this encounter Visit Diagnoses Not on filedocumented in this encounter Care Teams Line Maintainer Section Relationship Specialty Start Date End Date Elroy Smith MD [address] [place] [address], [address] [place] [id number] PCP - General 05/09/19 documented as of this encounter
--- OUTSIDE RECORDS SUMMARY | 2025-05-02 11:56 | XMS_ITS | Encounter Summary ---
Author Organization [facility] [place], Address [address] [place] [address] Phone Care Team Providers Care Cobbler Sole Name Role Phone Elroy Smith MD Primary Care Provider [phone] Encounter Details Date Type Department Care Team (Late st Contact Info) Description 02/17/2023 Documentation Only [facility] [place] [address] [place] [address] Lety Rubin MD Social History Tobacco Use Types Packs/Day Years Used Date Smoking Tobacco: Former Cigarettes 2 30 1 961 - 1987 Cigars Comments:Smokes 4 cigars a w [place] Currently Alcohol Use Standard Drinks/Week Comments Yes 35 (1 standard drink = 0.6 oz pu re alcohol) 5-6 beers a day Sex and Gender Information Value Date Recorded Sex Assigned at Not on file Legal Sex Male 4:35 PM EST Gender Identity Not on file Sexual Orientation Not on file Occupation Industry Job Start Date Job End Date [employer] [facility] Not on file Not on file Not on file documented as of this encounter Plan of Treatment Upcoming Encounters Date Type Department Care Team (Late st Contact Info) Description 08/16/2025 11:00 AM EST [facility] [place] [address] Netsor Coreas MD [address] [place] [address] [place] [phone] documented as of this encounter Visit Diagnoses Not on filedocumented in this encounter Care Teams Cobbler Sole Relationship Specialty Start Date End Date Elroy Smith MD [address] [place] [address], [address] [place] [id number] PCP - General 05/09/19 documented as of this encounter
--- OUTSIDE RECORDS SUMMARY | 2025-05-02 11:56 | XMS_ITS | Encounter Summary ---
Author Organization [facility] [place], Address [address] [place] [address] Phone Care Team Providers Care Electrical Tests Supervisor Name Role Phone Elroy Smith MD Primary Care Provider [phone] Encounter Details Date Type Department Care Team (Late st Contact Info) Description 02/17/2023 Documentation Only [facility] [place] [address] [place] [address] Lety Rubin MD Social History Tobacco Use Types Packs/Day Years Used Date Smoking Tobacco: Former Cigarettes 2 30 1 961 - 1987 Cigars Comments:Smokes 4 cigars a w [place] Currently Alcohol Use Standard Drinks/Week Comments Yes 35 (1 standard drink = 0.6 oz pu re alcohol) 5-6 beers a day Sex and Gender Information Value Date Recorded Sex Assigned at Not on file Legal Sex Male 4:35 PM EST Gender Identity Not on file Sexual Orientation Not on file Occupation Industry Job Start Date Job End Date [employer] Not on file Not on file Not on file documented as of this encounter Plan of Treatment Upcoming Encounters Date Type Department Care Team (Late st Contact Info) Description 08/16/2025 11:00 AM EST [facility] [place] [address] Nestor Coreas MD [address] [place] [address] [place] [phone] documented as of this encounter Visit Diagnoses Not on filedocumented in this encounter Care Teams Electrical Tests Supervisor Relationship Specialty Start Date End Date Elroy Smith MD [address] [place] [address], [address] [place] [id number] PCP - General 05/09/19 documented as of this encounter
--- OUTSIDE RECORDS SUMMARY | 2025-05-02 11:56 | XMS_ITS | Encounter Summary ---
Author Organization [facility] Address [address] [facility] [facility] [address] [place] [address] Phone Care Team Providers Care Coagulating Drying Supervisor Name Role Phone Elroy Smith MD Primary Care Provider [phone] Encounter Details Date Type Department Care Team (Late st Contact Info) Description 12/27/2020 Procedure Pass Non-Invasive Cardiology [address] [place] [address] Social History Tobacco Use Types Packs/Day Years [...] Description 08/27/2025 2:40 PM EST Office Visit [facility] [address] [place] [address] [place] [address] Daija Hu MD [address] [place] [address], [address] [place] [address] 03/19/2026 11:00 AM EDT Office Visit [facility] [address] [place] [address] [place] [address] Elroy Smith MD [address] [place] [address], [address] [place] [address] [email or web address] documented as of this encounter Visit Diagnoses Not on filedocumented in this encounter Additional Health Concerns Infection Onset Date Last Indicated Resolved Time CoV-Risk 06/13/2021 06/13/2021 06/23/2021 1:24 AM EST CoV-Presumed 01/12/2022 01/12/2022 02/02/2022 1:21 AM EDT CoV-Risk 04/07/2024 04/07/2024 04/18/2024 1:22 AM EDT Assessment Noted Time PHQ-2 Depression Total Score: 0 11/05/19 21 12:06 PM EDT documented as of this encounter Care Teams Coagulating Drying Supervisor Relationship Specialty Start Date End Date Elroy Smith MD [address] [place] [address], [address] [place] [address] [email or web address] PCP - General Internal Medicine 05/07/17 documented as of this encounter Additional Source Comments The information contained in this document represents components of the legal health record. It is not the complete legal health record.[facility]
--- OUTSIDE RECORDS SUMMARY | 2025-05-02 11:56 | XMS_ITS | Clinical Summary ---
Author Organization [facility], Address [address] [place] [phone] Phone Care Team Providers Care Surfboard Designer Name Role Phone Elroy Smith MD Primary Care Provider [phone] Allergies Active Allergy Reactions Criticality Noted Date [...] chronic kidney disease 08/17/2022 Orthostatic hypotension 08/17/2022 Stage 3b chronic kidney disease 11/15/2019 Proteinuria 11/15/2019 Renal disorder due to [...] Encounters Date Type Department Care Team Description 03/02/2025 11:15 AM EDT Office Visit [facility] [place], [address] [place] [address] Nestor Coreas MD Orthostatic hypotension (Primary Dx); Stage 3b chronic kidney disease (HCC); 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> (HCC) 03/02/2025 Documentation Only [facility] [place], [address] [place] [address] Antoinette Keller from Last 3 Months Immunizations Immunization Administration Dates Next Due Influenza Split High Dose Pr eservative Free IM 04/27/2022,04/05/2020,03/08/2017 Influenza TIV (IM) 04/07/2022 Influenza Vaccine, Quadrivalent, Adjuvanted 04/05,04/09/2021 Influenza, Quadrivalent, Preservative Free 02/20 Influenza, Trivalent, Adjuvanted 04/25/2024 Influenza, Unspecified 04/05/2020,04/28/2016,07/2012 Dayana SARS-COV-2 09/14/2020 Moderna SARS-COV-2 05/07/2022 Pfizer SARS-COV-2 05/07/2021,09/14/2020 Pneumococcal Conjugate 13-Valent 08/12/2018,010 07/2016 Pneumococcal Polysaccharide 06/14/2020, 8 SARS-CoV-2, Unspecified 05/07/2021,09/14/2020 Shingrix 04/29/2023,12/28/2022 Tdap 08/12/2018,12/26/2010 Zoster 05/27/2013 Family History Medical History Relation Comments Multiple sclerosis Brother Diabetes Father Gout Father Hypertension Father Relation Status Comments Brother Father Mother Social History Tobacco Use Types Packs/Day Years Used Date Smoking Tobacco: Former Cigarettes 2 30 1 1 - 1987 Cigars Tobacco Cessation:Counseling Given: Not [...] Industry Job Start Date Job End Date [employer] Not on file Not on file Not on file Last Filed Vital Signs Vital Sign Reading Time Taken Comments Blood Pressure 140/72 02/15/2023 11:54 AM EDT Pulse 68 02/15/2023 11:54 AM EDT Temperature 36.7 C (98 F) 12/05/2018 12:00 PM EDT Respiratory Rate 14 [...] Visit [facility] [place], - [address] [facility] [address] [place] [address] Nestor Coreas MD [address] [place] [address] [place] [address] Health Maintenance Due Date Last Done Comments Colorectal Cancer Screening: Annual FOBT 01/04/2001 Colorectal Cancer Screening: Colonoscopy 01/04/2001 Colorectal Cancer Screening: Sigmoidoscopy 01/04/2001 Diabetes: Ophthalmology Exam 09/25/2019 Diabetes: Pedal Pulse Checked 09/25/2019 Diabetes: Sensory Foot Exam 09/25/2019 Diabetes: Visual Foot Exam 09/25/2019 Influenza Vaccine (#1) 2025 4, 04/29/2023, 04/27/2022, Additional history exists Diabetes: Hemoglobin A1C 05/26/2025 025, 11/28/2024, 07/09/2017 Pneumococcal Vaccine: 50+ Years Completed 06/14/2020, 08/12/2018, 07/05/2016, Additional history exists Pneumococcal Vaccine: Peds (0 to 5 Years) and At-Risk Patients (6 to 49 Years) Discontinued 06/14/2020, 08/12/2018, 07/05/2016, Additional history exists Hepatitis B Vaccine Aged Out No longe r eligible based on patient's age to complete this topic Procedures Procedure Name Priority Date/Time Associated Diagnosis Comments LAB INTAKE CLERK Routine 07/09/2017 2:00 PM EST from Last 3 Months or Most Recently Relevant to Health Maintenance Results * (ABNORMAL) Lab Agricultural Commodities Inspector (07/09/2017 2:00 PM EST) Sodium 143 133 [...] 2:00 PM EST us Kctma Conversion LAB [id number] LICITED RESULTS Final Result KCTMA from Last 3 Months or Most Recently Relevant to Health Maintenance Insurance [facility] PPO Zack([id number]) Care Teams Surfboard Designer Relationship Specialty Start Date End Date Elroy Smith MD [address] [place] [address], [address] [place] [address] PCP - General 05/09/19
--- OUTSIDE RECORDS SUMMARY | 2025-05-02 11:56 | XMS_ITS | Encounter Summary ---
Author Organization [facility] [place], Address [address] [place] [address] Phone Care Team Providers Care Roofer Metal Name Role Phone Elroy Smith MD Primary Care Provider [phone] Encounter Details Date Type Department Care Team (Late st Contact Info) Description 08/25/2023 Documentation Only [facility] [address] [place] [address] Antoinette Keller [address] [place] [address] Social History Tobacco Use Types Packs/Day Years Used Date Smoking Tobacco: Former Cigarettes 2 30 1 961 - 1987 Cigars Comments:Smokes 4 cigars a w [place] Currently Alcohol Use Standard Drinks/Week Comments Yes 35 (1 standard drink = 0.6 oz pu re alcohol) 5-6 beers a day Sex and Gender Information Value Date Recorded Sex Assigned at Not on file Legal Sex Male 4:35 PM EST Gender Identity Not on file Sexual Orientation Not on file Occupation Industry Job Start Date Job End Date [employer] Not on file Not on file Not on file documented as of this encounter Plan of Treatment Upcoming Encounters Date Type Department Care Team (Late st Contact Info) Description 08/16/2025 11:00 AM EST Office Visit [facility] [address] [place] [phone] Nestor Coreas MD [address] [place] [address] [place] [address] documented as of this encounter Visit Diagnoses Not on filedocumented in this encounter Care Teams Roofer Metal Relationship Specialty Start Date End Date Elroy Smith MD [address] [place] [address], [address] [place] [address] PCP - General 05/09/19 documented as of this encounter
--- OUTSIDE RECORDS SUMMARY | 2025-05-02 11:56 | XMS_ITS | Encounter Summary ---
Author Organization [facility] [place], Address [address] [place] [address] Phone Care Team Providers Care Manager Flight Operations Name Role Phone Elroy Smith MD Primary Care Provider [phone] Encounter Details Date Type Department Care Team (Late Contact Info) Description 05/31/2020 Orders Only [facility] [place] [facility] [address] [facility] [address] [place] [address] Lety Rubin MD Chronic kidney disease stage [...] Industry Job Start Date Job End Date [employer] [facility] Not on file Not on file Not on file documented as of this encounter Plan of Treatment Upcoming Encounters Date Type Department Care Team (Late st Contact Info) Description 08/16/2025 11:00 AM EST Office Visit [facility] - [address] [place] [phone] Nestor Coreas MD [address] [place] [phone] documented as of this encounter Visit Diagnoses Diagnosis Chronic kidney disease stage 3 (HCC) documented in this encounter Care Teams Manager Flight Operations Relationship Specialty Start Date End Date Elroy Smith MD [address] [place] [address], [address] [place] [address] PCP - General 05/09/19 documented as of this encounter
== END 2025-05-02 10:52 | disposition home or self-care (01) ==
LOC: HO.HCS 09:53
PROVIDERS: PCP Internal Medicine; Visit Provider Internal Medicine Cardiovascular Disease
DX: G90.3 Multi-system degeneration of the autonomic nervous system (principal); I95.1 Orthostatic hypotension
CPT/HCPCS: 93010; 99214

== ENCOUNTER → 2025-05-02 09:53 | Outpatient (BNVA) | payer MEDICARE, SELFPAY | PROVIDERS: PCP Internal Medicine; Visit Provider Internal Medicine Cardiovascular Disease | DX: G90.3 Multi-system degeneration of the autonomic nervous system (principal); I95.1 Orthostatic hypotension | CPT/HCPCS: 93005; 99212 ==